=== PATIENT | male | born 1940 | race Caucasian/White ===

== ENCOUNTER 2017-07-14 12:56 | Inpatient (IN) | payer MEDICARE ==
[2017-07-14 13:25] VITALS: RESP 20
--- NOTE | 2017-07-14 13:48 | C.PDOC ---
History Of Present Illness 76 y/o male with Hx of multiple myeloma presents to ED with complaints of generalized weakness, fatigue and inability to eat. As per patient's Oncologist Dr.Amit Montemayor (tel. [phone]) patient was in remission until 2 months ago. Patient failed radiation therapy and started chemotherapy with Kyprolis. The lst treatment was on 07/10/2017. Patient c/o generalized bone and muscle pain, inability to eat, generalized weakness. Patient denies fever, chills, n/v/d or any other complaints at this time. Chief Complaint (Nursing): Hip Pain History Per: Patient, Other (patient's oncologist Dr.Amit Montemayor) History/Exam Limitations: no limitations Onset/Duration Of Symptoms: Days (2-3) Current Symptoms Are (Timing): Still Present Severity: Moderate Pain Scale Rating Of: 6 Past Medical History Reviewed: Historical Data, Nursing Documentation, Vital Signs Vital Signs: Last Vital Signs Temp 98.1 F 07/14/17 13:23 Pulse 72 07/14/17 15:17 Resp 20 07/14/17 15:17 BP 170/81 H 07/14/17 15:17 Pulse Ox 95 07/14/17 15:19 - Medical History PMH: Diabetes, HTN Other PMH: Multiple Myeloma Family History: States: No Known Family Hx - Social History Hx Alcohol Use: No Hx Substance Use: No - Immunization History Hx Tetanus Toxoid Vaccination: No Hx Influenza Vaccination: No Review Of Systems Except As Marked, All Systems Reviewed And Found Negative. Constitutional: Negative for: Fever, Chills Cardiovascular: Negative for: Chest Pain Gastrointestinal: Negative for: Nausea, Vomiting, Diarrhea Skin: Negative for: Rash Neurological: Positive for: Weakness, Altered Mental Status Physical Exam - Physical Exam Appears: Other (Sick, Lethargic but arouseable, answers question after pause, falling asleep during conversation, but wakes up spontaneously and continues conversation.) Skin: Normal Color, Warm, Dry, No Rash Head: Atraumatic, Normacephalic Eye(s): bilateral: Normal Inspection, PERRL, EOMI Nose: Normal Oral Mucosa: Moist Neck: Normal ROM, Supple Lymphatic: No Adenopathy Chest: Symmetrical Cardiovascular: Rhythm Regular Respiratory: Normal Breath Sounds, No Rales, No Rhonchi, No Wheezing Gastrointestinal/Abdominal: Soft, No Tenderness, No Guarding, No Rebound Extremity: Normal ROM, Tenderness (Diffuse tenderness to hips bilateral), Capillary Refill (<2 seconds), No Deformity Neurological/Psych: Oriented x3, No Normal Speech (slow speech, but clear), Normal Motor, Normal Sensation, Other (Patient falls asleep in between sentences , cannot complete full sentences) ED Course And Treatment - Laboratory Results Result Diagrams: 07/14/17 15:03 07/14/17 15:03 O2 Sat by Pulse Oximetry: 95 (RA) Pulse Ox Interpretation: Normal - Other Rad Chest xray X-Ray: Interpreted by Me, Viewed By Me Interpretation: HISTORY: weakness, AMS. COMPARISON: None available. TECHNIQUE: Chest, one view. FINDINGS: LUNGS: Mild left basilar atelectasis/ infiltrate. Please note that chest x-ray has limited sensitivity for the detection of pulmonary masses. PLEURA: Small left pleural effusion. No definite pneumothorax . CARDIOVASCULAR: Heart size appears top normal. OSSEOUS STRUCTURES: Right anterior 5th rib deformity. Osseous demineralization. Degenerative changes of the spine and shoulders. Acromioclavicular arthropathy. VISUALIZED UPPER ABDOMEN: Unremarkable. OTHER FINDINGS: None. IMPRESSION: Mild left basilar atelectasis/infiltrate. Small left pleural effusion. Right anterior 5th rib deformity. - CT Scan/US Head w/o contrast Other Rad Studies (CT/US): Interpreted By Me, Read By Radiologist CT/US Interpretation: PROCEDURE: CT HEAD WITHOUT CONTRAST. HISTORY: AMS, h/o multiple myeloma. COMPARISON: None available. TECHNIQUE: Axial computed tomography images were obtained through the head/brain without intravenous contrast. Radiation dose: Total exam DLP = 890.95 mGy-cm. This CT exam was performed using one or more of the following dose reduction techniques: Automated exposure control, adjustment of the mA and/or kV according to patient size, and/or use of iterative reconstruction technique. FINDINGS: HEMORRHAGE: No intracranial hemorrhage. BRAIN: Diffuse atrophy with prominence of the ventricles and sulci noted. No mass effect or edema. Scattered periventricular and subcortical white matter hypodensities, which are nonspecific, but often seen with chronic microvascular ischemic disease. Please note that MRI with diffusion imaging is more sensitive in the detection of acute ischemic event. VENTRICLES: No hydrocephalus. CALVARIUM: Unremarkable. PARANASAL SINUSES: Unremarkable as visualized. No significant inflammatory changes. MASTOID AIR CELLS: Unremarkable as visualized. No inflammatory changes. OTHER FINDINGS: None. IMPRESSION: Generalized atrophy. Nonspecific white matter changes. Progress Note: Patient was treated with Rocephin IV and Zithromax IV. Results were discussed with pt's Oncologist who requested to admit patient to Hospitalist service. Case was d/w Hospitalist structural ironworker who accepted patient to his service for admission. Medical Decision Making Medical Decision Making: Dr. Montemayor discussed and obtained additional information on patient Dr. Montemayor request patient be admitted under hospitalist services Plan: * Blood work * EKG * CXR * Head CT Disposition - Disposition Disposition: HOSPITALIZED Disposition Time: 17:21 Condition: FAIR Forms: [employer] (Chilean) - Clinical Impression Clinical Impression: Multiple myeloma in relapse, Hyperglycemia, Pneumonia - Scribe Statement The provider has reviewed the documentation as recorded by the Scribe Etta Cisneros All medical record entries made by the Scribe were at my direction and personally dictated by me. I have reviewed the chart and agree that the record accurately reflects my personal performance of the history, physical exam, medical decision making, and the department course for this patient. I have also personally directed, reviewed, and agree with the discharge instructions and disposition. Decision To Admit - Pt Status Changed To: Hospital Disposition Of: Inpatient - Admit Certification Admit to Inpatient:: After my assessment, the patient will require hospitalization for at least two midnights. This is because of the severity of symptoms shown, intensity of services needed, and/or the medical risk in this patient being treated as an outpatient. - InPatient: Physician Admission Certification: I certify that this patient requires 2 or more midnights of care for the following reason:: Patient will need more than 2 days of IV antibiotics. - . Bed Request Type: Regular Admitting Physician: Darryl Wen Patient Diagnosis: Multiple myeloma in relapse, Hyperglycemia, Pneumonia
[2017-07-14] MEDS ORDERED: Sodium Chloride 0.9% 1,000 ML IV STA ×2 (13:54→15:42)
--- NOTE | 2017-07-14 14:30 | RAD ---
HISTORY: weakness, AMS COMPARISON: None available. TECHNIQUE: Chest, one view. FINDINGS: LUNGS: Mild left basilar atelectasis/infiltrate. Please note that chest x-ray has limited sensitivity for the detection of pulmonary masses. PLEURA: Small left pleural effusion. No definite pneumothorax . CARDIOVASCULAR: Heart size appears top normal. OSSEOUS STRUCTURES: Right anterior 5th rib deformity. Osseous demineralization. Degenerative changes of the spine and shoulders. Acromioclavicular arthropathy. VISUALIZED UPPER ABDOMEN: Unremarkable. OTHER FINDINGS: None. IMPRESSION: Mild left basilar atelectasis/infiltrate. Small left pleural effusion. Right anterior 5th rib deformity.
--- NOTE | 2017-07-14 14:45 | CT ---
PROCEDURE: CT HEAD WITHOUT CONTRAST. HISTORY: AMS, h/o multiple myeloma COMPARISON: None available. TECHNIQUE: Axial computed tomography images were obtained through the head/brain without intravenous contrast. Radiation dose: Total exam DLP = 890.95 mGy-cm. This CT exam was performed using one or more of the following dose reduction techniques: Automated exposure control, adjustment of the mA and/or kV according to patient size, and/or use of iterative reconstruction technique. FINDINGS: HEMORRHAGE: No intracranial hemorrhage. BRAIN: Diffuse atrophy with prominence of the ventricles and sulci noted. No mass effect or edema. Scattered periventricular and subcortical white matter hypodensities, which are nonspecific, but often seen with chronic microvascular ischemic disease. Please note that MRI with diffusion imaging is more sensitive in the detection of acute ischemic event. VENTRICLES: No hydrocephalus. CALVARIUM: Unremarkable. PARANASAL SINUSES: Unremarkable as visualized. No significant inflammatory changes. MASTOID AIR CELLS: Unremarkable as visualized. No inflammatory changes. OTHER FINDINGS: None. IMPRESSION: Generalized atrophy. Nonspecific white matter changes.
[2017-07-14 15:09] LABS: BASO # 0.1 K/uL (0.0-0.2); BASO % 0.7 % (0.0-2.0); EOS # 0.1 K/uL (0.0-0.7); EOS % 0.4 % (0.0-4.0); HEMATOCRIT 30.2 % (35.0-51.0); LYMPH # 0.7 K/uL (1.0-4.3); LYMPH % 5.5 % (20.0-40.0); MEAN CELL VOLUME 83.9 fL (80.0-94.0); MEAN CORPUSCULAR HEMOGLOBIN 26.6 pg (27.0-31.0); MEAN CORPUSCULAR HGB CONC 31.7 g/dL (33.0-37.0); MEAN PLATELET VOLUME 11.5 fL (7.2-11.7); MONO # 0.8 K/uL (0.0-0.8); NRBC % 1.4 % (0.0-2.0); PLATELET COUNT 165 K/uL (130-400); RED CELL DISTRIBUTION WIDTH 16.9 % (11.5-14.5); RETIC% 2.8 % (0.5-1.5); WHITE BLOOD COUNT 12.9 K/uL (4.8-10.8)
[2017-07-14] MEDS ORDERED: Sodium Chloride 0.9% 1,000 ML ONE ×2 (15:09→16:09)
[2017-07-14 15:17] LABS: INR 1.4
[2017-07-14 15:19] LABS: CHLORIDE 101 mmol/L (98-107); SODIUM 137 mmol/L (132-148)
[2017-07-14 15:20] LABS: POTASSIUM 4.4 mmol/L (3.6-5.2)
[2017-07-14 15:21] LABS: AMYLASE 38 U/L (30-110); GFR AFRICAN-AMERICAN > 60
[2017-07-14 15:22] LABS: ALB/GLOB RATIO 0.6 (1.0-2.1); ALKALINE PHOSPHATASE 374 U/L (38-126); ALT/SGPT 49 U/L (21-72); AST/SGOT 25 U/L (17-59); BILIRUBIN,TOTAL 0.6 mg/dL (0.2-1.3); BLOOD UREA NITROGEN 19 mg/dL (9-20); CARBON DIOXIDE 27 mmol/L (22-30); TOTAL PROTEIN 6.7 g/dL (6.3-8.3)
[2017-07-14 15:23] LABS: CALCIUM 8.6 mg/dl (8.6-10.4)
[2017-07-14 15:24] LABS: GLUCOSE,RANDOM 427 mg/dL (75-110)
[2017-07-14] MEDS ORDERED: Azithromycin 500 MG in Sodium Chloride 0.9% 250 ML IVPB STA (15:41)
[2017-07-14 15:42] LABS: NEUTROPHIL 89 % (50-75); NUCLEATED RED BLOOD CELL 1 % (0-0); TOTAL CELLS COUNTED 100
[2017-07-14 16:07] LABS: RBC URINE 10 /hpf (0-3); URINE BILIRUBIN NEGATIVE (NEGATIVE); URINE BLOOD 1+ (NEGATIVE); URINE COLOR Yellow (YELLOW); URINE GLUCOSE (UA) 3+ mg/dL (Normal); URINE KETONE TRACE mg/dL (NEGATIVE); URINE LEUKOCYTE ESTERASE NEG Leu/uL (Negative); URINE PROTEIN 3+ mg/dL (NEGATIVE); URINE UROBILINOGEN NORMAL mg/dL (0.2-1.0); WBC URINE 2 /hpf (0-5)
[2017-07-14] MEDS ORDERED: cefTRIAXone IV 1 gm in Dextros 50 ML IVPB ONE (16:09)
[2017-07-14] MEDS ORDERED: (Novolin R) Insulin Human Regular 100 units/ml vial SC ONE (17:08)
[2017-07-14] MEDS ORDERED: (Novolin R) Insulin Human Regular 100 units/ml vial ONE (17:29)
[2017-07-14] MEDS ORDERED: Azithromycin 500mg/250ML NS 500 MG/250 ML BAG IVPB ONE (17:31)
--- NOTE | 2017-07-14 18:04 | CP.PCM.HP ---
<Haja Beltran - Last Filed: 07/14/17 17:51> History of Present Illness - History of Present Illness History of Present Illness: CC: weakness HPI: 76M PMHx MM diagnosed 2 years ago, HTN and DM presented with generalized weakness, pain and decreased oral intake. Pt daughter at bedside. Per ED note, pt was in remission until 2 months ago, and failed radiation therapy. Pt had a fall in May s/p left hip surgery. Since then pt has worsening generalized weakness and decreased PO intake. Pt was sent to [facility] 2 weeks ago for evaluation. The daughter said he received some blood and had colonoscopy/EGD which turned out to be ok. Pt was discharged and was not getting better. Pt also was started on Kyprolis on 07/10. Currently complains of generalized body pain, increased urination. Denied night sweats, fever, chills, n/v, cough, or other symptoms. PMHx: MM, HTN, DM PSHx: left hip surgery in May FMHx: unknown Social: denied ETOH, tobacco. Moved from [facility] [place] 40 years ago. 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 Private oncologist: Dr. Musa Montemayor Present on Admission - Present on Admission Any Indicators Present on Admission: Yes History of Uncontrolled Diabetes: Yes Review of Systems - Constitutional Constitutional: Anorexia, Weakness. absent: Excessive Sweating - Cardiovascular Cardiovascular: absent: Chest Pain, Leg Edema, Pedal Edema - Respiratory Respiratory: absent: Dyspnea on Exertion - Gastrointestinal Gastrointestinal: Abdominal Pain. absent: Constipation, Diarrhea, Nausea, Vomiting - Genitourinary Genitourinary: Urinary Frequency. absent: Dysuria, Pyuria - Musculoskeletal Musculoskeletal: Muscle Weakness - Psychiatric Psychiatric: absent: Anxiety Past Patient History - Past Social History Smoking Status: Never Smoked - CARDIAC Hx Hypertension: Yes - ENDOCRINE/METABOLIC Hx Diabetes Mellitus Type 2: Yes - HEMATOLOGICAL/ONCOLOGICAL Hx Cancer: Yes (multiple myeloma) - PSYCHIATRIC Hx Substance Use: No - ANESTHESIA Hx Anesthesia: No Hx Anesthesia Reactions: No Meds Allergies/Adverse Reactions: Allergies Allergy/AdvReac Type Severity Reaction Status Date / Time No Known Allergies Allergy Verified 07/14/17 13:32 Physical Exam - Constitutional Appears: Non-toxic, No Acute Distress, Chronically Ill - Head Exam Head Exam: ATRAUMATIC - Eye Exam Eye Exam: Normal appearance Pupil Exam: NORMAL ACCOMODATION - Respiratory Exam Respiratory Exam: Clear to Auscultation Bilateral, NORMAL BREATHING PATTERN. absent: Rhonchi, Wheezes - Cardiovascular Exam Cardiovascular Exam: REGULAR RHYTHM, +S1, +S2. absent: Gallop, Rubs - GI/Abdominal Exam GI & Abdominal Exam: Normal Bowel Sounds, Soft. absent: Distended, Tenderness - Extremities Exam Extremities exam: Positive for: tenderness, pedal pulses present. Negative for : pedal edema - Back Exam Additional comments: Unable to move LLE due to pain - Neurological Exam Neurological exam: Alert, Oriented x3 - Psychiatric Exam Psychiatric exam: Normal Affect - Skin Skin Exam: Intact Results - Vital Signs Recent Vital Signs: Last Vital Signs Temp 98.1 F 07/14/17 13:23 Pulse 72 07/14/17 15:17 Resp 20 07/14/17 15:17 BP 170/81 H 07/14/17 15:17 Pulse Ox 95 07/14/17 17:23 - Labs Result Diagrams: 07/14/17 15:03 07/14/17 15:03 Assessment & Plan - Assessment and Plan (Free Text) Assessment: Leukocytosis Likely secondary to MM or infection. CXR showed small left pleural effusion and right 5th rib deformity per report. Heme/onc Dr. Serrano consulted, help appreciated. Continue Zithromax and Rocephin. NS at 100ml/hr. F/U blood culture. Urinary frequency UA showed 1+ blood, 3+ protein and glucose. F/U urine culture. Multiple Myeloma Morphine 2mg q4H PRN. Oxycodone 5mg PO q6 PRN. Heme/onc Dr. Serrano consulted, help appreciated. HTN Continue home med Norvasc 10mg PO daily. DM PAUL Guzman. Home oral meds on hold. Lantus 10U HS. NS @ 100ml/hr. F/U HbA1c. Prophylactic measure SCD, Protonix, Lovenox. <Musa Palomares - Last Filed: 08/18/17 15:40> Results - Vital Signs Recent Vital Signs: Last Vital Signs Temp 98.9 F 07/17/17 15:00 Pulse 95 H 07/17/17 15:00 Resp 20 07/17/17 15:00 BP 165/83 H 07/17/17 15:00 Pulse Ox 96 07/17/17 15:00 - Labs Result Diagrams: 07/17/17 13:58 07/17/17 13:58 Attending/Attestation - Attestation I have personally seen and examined this patient.: Yes I have fully participated in the care of the patient.: Yes I have reviewed all pertinent clinical information: Yes Notes (Text): Leukocytosis possible to MM or infection Urinary frequency Multiple Myeloma HTN
[2017-07-14] MEDS ORDERED: oxyCODONE 5 mg Immediate Release Tab PO PRN (18:46)
[2017-07-14] MEDS ORDERED: (Novolin R) Insulin Human Regular 100 units/ml vial IV ONE (20:08)
[2017-07-14] MEDS: Sodium Chloride 0.9% 1,000 ML IV SCH (20:08)
[2017-07-14] MEDS: (Lantus) Insulin Glargine, Recombinant SC SCH (22:15)
[2017-07-14] MEDS: (Novolin R) Insulin Human Regular 100 units/ml vial SC SCH (22:15)
[2017-07-15] MEDS: Sodium Chloride 0.9% 1,000 ML IV SCH ×2 (07:42→22:38)
[2017-07-15] MEDS: (Novolin R) Insulin Human Regular 100 units/ml vial SC SCH ×4 (08:07→22:37)
[2017-07-15] MEDS: Pantoprazole 40 mg EC Tab PO SCH (09:13)
[2017-07-15] MEDS: Enoxaparin 40 mg Syringe SC SCH (09:13)
[2017-07-15] MEDS: Azithromycin 500 MG in Sodium Chloride 0.9% 250 ML IVPB SCH (09:13)
[2017-07-15 17:20] LABS: BASO % 0.2 % (0.0-2.0); EOS # 0.1 K/uL (0.0-0.7); EOS % 1.1 % (0.0-4.0); HEMATOCRIT 32.1 % (35.0-51.0); LYMPH # 0.9 K/uL (1.0-4.3); LYMPH % 8.2 % (20.0-40.0); MEAN CORPUSCULAR HEMOGLOBIN 26.6 pg (27.0-31.0); MEAN CORPUSCULAR HGB CONC 31.7 g/dL (33.0-37.0); MEAN PLATELET VOLUME 10.9 fL (7.2-11.7); MONO # 0.9 K/uL (0.0-0.8); MONO % 7.5 % (0.0-10.0); NRBC % 0.3 % (0.0-2.0); PLATELET COUNT 166 K/uL (130-400); RED CELL DISTRIBUTION WIDTH 17.2 % (11.5-14.5); WHITE BLOOD COUNT 11.5 K/uL (4.8-10.8)
--- NOTE | 2017-07-15 17:27 | RAD ---
HISTORY: Follow up CXR COMPARISON: Comparison chest dated 07/14/2017 FINDINGS: LUNGS: There is a left lower lobe atelectasis and or infiltrate with questionable small left effusion. Suspect mild biapical pleural thickening. PLEURA: As above. No pneumothorax apparent. CARDIOVASCULAR: Heart appears upper limits of normal/ borderline enlarged. Aorta also appears ectatic and uncoiled. OSSEOUS STRUCTURES: No change deformity right anterior rib; rule sequela of old trauma. Degenerative osteoarthritis both shoulder girdles. Mild degenerative spondylosis thoracic spine VISUALIZED UPPER ABDOMEN: Normal. OTHER FINDINGS: None. IMPRESSION: Left lower lobe atelectasis and or infiltrate with questionable small effusion.
[2017-07-15 17:29] LABS: CHLORIDE 104 mmol/L (98-107); POTASSIUM 3.6 mmol/L (3.6-5.2); SODIUM 135 mmol/L (132-148)
[2017-07-15 17:31] LABS: GFR AFRICAN-AMERICAN > 60
[2017-07-15 17:32] LABS: ALB/GLOB RATIO 0.6 (1.0-2.1); ALKALINE PHOSPHATASE 418 U/L (38-126); ALT/SGPT 45 U/L (21-72); AST/SGOT 24 U/L (17-59); BILIRUBIN,TOTAL 0.6 mg/dL (0.2-1.3); BLOOD UREA NITROGEN 13 mg/dL (9-20); CALCIUM 7.9 mg/dl (8.6-10.4); CARBON DIOXIDE 24 mmol/L (22-30); GLUCOSE,RANDOM 227 mg/dL (75-110); TOTAL PROTEIN 6.5 g/dL (6.3-8.3)
[2017-07-15 19:30] LABS: NEUTROPHIL 86 % (50-75); TOTAL CELLS COUNTED 100
[2017-07-15 19:31] LABS: GIANT PLATELETS PRESENT
--- NOTE | 2017-07-15 20:36 | CP.PCM.PN ---
<Gregory Casillas - Last Filed: 07/15/17 20:33> Subjective - Date & Time of Evaluation Date of Evaluation: 07/15/17 Time of Evaluation: 20:34 - Subjective Subjective: PGY-[address] Palomares HPI: Patient seen and examined at bedside. Confused. Not able to answer questions appropriately. Keeps saying there is pain over his L. hip. Does not have any other complaints at this time. Denies CP, SOB, N/V/D, F/Chills Objective - Vital Signs/Intake and Output Vital Signs (last 24 hours): Temp Pulse Resp BP Pulse Ox 97 F L 77 20 152/86 H 96 07/15/17 15:00 07/15/17 15:00 07/15/17 15:00 07/15/17 15:00 07/15/17 15:00 Intake and Output: 07/15/17 07/16/17 18:59 06:59 Intake Total 920 Output Total 600 Balance 320 - Medications Medications: Current Medications Amlodipine Besylate (Norvasc) 10 mg PO DAILY [facility] Last Admin: 07/15/17 09:13 Dose: 10 mg Aspirin (Aspirin Chewable) 81 mg PO DAILY [facility] Last Admin: 07/15/17 09:13 Dose: 81 mg Enoxaparin Sodium (Lovenox) 40 mg SC DAILY [facility] Last Admin: 07/15/17 09:13 Dose: 40 mg Gabapentin (Neurontin) 300 mg PO BID [facility] Last Admin: 07/15/17 17:26 Dose: 300 mg Sodium Chloride (Sodium Chloride 0.9%) 1,000 mls @ 100 mls/hr IV .Q10H [facility] Last Admin: 07/15/17 07:42 Dose: Not Given Azithromycin 500 mg/ Sodium (Chloride) 250 mls @ 250 mls/hr IVPB DAILY [facility] Last Admin: 07/15/17 09:13 Dose: 250 mls/hr Ceftriaxone Sodium 1 gm/ (Sodium Chloride) 100 mls @ 100 mls/hr IVPB Q12H [facility] Last Admin: 07/15/17 16:12 Dose: 100 mls/hr Insulin Glargine (Lantus) 10 unit SC HS [facility] Last Admin: 07/14/17 22:15 Dose: 10 units Insulin Human Regular (Novolin R) 0 unit SC ACHS [facility] PRN Reason: Protocol Last Admin: 07/15/17 17:27 Dose: 4 unit Morphine Sulfate (Morphine) 2 mg IVP Q4H PRN PRN Reason: severe pain Last Admin: 07/15/17 09:28 Dose: 2 mg Oxycodone HCl (Oxycodone Immediate Release Tab) 5 mg PO Q6 PRN PRN Reason: moderate pain Pantoprazole Sodium (Protonix Ec Tab) 40 mg PO DAILY [facility] Last Admin: 07/15/17 09:13 Dose: 40 mg - Labs Labs: 07/15/17 16:59 07/15/17 16:59 PT 15.8 SECONDS (9.7-12.2) H 07/14/17 15:03 INR 1.4 07/14/17 15:03 APTT 32 SECONDS (21-34) 07/14/17 15:03 - Constitutional Appears: Cachectic - Head Exam Head Exam: ATRAUMATIC, NORMAL INSPECTION, NORMOCEPHALIC - Eye Exam Eye Exam: EOMI - ENT Exam ENT Exam: Mucous Membranes Moist - Neck Exam Neck Exam: Full ROM - Respiratory Exam Respiratory Exam: Clear to Ausculation Bilateral, NORMAL BREATHING PATTERN - Cardiovascular Exam Cardiovascular Exam: REGULAR RHYTHM. absent: RRR - GI/Abdominal Exam GI & Abdominal Exam: Soft, Normal Bowel Sounds. absent: Distended, Tenderness - Extremities Exam Extremities Exam: absent: Joint Swelling, Pedal Edema, Tenderness Additional comments: pain on palpation over L. Hip - Neurological Exam Neurological Exam: Alert, Awake Additional comments: confused - Psychiatric Exam Psychiatric exam: Normal Affect, Normal Mood - Skin Skin Exam: Dry, Intact, Normal Color, Warm Assessment and Plan - Assessment and Plan (Free Text) Assessment: Leukocytosis Likely secondary to MM or infection. CXR showed small left pleural effusion and right 5th rib deformity per report. Heme/onc Dr. Serrano consulted, help appreciated. Continue Zithromax and Rocephin. NS at 100ml/hr. F/U blood culture. Urinary frequency UA showed 1+ blood, 3+ protein and glucose. F/U urine culture. Multiple Myeloma Morphine 2mg q4H PRN. Oxycodone 5mg PO q6 PRN. Heme/onc Dr. Serrano consulted, help appreciated. HTN Continue home med Norvasc 10mg PO daily. DM Accucheck, RISS. Home oral meds on hold. Lantus 10U HS. NS @ 100ml/hr. HbA1c = 9.5 Prophylactic measure SCD, Protonix, Lovenox. 07/15/17: Patient refused blood work for most of day before agreeing in the afternoon. Patient needs outpatient rehab. Will continue abx <Musa Palomares - Last Filed: 08/18/17 15:41> Objective - Vital Signs/Intake and Output Vital Signs (last 24 hours): Temp Pulse Resp BP Pulse Ox 98.9 F 95 H 20 165/83 H 96 07/17/17 15:00 07/17/17 15:00 07/17/17 15:00 07/17/17 15:00 07/17/17 15:00 - Labs Labs: 07/17/17 13:58 07/17/17 13:58 PT 15.8 SECONDS (9.7-12.2) H 07/14/17 15:03 INR 1.4 07/14/17 15:03 APTT 32 SECONDS (21-34) 07/14/17 15:03 Attending/Attestation - Attestation I have personally seen and examined this patient.: Yes I have fully participated in the care of the patient.: Yes I have reviewed all pertinent clinical information, including history, physical exam and plan: Yes Notes (Text): Leukocytosis possible to MM or infection Urinary frequency Multiple Myeloma HTN
[2017-07-15] MEDS: (Lantus) Insulin Glargine, Recombinant SC SCH (22:36)
[2017-07-16] MEDS: Sodium Chloride 0.9% 1,000 ML IV SCH ×4 (00:14→23:45)
[2017-07-16] MEDS: (Novolin R) Insulin Human Regular 100 units/ml vial SC SCH ×4 (08:13→21:37)
[2017-07-16] MEDS: Pantoprazole 40 mg EC Tab PO SCH (10:20)
[2017-07-16] MEDS: Enoxaparin 40 mg Syringe SC SCH (10:20)
[2017-07-16] MEDS: Azithromycin 500 MG in Sodium Chloride 0.9% 250 ML IVPB SCH (10:25)
--- NOTE | 2017-07-16 17:05 | CP.PCM.PN ---
<Gregory Casillas - Last Filed: 07/16/17 16:49> Subjective - Date & Time of Evaluation Date of Evaluation: 07/16/17 Time of Evaluation: 16:49 - Subjective Subjective: PGY1 Note for Dr. Palomares HPI: Patient seen and examined at bedside. Doing well with no complaints at this time. His hip feels much better. He wants to go home. Denies Fever, N/V/D/ CP/SOB. Objective - Vital Signs/Intake and Output Vital Signs (last 24 hours): Temp Pulse Resp BP Pulse Ox 98 F 88 20 169/87 H 96 07/16/17 15:00 07/16/17 15:00 07/16/17 15:00 07/16/17 15:00 07/16/17 15:00 Intake and Output: 07/16/17 07/16/17 06:59 18:59 Intake Total 1950 1090 Output Total 350 400 Balance 1600 690 - Medications Medications: Current Medications Amlodipine Besylate (Norvasc) 10 mg PO DAILY [facility] Last Admin: 07/16/17 10:20 Dose: 10 mg Aspirin (Aspirin Chewable) 81 mg PO DAILY [facility] Last Admin: 07/16/17 10:20 Dose: 81 mg Enoxaparin Sodium (Lovenox) 40 mg SC DAILY [facility] Last Admin: 07/16/17 10:20 Dose: 40 mg Gabapentin (Neurontin) 300 mg PO BID [facility] Last Admin: 07/16/17 10:20 Dose: 300 mg Hydrochlorothiazide (Microzide) 12.5 mg PO DAILY [facility] Last Admin: 07/16/17 10:25 Dose: 12.5 mg Sodium Chloride (Sodium Chloride 0.9%) 1,000 mls @ 100 mls/hr IV .Q10H [facility] Last Admin: 07/16/17 10:23 Dose: 100 mls/hr Azithromycin 500 mg/ Sodium (Chloride) 250 mls @ 250 mls/hr IVPB DAILY [facility] Last Admin: 07/16/17 10:25 Dose: 250 mls/hr Ceftriaxone Sodium 1 gm/ (Sodium Chloride) 100 mls @ 100 mls/hr IVPB Q12H [facility] Last Admin: 07/16/17 16:44 Dose: 100 mls/hr Insulin Glargine (Lantus) 10 unit SC HS [facility] Last Admin: 07/15/17 22:36 Dose: 10 units Insulin Human Regular (Novolin R) 0 unit SC ACHS [facility] PRN Reason: Protocol Last Admin: 07/16/17 12:31 Dose: 4 unit Morphine Sulfate (Morphine) 2 mg IVP Q4H PRN PRN Reason: severe pain Last Admin: 07/16/17 06:37 Dose: 2 mg Oxycodone HCl (Oxycodone Immediate Release Tab) 5 mg PO Q6 PRN PRN Reason: moderate pain Pantoprazole Sodium (Protonix Ec Tab) 40 mg PO DAILY [facility] Last Admin: 07/16/17 10:20 Dose: 40 mg - Labs Labs: 07/15/17 16:59 07/15/17 16:59 PT 15.8 SECONDS (9.7-12.2) H 07/14/17 15:03 INR 1.4 07/14/17 15:03 APTT 32 SECONDS (21-34) 07/14/17 15:03 - Constitutional Appears: Well, Non-toxic, No Acute Distress - Head Exam Head Exam: ATRAUMATIC, NORMAL INSPECTION, NORMOCEPHALIC - Eye Exam Eye Exam: EOMI - ENT Exam ENT Exam: Mucous Membranes Moist - Respiratory Exam Respiratory Exam: Clear to Ausculation Bilateral. absent: Rales, Rhonchi, Wheezes, Stridor - Cardiovascular Exam Cardiovascular Exam: REGULAR RHYTHM, RRR. absent: Tachycardia, Clicks, Gallop, JVD, Rubs, Murmur - GI/Abdominal Exam GI & Abdominal Exam: Soft, Normal Bowel Sounds. absent: Distended, Tenderness - Extremities Exam Extremities Exam: absent: Joint Swelling, Pedal Edema, Tenderness - Psychiatric Exam Psychiatric exam: Normal Affect, Normal Mood - Skin Skin Exam: Dry, Intact, Normal Color, Warm Assessment and Plan - Assessment and Plan (Free Text) Assessment: Leukocytosis Likely secondary to MM or infection. CXR showed small left pleural effusion and right 5th rib deformity per report. Heme/onc consulted * F/U Continue Zithromax and Rocephin. NS at 100ml/hr. F/U blood culture Urinary frequency UA showed 1+ blood, 3+ protein and glucose. urine culture - Contaminated Multiple Myeloma Morphine 2mg q4H PRN. Oxycodone 5mg PO q6 PRN. Heme/onc Dr. Serrano consulted - F/U HTN Continue home med Norvasc 10mg PO daily. DM Accucheck, RISS. Home oral meds on hold. Lantus 10U HS. NS @ 100ml/hr. HbA1c = 9.5 Prophylactic measure SCD, Protonix, Lovenox. 07/15/17: Patient refused blood work for most of day before agreeing in the afternoon. Patient needs outpatient rehab. Will continue abx 07/16/17: Patient Doing well. Will D/c tomorrow to Rehab <Musa Palomares - Last Filed: 08/18/17 15:41> Objective - Vital Signs/Intake and Output Vital Signs (last 24 hours): Temp Pulse Resp BP Pulse Ox 98.9 F 95 H 20 165/83 H 96 07/17/17 15:00 07/17/17 15:00 07/17/17 15:00 07/17/17 15:00 07/17/17 15:00 - Labs Labs: 07/17/17 13:58 07/17/17 13:58 PT 15.8 SECONDS (9.7-12.2) H 07/14/17 15:03 INR 1.4 07/14/17 15:03 APTT 32 SECONDS (21-34) 07/14/17 15:03 Attending/Attestation - Attestation I have personally seen and examined this patient.: Yes I have fully participated in the care of the patient.: Yes I have reviewed all pertinent clinical information, including history, physical exam and plan: Yes Notes (Text): Leukocytosis possible to MM or infection Urinary frequency Multiple Myeloma HTN
[2017-07-16] MEDS ORDERED: Ferric Sodium Gluconat Complex 62.5 mg/5 ml Vial IVPB ONE (18:32)
--- NOTE | 2017-07-16 18:32 | CP.PCM.CON ---
History of Present Illness - History of Present Illness History of Present Illness: Hematology Consult Referred by Dr. Palomares for h/o multiple myeloma HPI- Mr Jarquin is known to my partner, Dr. Montemayor. He is 76 y/o M with h/o HTN, DM who was diagnosed with multiple myeloma early 2015. He has been treated with different lines of therapy, last treatment was with Kyprolis, last dose on . He was admitted now with weakness and decreased oral intake. He had mild leucocytosis on admission and CXR shows mild left lower lobe infiltrate. He was started on antibiotics and feels better now. Denies fever, chills. Denies altered bowel movements. FMHx: unknown Social: denied ETOH, tobacco. Moved from [facility] 40 years ago. 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 Review of Systems - Review of Systems All systems: reviewed and no additional remarkable complaints except Review of Systems: as in HPI Past Patient History - Past Medical History & Family History Past Medical History?: Yes - Past Social History Smoking Status: Never Smoked - CARDIAC Hx Hypertension: Yes - ENDOCRINE/METABOLIC Hx Diabetes Mellitus Type 2: Yes - HEMATOLOGICAL/ONCOLOGICAL Hx Cancer: Yes (multiple myeloma) - MUSCULOSKELETAL/RHEUMATOLOGICAL Hx Falls: No - PSYCHIATRIC Hx Substance Use: No - ANESTHESIA Hx Anesthesia: No Hx Anesthesia Reactions: No Meds Allergies/Adverse Reactions: Allergies Allergy/AdvReac Type Severity Reaction Status Date / Time No Known Allergies Allergy Verified 07/14/17 13:32 - Medications Medications: Current Medications Amlodipine Besylate (Norvasc) 10 mg PO DAILY [facility] Last Admin: 07/16/17 10:20 Dose: 10 mg Aspirin (Aspirin Chewable) 81 mg PO DAILY [facility] Last Admin: 07/16/17 10:20 Dose: 81 mg Enoxaparin Sodium (Lovenox) 40 mg SC DAILY [facility] Last Admin: 07/16/17 10:20 Dose: 40 mg Gabapentin (Neurontin) 300 mg PO BID [facility] Last Admin: 07/16/17 17:35 Dose: 300 mg Hydrochlorothiazide (Microzide) 12.5 mg PO DAILY [facility] Last Admin: 07/16/17 10:25 Dose: 12.5 mg Sodium Chloride (Sodium Chloride 0.9%) 1,000 mls @ 100 mls/hr IV .Q10H [facility] Last Admin: 07/16/17 10:23 Dose: 100 mls/hr Azithromycin 500 mg/ Sodium (Chloride) 250 mls @ 250 mls/hr IVPB DAILY [facility] Last Admin: 07/16/17 10:25 Dose: 250 mls/hr Ceftriaxone Sodium 1 gm/ (Sodium Chloride) 100 mls @ 100 mls/hr IVPB Q12H [facility] Last Admin: 07/16/17 16:44 Dose: 100 mls/hr Insulin Glargine (Lantus) 10 unit SC HS [facility] Last Admin: 07/15/17 22:36 Dose: 10 units Insulin Human Regular (Novolin R) 0 unit SC ACHS [facility] PRN Reason: Protocol Last Admin: 07/16/17 17:35 Dose: 4 unit Morphine Sulfate (Morphine) 2 mg IVP Q4H PRN PRN Reason: severe pain Last Admin: 07/16/17 17:34 Dose: 2 mg Oxycodone HCl (Oxycodone Immediate Release Tab) 5 mg PO Q6 PRN PRN Reason: moderate pain Pantoprazole Sodium (Protonix Ec Tab) 40 mg PO DAILY [facility] Last Admin: 07/16/17 10:20 Dose: 40 mg Physical Exam - Head Exam Head Exam: ATRAUMATIC, NORMAL INSPECTION - Eye Exam Eye Exam: EOMI, PERRL - ENT Exam ENT Exam: Mucous Membranes Moist - Neck Exam Neck exam: Negative for: Lymphadenopathy - Respiratory Exam Respiratory Exam: Clear to Auscultation Bilateral - Cardiovascular Exam Cardiovascular Exam: REGULAR RHYTHM - GI/Abdominal Exam GI & Abdominal Exam: Normal Bowel Sounds, Soft. absent: Organomegaly, Tenderness - Extremities Exam Extremities exam: Negative for: pedal edema - Neurological Exam Neurological exam: Alert, Oriented x3 Results - Vital Signs Recent Vital Signs: Last Vital Signs Temp 98 F 07/16/17 15:00 Pulse 88 07/16/17 15:00 Resp 20 07/16/17 15:00 BP 169/87 H 07/16/17 15:00 Pulse Ox 96 07/16/17 15:00 - Labs Result Diagrams: 07/15/17 16:59 07/15/17 16:59 Labs: Laboratory Results - last 24 hr 07/15/17 07/15/17 07/16/17 16:59 21:44 07:00 Neutrophils % (Manual) 86 H Lymphocytes % (Manual) 8 L Monocytes % (Manual) 6 Platelet Estimate Normal Giant Platelets Present Anisocytosis (manual) Slight POC Glucose (mg/dL) 228 H 234 H 07/16/17 07/16/17 11:04 16:21 Neutrophils % (Manual) Lymphocytes % (Manual) Monocytes % (Manual) Platelet Estimate Giant Platelets Anisocytosis (manual) POC Glucose (mg/dL) 267 H 255 H Assessment & Plan - Assessment and Plan (Free Text) Assessment: Multiple Myeloma He will resume treatment with Kyprolis at discharge. Will give him a dose of IV iron Continue management of pneumonia as per medical team. Physical therapy/ rehab Thank you for the consult Leandro Serrano MD - Date & Time Date: 07/16/17 Time: 18:31
[2017-07-16] MEDS: (Lantus) Insulin Glargine, Recombinant SC SCH (21:36)
[2017-07-17 07:45] VITALS: BP 165/83
[2017-07-17] MEDS: (Novolin R) Insulin Human Regular 100 units/ml vial SC SCH ×4 (08:21→22:08)
[2017-07-17] MEDS: Pantoprazole 40 mg EC Tab PO SCH (10:24)
[2017-07-17] MEDS: Azithromycin 500 MG in Sodium Chloride 0.9% 250 ML IVPB SCH (10:24)
[2017-07-17] MEDS: Enoxaparin 40 mg Syringe SC SCH (10:24)
--- NOTE | 2017-07-17 12:22 | CP.PCM.DIS ---
<Gregory Casillas - Last Filed: 07/17/17 20:23> Provider - Provider Date of Admission: 07/14/17 17:06 Attending physician: Musa Palomares MD Primary care physician: Maggie Consults: Maggie Time Spent in preparation of Discharge (in minutes): 60 Hospital Course - Lab Results Lab Results: Micro Results 07/14/17 Unknown Urine Urine Culture - Final 10-50,000 CFU/ML. MULTIPLE SPECIES. PROBABLE CONTAMINATION. Most Recent Lab Values WBC 11.5 K/uL (4.8-10.8) H 07/15/17 16:59 RBC 3.82 Mil/uL (4.40-5.90) L 07/15/17 16:59 Hgb 10.2 g/dL (12.0-18.0) L 07/15/17 16:59 Hct 32.1 % (35.0-51.0) L 07/15/17 16:59 MCV 84.0 fL (80.0-94.0) 07/15/17 16:59 MCH 26.6 pg (27.0-31.0) L 07/15/17 16:59 MCHC 31.7 g/dL (33.0-37.0) L 07/15/17 16:59 RDW 17.2 % (11.5-14.5) H 07/15/17 16:59 Plt Count 166 K/uL (130-400) 07/15/17 16:59 MPV 10.9 fL (7.2-11.7) 07/15/17 16:59 Neut % (Auto) 83.0 % (50.0-75.0) H 07/15/17 16:59 Lymph % (Auto) 8.2 % (20.0-40.0) L 07/15/17 16:59 Stanley % (Auto) 7.5 % (0.0-10.0) 07/15/17 16:59 Eos % (Auto) 1.1 % (0.0-4.0) 07/15/17 16:59 Baso % (Auto) 0.2 % (0.0-2.0) 07/15/17 16:59 Neut # 9.5 K/uL (1.8-7.0) H 07/15/17 16:59 Lymph # 0.9 K/uL (1.0-4.3) L 07/15/17 16:59 Stanley # 0.9 K/uL (0.0-0.8) H 07/15/17 16:59 Eos # 0.1 K/uL (0.0-0.7) 07/15/17 16:59 Baso # 0.0 K/uL (0.0-0.2) 07/15/17 16:59 Neutrophils % (Manual) 86 % (50-75) H 07/15/17 16:59 Lymphocytes % (Manual) 8 % (20-40) L 07/15/17 16:59 Monocytes % (Manual) 6 % (0-10) 07/15/17 16:59 Nucleated RBC % 1 % (0-0) H 07/14/17 15:03 Platelet Estimate Normal (NORMAL) 07/15/17 16:59 Giant Platelets Present 07/15/17 16:59 Polychromasia Slight 07/14/17 15:03 Hypochromasia (manual) Slight 07/14/17 15:03 Anisocytosis (manual) Slight 07/15/17 16:59 Retic Count 2.8 % (0.5-1.5) H 07/14/17 15:03 PT 15.8 SECONDS (9.7-12.2) H 07/14/17 15:03 INR 1.4 07/14/17 15:03 APTT 32 SECONDS (21-34) 07/14/17 15:03 Sodium 135 mmol/L (132-148) 07/15/17 16:59 Potassium 3.6 mmol/L (3.6-5.2) 07/15/17 16:59 Chloride 104 mmol/L (98-107) 07/15/17 16:59 Carbon Dioxide 24 mmol/L (22-30) 07/15/17 16:59 Anion Gap 10 (10-20) 07/15/17 16:59 BUN 13 mg/dL (9-20) 07/15/17 16:59 Creatinine 0.6 MG/DL (0.8-1.5) L 07/15/17 16:59 Est GFR ( Amer) > 60 07/15/17 16:59 Est GFR (Non-Af Amer) > 60 07/15/17 16:59 POC Glucose (mg/dL) 332 mg/dL (65-110) H 07/17/17 11:11 Random Glucose 227 mg/dL (75-110) H 07/15/17 16:59 Hemoglobin A1c 9.5 % (4.2-6.5) H 07/15/17 16:59 Calcium 7.9 mg/dl (8.6-10.4) L 07/15/17 16:59 Magnesium 2.0 mg/dL (1.6-2.3) 07/14/17 15:03 Total Bilirubin 0.6 mg/dL (0.2-1.3) 07/15/17 16:59 AST 24 U/L (17-59) 07/15/17 16:59 ALT 45 U/L (21-72) 07/15/17 16:59 Alkaline Phosphatase 418 U/L (38-126) H 07/15/17 16:59 Total Creatine Kinase 22 U/L (55-170) L 07/14/17 15:03 CK-MB (Mass) 0.32 ng/mL (0.0-3.38) 07/14/17 15:03 Troponin I 0.0400 ng/mL (0.00-0.120) 07/14/17 15:03 Total Protein 6.5 g/dL (6.3-8.3) 07/15/17 16:59 Albumin 2.4 g/dL (3.5-5.0) L 07/15/17 16:59 Globulin 4.1 gm/dL (2.2-3.9) H 07/15/17 16:59 Albumin/Globulin Ratio 0.6 (1.0-2.1) L 07/15/17 16:59 Amylase 38 U/L (30-110) 07/14/17 15:03 Lipase 23 U/L (23-300) 07/14/17 15:03 Urine Color Yellow (YELLOW) 07/14/17 15:57 Urine Clarity Clear (Clear) 07/14/17 15:57 Urine pH 7.0 (5.0-8.0) 07/14/17 15:57 Ur Specific [place] 1.023 (1.003-1.030) 07/14/17 15:57 Urine Protein 3+ mg/dL (NEGATIVE) H 07/14/17 15:57 Urine Glucose (UA) 3+ mg/dL (Normal) H 07/14/17 15:57 Urine Ketones Trace mg/dL (NEGATIVE) 07/14/17 15:57 Urine Blood 1+ (NEGATIVE) H 07/14/17 15:57 Urine Nitrate Negative (NEGATIVE) 07/14/17 15:57 Urine Bilirubin Negative (NEGATIVE) 07/14/17 15:57 Urine Urobilinogen Normal mg/dL (0.2-1.0) 07/14/17 15:57 Ur Leukocyte Esterase Neg Hillary/uL (Negative) 07/14/17 15:57 Urine WBC (Auto) 2 /hpf (0-5) 07/14/17 15:57 Urine RBC (Auto) 10 /hpf (0-3) H 07/14/17 15:57 Blood Type O POSITIVE 07/15/17 16:59 Antibody Screen Negative 07/15/17 16:59 - Hospital Course Hospital Course: 76M PMHx MM diagnosed 2 years ago, HTN and DM presented with generalized weakness, pain and decreased oral intake. Pt daughter at bedside. Per ED note, pt was in remission until 2 months ago, and failed radiation therapy. Pt had a fall in May s/p left hip surgery. Since then pt has worsening generalized weakness and decreased PO intake. Pt was sent to [facility] 2 weeks ago for evaluation. The daughter said he received some blood and had colonoscopy/EGD which turned out to be ok. Pt was discharged and was not getting better. Pt also was started on Kyprolis on 07/10. Currently complains of generalized body pain, increased urination. Denied night sweats, fever, chills, n/v, cough, or other symptoms.] 76 year old male presented to the ED with generalized weakness, fatigue, and inability to eat on 07/14/17. Chest X ray performed in ED and showed mild left basilar atelectasis/infiltrate and small left pleural effusion. CT scan performed in ED and showed generalized brain atrophy with prominence of the ventricles and sulci. EKG performed and showed sinus rhythm with occasional PVCs and premature atrial complexes, ST and T waves abnormalities, prolonged QT. Patient admitted on 07/14/[address] Wen due to severity of symptoms. Patient seen by Dr. Beltran at bedside on 07/14/17 who determined pt had leukocytosis likely secondary to MM or infection. Repeat CXR done on 07/15/17 and showed lower lobe atelectasis or infiltrate. Patient refused blood work. Patient requires outpatient rehab. - Date & Time of H&P Date of H&P: 07/14/17 Time of H&P: 17:51 Discharge Exam - Head Exam Head Exam: ATRAUMATIC, NORMAL INSPECTION - Eye Exam Eye Exam: EOMI - ENT Exam ENT Exam: Mucous Membranes Moist - Respiratory Exam Respiratory Exam: NORMAL BREATHING PATTERN. absent: Wheezes, Stridor - Cardiovascular Exam Cardiovascular Exam: REGULAR RHYTHM - GI/Abdominal Exam GI & Abdominal Exam: Normal Bowel Sounds, Soft. absent: Distended, Tenderness - Extremities Exam Additional comments: L. Hip tender to palpation but ,much improved - Neurological Exam Neurological exam: Alert - Skin Skin Exam: Dry, Intact, Normal Color, Warm Discharge Plan - Discharge Medications Prescriptions: amLODIPine [Norvasc] 10 mg PO DAILY #30 Azithromycin [Zithromax] 500 mg PO DAILY #3 tablet cefTRIAXone 1 gm [Rocephin 1 gram IVPB] 1 gm IVPB DAILY #3 bag Dapagliflozin/Metformin HCl [Xigduo Xr 5 mg-1,000 mg Tablet] 1 tab PO DAILY #30 Gabapentin 300 mg PO BID #30 Hydrochlorothiazide [Microzide] 25 mg PO DAILY #30 cap Lisinopril [Prinivil] 20 mg PO DAILY #30 tablet - Follow Up Plan Condition: FAIR Disposition: REHAB FACILITY/REHAB UNIT Instructions: Viral Pneumonia (DC), Multiple Myeloma (DC), Heart Healthy Diet ( DC), Weakness (GEN) Additional Instructions: Patient is medically stable for discharge to [facility]. Patient needs to follow up with Dr. Serrano for management of his Multiple Myeloma. He will restart his Kyprosis after he finishes his Antibiotics. He will need to follow up in our clinic for management of his HTN. He will be started on an ACEI and his creatinine levels need to be followed up MICKIE. Patient should return to the ER if symptoms return. Referrals: [facility] [Outside] Maggie DE LA VEGA,MD Leandro [Staff Provider] - <Musa Palomares - Last Filed: 08/18/17 15:42> Provider - Provider Date of Admission: 07/14/17 17:06 Attending physician: Musa Palomares MD Hospital Course - Lab Results Lab Results: Micro Results 07/14/17 Unknown Urine Urine Culture - Final 10-50,000 CFU/ML. MULTIPLE SPECIES. PROBABLE CONTAMINATION. Most Recent Lab Values WBC 7.1 K/uL (4.8-10.8) 07/17/17 13:58 RBC 3.56 Mil/uL (4.40-5.90) L 07/17/17 13:58 Hgb 9.7 g/dL (12.0-18.0) L 07/17/17 13:58 Hct 29.8 % (35.0-51.0) L 07/17/17 13:58 MCV 83.6 fL (80.0-94.0) 07/17/17 13:58 MCH 27.3 pg (27.0-31.0) 07/17/17 13:58 MCHC 32.7 g/dL (33.0-37.0) L 07/17/17 13:58 RDW 17.1 % (11.5-14.5) H 07/17/17 13:58 Plt Count 214 K/uL (130-400) 07/17/17 13:58 MPV 10.6 fL (7.2-11.7) 07/17/17 13:58 Neut % (Auto) 76.9 % (50.0-75.0) H 07/17/17 13:58 Lymph % (Auto) 11.5 % (20.0-40.0) L 07/17/17 13:58 Stanley % (Auto) 9.5 % (0.0-10.0) 07/17/17 13:58 Eos % (Auto) 1.0 % (0.0-4.0) 07/17/17 13:58 Baso % (Auto) 1.1 % (0.0-2.0) 07/17/17 13:58 Neut # 5.5 K/uL (1.8-7.0) 07/17/17 13:58 Lymph # 0.8 K/uL (1.0-4.3) L 07/17/17 13:58 Stanley # 0.7 K/uL (0.0-0.8) 07/17/17 13:58 Eos # 0.1 K/uL (0.0-0.7) 07/17/17 13:58 Baso # 0.1 K/uL (0.0-0.2) 07/17/17 13:58 Neutrophils % (Manual) 86 % (50-75) H 07/15/17 16:59 Lymphocytes % (Manual) 8 % (20-40) L 07/15/17 16:59 Monocytes % (Manual) 6 % (0-10) 07/15/17 16:59 Nucleated RBC % 1 % (0-0) H 07/14/17 15:03 Platelet Estimate Normal (NORMAL) 07/15/17 16:59 Giant Platelets Present 07/15/17 16:59 Polychromasia Slight 07/14/17 15:03 Hypochromasia (manual) Slight 07/14/17 15:03 Anisocytosis (manual) Slight 07/15/17 16:59 Retic Count 2.8 % (0.5-1.5) H 07/14/17 15:03 PT 15.8 SECONDS (9.7-12.2) H 07/14/17 15:03 INR 1.4 07/14/17 15:03 APTT 32 SECONDS (21-34) 07/14/17 15:03 Sodium 136 mmol/L (132-148) 07/17/17 13:58 Potassium 3.5 mmol/L (3.6-5.2) L 07/17/17 13:58 Chloride 100 mmol/L (98-107) 07/17/17 13:58 Carbon Dioxide 26 mmol/L (22-30) 07/17/17 13:58 Anion Gap 13 (10-20) 07/17/17 13:58 BUN 7 mg/dL (9-20) L 07/17/17 13:58 Creatinine 0.5 MG/DL (0.8-1.5) L 07/17/17 13:58 Est GFR ( Amer) > 60 07/17/17 13:58 Est GFR (Non-Af Amer) > 60 07/17/17 13:58 POC Glucose (mg/dL) 318 mg/dL (65-110) H 07/17/17 21:35 Random Glucose 234 mg/dL (75-110) H 07/17/17 13:58 Hemoglobin A1c 9.5 % (4.2-6.5) H 07/15/17 16:59 Calcium 7.8 mg/dl (8.6-10.4) L 07/17/17 13:58 Magnesium 2.0 mg/dL (1.6-2.3) 07/14/17 15:03 Total Bilirubin 0.5 mg/dL (0.2-1.3) 07/17/17 13:58 AST 19 U/L (17-59) 07/17/17 13:58 ALT 28 U/L (21-72) 07/17/17 13:58 Alkaline Phosphatase 301 U/L (38-126) H D 07/17/17 13:58 Total Creatine Kinase 22 U/L (55-170) L 07/14/17 15:03 CK-MB (Mass) 0.32 ng/mL (0.0-3.38) 07/14/17 15:03 Troponin I 0.0400 ng/mL (0.00-0.120) 07/14/17 15:03 Total Protein 6.5 g/dL (6.3-8.3) 07/17/17 13:58 Albumin 2.3 g/dL (3.5-5.0) L 07/17/17 13:58 Globulin 4.1 gm/dL (2.2-3.9) H 07/17/17 13:58 Albumin/Globulin Ratio 0.6 (1.0-2.1) L 07/17/17 13:58 Amylase 38 U/L (30-110) 07/14/17 15:03 Lipase 23 U/L (23-300) 07/14/17 15:03 Urine Color Yellow (YELLOW) 07/14/17 15:57 Urine Clarity Clear (Clear) 07/14/17 15:57 Urine pH 7.0 (5.0-8.0) 07/14/17 15:57 Ur Specific [place] 1.023 (1.003-1.030) 07/14/17 15:57 Urine Protein 3+ mg/dL (NEGATIVE) H 07/14/17 15:57 Urine Glucose (UA) 3+ mg/dL (Normal) H 07/14/17 15:57 Urine Ketones Trace mg/dL (NEGATIVE) 07/14/17 15:57 Urine Blood 1+ (NEGATIVE) H 07/14/17 15:57 Urine Nitrate Negative (NEGATIVE) 07/14/17 15:57 Urine Bilirubin Negative (NEGATIVE) 07/14/17 15:57 Urine Urobilinogen Normal mg/dL (0.2-1.0) 07/14/17 15:57 Ur Leukocyte Esterase Neg Hillary/uL (Negative) 07/14/17 15:57 Urine WBC (Auto) 2 /hpf (0-5) 07/14/17 15:57 Urine RBC (Auto) 10 /hpf (0-3) H 07/14/17 15:57 Blood Type O POSITIVE 07/15/17 16:59 Antibody Screen Negative 07/15/17 16:59 Attending/Attestation - Attestation I have personally seen and examined this patient.: Yes I have fully participated in the care of the patient.: Yes I have reviewed all pertinent clinical information, including history, physical exam and plan: Yes Notes (Text): 76 year old male presented to the ED with generalized weakness, fatigue, and inability to eat on 07/14/17. Chest X ray performed in ED and showed mild left basilar atelectasis/infiltrate and small left pleural effusion. CT scan performed in ED and showed generalized brain atrophy with prominence of the ventricles and sulci. EKG performed and showed sinus rhythm with occasional PVCs and premature atrial complexes, ST and T waves abnormalities, prolonged QT. Patient admitted on 07/14/[address] Wen due to severity of symptoms. Patient seen by Dr. Beltran at bedside on 07/14/17 who determined pt had leukocytosis likely secondary to MM and possible infection will require close follow up. Repeat CXR done on 07/15/17 and showed lower lobe atelectasis or infiltrate. Patient refused blood work. Patient requires outpatient rehab.
[2017-07-17] MEDS: Sodium Chloride 0.9% 1,000 ML IV SCH ×2 (13:37→16:30)
[2017-07-17 14:06] LABS: BASO # 0.1 K/uL (0.0-0.2); BASO % 1.1 % (0.0-2.0); EOS # 0.1 K/uL (0.0-0.7); HEMATOCRIT 29.8 % (35.0-51.0); LYMPH # 0.8 K/uL (1.0-4.3); LYMPH % 11.5 % (20.0-40.0); MEAN CELL VOLUME 83.6 fL (80.0-94.0); MEAN CORPUSCULAR HEMOGLOBIN 27.3 pg (27.0-31.0); MEAN CORPUSCULAR HGB CONC 32.7 g/dL (33.0-37.0); MEAN PLATELET VOLUME 10.6 fL (7.2-11.7); MONO # 0.7 K/uL (0.0-0.8); MONO % 9.5 % (0.0-10.0); RED CELL DISTRIBUTION WIDTH 17.1 % (11.5-14.5); WHITE BLOOD COUNT 7.1 K/uL (4.8-10.8)
[2017-07-17 14:13] LABS: CHLORIDE 100 mmol/L (98-107); SODIUM 136 mmol/L (132-148)
[2017-07-17 14:14] LABS: POTASSIUM 3.5 mmol/L (3.6-5.2)
[2017-07-17 14:16] LABS: ALB/GLOB RATIO 0.6 (1.0-2.1); ALKALINE PHOSPHATASE 301 U/L (38-126); ALT/SGPT 28 U/L (21-72); AST/SGOT 19 U/L (17-59); BILIRUBIN,TOTAL 0.5 mg/dL (0.2-1.3); BLOOD UREA NITROGEN 7 mg/dL (9-20); CARBON DIOXIDE 26 mmol/L (22-30); GFR AFRICAN-AMERICAN > 60; TOTAL PROTEIN 6.5 g/dL (6.3-8.3)
[2017-07-17 14:17] LABS: CALCIUM 7.8 mg/dl (8.6-10.4); GLUCOSE,RANDOM 234 mg/dL (75-110)
[2017-07-17 16:58] VITALS: PULSE 95; TEMP 98.9; O2SAT 96
[2017-07-17] MEDS: (Lantus) Insulin Glargine, Recombinant SC SCH (22:07)
--- NOTE | 2017-07-18 15:58 | CARD ---
APPROVED REPORT EKG Measurement Heart [id number] <Conclusion> Sinus rhythm with occasional premature ventricular complexes and premature atrial complexes ST & Marked T wave abnormality, consider anterior ischemia Prolonged QT Abnormal ECG
== END 2017-07-17 22:48 | DRG 840 ==
LOC: C.ER 12:56 → C.9E 17:06 → C.3T 19:03
PROVIDERS: ADMIT Internal Medicine; ATTEND Internal Medicine
DX: C90.02 Multiple myeloma in relapse (principal); J18.9 Pneumonia, unspecified organism; E11.65 Type 2 diabetes mellitus with hyperglycemia; I10 Essential (primary) hypertension; I49.1 Atrial premature depolarization; I49.3 Ventricular premature depolarization; M95.4 Acquired deformity of chest and rib; Z91.81 History of falling; G31.9 Degenerative disease of nervous system, unspecified; Z79.4 Long term (current) use of insulin

== ENCOUNTER 2017-08-30 13:24 | Inpatient (IN) | payer MEDICARE ==
[2017-08-30 13:32] VITALS: BMI 23.7
[2017-08-30 14:09] LABS: VENOUS BLOOD GAS BASE EXCESS 0.3 mmol/L (0.0-2.0); VENOUS BLOOD GAS PCO2 38 mmHg (40-60); VENOUS BLOOD PH 7.42 (7.32-7.43)
[2017-08-30 14:16] LABS: BASO % 0.1 % (0.0-2.0); EOS % 0.3 % (0.0-4.0); HEMATOCRIT 27.2 % (35.0-51.0); LYMPH # 0.3 K/uL (1.0-4.3); LYMPH % 3.2 % (20.0-40.0); MEAN CELL VOLUME 84.5 fL (80.0-94.0); MEAN CORPUSCULAR HEMOGLOBIN 26.8 pg (27.0-31.0); MEAN CORPUSCULAR HGB CONC 31.7 g/dL (33.0-37.0); MEAN PLATELET VOLUME 10.9 fL (7.2-11.7); MONO # 0.5 K/uL (0.0-0.8); MONO % 5.6 % (0.0-10.0); NRBC % 1.3 % (0.0-2.0); PLATELET COUNT 229 K/uL (130-400); RED CELL DISTRIBUTION WIDTH 17.8 % (11.5-14.5); WHITE BLOOD COUNT 8.9 K/uL (4.8-10.8)
[2017-08-30 14:21] LABS: CHLORIDE 102 mmol/L (98-107); POTASSIUM 4.6 mmol/L (3.6-5.2); SODIUM 138 mmol/L (132-148)
[2017-08-30 14:23] LABS: INR 1.7
[2017-08-30 14:23] LABS: GFR AFRICAN-AMERICAN > 60
[2017-08-30 14:24] LABS: ALB/GLOB RATIO 0.6 (1.0-2.1); ALKALINE PHOSPHATASE 345 U/L (38-126); ALT/SGPT 14 U/L (21-72); AST/SGOT 21 U/L (17-59); BILIRUBIN,TOTAL 0.8 mg/dL (0.2-1.3); BLOOD UREA NITROGEN 27 mg/dL (9-20); CALCIUM 8.3 mg/dl (8.6-10.4); CARBON DIOXIDE 22 mmol/L (22-30); GLUCOSE,RANDOM 114 mg/dL (75-110); TOTAL PROTEIN 7.2 g/dL (6.3-8.3)
--- NOTE | 2017-08-30 14:30 | CT ---
PROCEDURE: CT HEAD WITHOUT CONTRAST. HISTORY: ams COMPARISON: Comparison made with CT scan brain 2016 TECHNIQUE: Axial computed tomography images were obtained through the head/brain without intravenous contrast. Radiation dose: Total exam DLP = 895.06 mGy-cm. This CT exam was performed using one or more of the following dose reduction techniques: Automated exposure control, adjustment of the mA and/or kV according to patient size, and/or use of iterative reconstruction technique. FINDINGS: HEMORRHAGE: No acute parenchymal, subarachnoid or extra-axial hemorrhage. BRAIN: Re- demonstrated are moderate diffuse/confluent chronic white matter ischemic changes seen extending peripherally into the deep and subcortical white matter of both cerebral hemispheres. Moderate generalized volume VENTRICLES: No obstructive hydrocephalus CALVARIUM: Loss there are no acute calvarial fracture seen. PARANASAL SINUSES: Mild mucosal thickening left maxillary antrum which is associated with the sclerosis and thickening posterolateral wall. MASTOID AIR CELLS: Unremarkable as visualized. No inflammatory changes. OTHER FINDINGS: None. IMPRESSION: No acute intracranial hemorrhage. Moderate chronic white matter ischemic changes. Moderate volume loss.
--- NOTE | 2017-08-30 14:40 | RAD ---
PROCEDURE: CHEST RADIOGRAPH, 1 VIEW HISTORY: ams COMPARISON: Comparison chest 07/15/2017 FINDINGS: Right-sided MediPort present. LUNGS: Diffuse bilateral on infiltrates consistent with pulmonary edema/ CHF however superimposed pneumonia not excluded. More confluent opacity seen in the mid to lower lung zones which probably represent alveolar-type infiltrates as well. Suspect bilateral effusions. PLEURA: As above. No apparent pneumothorax. CARDIOVASCULAR: Heart appears enlarged unchanged OSSEOUS STRUCTURES: Re- demonstrated is deformity anterior right rib unchanged. VISUALIZED UPPER ABDOMEN: Normal. OTHER FINDINGS: None. IMPRESSION: Findings most likely represent pulmonary edema/ CHF with bilateral lower lobe alveolar-type infiltrates and bilateral effusions. Superimposed pneumonia not completely excluded. Cardiomegaly.
[2017-08-30 14:43] LABS: NEUTROPHIL 90 % (50-75); TOTAL CELLS COUNTED 100
[2017-08-30 14:44] LABS: LARGE PLATELETS PRESENT
[2017-08-30] MEDS ORDERED: Cefepime 1 GM in Sodium Chloride 0.9% 50 ML IVPB STA (15:10)
[2017-08-30] MEDS ORDERED: Ciprofloxacin 400mg/200ml D5W 400 MG/200 ML BAG IV ONE (15:15)
--- NOTE | 2017-08-30 15:16 | C.PDOC ---
History Of Present Illness Patient sent from [place] for evaluation of AMS and dyspnea since this morning. POx apprarently in 80s prior to being placed on NRB. As per EMS, patient's daughter works at [place] and he did not recognize her this AM. Patient has PMHx of multiple myeloma with mets, DM, HTN, anemia (AOCD?). As per MS, patient's baseline is awake alert and oriented. Time Seen by Provider: 08/30/17 13:25 Chief Complaint (Nursing): Altered Mental Status History Per: EMS History/Exam Limitations: clinical condition Onset/Duration Of Symptoms: Hrs Current Symptoms Are (Timing): Still Present Current Respiratory Medications: See Home Med List Severity: Moderate Past Medical History Reviewed: Historical Data, Nursing Documentation, Vital Signs Vital Signs: Last Vital Signs Temp 97.3 F L 09/02/17 23:35 Pulse 96 H 09/03/17 04:04 Resp 20 09/02/17 23:35 BP 124/79 09/02/17 23:35 Pulse Ox 95 09/02/17 23:35 - Medical History PMH: Anemia, Diabetes, HTN Family History: States: No Known Family Hx - Social History Hx Alcohol Use: No Hx Substance Use: No - Immunization History Hx Tetanus Toxoid Vaccination: No Hx Influenza Vaccination: No Review Of Systems Review Of Systems: ROS cannot be obtained secondary to pt's inabilty to answer questions. Physical Exam - Physical Exam Appears: Non-toxic, In Acute Distress (in mild respiratory distress, awake, alert, confused) Skin: Warm, Dry Eye(s): bilateral: Normal Inspection Oral Mucosa: Moist Cardiovascular: Rhythm Regular (tachycardic, occasionally irregular) Respiratory: Accessory Muscle Use (mild), Rales (B/L bases, R>L), No Rhonchi, No Wheezing Gastrointestinal/Abdominal: Normal Exam, Bowel Sounds, Soft, No Tenderness Extremity: Pedal Edema (+2 pitting edema B/L LEs), No Calf Tenderness Pulses: Left Dorsalis Pedis: Normal, Right Dorsalis Pedis: Normal ED Course And Treatment - Laboratory Results Result Diagrams: 09/03/17 07:01 09/03/17 07:01 ECG: Interpreted By Me, Viewed By Me (sinus rhythm 98 bpm, PVCs, normal axis, T wave inversions aVF, V4, V5, V6, no acute ST changes) ECG Interpretation: Abnormal O2 Sat by Pulse Oximetry: 100 (NRB) Pulse Ox Interpretation: Abnormal (80s on RA) - Other Rad CXR X-Ray: Viewed By Me, Read By Radiologist Interpretation: Accession No. : [id number]. Patient Name / ID : LANIE AMARAL / [id number]. Exam Date : 08/30/2017 14:05:02 ( Approved ). Study Comment : Sex / Age : M / 76Y. Creator : Wisam Neumann MD. Dictator : [employer] : Front Worker : Wisam Neumann MD. Approver2 : Report Date : 08/30/2017 14:38:18. My Comment : . PROCEDURE: CHEST RADIOGRAPH, 1 VIEW. HISTORY: ams. COMPARISON: Comparison chest 07/15/2017. FINDINGS: Right- sided MediPort present. LUNGS: Diffuse bilateral on infiltrates consistent with pulmonary edema/ CHF however superimposed pneumonia not excluded. More confluent opacity seen in the mid to lower lung zones which probably represent alveolar-type infiltrates as well. Suspect bilateral effusions. PLEURA: As above. No apparent pneumothorax. CARDIOVASCULAR: Heart appears enlarged unchanged. OSSEOUS STRUCTURES: Re- demonstrated is deformity anterior right rib unchanged. VISUALIZED UPPER ABDOMEN: Normal. OTHER FINDINGS: None. IMPRESSION: Findings most likely represent pulmonary edema/ CHF with bilateral lower lobe alveolar-type infiltrates and bilateral effusions. Superimposed pneumonia not completely excluded. Cardiomegaly. - CT Scan/US CT HEAD Other Rad Studies (CT/US): Read By Radiologist, Radiology Report Reviewed CT/US Interpretation: Accession No. : [id number]. Patient Name / ID : LANIE AMARAL / [id number]. Exam Date : 08/30/2017 14:18:37 ( Approved ). Study Comment : Sex / Age : M / 76Y. Creator : Wisam Neumann MD. Dictator : [employer] : Front Worker : Wisam Neumann MD. Approver2 : Report Date : 08/30/2017 14:28:27. My Comment : . PROCEDURE: CT HEAD WITHOUT CONTRAST. HISTORY: ams. COMPARISON: Comparison made with CT scan brain 2016. TECHNIQUE: Axial computed tomography images were obtained through the head/brain without intravenous contrast. Radiation dose: Total exam DLP = 895.06 mGy-cm. This CT exam was performed using one or more of the following dose reduction techniques: Automated exposure control, adjustment of the mA and/or kV according to patient size, and/or use of iterative reconstruction technique. FINDINGS: HEMORRHAGE: No acute parenchymal, subarachnoid or extra-axial hemorrhage. BRAIN: Re- demonstrated are moderate diffuse/confluent chronic white matter ischemic changes seen extending peripherally into the deep and subcortical white matter of both cerebral hemispheres. Moderate generalized volume. VENTRICLES: No obstructive hydrocephalus. CALVARIUM: Loss there are no acute calvarial fracture seen. PARANASAL SINUSES: Mild mucosal thickening left maxillary antrum which is associated with the sclerosis and thickening posterolateral wall. MASTOID AIR CELLS: Unremarkable as visualized. No inflammatory changes. OTHER FINDINGS: None. IMPRESSION: No acute intracranial hemorrhage. Moderate chronic white matter ischemic changes. Moderate volume loss. Progress Note: Blood work, CXR, EKG, UA, CT head ordered and reviewed. Lasix 20mg IVP given (BP borderline low). Broad spectrum antibiotics given due to low grade temp, elevated lactate, possible PNA on CXR. 4:15pm- Patient's daughter Shauna called by me, aware patient will be admitted to hospital . - Physician Consult Information Outcome Of Conversation: Discussed patient with PMD, agrees with telemetry admission for CHF exacerbation, AMS, possible pneumonia, dyspnea. Critical Care Time - Critical Care Note Total Time (in mins): 35 Documented critical care: time excludes all time spent performing seperately billable procedures. Disposition - Disposition Disposition: HOSPITALIZED Disposition Time: 16:00 Condition: STABLE - Clinical Impression Clinical Impression: CHF exacerbation, UTI (urinary tract infection), Altered mental status, Pneumonia Decision To Admit - Pt Status Changed To: Hospital Disposition Of: Inpatient - Admit Certification Admit to Inpatient:: After my assessment, the patient will require hospitalization for at least two midnights. This is because of the severity of symptoms shown, intensity of services needed, and/or the medical risk in this patient being treated as an outpatient. - InPatient: Physician Admission Certification: I certify that this patient requires 2 or more midnights of care for the following reason:: see notes - . Bed Request Type: Telemetry Admitting Physician: Kati Shaver Patient Diagnosis: CHF exacerbation, Pneumonia, Altered mental status, UTI (urinary tract infection)
[2017-08-30 15:37] LABS: RBC URINE 7 /hpf (0-3); URINE BACTERIA RARE (<OCC); WBC CLUMPS RARE /hpf; WBC URINE 16 /hpf (0-5)
[2017-08-30 15:38] LABS: URINE COLOR BROWN (YELLOW); URINE GLUCOSE (UA) NEGATIVE (Normal)
[2017-08-30 15:39] LABS: URINE BILIRUBIN NEGATIVE (NEGATIVE); URINE BLOOD NEGATIVE (NEGATIVE); URINE KETONE NEGATIVE (NEGATIVE); URINE PROTEIN 3+ mg/dL (NEGATIVE); URINE UROBILINOGEN 0.2 mg/dL (0.2-1.0)
[2017-08-30 15:40] LABS: URINE LEUKOCYTE ESTERASE SMALL Leu/uL (Negative)
[2017-08-30] MEDS ORDERED: Ciprofloxacin 400mg/200ml D5W 400 MG/200 ML BAG IVPB ONE (15:48)
[2017-08-30] MEDS ORDERED: Vancomycin 1 GM 1 GM/250 ML BAG IVPB ONE ×2 (16:00→17:23)
[2017-08-30] MEDS ORDERED: Dextrose 5%/0.9% NS 1,000 ML IV ONE ×2 (17:35→18:34)
[2017-08-31] MEDS ORDERED: Dextrose 5%/0.45% NS 1,000 ML IV SCH (07:45)
[2017-08-31] MEDS: (Novolog) Insulin Aspart, Recombinant 100 u/ml 10 ml vial SC SCH ×4 (08:18→22:00)
[2017-08-31] MEDS: Cefepime 1 GM in Sodium Chloride 0.9% 100 ML IVPB SCH ×2 (10:56→21:04)
[2017-08-31] MEDS: Dextrose 5%/0.45% NS 1,000 ML IV SCH (12:29)
--- NOTE | 2017-08-31 12:51 | RAD ---
HISTORY: chf Comparison made with prior study 08/30/2017 COMPARISON: FINDINGS: Right IJ MediPort with tip in the SVC unchanged LUNGS: Re- demonstrated are the changes consistent with mild pulmonary edema/ CHF, bilateral lower lobe alveolar-type infiltrates and bilateral effusions. PLEURA: As above. No apparent Pneumothorax apparent. CARDIOVASCULAR: Normal. OSSEOUS STRUCTURES: No significant abnormalities. VISUALIZED UPPER ABDOMEN: Normal. OTHER FINDINGS: None. IMPRESSION: Re- demonstrated are the changes consistent with mild pulmonary edema/ CHF, bilateral lower lobe alveolar-type infiltrates and bilateral effusions.
--- NOTE | 2017-08-31 13:06 | CP.PCM.CON ---
History of Present Illness - History of Present Illness History of Present Illness: I was asked to evaluate patietn by Dr. Shaver.\ Patient is a 76 year old male with PMH HTN, multiple myeloma who presents with dyspnea. The symptoms ae progressive and was noted to be at rest. The patient was found to have a markeldy elevated pro BNP. Consultation was requested. Review of Systems - Constitutional Constitutional: absent: As Per HPI, Anorexia, Chills, Daytime Sleepiness, Excessive Sweating, Fatigue, Fever, Frequent Falls, Headache, Increased Appetite , Lethargy, Malaise, Night Sweats, Snoring, Sleep Apnea, Weight Gain, Weight Loss, Weakness, Other - EENT Eyes: absent: As Per HPI, Blind Spots, Blurred Vision, Change in Vision, Decreased Night Vision, Diplopia, Discharge, Dry Eye, Exophthalmos, Floaters, Irritation, Itchy Eyes, Loss of Peripheral Vision, Pain, Photophobia, Requires Corrective Lenses, Sees Flashes, Spots in Vision, Tunnel Vision, Other Visual Disturbances, Loss of Vision, Other Ears: absent: As Per HPI, Decreased Hearing, Ear Discharge, Ear Pain, Tinnitus, Abnormal Hearing, Disequilibrium, Dizziness, Other Nose/Mouth/Throat: absent: As Per HPI, Epistaxis, Nasal Congestion, Nasal Discharge, Nasal Obstruction, Nasal Trauma, Nose Pain, Post Nasal Drip, Sinus Pain, Sinus Pressure, Bleeding Gums, Change in Voice, Dental Pain, Dry Mouth, Dysphagia, Halitosis, Hoarsness, Lip Swelling, Mouth Lesions, Mouth Pain, Odynophagia, Sore Throat, Throat Swelling, Tongue Swelling, Facial Pain, Neck Pain, Neck Mass, Other - Cardiovascular Cardiovascular: Dyspnea - Respiratory Respiratory: Dyspnea - Gastrointestinal Gastrointestinal: absent: As Per HPI, Abdominal Pain, Belching, Bloating, Change in Bowel Habits, Change in Stool Character, Coffee Ground Emesis, Constipation, Cramping, Diarrhea, Dyspepsia, Dysphagia, Early Satiety, Excessive Flatus, Fecal Incontinence, Heartburn, Hematemesis, Hematochezia, Loose Stools, Melena, Nausea, Odynophagia, Temesmus, Vomiting, Other - Genitourinary Genitourinary: absent: As Per HPI, Change in Urinary Stream, Difficulty Urinating, Dysuria, Flank Pain, Hematuria, Pyuria, Nocturia, Urinary Incontinence, Urinary Frequency, Urinary Hesitance, Urinary Urgency, Voiding Freq/Small Amts, Freq UTI, Hx Renal/Bladder Calculi, Hx /Renal Surgery, Bladder Distension, Other - Musculoskeletal Musculoskeletal: absent: As Per HPI, Abnormal Gait, Arthralgias, Atrophy, Back Pain, Deformity, Joint Swelling, Limited Range of Motion, Loss of Height, Muscle Cramps, Muscle Weakness, Myalgias, Neck Pain, Numbness, Radiating Pain into Limb, Stiffness, Tingling, Other - Integumentary Integumentary: absent: As Per HPI, Acne, Alopecia, Bleeding Lesions, Change in Hair, Change in Nails, Change in Pigmentation, Changing Lesions, Dry Skin, Erythema, Furuncle, Hirsutism, Lesions, New Lesions, Non-Healing Lesions, Photosensitivity, Pruritus, Rash, Skin Pain, Skin Ulcer, Sores, Striae, Swelling , Unusual Bruising, Wounds, Jaundice, Other - Neurological Neurological: absent: As Per HPI, Abnormal Gait, Abnormal Hearing, Abnormal Movements, Abnormal Speech, Behavioral Changes, Burning Sensations, Confusion, Convulsions, Disequilibrium, Dizziness, Numbness, Focal Weakness, Frequent Falls , Headaches, Lack of Coordination, Loss of Vision, Memory Loss, Paresthesias, Radicular Pain, Restless Legs, Sensory Deficit, Syncope, Tingling, Tremor, Vertigo, Weakness, Other Visual Disturbances, Other - Psychiatric Psychiatric: absent: As Per HPI, Abnormal Sleep Pattern, Anhedonia, Anxiety, Auditory Hallucinations, Behavioral Changes, Change in Appetite, Change in Libido, Confusion, Depression, Difficulty Concentrating, Hallucinations, Homicidal Ideation, Hopelessness, Irritability, Memory Loss, Mood Swings, Panic Attacks, Paranoia, Suicidal Ideation, Visual Hallucinations, Tactile Hallucinations, Other - Endocrine Endocrine: absent: As Per HPI, Change in Body Appearance, Change in Libido, Cold Intolorance, Deepening of Voice, Excessive Sweating, Fatigue, Flushing, Heat Intolorance, Increase in Ring/Shoe/Hat Size, Palpitations, Polydipsia, Polyphagia, Polyuria, Other - Hematologic/Lymphatic Hematologic: absent: As Per HPI, Easy Bleeding, Easy Bruising, Lymphadenopathy, Other Past Patient History - Past Medical History & Family History Past Medical History?: Yes - Past Social History Smoking Status: Never Smoked - CARDIAC Hx Hypertension: Yes - ENDOCRINE/METABOLIC Hx Endocrine Disorders: Yes Hx Diabetes Mellitus Type 2: Yes - HEMATOLOGICAL/ONCOLOGICAL Hx Anemia: Yes Hx Cancer: Yes Hx Chemotherapy: Yes (Pt currently on chemo) - MUSCULOSKELETAL/RHEUMATOLOGICAL Hx Falls: Yes - PSYCHIATRIC Hx Substance Use: No - SURGICAL HISTORY Hx Surgeries: Yes Hx Vascular Surgery: Yes Hx Vascular Access Device: Yes (Rt subc port-a-cath) Other/Comment: Left femur fracture MAY 2017. Rt subc port-a[place] [facility] [place] ANESTHESIA Hx Anesthesia: Yes Hx Anesthesia Reactions: No Has any member of the family had a problem w/ anesthesia?: No Meds Allergies/Adverse Reactions: Allergies Allergy/AdvReac Type Severity Reaction Status Date / Time No Known Allergies Allergy Verified 08/30/17 13:30 - Medications Medications: Current Medications Cefepime HCl 1 gm/ Sodium (Chloride) 100 mls @ 200 mls/hr IVPB Q12H [facility] Last Admin: 08/31/17 10:56 Dose: 200 mls/hr Dextrose/Sodium Chloride (Dextrose 5%/0.45% Ns 1000 Ml) 1,000 mls @ 50 mls/hr IV .Q20H [facility] Last Admin: 08/31/17 12:29 Dose: 50 mls/hr Insulin Aspart (Novolog) 0 unit SC ACHS [facility] PRN Reason: Protocol Last Admin: 08/31/17 12:07 Dose: 3 unit Physical Exam - Constitutional Appears: Chronically Ill - Head Exam Head Exam: NORMAL INSPECTION - Eye Exam Eye Exam: Normal appearance - ENT Exam ENT Exam: Mucous Membranes Moist - Neck Exam Neck exam: Positive for: Full Rom - Respiratory Exam Respiratory Exam: Decreased Breath Sounds - Cardiovascular Exam Cardiovascular Exam: REGULAR RHYTHM - GI/Abdominal Exam GI & Abdominal Exam: Normal Bowel Sounds - Rectal Exam Rectal Exam: Deferred - Extremities Exam Extremities exam: Negative for: pedal edema - Back Exam Back exam: NORMAL INSPECTION - Neurological Exam Neurological exam: Alert, Oriented x3 - Psychiatric Exam Psychiatric exam: Normal Affect - Skin Skin Exam: Normal Color Results - Vital Signs Recent Vital Signs: Last Vital Signs Temp 98 F 08/31/17 08:00 Pulse 90 08/31/17 12:59 Resp 20 08/31/17 08:00 BP 122/80 08/31/17 08:00 Pulse Ox 99 08/31/17 08:00 - Labs Result Diagrams: 08/30/17 14:09 08/30/17 14:09 Labs: Laboratory Results - last 24 hr 08/30/17 08/30/17 08/30/17 13:43 14:06 14:09 WBC 8.9 RBC 3.21 L Hgb 8.6 L Hct 27.2 L MCV 84.5 MCH 26.8 L MCHC 31.7 L RDW 17.8 H Plt Count 229 MPV 10.9 Neut % (Auto) 90.8 H Lymph % (Auto) 3.2 L Cory[place] % (Auto) 5.6 Eos % (Auto) 0.3 Baso % (Auto) 0.1 Neut # 8.0 H Lymph # 0.3 L [place] # 0.5 Eos # 0.0 Baso # 0.0 Neutrophils % (Manual) 90 H Band Neutrophils % 1 Lymphocytes % (Manual) 3 L Monocytes % (Manual) 6 Platelet Estimate Normal Large Platelets Present Polychromasia Slight Hypochromasia (manual) Slight Anisocytosis (manual) Slight Microcytosis (manual) Slight Macrocytosis (manual) Slight Ovalocytes Slight PT INR APTT pO2 50 VBG pH 7.42 VBG pCO2 38 L VBG HCO3 24.8 VBG Total CO2 25.8 VBG O2 Sat (Calc) 88.9 H VBG Base Excess 0.3 VBG Potassium 4.4 Sodium 136.0 Chloride 107.0 Glucose 121 H Lactate 2.2 H Potassium Carbon Dioxide Anion Gap BUN Creatinine Est GFR ( Amer) Est GFR (Non-Af Amer) POC Glucose (mg/dL) 131 H Random Glucose Calcium Total Bilirubin AST ALT Alkaline Phosphatase Total Creatine Kinase CK-MB (Mass) Troponin I NT-Pro-B Natriuret Pep Total Protein Albumin Globulin Albumin/Globulin Ratio Venous Blood Potassium 4.4 Urine Color Urine Clarity Urine pH Ur Specific Grant Urine Protein Urine Glucose (UA) Urine Ketones Urine Blood Urine Nitrate Urine Bilirubin Urine Urobilinogen Ur Leukocyte Esterase Urine WBC (Auto) Urine RBC (Auto) Urine WBC Clumps (Auto) Ur Squamous Epith Cells Urine Bacteria Hyaline Casts Granular Casts (Auto) 08/30/17 08/30/17 08/30/17 14:09 14:10 14:58 WBC RBC Hgb Hct MCV MCH MCHC RDW Plt Count MPV Neut % (Auto) Lymph % (Auto) Coryell % (Auto) Eos % (Auto) Baso % (Auto) Neut # Lymph # Coryell # Eos # Baso # Neutrophils % (Manual) Band Neutrophils % Lymphocytes % (Manual) Monocytes % (Manual) Platelet Estimate Large Platelets Polychromasia Hypochromasia (manual) Anisocytosis (manual) Microcytosis (manual) Macrocytosis (manual) Ovalocytes PT 19.0 H INR 1.7 APTT 35 H pO2 VBG pH VBG pCO2 VBG HCO3 VBG Total CO2 VBG O2 Sat (Calc) VBG Base Excess VBG Potassium Sodium 138 Chloride 102 Glucose Lactate Potassium 4.6 Carbon Dioxide 22 Anion Gap 19 BUN 27 H Creatinine 0.9 Est GFR ( Amer) > 60 Est GFR (Non-Af Amer) > 60 POC Glucose (mg/dL) Random Glucose 114 H Calcium 8.3 L Total Bilirubin 0.8 AST 21 ALT 14 L D Alkaline Phosphatase 345 H Total Creatine Kinase 23 L CK-MB (Mass) 0.43 Troponin I 0.0330 NT-Pro-B Natriuret Pep 06499 H Total Protein 7.2 Albumin 2.6 L Globulin 4.6 H Albumin/Globulin Ratio 0.6 L Venous Blood Potassium Urine Color Brown Urine Clarity Hazy Urine pH 6.0 Ur Specific Grant 1.030 Urine Protein 3+ H Urine Glucose (UA) Negative Urine Ketones Negative Urine Blood Negative Urine Nitrate Negative Urine Bilirubin Negative Urine Urobilinogen 0.2 Ur Leukocyte Esterase Small Urine WBC (Auto) 16 H Urine RBC (Auto) 7 H Urine WBC Clumps (Auto) Rare H Ur Squamous Epith Cells 3 Urine Bacteria Rare Hyaline Casts 11-20 H Granular Casts (Auto) 3-5 08/31/17 08/31/17 06:20 11:23 WBC RBC Hgb Hct MCV MCH MCHC RDW Plt Count MPV Neut % (Auto) Lymph % (Auto) Coryell % (Auto) Eos % (Auto) Baso % (Auto) Neut # Lymph # Coryell # Eos # Baso # Neutrophils % (Manual) Band Neutrophils % Lymphocytes % (Manual) Monocytes % (Manual) Platelet Estimate Large Platelets Polychromasia Hypochromasia (manual) Anisocytosis (manual) Microcytosis (manual) Macrocytosis (manual) Ovalocytes PT INR APTT pO2 VBG pH VBG pCO2 VBG HCO3 VBG Total CO2 VBG O2 Sat (Calc) VBG Base Excess VBG Potassium Sodium Chloride Glucose Lactate Potassium Carbon Dioxide Anion Gap BUN Creatinine Est GFR ( Amer) Est GFR (Non-Af Amer) POC Glucose (mg/dL) 245 H 226 H Random Glucose Calcium Total Bilirubin AST ALT Alkaline Phosphatase Total Creatine Kinase CK-MB (Mass) Troponin I NT-Pro-B Natriuret Pep Total Protein Albumin Globulin Albumin/Globulin Ratio Venous Blood Potassium Urine Color Urine Clarity Urine pH Ur Specific Grant Urine Protein Urine Glucose (UA) Urine Ketones Urine Blood Urine Nitrate Urine Bilirubin Urine Urobilinogen Ur Leukocyte Esterase Urine WBC (Auto) Urine RBC (Auto) Urine WBC Clumps (Auto) Ur Squamous Epith Cells Urine Bacteria Hyaline Casts Granular Casts (Auto) - EKG Data EKG Interpreted by: Myself Assessment & Plan (1) CHF (congestive heart failure), NYHA class III Assessment and Plan: unclear etiology. will need echo to evaluate LV function. recommend decrease rate of IVF. furhter management will be based on echocardiogram. Status: Acute
[2017-08-31 14:09] LABS: MEAN CELL VOLUME 84.4 fL (80.0-94.0); MEAN CORPUSCULAR HEMOGLOBIN 26.8 pg (27.0-31.0); MEAN CORPUSCULAR HGB CONC 31.7 g/dL (33.0-37.0); MEAN PLATELET VOLUME 10.4 fL (7.2-11.7); RED CELL DISTRIBUTION WIDTH 17.7 % (11.5-14.5); WHITE BLOOD COUNT 7.2 K/uL (4.8-10.8)
[2017-08-31 14:17] LABS: CHLORIDE 104 mmol/L (98-107)
[2017-08-31 14:18] LABS: POTASSIUM 3.9 mmol/L (3.6-5.2); SODIUM 140 mmol/L (132-148)
[2017-08-31 14:20] LABS: ALB/GLOB RATIO 0.5 (1.0-2.1); ALKALINE PHOSPHATASE 290 U/L (38-126); AST/SGOT 14 U/L (17-59); BILIRUBIN,TOTAL 0.5 mg/dL (0.2-1.3); BLOOD UREA NITROGEN 19 mg/dL (9-20); CARBON DIOXIDE 23 mmol/L (22-30); GFR AFRICAN-AMERICAN > 60; GLUCOSE,RANDOM 141 mg/dL (75-110); TOTAL PROTEIN 6.8 g/dL (6.3-8.3)
[2017-08-31 14:21] LABS: ALT/SGPT 12 U/L (21-72); CALCIUM 7.9 mg/dl (8.6-10.4)
[2017-08-31] MEDS: Enoxaparin 40 mg Syringe SC SCH (18:37)
[2017-09-01] MEDS: Dextrose 5%/0.45% NS 1,000 ML IV SCH (06:08)
[2017-09-01] MEDS: (Novolog) Insulin Aspart, Recombinant 100 u/ml 10 ml vial SC SCH ×3 (07:45→17:30)
--- NOTE | 2017-09-01 07:50 | HP ---
HISTORY OF PRESENT ILLNESS: This 76-year-old male came to hospital with shortness of breath, weakness, fatigue, and tiredness. The patient came to the hospital, advised admission. The patient currently is awake, alert, short of breath, placed on BiPAP therapy. PHYSICAL EXAMINATION: VITAL SIGNS: Temperature 98, pulse of 90. HEENT: Within normal limits. LUNGS: Breath sounds are symmetrical. HEART: Regular. ABDOMEN: Soft. EXTREMITIES: No edema. IMPRESSION: The patient suffers from pneumonia, rule out congestive heart failure. The patient needs supportive care, echocardiogram, and antibiotic. Kati Shaver MD
--- NOTE | 2017-09-01 08:18 | CP.PCM.PN ---
Subjective - Date & Time of Evaluation Date of Evaluation: 09/01/17 Time of Evaluation: 07:45 - Subjective Subjective: patient has less dyspnea today. Objective - Vital Signs/Intake and Output Vital Signs (last 24 hours): Temp Pulse Resp BP Pulse Ox 97.8 F 88 18 132/85 100 09/01/17 07:05 09/01/17 07:31 09/01/17 07:05 09/01/17 07:05 09/01/17 07:05 Intake and Output: 09/01/17 09/01/17 06:59 18:59 Intake Total 1250 Output Total 350 400 Balance 900 -400 - Medications Medications: Current Medications Enoxaparin Sodium (Lovenox) 40 mg SC DAILY [facility] Last Admin: 08/31/17 18:37 Dose: 40 mg Cefepime HCl 1 gm/ Sodium (Chloride) 100 mls @ 200 mls/hr IVPB Q12H [facility] Last Admin: 08/31/17 21:04 Dose: 200 mls/hr Dextrose/Sodium Chloride (Dextrose 5%/0.45% Ns 1000 Ml) 1,000 mls @ 50 mls/hr IV .Q20H [facility] Last Admin: 09/01/17 06:08 Dose: 50 mls/hr Insulin Aspart (Novolog) 0 unit SC ACHS [facility] PRN Reason: Protocol Last Admin: 09/01/17 07:45 Dose: Not Given - Labs Labs: 08/31/17 14:06 08/31/17 14:06 PT 19.0 SECONDS (9.7-12.2) H 08/30/17 14:10 INR 1.7 08/30/17 14:10 APTT 35 SECONDS (21-34) H 08/30/17 14:10 - Constitutional Appears: Non-toxic - Head Exam Head Exam: NORMAL INSPECTION - Eye Exam Eye Exam: Normal appearance - ENT Exam ENT Exam: Mucous Membranes Moist - Neck Exam Neck Exam: Full ROM - Respiratory Exam Respiratory Exam: NORMAL BREATHING PATTERN - Cardiovascular Exam Cardiovascular Exam: REGULAR RHYTHM - GI/Abdominal Exam GI & Abdominal Exam: Normal Bowel Sounds - Rectal Exam Rectal Exam: Deferred - Extremities Exam Extremities Exam: Full ROM - Neurological Exam Neurological Exam: Alert, Oriented x3 - Psychiatric Exam Psychiatric exam: Normal Mood Assessment and Plan (1) CHF (congestive heart failure), NYHA class III Assessment & Plan: improving. recommend echocardiogram Status: Acute
--- NOTE | 2017-09-01 09:06 | CP.PCM.PN ---
Subjective - Date & Time of Evaluation Date of Evaluation: 09/01/17 Time of Evaluation: 09:03 - Subjective Subjective: PGY-[address] Shaver's Service: Pt seen and examined at bedside. Nursing reports no acute events overnight. Pt awake, alert, and oriented to person, place. Found relaxing in bed. Pt c/o weakness, fatigue, and continued shortness of breath. He denies chest pain, palpitations, abd pain, N/V. HPI: 76M PMHx MM diagnosed 2 years ago, HTN and DM presented with generalized weakness, pain, and shortness of breath. Per ED note, AMS, dyspnea at halfway on 08/30. Pt had a fall in May s/p left hip surgery. Currently complains of generalized body pain, SOB at time of admission. Denied night sweats, fever, chills, n/v, cough, or other symptoms. PMHx: MM, HTN, DM PSHx: left hip surgery in May FMHx: unknown Social: denied ETOH, tobacco. Moved from [facility] 40 years ago. 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 Private oncologist: Dr. Musa Montemayor Objective - Vital Signs/Intake and Output Vital Signs (last 24 hours): Temp Pulse Resp BP Pulse Ox 97.8 F 88 18 132/85 100 09/01/17 07:05 09/01/17 07:31 09/01/17 07:05 09/01/17 07:05 09/01/17 07:05 Intake and Output: 09/01/17 09/01/17 06:59 18:59 Intake Total 1250 Output Total 350 400 Balance 900 -400 - Medications Medications: Current Medications Enoxaparin Sodium (Lovenox) 40 mg SC DAILY [facility] Last Admin: 08/31/17 18:37 Dose: 40 mg Cefepime HCl 1 gm/ Sodium (Chloride) 100 mls @ 200 mls/hr IVPB Q12H [facility] Last Admin: 08/31/17 21:04 Dose: 200 mls/hr Dextrose/Sodium Chloride (Dextrose 5%/0.45% Ns 1000 Ml) 1,000 mls @ 50 mls/hr IV .Q20H [facility] Last Admin: 09/01/17 06:08 Dose: 50 mls/hr Insulin Aspart (Novolog) 0 unit SC ACHS [facility] PRN Reason: Protocol Last Admin: 09/01/17 07:45 Dose: Not Given - Labs Labs: 08/31/17 14:06 08/31/17 14:06 PT 19.0 SECONDS (9.7-12.2) H 08/30/17 14:10 INR 1.7 08/30/17 14:10 APTT 35 SECONDS (21-34) H 08/30/17 14:10 - Constitutional Appears: Non-toxic, No Acute Distress - Head Exam Head Exam: ATRAUMATIC, NORMOCEPHALIC - ENT Exam ENT Exam: Mucous Membranes Moist - Neck Exam Additional comments: no jvd - Respiratory Exam Respiratory Exam: Clear to Ausculation Bilateral, NORMAL BREATHING PATTERN. absent: Accessory Muscle Use, Rales, Rhonchi, Wheezes, Respiratory Distress - Cardiovascular Exam Cardiovascular Exam: REGULAR RHYTHM, +S1, +S2 - GI/Abdominal Exam GI & Abdominal Exam: Soft, Normal Bowel Sounds - Extremities Exam Extremities Exam: Normal Inspection, Pedal Edema (1+) - Neurological Exam Neurological Exam: Alert, Awake. absent: Oriented x3 - Psychiatric Exam Psychiatric exam: Normal Affect - Skin Skin Exam: Dry, Normal Color, Warm Assessment and Plan - Assessment and Plan (Free Text) Plan: Pulmonary Embolism Persistent SOB, hx of multiple myeloma CT Angio (09/01/17): filling defects in right lower lobe. Moderate to large bilateral pleural effusions. Bebm-em-uprxagkd pul vascular congestion. Mild to moderated soft tissue edema. Bony lesions c/w hx of multiple myeloma (see full report) Lovenox 65mg SC Q12H Pneumonia Lives in halfway, probable Hospital acquired Febrile on admission CXR (08/30/17): Pulm edema/CHF findings with bilateral lower lobe alveolar type infiltrates and bilateral effusions. Superimposed PNA not compleely excluded ( see full report) Cefepime 1gm Q24H Tylenol 650mg PO Q6H for fever CHF, systolic dysfunction CXR (08/30/17): Pulm edema/CHF findings with bilateral lower lobe alveolar type infiltrates and bilateral effusions. Superimposed PNA not completely excluded ( see full report) f/u ECHO Pro-BNP: 33491 D5/1/2 NS @ 50cc/hr T2DM Accuchecks RISS f/u A1c, lipid panel HTN Well controlled home med: Norvasc 10mg PO daily AMS Pt oriented x 2. Not to time/context. CT Head (08/30/17): No acute intracranial hemorrhage. Moderate white matter ischemic changes. Moderate volume loss. (see full report) Hx Multiple myeloma Dr. Musa Montemayor/Maggie, private hem/onc - will consult in AM Care goals Palliative care consult, mark Chowdary appreciated -f/u reccs Prophylaxis Lovenox 65mg SC daily Protonix 20mg PO Daily Omari Stringer PGY-2 All medical management per Dr. Shaver
[2017-09-01] MEDS: Enoxaparin 40 mg Syringe SC SCH (10:20)
[2017-09-01] MEDS: Cefepime 1 GM in Sodium Chloride 0.9% 100 ML IVPB SCH ×2 (10:25→21:10)
[2017-09-01] MEDS ORDERED: Iodixanol 320 MG/ML 100 ML BOTTLE IV ONE (16:10)
--- NOTE | 2017-09-01 18:06 | CT ---
PROCEDURE: CT Chest with contrast (Pulmonary Angiogram) HISTORY: r/o pe; hx mult myeloma; dyspnea, tachy COMPARISON: None available. TECHNIQUE: Axial computed tomography images were obtained of the chest in the pulmonary arterial phase of enhancement. Coronal and sagittal reformatted images were created and reviewed. Intravenous contrast dose: 100 mL of Visipaque 320 Radiation dose: Total exam DLP = 562.74 mGy-cm. This CT exam was performed using one or more of the following dose reduction techniques: Automated exposure control, adjustment of the mA and/or kV according to patient size, and/or use of iterative reconstruction technique. FINDINGS: PULMONARY ARTERIES: There is filling defect at the right lower lobe pulmonary arteries best seen on image 167 series 2 suggestive of pulmonary emboli. The main pulmonary artery is normal in size. AORTA: No acute findings. No thoracic aortic aneurysm. LUNGS: There is partial atelectasis/ consolidation of the lower lobes. Mild to moderate congestion in the upper lobes seen. PLEURAL SPACES: Moderate to large bilateral pleural effusions HEART: The heart is moderately enlarged. The right heart is enlarged and associated with reflux of the contrast to the IVC and hepatic veins suggestive of right heart failure. LYMPH NODES: No lymphadenopathy. BONES, CHEST WALL: There are multiple lytic bony lesions consistent with the patient's history of multiple myeloma. No fracture . Diffuse soft tissue edema is seen. OTHER FINDINGS: Unremarkable. IMPRESSION: Filling defects at the right lower lobe pulmonary arteries suggestive of pulmonary emboli. Cardiomegaly and moderate to large bilateral pleural effusions. Cqqx-ro-xmnitoyb pulmonary vascular congestion. Hiwl-va-hphfwvgj diffuse soft tissue edema. Multiple lytic bony lesion consistent with the patient's history of multiple myeloma. The above findings were reported to and discussed with the referring resident Dr. Stringer at 6 p.m. on 09/01/2017
[2017-09-01] MEDS: Enoxaparin 80 mg Syringe SC SCH (18:47)
[2017-09-01] MEDS: Oxycodone/Acetaminophen 5/325 mg Tab PO PRN (21:07)
[2017-09-02] MEDS: Enoxaparin 80 mg Syringe SC SCH ×2 (06:48→17:53)
[2017-09-02] MEDS: Dextrose 5%/0.45% NS 1,000 ML IV SCH (06:49)
[2017-09-02 08:07] LABS: BASO % 0.6 % (0.0-2.0); EOS % 0.2 % (0.0-4.0); HEMATOCRIT 26.5 % (35.0-51.0); LYMPH # 0.5 K/uL (1.0-4.3); LYMPH % 6.3 % (20.0-40.0); MEAN CELL VOLUME 84.1 fL (80.0-94.0); MEAN CORPUSCULAR HEMOGLOBIN 27.3 pg (27.0-31.0); MEAN CORPUSCULAR HGB CONC 32.4 g/dL (33.0-37.0); MEAN PLATELET VOLUME 10.2 fL (7.2-11.7); MONO # 0.4 K/uL (0.0-0.8); MONO % 5.3 % (0.0-10.0); NRBC % 0.1 % (0.0-2.0); PLATELET COUNT 250 K/uL (130-400); RED CELL DISTRIBUTION WIDTH 18.1 % (11.5-14.5); WHITE BLOOD COUNT 7.9 K/uL (4.8-10.8)
[2017-09-02 08:37] LABS: CHLORIDE 105 mmol/L (98-107)
[2017-09-02 08:38] LABS: POTASSIUM 3.3 mmol/L (3.6-5.2); SODIUM 140 mmol/L (132-148)
[2017-09-02] MEDS: (Novolog) Insulin Aspart, Recombinant 100 u/ml 10 ml vial SC SCH ×5 (08:39→22:35)
[2017-09-02 08:40] LABS: BILIRUBIN,TOTAL 0.7 mg/dL (0.2-1.3); CARBON DIOXIDE 22 mmol/L (22-30); CHOLESTEROL 110 mg/dL (0-199); GFR AFRICAN-AMERICAN > 60; TOTAL PROTEIN 6.6 g/dL (6.3-8.3)
[2017-09-02 08:41] LABS: ALKALINE PHOSPHATASE 290 U/L (38-126); ALT/SGPT 11 U/L (21-72); AST/SGOT 12 U/L (17-59); BLOOD UREA NITROGEN 10 mg/dL (9-20); CALCIUM 7.6 mg/dl (8.6-10.4); GLUCOSE,RANDOM 176 mg/dL (75-110); MAGNESIUM 1.3 mg/dL (1.6-2.3); PHOSPHOROUS 3.2 mg/dL (2.5-4.5)
[2017-09-02 08:43] LABS: ALB/GLOB RATIO 0.5 (1.0-2.1)
[2017-09-02] MEDS: Pantoprazole 20 mg EC Tab PO SCH (09:29)
[2017-09-02] MEDS: Cefepime 1 GM in Sodium Chloride 0.9% 100 ML IVPB SCH ×2 (09:29→22:36)
[2017-09-02 09:34] LABS: NEUTROPHIL 92 % (50-75); TOTAL CELLS COUNTED 100
--- NOTE | 2017-09-02 13:43 | CP.PCM.CON ---
History of Present Illness - History of Present Illness History of Present Illness: Palliative consult Requested by Siomara OCASIO Reason: goals of care Patient is a 76 yo male admitted [place] with AMS and SOB since the morning. O2Sat was at 80%. Patient was not able to recognize his daughter. Usually patient is alert and oriented at base line. The CT chest upon admission was significant for Right lung PE , and multiple bone lesions, secondary to myeloma. Lovenox [address] head negative acute findings. WBC 7.9, Hb 8.6. PMH: multiple myeloma with mets, DM, HTN, Soc. Hx: , has two children, [place] resident Fam hx: unknown Review of Systems - Review of Systems All systems: reviewed and no additional remarkable complaints except Review of Systems: ROS obtained from nursing. Patient confused. No acute events over night. Past Patient History - Past Medical History & Family History Past Medical History?: Yes - Past Social History Smoking Status: Never Smoked - CARDIAC Hx Hypertension: Yes - ENDOCRINE/METABOLIC Hx Diabetes Mellitus Type 2: Yes - HEMATOLOGICAL/ONCOLOGICAL Hx Anemia: Yes Hx Cancer: Yes Hx Chemotherapy: Yes (Pt currently on chemo) - MUSCULOSKELETAL/RHEUMATOLOGICAL Hx Falls: Yes - PSYCHIATRIC Hx Substance Use: No - SURGICAL HISTORY Hx Surgeries: Yes Hx Vascular Surgery: Yes Hx Vascular Access Device: Yes (Rt subc port-a-cath) Other/Comment: Left femur fracture MAY 2017. [place]t [place] [facility] [place] Hx Anesthesia: Yes Hx Anesthesia Reactions: No Has any member of the family had a problem w/ anesthesia?: No Meds Allergies/Adverse Reactions: Allergies Allergy/AdvReac Type Severity Reaction Status Date / Time No Known Allergies Allergy Verified 08/30/17 13:30 - Medications Medications: Current Medications Acetaminophen (Tylenol 325mg Tab) 650 mg PO Q6 PRN PRN Reason: Fever >100.4 F Amlodipine Besylate (Norvasc) 10 mg PO DAILY [facility] Last Admin: 09/02/17 09:29 Dose: 10 mg Enoxaparin Sodium (Lovenox) 65 mg SC Q12H [facility] Last Admin: 09/02/17 06:48 Dose: 65 mg Cefepime HCl 1 gm/ Sodium (Chloride) 100 mls @ 200 mls/hr IVPB Q12H [facility] Last Admin: 09/02/17 09:29 Dose: 200 mls/hr Dextrose/Sodium Chloride (Dextrose 5%/0.45% Ns 1000 Ml) 1,000 mls @ 50 mls/hr IV .Q20H [facility] Last Admin: 09/02/17 06:49 Dose: 50 mls/hr Insulin Aspart (Novolog) 0 unit SC ACHS [facility] PRN Reason: Protocol Last Admin: 09/02/17 08:39 Dose: 3 unit Oxycodone/Acetaminophen (Percocet 5/325 Mg Tab) 1 tab PO Q4H PRN PRN Reason: pain 4-9 Stop: 09/04/17 20:42 Last Admin: 09/01/17 21:07 Dose: 1 tab Pantoprazole Sodium (Protonix Ec Tab) 20 mg PO DAILY [facility] Last Admin: 09/02/17 09:29 Dose: 20 mg Physical Exam - Constitutional Appears: Confused - Head Exam Head Exam: ATRAUMATIC, NORMAL INSPECTION, NORMOCEPHALIC - Eye Exam Eye Exam: EOMI, Normal appearance, PERRL Pupil Exam: NORMAL ACCOMODATION - ENT Exam ENT Exam: Mucous Membranes Moist, Normal Exam - Neck Exam Neck exam: Positive for: Normal Inspection - Respiratory Exam Respiratory Exam: Decreased Breath Sounds, NORMAL BREATHING PATTERN - Cardiovascular Exam Cardiovascular Exam: Tachycardia, REGULAR RHYTHM - GI/Abdominal Exam GI & Abdominal Exam: Normal Bowel Sounds, Soft - Rectal Exam Rectal Exam: Deferred - Extremities Exam Extremities exam: Positive for: normal inspection - Back Exam Back exam: NORMAL INSPECTION - Neurological Exam Neurological exam: Alert, Altered - Psychiatric Exam Psychiatric exam: Anxious - Skin Skin Exam: Dry, Intact, Warm Results - Vital Signs Recent Vital Signs: Last Vital Signs Temp 97.7 F 09/02/17 08:59 Pulse 76 09/02/17 08:59 Resp 20 09/02/17 08:59 BP 134/76 09/02/17 08:59 Pulse Ox 96 09/02/17 08:59 - Labs Result Diagrams: 09/02/17 08:01 09/02/17 08:01 Labs: Laboratory Results - last 24 hr 09/01/17 09/02/17 09/02/17 18:33 07:04 08:01 WBC 7.9 RBC 3.15 L Hgb 8.6 L Hct 26.5 L MCV 84.1 MCH 27.3 MCHC 32.4 L RDW 18.1 H Plt Count 250 MPV 10.2 Neut % (Auto) 87.6 H Lymph % (Auto) 6.3 L Conway % (Auto) 5.3 Eos % (Auto) 0.2 Baso % (Auto) 0.6 Neut # 6.9 Lymph # 0.5 L Conway # 0.4 Eos # 0.0 Baso # 0.0 Neutrophils % (Manual) 92 H Lymphocytes % (Manual) 6 L Monocytes % (Manual) 2 Platelet Estimate Normal Polychromasia Slight Hypochromasia (manual) Slight Anisocytosis (manual) Slight Sodium Potassium Chloride Carbon Dioxide Anion Gap BUN Creatinine Est GFR ( Amer) Est GFR (Non-Af Amer) POC Glucose (mg/dL) 198 H 222 H Random Glucose Hemoglobin A1c Calcium Phosphorus Magnesium Total Bilirubin AST ALT Alkaline Phosphatase Total Protein Albumin Globulin Albumin/Globulin Ratio Triglycerides Cholesterol LDL Cholesterol Direct HDL Cholesterol 09/02/17 09/02/17 09/02/17 08:01 08:01 12:20 WBC RBC Hgb Hct MCV MCH MCHC RDW Plt Count MPV Neut % (Auto) Lymph % (Auto) Conway % (Auto) Eos % (Auto) Baso % (Auto) Neut # Lymph # Conway # Eos # Baso # Neutrophils % (Manual) Lymphocytes % (Manual) Monocytes % (Manual) Platelet Estimate Polychromasia Hypochromasia (manual) Anisocytosis (manual) Sodium 140 Potassium 3.3 L Chloride 105 Carbon Dioxide 22 Anion Gap 16 BUN 10 Creatinine 0.6 L Est GFR ( Amer) > 60 Est GFR (Non-Af Amer) > 60 POC Glucose (mg/dL) 155 H Random Glucose 176 H Hemoglobin A1c 7.9 H Calcium 7.6 L Phosphorus 3.2 Magnesium 1.3 L Total Bilirubin 0.7 AST 12 L ALT 11 L Alkaline Phosphatase 290 H Total Protein 6.6 Albumin 2.3 L Globulin 4.2 H Albumin/Globulin Ratio 0.5 L Triglycerides 65 Cholesterol 110 LDL Cholesterol Direct 57 HDL Cholesterol 36 Assessment & Plan - Assessment and Plan (Free Text) Assessment: Palliative consult Code status, Full Code, no Advance Directive / Living Will on chart I reviewed medical records, all diagnostic studies, examined patient in the bed and spoke to his daughter over the phone. Patient is alert but confused. Patient knew his name and his daughter name but was not able to fully participate in the interview. Patient kept repearing " no good, no good". When asked to elaborate what was not good, patient was not able to. Patient does not appear to be in any acute distress. O2Sat 98 % RA, afebrile. Breath sounds are regular and RR non labored. There is no JVD. HR 76 regular, no murmur. Abdomen flat and soft. Good ROM to upper and lower extremities. Skin intact. WBC 7.9, Hb 8.6, K 3.3, Alb 2.3 Impression * Chronically ill man with acute AMS * Anemia * Modest electrolyte imbalance * Patient is unable to advocate for himself due to AMS Suggestion * Promote safety * Reorient patient X 3 upon each encounter * Assist with feedings * Reassure patient of his safety I spoke over the phone with patient's daughter Jose Manuel. We agreed to meet today at 3 pm for family meeting. I will update you on goals of care after the meeting. Thank you for consulting Palliative Care
--- NOTE | 2017-09-02 13:53 | CARD ---
APPROVED REPORT EXAM: Two-dimensional and M-mode echocardiogram with Doppler and color Doppler. Other Information Quality : GoodRhythm : NSR INDICATION Congestive Heart Failure RISK FACTORS Diabetes 2D DIMENSIONS IVSd1.1 (0.7-1.1cm)LVDd5.6 (3.9-5.9cm) PWd0.8 (0.7-1.1cm)LVDs5.1 (2.5-4.0cm) FS (%) 8.9 %LVEF (%)19.4 (>50%) M-Mode DIMENSIONS RVDd3.24 (2.1-3.2cm)Left Atrium (MM)3.89 (2.5-4.0cm) IVSd0.55 (0.7-1.1cm)Aortic Root2.63 (2.2-3.7cm) LVDd5.86 (4.0-5.6cm)Aortic Cusp Exc.2.04 (1.5-2.0cm) PWd0.76 (0.7-1.1cm)FS (%) 9 % LVDs5.34 (2.0-3.8cm)LVEF (%)19 (>50%) Aortic Valve AI P 1/2 [id number] Mitral Valve MV E Znldmpdv18.7cm/sMV A Oblyafye37.7cm/sE/A ratio1.7 TDI E/Lateral E'0.0E/Medial E'0.0 Tricuspid Valve TR Peak [id number]/sTR Peak Gr.[id number] LEFT VENTRICLE The Left Ventricle is borderline dilated. There is normal left ventricular wall thickness. The systolic function is moderately to severely impaired. There is global hypokinesis of the left ventricle. Tissue Doppler imaging reveals mild left ventricular diastolic dysfunction. No left ventricle thrombus noted on this study. There is no ventricular septal defect visualized. There is no left ventricular aneurysm. There is no mass noted in the left ventricle. RIGHT VENTRICLE The right ventricle is borderline dilated. There is normal right ventricular wall thickness. The right ventricular systolic function is normal. ATRIA The left atrium size is normal. The right atrium size is normal. The interatrial septum is intact with no evidence for an atrial septal defect. AORTIC VALVE The aortic valve is thickened but opens well. There is mild to moderate aortic regurgitation. There is no aortic valvular stenosis. There is no aortic valvular vegetation. MITRAL VALVE The mitral valve is normal in structure. There is no evidence of mitral valve prolapse. There is no mitral valve stenosis. Mitral regurgitation is mild. TRICUSPID VALVE The tricuspid valve is normal in structure. There is trace to mild tricuspid regurgitation. PULMONIC VALVE The pulmonary valve is normal in structure. There is mild pulmonic valvular regurgitation. GREAT VESSELS The aortic root is normal in size. The ascending aorta is normal in size. The pulmonary artery is normal. The IVC is normal in size and collapses >50% with inspiration. PERICARDIAL EFFUSION There is no pericardial effusion. <Conclusion> The systolic function is moderately to severely impaired. There is global hypokinesis of the left ventricle. Tissue Doppler imaging reveals mild left ventricular diastolic dysfunction. There is mild to moderate aortic regurgitation. There is mild pulmonic valvular regurgitation. LVEF IS 20%. CONGESTIVE CARDIOMYOPATHY.
--- NOTE | 2017-09-02 14:02 | CARD ---
APPROVED REPORT EKG Measurement Heart [id number] PA [id number] <Conclusion> Sinus rhythm with premature supraventricular complexes Nonspecific T wave abnormality Abnormal ECG
--- NOTE | 2017-09-02 14:26 | CP.PCM.PN ---
Subjective - Date & Time of Evaluation Date of Evaluation: 09/02/17 Time of Evaluation: 10:15 - Subjective Subjective: Dr. Shaver note: Patient is a 76 year old male with a history of Multiple Mylomea, HTN, and DM is here because of shortness of breath. He is being treated for a PE as well as pneumonia. He is one therputic Lovenox and Cefepime. He is verbal but does not answer any questions. No events overnight per nursing staff. Objective - Vital Signs/Intake and Output Vital Signs (last 24 hours): Temp Pulse Resp BP Pulse Ox 97.7 F 76 20 134/76 96 09/02/17 08:59 09/02/17 08:59 09/02/17 08:59 09/02/17 08:59 09/02/17 08:59 Intake and Output: 09/02/17 09/02/17 06:59 18:59 Intake Total 800 Output Total 400 Balance 400 - Medications Medications: Current Medications Acetaminophen (Tylenol 325mg Tab) 650 mg PO Q6 PRN PRN Reason: Fever >100.4 F Amlodipine Besylate (Norvasc) 10 mg PO DAILY [facility] Last Admin: 09/02/17 09:29 Dose: 10 mg Enoxaparin Sodium (Lovenox) 65 mg SC Q12H [facility] Last Admin: 09/02/17 06:48 Dose: 65 mg Cefepime HCl 1 gm/ Sodium (Chloride) 100 mls @ 200 mls/hr IVPB Q12H [facility] Last Admin: 09/02/17 09:29 Dose: 200 mls/hr Dextrose/Sodium Chloride (Dextrose 5%/0.45% Ns 1000 Ml) 1,000 mls @ 50 mls/hr IV .Q20H [facility] Last Admin: 09/02/17 06:49 Dose: 50 mls/hr Insulin Aspart (Novolog) 0 unit SC ACHS [facility] PRN Reason: Protocol Last Admin: 09/02/17 12:30 Dose: Not Given Oxycodone/Acetaminophen (Percocet 5/325 Mg Tab) 1 tab PO Q4H PRN PRN Reason: pain 4-9 Stop: 09/04/17 20:42 Last Admin: 09/01/17 21:07 Dose: 1 tab Pantoprazole Sodium (Protonix Ec Tab) 20 mg PO DAILY [facility] Last Admin: 09/02/17 09:29 Dose: 20 mg - Labs Labs: 09/02/17 08:01 09/02/17 08:01 PT 19.0 SECONDS (9.7-12.2) H 08/30/17 14:10 INR 1.7 08/30/17 14:10 APTT 35 SECONDS (21-34) H 08/30/17 14:10 - Constitutional Appears: Unkempt - Eye Exam Eye Exam: Normal appearance - ENT Exam ENT Exam: Normal Exam - Respiratory Exam Respiratory Exam: Decreased Breath Sounds, Rales, Rhonchi, Wheezes. absent: Clear to Ausculation Bilateral - Cardiovascular Exam Cardiovascular Exam: REGULAR RHYTHM, RRR, +S1, +S2. absent: Gallop, Rubs - GI/Abdominal Exam GI & Abdominal Exam: Soft, Normal Bowel Sounds. absent: Tenderness - Extremities Exam Extremities Exam: Normal Inspection. absent: Pedal Edema - Back Exam Back Exam: NORMAL INSPECTION - Neurological Exam Neurological Exam: Awake - Skin Skin Exam: Warm Assessment and Plan - Assessment and Plan (Free Text) Assessment: Pulmonary Embolism 09/02: Most likely secondary to Multiple Myeloma, on theraputic Lovenox for now. Persistent SOB, hx of multiple myeloma CT Angio (09/01/17): filling defects in right lower lobe. Moderate to large bilateral pleural effusions. Jaty-lu-sgyxjouj pul vascular congestion. Mild to moderated soft tissue edema. Bony lesions c/w hx of multiple myeloma (see full report) Lovenox 65mg SC Q12H Pneumonia 09/02: Day 4 of IV Cefepime 1 gram Q12H Lives in custodial, probable Hospital acquired Febrile on admission CXR (08/30/17): Pulm edema/CHF findings with bilateral lower lobe alveolar type infiltrates and bilateral effusions. Superimposed PNA not compleely excluded ( see full report) Cefepime 1gm Q24H Tylenol 650mg PO Q6H for fever CHF, systolic dysfunction 09/02: Congestive cardiomypathy with an EF of 20% see emr for full report, Dr. Roach consulted. CXR (08/30/17): Pulm edema/CHF findings with bilateral lower lobe alveolar type infiltrates and bilateral effusions. Superimposed PNA not completely excluded ( see full report) f/u ECHO Pro-BNP: 14754 D5/1/2 NS @ 50cc/hr T2DM 09/02: Still poorly controlled here, a1c is 7.9, lipid panel unremarkable. Accuchecks RISS f/u A1c, lipid panel HTN 09/02: controlled, continue Norvasc Well controlled home med: Norvasc 10mg PO daily AMS 09/02: Patient does not answer questions, continue to monitor. Pt oriented x 2. Not to time/context. CT Head (08/30/17): No acute intracranial hemorrhage. Moderate white matter ischemic changes. Moderate volume loss. (see full report) Hx Multiple myeloma 09/02: consult is still pending. Dr. Musa Montemayor/Maggie, private hem/onc - will consult in AM Care goals 09/02: Pallative care consult pending Palliative care consult, mark Chowdary appreciated -f/u reccs Prophylaxis 09/02: continue with current treatment Lovenox 65mg SC daily Protonix 20mg PO Daily
--- NOTE | 2017-09-02 15:25 | CP.PCM.PN ---
Subjective - Date & Time of Evaluation Date of Evaluation: 09/02/17 Time of Evaluation: 14:45 - Subjective Subjective: Patient has no current chest pain or dyspnea. daughter is at the bedside Objective - Vital Signs/Intake and Output Vital Signs (last 24 hours): Temp Pulse Resp BP Pulse Ox 97.7 F 76 20 134/76 96 09/02/17 08:59 09/02/17 08:59 09/02/17 08:59 09/02/17 08:59 09/02/17 08:59 Intake and Output: 09/02/17 09/02/17 06:59 18:59 Intake Total 800 Output Total 400 Balance 400 - Medications Medications: Current Medications Acetaminophen (Tylenol 325mg Tab) 650 mg PO Q6 PRN PRN Reason: Fever >100.4 F Amlodipine Besylate (Norvasc) 10 mg PO DAILY [facility] Last Admin: 09/02/17 09:29 Dose: 10 mg Enoxaparin Sodium (Lovenox) 65 mg SC Q12H [facility] Last Admin: 09/02/17 06:48 Dose: 65 mg Cefepime HCl 1 gm/ Sodium (Chloride) 100 mls @ 200 mls/hr IVPB Q12H [facility] Last Admin: 09/02/17 09:29 Dose: 200 mls/hr Dextrose/Sodium Chloride (Dextrose 5%/0.45% Ns 1000 Ml) 1,000 mls @ 50 mls/hr IV .Q20H [facility] Last Admin: 09/02/17 06:49 Dose: 50 mls/hr Insulin Aspart (Novolog) 0 unit SC ACHS [facility] PRN Reason: Protocol Last Admin: 09/02/17 12:30 Dose: Not Given Oxycodone/Acetaminophen (Percocet 5/325 Mg Tab) 1 tab PO Q4H PRN PRN Reason: pain 4-9 Stop: 09/04/17 20:42 Last Admin: 09/01/17 21:07 Dose: 1 tab Pantoprazole Sodium (Protonix Ec Tab) 20 mg PO DAILY [facility] Last Admin: 09/02/17 09:29 Dose: 20 mg - Labs Labs: 09/02/17 08:01 09/02/17 08:01 PT 19.0 SECONDS (9.7-12.2) H 08/30/17 14:10 INR 1.7 08/30/17 14:10 APTT 35 SECONDS (21-34) H 08/30/17 14:10 - Constitutional Appears: Chronically Ill - Head Exam Head Exam: NORMAL INSPECTION - Eye Exam Eye Exam: Normal appearance - ENT Exam ENT Exam: Mucous Membranes Moist - Neck Exam Neck Exam: Full ROM - Respiratory Exam Respiratory Exam: Decreased Breath Sounds - Cardiovascular Exam Cardiovascular Exam: REGULAR RHYTHM - GI/Abdominal Exam GI & Abdominal Exam: Normal Bowel Sounds - Rectal Exam Rectal Exam: Deferred - Extremities Exam Extremities Exam: Full ROM - Neurological Exam Neurological Exam: Alert, Oriented x3 - Psychiatric Exam Psychiatric exam: Normal Mood Assessment and Plan (1) CHF (congestive heart failure), NYHA class III Assessment & Plan: I reviewed the echocardiogram. The patient has severe dilated cardiomyopathy. THe patient will need appropriate control of volume status. Add Coreg. diuresis as necessary. Not ideal candidate for invasive procedure. Status: Acute
[2017-09-02] MEDS: Oxycodone/Acetaminophen 5/325 mg Tab PO PRN (19:03)
[2017-09-03] MEDS: Enoxaparin 80 mg Syringe SC SCH ×2 (05:53→17:57)
[2017-09-03] MEDS: Dextrose 5%/0.45% NS 1,000 ML IV SCH (06:26)
[2017-09-03 07:09] LABS: BASO # 0.1 K/uL (0.0-0.2); BASO % 1.7 % (0.0-2.0); EOS % 0.2 % (0.0-4.0); HEMATOCRIT 26.9 % (35.0-51.0); LYMPH # 0.5 K/uL (1.0-4.3); LYMPH % 5.6 % (20.0-40.0); MEAN CELL VOLUME 84.3 fL (80.0-94.0); MEAN CORPUSCULAR HEMOGLOBIN 26.4 pg (27.0-31.0); MEAN CORPUSCULAR HGB CONC 31.3 g/dL (33.0-37.0); MEAN PLATELET VOLUME 10.6 fL (7.2-11.7); MONO # 0.4 K/uL (0.0-0.8); MONO % 5.2 % (0.0-10.0); NRBC % 0.1 % (0.0-2.0); PLATELET COUNT 253 K/uL (130-400); RED CELL DISTRIBUTION WIDTH 18.5 % (11.5-14.5); WHITE BLOOD COUNT 8.5 K/uL (4.8-10.8)
[2017-09-03 07:19] LABS: CHLORIDE 105 mmol/L (98-107)
[2017-09-03 07:20] LABS: POTASSIUM 3.1 mmol/L (3.6-5.2); SODIUM 136 mmol/L (132-148)
[2017-09-03 07:22] LABS: ALB/GLOB RATIO 0.5 (1.0-2.1); ALKALINE PHOSPHATASE 264 U/L (38-126); ALT/SGPT 16 U/L (21-72); AST/SGOT 16 U/L (17-59); BILIRUBIN,TOTAL 0.7 mg/dL (0.2-1.3); BLOOD UREA NITROGEN 9 mg/dL (9-20); CARBON DIOXIDE 22 mmol/L (22-30); GFR AFRICAN-AMERICAN > 60; GLUCOSE,RANDOM 128 mg/dL (75-110); TOTAL PROTEIN 7.1 g/dL (6.3-8.3)
[2017-09-03 07:23] LABS: CALCIUM 7.7 mg/dl (8.6-10.4); MAGNESIUM 1.3 mg/dL (1.6-2.3)
[2017-09-03] MEDS: (Novolog) Insulin Aspart, Recombinant 100 u/ml 10 ml vial SC SCH ×4 (08:07→22:04)
[2017-09-03 08:56] LABS: EOSINOPHIL 1 % (0-4); NEUTROPHIL 89 % (50-75); TOTAL CELLS COUNTED 100
[2017-09-03 08:57] LABS: LARGE PLATELETS PRESENT
[2017-09-03] MEDS: Cefepime 1 GM in Sodium Chloride 0.9% 100 ML IVPB SCH ×2 (09:41→22:00)
[2017-09-03] MEDS: Potassium Chloride 40 MEQ in Dextrose 5%/0.45% NS 1,000 ML IV SCH (09:43)
[2017-09-03] MEDS: Potassium Chloride 20 mEq/15 ml LIQ UD PO SCH ×2 (09:44→13:10)
[2017-09-03] MEDS: Pantoprazole 20 mg EC Tab PO SCH (09:45)
--- NOTE | 2017-09-03 15:33 | CP.PCM.PN ---
Subjective - Date & Time of Evaluation Date of Evaluation: 09/03/17 Time of Evaluation: 09:30 - Subjective Subjective: Dr. Shaver note: Patient seen and examined in room. I am unable to obtain history from patient but he is comfortable and in bed. Per nursing staff he has been disoriented since admission. He is only oriented to person but not place or time. Objective - Vital Signs/Intake and Output Vital Signs (last 24 hours): Temp Pulse Resp BP Pulse Ox 97.3 F L 96 H 20 124/79 100 09/02/17 23:35 09/03/17 04:04 09/02/17 23:35 09/02/17 23:35 09/03/17 10:51 Intake and Output: 09/03/17 09/03/17 06:59 18:59 Intake Total 900 Output Total 300 Balance 600 - Medications Medications: Current Medications Acetaminophen (Tylenol 325mg Tab) 650 mg PO Q6 PRN PRN Reason: Fever >100.4 F Amlodipine Besylate (Norvasc) 10 mg PO DAILY [facility] Last Admin: 09/03/17 09:39 Dose: 10 mg Enoxaparin Sodium (Lovenox) 65 mg SC Q12H [facility] Last Admin: 09/03/17 05:53 Dose: 65 mg Cefepime HCl 1 gm/ Sodium (Chloride) 100 mls @ 200 mls/hr IVPB Q12H [facility] Last Admin: 09/03/17 09:41 Dose: 200 mls/hr Potassium Chloride 40 meq/ (Dextrose/Sodium Chloride) 1,020 mls @ 50 mls/hr IV .[id number] [facility] Last Admin: 09/03/17 09:43 Dose: 50 mls/hr Insulin Aspart (Novolog) 0 unit SC ACHS [facility] PRN Reason: Protocol Last Admin: 09/03/17 11:35 Dose: 2 unit Oxycodone/Acetaminophen (Percocet 5/325 Mg Tab) 1 tab PO Q4H PRN PRN Reason: pain 4-9 Stop: 09/04/17 20:42 Last Admin: 09/02/17 19:03 Dose: 1 tab Pantoprazole Sodium (Protonix Ec Tab) 20 mg PO DAILY [facility] Last Admin: 09/03/17 09:45 Dose: 20 mg - Labs Labs: 09/03/17 07:01 09/03/17 07:01 PT 19.0 SECONDS (9.7-12.2) H 08/30/17 14:10 INR 1.7 08/30/17 14:10 APTT 35 SECONDS (21-34) H 08/30/17 14:10 - Constitutional Appears: Non-toxic, No Acute Distress, Confused - Head Exam Head Exam: NORMAL INSPECTION - Eye Exam Eye Exam: Normal appearance - ENT Exam ENT Exam: Normal Exam - Respiratory Exam Respiratory Exam: Decreased Breath Sounds, Rales. absent: Clear to Ausculation Bilateral, Rhonchi, Wheezes - Cardiovascular Exam Cardiovascular Exam: REGULAR RHYTHM, RRR, +S1, +S2. absent: Gallop, Rubs - GI/Abdominal Exam GI & Abdominal Exam: Soft, Normal Bowel Sounds. absent: Tenderness - Extremities Exam Extremities Exam: Normal Inspection. absent: Pedal Edema - Back Exam Back Exam: NORMAL INSPECTION - Neurological Exam Neurological Exam: Awake. absent: Oriented x3 - Skin Skin Exam: Pallor Assessment and Plan - Assessment and Plan (Free Text) Assessment: Pulmonary Embolism 09/03: Will most likely switch to PO anticoagulation tomorrow. 09/02: Most likely secondary to Multiple Myeloma, on theraputic Lovenox for now. Persistent SOB, hx of multiple myeloma CT Angio (09/01/17): filling defects in right lower lobe. Moderate to large bilateral pleural effusions. [id number] pul vascular congestion. Mild to moderated soft tissue edema. Bony lesions c/w hx of multiple myeloma (see full report) Lovenox 65mg SC Q12H Pneumonia 09/03: PT eval, day 5 Cefepime 1 gram Q12H, most likely will 09/02: Day 4 of IV Cefepime 1 gram Q12H Lives in [facility], probable Hospital acquired Febrile on admission CXR (08/30/17): Pulm edema/CHF findings with bilateral lower lobe alveolar type infiltrates and bilateral effusions. Superimposed PNA not compleely excluded ( see full report) Cefepime 1gm Q24H Tylenol 650mg PO Q6H for fever CHF, systolic dysfunction 09/03: Continue with lasix, need monitor volume statis 09/02: Congestive cardiomypathy with an EF of 20% see emr for full report, Dr. Roach consulted. CXR (08/30/17): Pulm edema/CHF findings with bilateral lower lobe alveolar type infiltrates and bilateral effusions. Superimposed PNA not completely excluded ( see full report) f/u ECHO Pro-BNP: 56878 D5/1/2 NS @ 50cc/hr T2DM 09/03: Continue with current management. 09/02: Still poorly controlled here, a1c is 7.9, lipid panel unremarkable. Accuchecks RISS f/u A1c, lipid panel HTN 09/02: controlled, continue Norvasc Well controlled home med: Norvasc 10mg PO daily AMS 09/03: Swallow study, changed diet to modified dysphagia diet. 09/02: Patient does not answer questions, continue to monitor. Pt oriented x 2. Not to time/context. CT Head (08/30/17): No acute intracranial hemorrhage. Moderate white matter ischemic changes. Moderate volume loss. (see full report) Hx Multiple myeloma 09/03: Patient will most likely need to follow up with his heme/onc as an outpatient. 09/02: consult is still pending. Dr. Musa Montemayor/Maggie, private hem/onc - will consult in AM Care goals 09/03: help with feedings, redirect patient as needed. 09/02: Pallative care consult pending Palliative care consult, Ricarda, mark appreciated -f/u reccs Prophylaxis 09/02: continue with current treatment Lovenox 65mg SC daily Protonix 20mg PO Daily
[2017-09-04] MEDS: Enoxaparin 80 mg Syringe SC SCH (06:17)
[2017-09-04 06:23] LABS: BASO % 0.4 % (0.0-2.0); EOS % 0.2 % (0.0-4.0); LYMPH # 0.8 K/uL (1.0-4.3); LYMPH % 8.7 % (20.0-40.0); MEAN CELL VOLUME 84.2 fL (80.0-94.0); MEAN CORPUSCULAR HEMOGLOBIN 26.4 pg (27.0-31.0); MEAN CORPUSCULAR HGB CONC 31.4 g/dL (33.0-37.0); MEAN PLATELET VOLUME 10.4 fL (7.2-11.7); MONO # 0.5 K/uL (0.0-0.8); MONO % 5.1 % (0.0-10.0); NRBC % 0.1 % (0.0-2.0); PLATELET COUNT 266 K/uL (130-400); RED CELL DISTRIBUTION WIDTH 18.3 % (11.5-14.5); WHITE BLOOD COUNT 9.1 K/uL (4.8-10.8)
[2017-09-04 07:45] LABS: CHLORIDE 105 mmol/L (98-107); POTASSIUM 3.8 mmol/L (3.6-5.2); SODIUM 137 mmol/L (132-148)
[2017-09-04 07:48] LABS: ALB/GLOB RATIO 0.5 (1.0-2.1); ALKALINE PHOSPHATASE 354 U/L (38-126); ALT/SGPT 17 U/L (21-72); AST/SGOT 40 U/L (17-59); BILIRUBIN,TOTAL 0.8 mg/dL (0.2-1.3); BLOOD UREA NITROGEN 9 mg/dL (9-20); CALCIUM 7.8 mg/dl (8.6-10.4); CARBON DIOXIDE 22 mmol/L (22-30); GFR AFRICAN-AMERICAN > 60; GLUCOSE,RANDOM 174 mg/dL (75-110); PHOSPHOROUS 2.9 mg/dL (2.5-4.5); TOTAL PROTEIN 7.3 g/dL (6.3-8.3)
[2017-09-04 07:49] LABS: MAGNESIUM 1.3 mg/dL (1.6-2.3)
[2017-09-04] MEDS: (Novolog) Insulin Aspart, Recombinant 100 u/ml 10 ml vial SC SCH ×2 (08:16→11:50)
[2017-09-04 08:26] LABS: NEUTROPHIL 89 % (50-75); TOTAL CELLS COUNTED 100
[2017-09-04 08:30] LABS: LARGE PLATELETS PRESENT
--- NOTE | 2017-09-04 09:06 | CP.PCM.PN ---
Subjective - Date & Time of Evaluation Date of Evaluation: 09/04/17 Time of Evaluation: 09:45 - Subjective Subjective: Dr. Shaver note: Patient seen and examined in room. He is much more responsive and is breathing easier without any oxygen via nasal canula and has not needed BIPAP for support either. He denies any difficulty breathing. He is actually more oriented today than yesterday. Objective - Vital Signs/Intake and Output Vital Signs (last 24 hours): Temp Pulse Resp BP Pulse Ox 97.4 F L 100 H 18 133/82 97 09/04/17 07:20 09/04/17 07:20 09/04/17 07:20 09/04/17 07:20 09/04/17 07:20 Intake and Output: 09/04/17 09/04/17 06:59 18:59 Intake Total 600 Balance 600 - Medications Medications: Current Medications Acetaminophen (Tylenol 325mg Tab) 650 mg PO Q6 PRN PRN Reason: Fever >100.4 F Amlodipine Besylate (Norvasc) 10 mg PO DAILY [facility] Last Admin: 09/03/17 09:39 Dose: 10 mg Enoxaparin Sodium (Lovenox) 65 mg SC Q12H [facility] Last Admin: 09/04/17 06:17 Dose: 65 mg Cefepime HCl 1 gm/ Sodium (Chloride) 100 mls @ 200 mls/hr IVPB Q12H [facility] Last Admin: 09/03/17 22:00 Dose: 200 mls/hr Potassium Chloride 40 meq/ (Dextrose/Sodium Chloride) 1,020 mls @ 50 mls/hr IV .[id number] [facility] Last Admin: 09/03/17 09:43 Dose: 50 mls/hr Insulin Aspart (Novolog) 0 unit SC ACHS [facility] PRN Reason: Protocol Last Admin: 09/04/17 08:16 Dose: 3 unit Oxycodone/Acetaminophen (Percocet 5/325 Mg Tab) 1 tab PO Q4H PRN PRN Reason: pain 4-9 Stop: 09/04/17 20:42 Last Admin: 09/02/17 19:03 Dose: 1 tab Pantoprazole Sodium (Protonix Ec Tab) 20 mg PO DAILY [facility] Last Admin: 09/03/17 09:45 Dose: 20 mg - Labs Labs: 09/04/17 06:14 09/04/17 06:14 PT 19.0 SECONDS (9.7-12.2) H 08/30/17 14:10 INR 1.7 08/30/17 14:10 APTT 35 SECONDS (21-34) H 08/30/17 14:10 - Constitutional Appears: Non-toxic, No Acute Distress - Eye Exam Eye Exam: Normal appearance Pupil Exam: NORMAL ACCOMODATION - Respiratory Exam Respiratory Exam: Clear to Ausculation Bilateral. absent: Rales, Rhonchi, Wheezes - Cardiovascular Exam Cardiovascular Exam: REGULAR RHYTHM, RRR, +S1, +S2. absent: Gallop, Rubs - GI/Abdominal Exam GI & Abdominal Exam: Soft, Normal Bowel Sounds. absent: Tenderness - Extremities Exam Extremities Exam: Normal Inspection. absent: Pedal Edema - Back Exam Back Exam: NORMAL INSPECTION - Psychiatric Exam Psychiatric exam: Normal Affect, Normal Mood Assessment and Plan - Assessment and Plan (Free Text) Assessment: Pulmonary Embolism 09/04: patient discharged to [facility], dc Lovenox and started Eliquis 5mg bid. 09/03: Will most likely switch to PO anticoagulation tomorrow. 09/02: Most likely secondary to Multiple Myeloma, on theraputic Lovenox for now. Persistent SOB, hx of multiple myeloma CT Angio (09/01/17): filling defects in right lower lobe. Moderate to large bilateral pleural effusions. Mcet-[id number] pul vascular congestion. Mild to moderated soft tissue edema. Bony lesions c/w hx of multiple myeloma (see full report) Lovenox 65mg SC Q12H Pneumonia 09/04: dc to [facility] will get 5 more days of Cefepime 09/03: PT eval, day 5 Cefepime 1 gram Q12H, most likely will 09/02: Day 4 of IV Cefepime 1 gram Q12H Lives in shelter, probable Hospital acquired Febrile on admission CXR (08/30/17): Pulm edema/CHF findings with bilateral lower lobe alveolar type infiltrates and bilateral effusions. Superimposed PNA not compleely excluded ( see full report) Cefepime 1gm Q24H Tylenol 650mg PO Q6H for fever CHF, systolic dysfunction 09/04: Added Coreg per reccs by Cardiology 09/03: Continue with lasix, need monitor volume statis 09/02: Congestive cardiomypathy with an EF of 20% see emr for full report, Dr. Roach consulted. CXR (08/30/17): Pulm edema/CHF findings with bilateral lower lobe alveolar type infiltrates and bilateral effusions. Superimposed PNA not completely excluded ( see full report) f/u ECHO Pro-BNP: 15203 D5/1/2 NS @ 50cc/hr T2DM 09/03: Continue with current management. 09/02: Still poorly controlled here, a1c is 7.9, lipid panel unremarkable. Accuchecks RISS f/u A1c, lipid panel HTN 09/04: Coreg added per reccs by cardiology 09/02: controlled, continue Norvasc Well controlled home med: Norvasc 10mg PO daily AMS 09/03: Swallow study, changed diet to modified dysphagia diet. 09/02: Patient does not answer questions, continue to monitor. Pt oriented x 2. Not to time/context. CT Head (08/30/17): No acute intracranial hemorrhage. Moderate white matter ischemic changes. Moderate volume loss. (see full report) Hx Multiple myeloma 09/03: Patient will most likely need to follow up with his heme/onc as an outpatient. 09/02: consult is still pending. Dr. Musa Montemayor/Maggie, private hem/onc - will consult in AM Care goals 09/03: help with feedings, redirect patient as needed. 09/02: Pallative care consult pending Palliative care consult, mark Chowdary appreciated -f/u reccs Prophylaxis 09/04: dc Lovenox and started Eliquis 09/02: continue with current treatment Lovenox 65mg SC daily Protonix 20mg PO Daily
[2017-09-04] MEDS: Cefepime 1 GM in Sodium Chloride 0.9% 100 ML IVPB SCH (09:09)
[2017-09-04] MEDS: Potassium Chloride 40 MEQ in Dextrose 5%/0.45% NS 1,000 ML IV SCH (09:11)
[2017-09-04] MEDS: Pantoprazole 20 mg EC Tab PO SCH (09:34)
[2017-09-04] MEDS: Magnesium Sulfate 1 gm in D5W 1 GM/100 ML BAG IVPB SCH ×2 (11:28→12:36)
--- NOTE | 2017-09-04 11:53 | CP.PCM.PN ---
Subjective - Date & Time of Evaluation Date of Evaluation: 09/04/17 Time of Evaluation: 10:30 - Subjective Subjective: Patient has no current chest pain. Lying in bed comfortably. Objective - Vital Signs/Intake and Output Vital Signs (last 24 hours): Temp Pulse Resp BP Pulse Ox 97.4 F L 100 H 18 133/82 97 09/04/17 07:20 09/04/17 07:20 09/04/17 07:20 09/04/17 07:20 09/04/17 07:20 Intake and Output: 09/04/17 09/04/17 06:59 18:59 Intake Total 600 Balance 600 - Medications Medications: Current Medications Acetaminophen (Tylenol 325mg Tab) 650 mg PO Q6 PRN PRN Reason: Fever >100.4 F Amlodipine Besylate (Norvasc) 10 mg PO DAILY [facility] Last Admin: 09/04/17 09:34 Dose: 10 mg Enoxaparin Sodium (Lovenox) 65 mg SC Q12H [facility] Last Admin: 09/04/17 06:17 Dose: 65 mg Cefepime HCl 1 gm/ Sodium (Chloride) 100 mls @ 200 mls/hr IVPB Q12H [facility] Last Admin: 09/04/17 09:09 Dose: 200 mls/hr Potassium Chloride 40 meq/ (Dextrose/Sodium Chloride) 1,020 mls @ 50 mls/hr IV .[id number] [facility] Last Admin: 09/04/17 09:11 Dose: 50 mls/hr Magnesium Sulfate/Dextrose (Magnesium Sulfate 1 Gm/100 Ml D5w) 1 gm in 100 mls @ 300 mls/hr IVPB Q30M [facility] Stop: 09/04/17 12:04 Last Admin: 09/04/17 11:28 Dose: 300 mls/hr Insulin Aspart (Novolog) 0 unit SC ACHS [facility] PRN Reason: Protocol Last Admin: 09/04/17 08:16 Dose: 3 unit Oxycodone/Acetaminophen (Percocet 5/325 Mg Tab) 1 tab PO Q4H PRN PRN Reason: pain 4-9 Stop: 09/04/17 20:42 Last Admin: 09/02/17 19:03 Dose: 1 tab Pantoprazole Sodium (Protonix Ec Tab) 20 mg PO DAILY [facility] Last Admin: 09/04/17 09:34 Dose: 20 mg - Labs Labs: 09/04/17 06:14 09/04/17 06:14 PT 19.0 SECONDS (9.7-12.2) H 08/30/17 14:10 INR 1.7 08/30/17 14:10 APTT 35 SECONDS (21-34) H 08/30/17 14:10 - Constitutional Appears: Non-toxic - Head Exam Head Exam: NORMAL INSPECTION - Eye Exam Eye Exam: Normal appearance - ENT Exam ENT Exam: Mucous Membranes Moist - Neck Exam Neck Exam: Full ROM - Respiratory Exam Respiratory Exam: NORMAL BREATHING PATTERN - Cardiovascular Exam Cardiovascular Exam: REGULAR RHYTHM - GI/Abdominal Exam GI & Abdominal Exam: Normal Bowel Sounds - Rectal Exam Rectal Exam: Deferred - Extremities Exam Extremities Exam: Full ROM - Back Exam Back Exam: NORMAL INSPECTION - Neurological Exam Neurological Exam: Alert, Oriented x3 - Psychiatric Exam Psychiatric exam: Normal Affect - Skin Skin Exam: Normal Color Assessment and Plan (1) CHF (congestive heart failure), NYHA class III Assessment & Plan: improving. recommend the addition of Coreg. oncologic work up in [place]. Status: Acute (2) HTN (hypertension) Assessment & Plan: medical therapy Status: Acute
[2017-09-04 16:48] VITALS: BP 117/83; PULSE 104; RESP 20; TEMP 97.3; O2SAT 98
--- NOTE | 2017-09-04 17:29 | PCM.HF ---
Heart Failure Core Measure - Heart Failure Ejection Fraction: Less Than 40 % (ef 20%) TEODORO Inhibitor Prescribed: No Contraindication/Reason for not providing: RENAL DYSFUNCTION Beta-Zhane Prescribed: Carvedilol Angiotensin II Receptor Zhane Prescribed: No Contraindication/Reason for not providing: RENAL DYSFUNCTION AnticoagulationTherapy for Atrial Fibrillation/Atrialflutter: Yes Aldosterone Antagonist Prescribed: No Contraindication/Reason for not providing: RENAL DYSFUNCTION Hydralazine Nitrate Prescribed: No Contraindication/Reason for not providing: NOT RX BY MD, POOR PROGNOSIS Implantable Cardioverter Defibrillator Therapy: No Contraindication/Reason for not providing: POOR PROGNOSIS Contraindication/Reason for not providing: POOR PROGNOSIS - Follow up [facility] be [facility] Follow Up Date (must be within 7 days from discharge): 09/08/17 Follow Up Time: 09:00
--- NOTE | 2017-09-09 10:04 | DS ---
SUMMARY: Mr. Jarquin was admitted to hospital and came in with a chief complaint of shortness of breath. The patient came to the ER, advised admission, the patient with possible pneumonia. The patient had CT angiogram which showed pulmonary embolism. The patient was started on Eliquis, supportive care, diuresis, antibiotics. The patient is discharged to be followed up as an outpatient for diagnoses of multiple myeloma, pulmonary embolism, CHF, as well as pneumonia. Kati Shaver MD
== END 2017-09-04 17:45 | DRG 175 ==
LOC: C.ER 13:24 → C.9E 16:00 → C.6T 22:47
PROVIDERS: ADMIT Internal Medicine Pulmonary Disease; ATTEND Internal Medicine Pulmonary Disease
DX: I26.99 Other pulmonary embolism without acute cor pulmonale (principal); J18.9 Pneumonia, unspecified organism; I50.23 Acute on chronic systolic (congestive) heart failure; C90.00 Multiple myeloma not having achieved remission; E11.9 Type 2 diabetes mellitus without complications; N39.0 Urinary tract infection, site not specified; I11.0 Hypertensive heart disease with heart failure; D63.0 Anemia in neoplastic disease; Z91.81 History of falling; Z51.5 Encounter for palliative care

== ENCOUNTER 2017-09-11 00:05 | Inpatient (IN) | payer MEDICARE ==
[2017-09-11 00:06] VITALS: BMI 23.7
[2017-09-11] MEDS ORDERED: Sodium Chloride 0.9% 1,000 ML IV ONE (00:28)
[2017-09-11] MEDS ORDERED: Sodium Chloride 0.9% 1,000 ML ONE (00:32)
[2017-09-11] MEDS ORDERED: Lidocaine 2% Jelly (Uro-Jet) ONE (00:50)
--- NOTE | 2017-09-11 01:09 | C.PDOC ---
History Of Present Illness Patient is a 77 y/o male who [facility] with a complaint of penile swelling and inability to urinate since 3:00pm today. Patient denies fever or chills. No other physical complaints at this time. Chief Complaint (Nursing): Male Genitourinary History Per: Patient History/Exam Limitations: no limitations Onset/Duration Of Symptoms: Hrs (symptoms began at 3:00pm today) Current Symptoms Are (Timing): Still Present Associated Symptoms: Urinary Symptoms (inability to urinate, penile edema). denies: Fever, Chills Recent travel outside of the [place]: No Additional History Per: Patient Past Medical History Reviewed: Historical Data, Nursing Documentation, Vital Signs Vital Signs: Last Vital Signs Temp 96.9 F L 09/11/17 00:19 Pulse 95 H 09/11/17 02:21 Resp 13 09/11/17 02:21 BP 99/64 L 09/11/17 02:21 Pulse Ox 98 09/11/17 02:33 - Medical History PMH: Anemia, Diabetes, HTN Surgical History: No Surg Hx Family History: States: Unknown Family Hx - Social History Hx Alcohol Use: No Hx Substance Use: No - Immunization History Hx Tetanus Toxoid Vaccination: No Hx Influenza Vaccination: No Review Of Systems Constitutional: Negative for: Fever, Chills Cardiovascular: Negative for: Chest Pain Respiratory: Negative for: Shortness of Breath Gastrointestinal: Negative for: Nausea, Vomiting Genitourinary: Positive for: Other (inability to urinate and penile edema) Physical Exam - Physical Exam Appears: Well, Non-toxic, No Acute Distress Skin: Normal Color, Warm, Dry Head: Atraumatic, Normacephalic Oral Mucosa: Moist Chest: Symmetrical Cardiovascular: Rhythm Regular, No Murmur Respiratory: Normal Breath Sounds, No Rales, No Rhonchi, No Wheezing Gastrointestinal/Abdominal: Soft, No Tenderness Male Genital: Normal Inspection Neurological/Psych: Oriented x3, Normal Speech, Normal Cognition ED Course And Treatment - Laboratory Results Result Diagrams: 09/11/17 01:10 09/11/17 01:10 ECG: Interpreted By Me, Viewed By Me ECG Rhythm: Sinus Rhythm, PVC, ST/T Changes ECG Interpretation: No Acute Changes Interpretation Of ECG: abnormal trcings, Sinus rhythm with PVC and APC., non- spc St-T changes Rate From EC O2 Sat by Pulse Oximetry: 98 (room air) Pulse Ox Interpretation: Normal - Radiology CXR: Interpreted by Me, Viewed By Me CXR Interpretation: Yes: Cardiomegaly, Other (bilateral pleural effusion, CHF) Medical Decision Making Medical Decision Making: Plan: EKG, CXR, Urine Culture, UA, and blood work ordered; IV fluids administered. Progress: Patient to be transferred. Disposition Discussed With .: Kati Shaver Doctor Will See Patient In The: Hospital Counseled Patient/Family Regarding: Diagnosis - Disposition Disposition: HOSPITALIZED Disposition Time: 02:29 Condition: STABLE - POA Present On Arrival: None - Clinical Impression Clinical Impression: CHF (congestive heart failure), Edema, Urinary retention - Scribe Statement The provider has reviewed the documentation as recorded by the Scribe Jodi Espinoza All medical record entries made by the Scribe were at my direction and personally dictated by me. I have reviewed the chart and agree that the record accurately reflects my personal performance of the history, physical exam, medical decision making, and the department course for this patient. I have also personally directed, reviewed, and agree with the discharge instructions and disposition.
[2017-09-11 01:22] LABS: BASO % 0.5 % (0.0-2.0); EOS % 0.2 % (0.0-4.0); HEMATOCRIT 28.1 % (35.0-51.0); LYMPH # 0.9 K/uL (1.0-4.3); MEAN CELL VOLUME 85.7 fL (80.0-94.0); MEAN CORPUSCULAR HEMOGLOBIN 26.1 pg (27.0-31.0); MEAN CORPUSCULAR HGB CONC 30.4 g/dL (33.0-37.0); MEAN PLATELET VOLUME 10.7 fL (7.2-11.7); MONO # 0.9 K/uL (0.0-0.8); MONO % 10.5 % (0.0-10.0); NRBC % 0.4 % (0.0-2.0); RED CELL DISTRIBUTION WIDTH 19.9 % (11.5-14.5); WHITE BLOOD COUNT 8.4 K/uL (4.8-10.8)
[2017-09-11 01:24] LABS: RBC URINE 10 /hpf (0-3); URINE BACTERIA RARE (<OCC); URINE BILIRUBIN NEGATIVE (NEGATIVE); URINE BLOOD 2+ (NEGATIVE); URINE COLOR Amber (YELLOW); URINE GLUCOSE (UA) 1+ mg/dL (Normal); URINE KETONE TRACE mg/dL (NEGATIVE); URINE LEUKOCYTE ESTERASE NEG Leu/uL (Negative); URINE PROTEIN 3+ mg/dL (NEGATIVE); WBC URINE 18 /hpf (0-5)
[2017-09-11 01:26] LABS: CHLORIDE 107 mmol/L (98-107)
[2017-09-11 01:27] LABS: POTASSIUM 3.8 mmol/L (3.6-5.2); SODIUM 140 mmol/L (132-148)
[2017-09-11 01:29] LABS: ALKALINE PHOSPHATASE 290 U/L (38-126); AST/SGOT 19 U/L (17-59); BILIRUBIN,TOTAL 0.6 mg/dL (0.2-1.3); CARBON DIOXIDE 21 mmol/L (22-30); GFR AFRICAN-AMERICAN > 60; TOTAL PROTEIN 7.4 g/dL (6.3-8.3)
[2017-09-11 01:30] LABS: ALT/SGPT 22 U/L (21-72); BLOOD UREA NITROGEN 21 mg/dL (9-20); CALCIUM 8.2 mg/dl (8.6-10.4); GLUCOSE,RANDOM 110 mg/dL (75-110)
[2017-09-11 02:01] LABS: ALB/GLOB RATIO 0.5 (1.0-2.1)
[2017-09-11] MEDS ORDERED: Oxycodone/Acetaminophen 5/325 mg Tab PO PRN (02:49)
[2017-09-11] MEDS ORDERED: SIMETHICONE 125 MG PO SCH (03:00)
[2017-09-11] MEDS: guaiFENesin DM 100 mg-10 mg/5 ml UD PO SCH ×4 (04:35→21:26)
[2017-09-11] MEDS: (Novolog) Insulin Aspart, Recombinant 100 u/ml 10 ml vial SC SCH ×4 (07:30→21:27)
--- NOTE | 2017-09-11 08:23 | RAD ---
Chest x-ray single frontal view History: Shortness of breath. Comparison: 07/14/2017 Findings: Right central venous catheter tip extending to the cavoatrial junction. Moderate to severe venous congestion with prominent bibasilar airspace opacities. Small to moderate bilateral pleural effusions. Cardiomegaly. Biapical pleural thickening with upper lobe granulomatous changes. Degenerative changes in the spine and shoulders. Small nodular density in the right suprahilar region. Impression: Right central venous catheter tip extending to the cavoatrial junction. Moderate to severe venous congestion with prominent bibasilar airspace opacities. Small to moderate bilateral pleural effusions. Cardiomegaly. Biapical pleural thickening with upper lobe granulomatous changes. Degenerative changes in the spine and shoulders. Small nodular density in the right suprahilar region.
[2017-09-11] MEDS: Megestrol Acetate 40 mg/ml Cup PO SCH (10:02)
[2017-09-11] MEDS: Lidocaine 5% Patch TD SCH (10:04)
[2017-09-11] MEDS: Multivitamin With Minerals Tab PO SCH (10:04)
[2017-09-11] MEDS: Pantoprazole 40 mg EC Tab PO SCH (10:04)
[2017-09-11] MEDS: ACARBOSE 25 MG PO SCH ×2 (10:26→13:40)
[2017-09-11] MEDS: Simethicone 80 mg Chewtab PO SCH ×2 (13:41→21:26)
[2017-09-11] MEDS ORDERED: ACARBOSE 25 MG PO SCH (18:00)
[2017-09-12] MEDS: (Novolog) Insulin Aspart, Recombinant 100 u/ml 10 ml vial SC SCH ×4 (07:30→21:48)
--- NOTE | 2017-09-12 08:18 | HP ---
HISTORY OF PRESENT ILLNESS: Mr. Jarquin is a 77-year-old man admitted to the hospital with shortness of breath, weakness, fatigue and leg swelling, difficulty on urination . The patient came to the ER for admission. The patient has been advised admission. PAST MEDICAL HISTORY: The patient has multiple myeloma or pulmonary edema. PAST SURGICAL HISTORY: . PHYSICAL EXAMINATION GENERAL: The patient . The patient is awake, alert, in no acute distress. VITAL SIGNS: Temperature 98, pulse 90. HEENT: Within normal limits.. NECK: Supple. CHEST: Symmetrical. HEART: Regular. ABDOMEN: Soft.. EXTREMITIES: A 1+ edema. IMPRESSION: The patient with leg swelling present, has hyperkalemia, urinary retention. PLAN: The patient is to get bed rest. Urology consult for the past sensation of urine . Kati Shaver MD
[2017-09-12] MEDS: Lidocaine 5% Patch TD SCH (11:00)
[2017-09-12] MEDS: guaiFENesin DM 100 mg-10 mg/5 ml UD PO SCH ×3 (11:06→21:53)
--- NOTE | 2017-09-12 11:06 | CP.PCM.PN ---
Subjective - Date & Time of Evaluation Date of Evaluation: 09/12/17 Time of Evaluation: 11:13 - Subjective Subjective: Patient seen and examined at bedside this AM; patient is pleasantly demented but does not know where he is or why he is here; states he feels fine and that he is in no pain. Offers no complaints. Objective - Vital Signs/Intake and Output Vital Signs (last 24 hours): Temp Pulse Resp BP Pulse Ox 97 F L 98 H 22 103/69 97 09/12/17 07:10 09/12/17 07:14 09/12/17 07:10 09/12/17 07:10 09/12/17 07:10 Intake and Output: 09/12/17 09/12/17 06:59 18:59 Intake Total 150 Output Total 230 Balance -80 - Medications Medications: Current Medications Acetaminophen (Tylenol 325mg Tab) 325 mg PO Q6 PRN PRN Reason: Fever >100.4 F Apixaban (Eliquis) 5 mg PO BID [facility] Last Admin: 09/11/17 18:30 Dose: 5 mg Carvedilol (Coreg) 6.25 mg PO BID [facility] Furosemide (Lasix) 40 mg IVP DAILY [facility] Last Admin: 09/11/17 10:05 Dose: 40 mg Gabapentin (Neurontin) 300 mg PO BID [facility] Last Admin: 09/11/17 17:42 Dose: 300 mg Guaifenesin/Dextromethorphan (Robitussin Dm) 5 ml PO Q6H [facility] Last Admin: 09/11/17 21:26 Dose: 5 ml Home Med (Acarbose [Acarbose]) 25 mg PO TID [facility] Insulin Aspart (Novolog) 0 unit SC ACHS [facility] PRN Reason: Protocol Lactulose (Enulose) 20 gm PO DAILY [facility] Last Admin: 09/11/17 10:02 Dose: 20 gm Lidocaine (Lidoderm) 1 ea TD DAILY [facility] Last Admin: 09/11/17 10:04 Dose: 1 ea Megestrol Acetate (Megace) 200 mg PO DAILY [facility] Last Admin: 09/11/17 10:02 Dose: 200 mg Multivitamins/Minerals (Therapeutic-M Tab) 1 tab PO DAILY [facility] Last Admin: 09/11/17 10:04 Dose: 1 tab Ondansetron HCl (Zofran Tab) 4 mg PO Q8H PRN PRN Reason: Nausea/Vomiting Oxycodone/Acetaminophen (Percocet 5/325 Mg Tab) 1 tab PO Q4H PRN PRN Reason: Pain, moderate (4-7) Stop: 09/14/17 02:50 Pantoprazole Sodium (Protonix Ec Tab) 40 mg PO DAILY [facility] Last Admin: 09/11/17 10:04 Dose: 40 mg Sacubitril/Valsartan (Entresto 24 Mg-26 Mg) 1 tab PO BID [facility] Sennosides (Senokot Tab) 8.6 mg PO BID [facility] Last Admin: 09/11/17 17:42 Dose: 8.6 mg Simethicone (Mylicon Chew Tab) 80 mg PO Q8H [facility] Last Admin: 09/11/17 21:26 Dose: 80 mg Tamsulosin HCl (Flomax) 0.8 mg PO DAILY [facility] - Labs Labs: 09/11/17 01:10 09/11/17 01:10 - Constitutional Appears: Non-toxic - Head Exam Head Exam: ATRAUMATIC - Eye Exam Eye Exam: EOMI Pupil Exam: PERRL - ENT Exam ENT Exam: Mucous Membranes Moist - Neck Exam Neck Exam: Full ROM - Respiratory Exam Respiratory Exam: Rales. absent: Clear to Ausculation Bilateral, NORMAL BREATHING PATTERN - Cardiovascular Exam Cardiovascular Exam: Tachycardia - GI/Abdominal Exam GI & Abdominal Exam: Soft - Extremities Exam Extremities Exam: Joint Swelling, Pedal Edema. absent: Calf Tenderness, Full ROM, Normal Capillary Refill, Tenderness - Back Exam Back Exam: absent: CVA tenderness (L), CVA tenderness (R) - Neurological Exam Neurological Exam: Awake. absent: Oriented x3 - Psychiatric Exam Psychiatric exam: Normal Affect - Skin Skin Exam: Warm Assessment and Plan - Assessment and Plan (Free Text) Assessment: Patient admitted for urinary retention and acute on chronic CHF exacerbation Urinary Retention -Zamora in place -most likely 2/2 to low albumin swelling into third spacing from CHF -patient is being diueresed; area looks far less swollen -will need to trial to void Acute on Chronic CHF exacerbation -echo from 2 weeks ago shows 20% EF with systolic and diastolic dysfunction -started Carvedilol 6.25mg BID -started Entresto BID -d/c amlodipine as it has no role in heart failure for control of HTN A.Fibb chronic c/w Eliquis no aspirin 2/2 to bleeding risk DM c/w acarbose Goals of Care/Failure to Thrive -patient is having meeting with Palliative care for goals of care discussion -patient is demented; from [facility] -patient on megace, added marinol Proph -Eliquis -Pepcid BID -Heart Healthy Diet mechanically pureed
[2017-09-12] MEDS: Multivitamin With Minerals Tab PO SCH (11:07)
[2017-09-12] MEDS: Pantoprazole 40 mg EC Tab PO SCH (11:07)
[2017-09-12] MEDS: Megestrol Acetate 40 mg/ml Cup PO SCH (11:07)
[2017-09-12] MEDS: Sacubitril/Valsartan 24-26mg Tab PO SCH ×2 (11:37→18:44)
[2017-09-12] MEDS: Simethicone 80 mg Chewtab PO SCH ×2 (13:11→21:53)
[2017-09-12] MEDS: (Lantus) Insulin Glargine, Recombinant SC SCH (21:52)
[2017-09-13] MEDS: guaiFENesin DM 100 mg-10 mg/5 ml UD PO SCH ×4 (03:40→20:27)
[2017-09-13] MEDS: Simethicone 80 mg Chewtab PO SCH ×3 (05:33→22:17)
[2017-09-13] MEDS: (Novolog) Insulin Aspart, Recombinant 100 u/ml 10 ml vial SC SCH ×4 (08:30→17:11)
[2017-09-13] MEDS: Sacubitril/Valsartan 24-26mg Tab PO SCH ×2 (10:59→17:12)
[2017-09-13] MEDS: Megestrol Acetate 40 mg/ml Cup PO SCH (11:02)
[2017-09-13] MEDS: Multivitamin With Minerals Tab PO SCH (11:39)
[2017-09-13] MEDS: Pantoprazole 40 mg EC Tab PO SCH (11:40)
[2017-09-13] MEDS: Lidocaine 5% Patch TD SCH (11:42)
[2017-09-13] MEDS ORDERED: Glucagon Recombinant 1 mg Inj IV STA (16:30)
[2017-09-13] MEDS ORDERED: Dextrose 50% SYRINGE Inj (50 ml) ONE (17:09)
[2017-09-13] MEDS ORDERED: Sodium Chloride 0.9% 250 ML IV ONE ×2 (17:16→19:00)
[2017-09-13] MEDS ORDERED: DOPamine 400mg/250ml D5W 400 MG/250 ML BAG IV PRN ×2 (17:28→17:32)
--- NOTE | 2017-09-13 17:46 | PCM.RRT ---
<Gordon Lloyd - Last Filed: 09/13/17 17:43> LITHOGRAPHIC PRESS OPERATOR APPRENTICE Nurses Assessment - Situation Date: 09/13/17 Time LITHOGRAPHIC PRESS OPERATOR APPRENTICE was called: 17:15 LITHOGRAPHIC PRESS OPERATOR APPRENTICE Responder Arrival Time:: 17:15 LITHOGRAPHIC PRESS OPERATOR APPRENTICE Location:: Med/Surg Room Number: 668A LITHOGRAPHIC PRESS OPERATOR APPRENTICE Reason for Call: Hypotension LITHOGRAPHIC PRESS OPERATOR APPRENTICE Called By: RN - IV IV Inserted during LITHOGRAPHIC PRESS OPERATOR APPRENTICE?: No IV Fluids Initiated During LITHOGRAPHIC PRESS OPERATOR APPRENTICE?: NS 250 cc bolus - Respiratory LITHOGRAPHIC PRESS OPERATOR APPRENTICE Delivery Method: Nasal Cannula @L/min, Intubated Received Nebulizer Treatments: No Was the Patient Ventilated with Bag/Mask 100% O2?: Yes Secretions Suctioned?: No Was the Patient Intubated?: Yes Was the Patient Placed on a Ventilator?: No - Medication Medications Administered During LITHOGRAPHIC PRESS OPERATOR APPRENTICE: Etomidate for sedation for intubation - Stat Labs Ordered LITHOGRAPHIC PRESS OPERATOR APPRENTICE Stat Labs Ordered: LACTIC ACID, ABG CPR started during LITHOGRAPHIC PRESS OPERATOR APPRENTICE?: No - Vital Signs Vital Signs: Starting BP 53/35 [place] to 74/50 after intervention - [place] Coma Scale Coma Scale Eye Opening: To pain Coma Scale Verbal: Incomprehensible speech - Sepsis Screen Part 1 Sepsis Screen Part 1: Hypotensive - Time LITHOGRAPHIC PRESS OPERATOR APPRENTICE Ended Time LITHOGRAPHIC PRESS OPERATOR APPRENTICE Ended: 17:32 - Vital Signs at end of LITHOGRAPHIC PRESS OPERATOR APPRENTICE Vital Signs at end of LITHOGRAPHIC PRESS OPERATOR APPRENTICE: BP 74/50 - Recommendations 5) LITHOGRAPHIC PRESS OPERATOR APPRENTICE Level of Care Recommendations: Transfer to ICU Notifications: Attending Physician (calls sent. awaiting callback), Family or Designated Caregiver I.Reason for LITHOGRAPHIC PRESS OPERATOR APPRENTICE - A) Acute Change in Patient: (Select all that apply): Acute change in SBP below - Neurological Status (Select all that apply): Confused, Lethargic - Respiratory Oxygen Delivery Method: Intubated - Constitutional Appears: Cachectic, Chronically Ill. absent: Well - Head Head Exam: ATRAUMATIC, NORMOCEPHALIC - Eyes Eye Exam: Normal appearance - Respiratory Exam Respiratory Exam: Rales (diffuse bilateral). absent: NORMAL BREATHING PATTERN ( agonal) - Cardiovascular Exam Cardiovascular Exam: +S1, +S2 - GI/Abdominal Exam GI & Abdominal Exam: Soft, Normal Bowel Sounds. absent: Tenderness - Neurological Exam Neurological Exam: Altered. absent: Alert, Awake - Extremities Exam Extremities Exam: Pedal Edema (bilateral) Plan - Assessment of Findings&Treatment Plan LITHOGRAPHIC PRESS OPERATOR APPRENTICE called at 17:15 for hypotension 53/35. Patient had previously been given Glucagon 1 mg IV stat to reverse beta blockade. 250cc NS bolus ordered. ABG with shock ordered. Etomidate used to sedate patient for intubation. Patient intubated by auto body worker Dr. Perry. Insulation Manager accepted patient for transfer to ICU. Dopamine drip ordered at 10 mcg/kg. LITHOGRAPHIC PRESS OPERATOR APPRENTICE ended with blood pressure 74/50 at 17:32. Patient transferred to ICU where Stat EKG, CXR, CBC, CMP, Mag, Phos, Coags, UA, urine cultures, blood cultures ordered. Family notified during LITHOGRAPHIC PRESS OPERATOR APPRENTICE and state patient is full code at this time. Primary Dr. Shaver called to be notified. Awaiting response. <Karen Elizondo V - Last Filed: 09/13/17 21:08> LITHOGRAPHIC PRESS OPERATOR APPRENTICE Nurses Assessment - Vital Signs Vital Signs: Rapid Response Vital Sign Blood Pressure 55/33 Pulse Rate 70 Respiratory Rate 16 Temperature 99 F Oxygen Saturation 96 - Vital Signs at end of LITHOGRAPHIC PRESS OPERATOR APPRENTICE Vital Signs at end of LITHOGRAPHIC PRESS OPERATOR APPRENTICE: Rapid Response End Vital Sign Blood Pressure 55/33 Pulse Rate 70 Temperature 99 F Attending/Attestation - Attestation I have personally seen and examined this patient.: Yes I have fully participated in the care of the patient.: Yes I have reviewed all pertinent clinical information, including history, physical exam and plan: Yes Notes (Text): Brief Hospitalist Note: * Per review of record, 77 M with history of multiple myeloma, heart failure EF: 20%, prior pneumonia, hypertension came to [facility], per nursing staff was more alert this morning compared to at the time of the LITHOGRAPHIC PRESS OPERATOR APPRENTICE. * LITHOGRAPHIC PRESS OPERATOR APPRENTICE called at 17:15 for hypotension 53/35. Patient placed in [place]. * Patient had previously been given Glucagon 1 mg IV stat to reverse beta blockade from Coreg, did not improved * 250cc NS bolus ordered; patient has history of heart failure, EF: 20% * ABG with shock ordered. * Patient with agonal breathing, unable to protect airway, palpable carotid pulse, sinus on telemetry. Patient need intubation emergently. * Record reviewed. Patient is full code. Resident Siomara spoke with family to confirm code status. * Patient sedated and intubated by ICU. * Patient started on dopamine drip to preserve blood pressure. LITHOGRAPHIC PRESS OPERATOR APPRENTICE ended with blood pressure 74/50 at 17:32. * Patient transferred to ICU where Stat EKG, CXR, CBC, CMP, Mag, Phos, Coags, UA , urine cultures, blood cultures ordered. * Primary Dr. Shaver was reached and notifed by Resident Siomara, PGY-2.
--- NOTE | 2017-09-13 18:01 | PCM.PROC ---
Procedures Attestation:: I certify that I have explained the specified Operation(s) or Procedure(s), risks, benefits and reasonable alternatives to the Patient and/or other person responsible. The opportunity was given to ask questions and all questions answered - Intubation Time Out Performed: Yes Sedative: Etomidate Patient Tolerated Procedure: Well Procedure Immediate Complications: Other (needed etomidate)
--- NOTE | 2017-09-13 18:08 | CP.PCM.CON ---
History of Present Illness - History of Present Illness History of Present Illness: Reason for consultation: Hypotension/respiratory arrest 77-year-old male with hypertension, diabetes, multiple myeloma was admitted with penile swelling 2 days ago. Patient recently had an echocardiogram done with ejection fraction of 20%. Patient was hypotensive and was given glucagon to reverse beta mirna and 250 mL fluid bolus. Patient became more hypotensive / LAND ACQUISITION MANAGER was called, patient was intubated for respiratory distress and transferred to intensive care unit. Review of Systems - Review of Systems Systems not reviewed;Unavailable: Intubated Past Patient History - Past Medical History & Family History Past Medical History?: Yes - Past Social History Smoking Status: Never Smoked - CARDIAC Hx Hypertension: Yes - ENDOCRINE/METABOLIC Hx Diabetes Mellitus Type 2: Yes - HEMATOLOGICAL/ONCOLOGICAL Hx Anemia: Yes - MUSCULOSKELETAL/RHEUMATOLOGICAL Hx Falls: Yes - PSYCHIATRIC Hx Substance Use: No - SURGICAL HISTORY Hx Surgeries: Yes Hx Vascular Surgery: Yes Hx Vascular Access Device: Yes (Rt subc port-a-cath) Other/Comment: Left femur fracture MAY 2017. Rt subc port-a-cath [place] on [place] [facility] [place]ESTHES[place] Hx Anesthesia: Yes Hx Anesthesia Reactions: No Meds Allergies/Adverse Reactions: Allergies Allergy/AdvReac Type Severity Reaction Status Date / Time No Known Allergies Allergy Verified 08/30/17 13:30 - Medications Medications: Current Medications Acetaminophen (Tylenol 325mg Tab) 325 mg PO Q6 PRN PRN Reason: Fever >100.4 F Apixaban (Eliquis) 5 mg PO BID [facility] Last Admin: 09/13/17 11:01 Dose: 5 mg Carvedilol (Coreg) 6.25 mg PO BID [facility] Last Admin: 09/13/17 17:12 Dose: Not Given Dronabinol (Marinol) 2.5 mg PO BID [facility] Last Admin: 09/13/17 17:53 Dose: Not Given Famotidine (Pepcid) 20 mg PO DAILY [facility] Last Admin: 09/13/17 11:00 Dose: 20 mg Furosemide (Lasix) 40 mg IVP DAILY [facility] Last Admin: 09/13/17 11:42 Dose: 40 mg Gabapentin (Neurontin) 300 mg PO BID [facility] Last Admin: 09/13/17 11:01 Dose: 300 mg Guaifenesin/Dextromethorphan (Robitussin Dm) 5 ml PO Q6H [facility] Last Admin: 09/13/17 15:14 Dose: Not Given Home Med (Acarbose [Acarbose]) 25 mg PO TID [facility] Dopamine HCl/Dextrose (Dopamine 400mg/250ml D5w) 400 mg in 250 mls @ 27.216 mls /hr IV .Q9H12M PRN; Protocol; 10 MCG/KG/MIN PRN Reason: TITRATE PER MD ORDER Insulin Aspart (Novolog) 0 unit SC ACHS [facility] PRN Reason: Protocol Last Admin: 09/13/17 17:11 Dose: Not Given Insulin Glargine (Lantus) 10 unit SC HS [facility] Last Admin: 09/12/17 21:52 Dose: 10 unit Lactulose (Enulose) 20 gm PO DAILY [facility] Last Admin: 09/13/17 11:00 Dose: 20 gm Lidocaine (Lidoderm) 1 ea TD DAILY [facility] Last Admin: 09/13/17 11:42 Dose: 1 ea Megestrol Acetate (Megace) 200 mg PO DAILY [facility] Last Admin: 09/13/17 11:02 Dose: 200 mg Multivitamins/Minerals (Therapeutic-M Tab) 1 tab PO DAILY [facility] Last Admin: 09/13/17 11:39 Dose: 1 tab Ondansetron HCl (Zofran Tab) 4 mg PO Q8H PRN PRN Reason: Nausea/Vomiting Oxycodone/Acetaminophen (Percocet 5/325 Mg Tab) 1 tab PO Q4H PRN PRN Reason: Pain, moderate (4-7) Stop: 09/14/17 02:50 Pantoprazole Sodium (Protonix Ec Tab) 40 mg PO DAILY [facility] Last Admin: 09/13/17 11:40 Dose: 40 mg Sacubitril/Valsartan (Entresto 24 Mg-26 Mg) 1 tab PO BID [facility] Last Admin: 09/13/17 17:12 Dose: Not Given Sennosides (Senokot Tab) 8.6 mg PO BID [facility] Last Admin: 09/13/17 17:52 Dose: Not Given Simethicone (Mylicon Chew Tab) 80 mg PO Q8H [facility] Last Admin: 09/13/17 15:00 Dose: Not Given Tamsulosin HCl (Flomax) 0.8 mg PO DAILY [facility] Last Admin: 09/13/17 11:40 Dose: 0.8 mg Physical Exam - Head Exam Head Exam: ATRAUMATIC, NORMOCEPHALIC - ENT Exam ENT Exam: Mucous Membranes Dry - Neck Exam Neck exam: Positive for: Normal Inspection - Respiratory Exam Respiratory Exam: Decreased Breath Sounds - Cardiovascular Exam Cardiovascular Exam: REGULAR RHYTHM - GI/Abdominal Exam GI & Abdominal Exam: Normal Bowel Sounds - Extremities Exam Extremities exam: Positive for: pedal edema Results - Vital Signs Recent Vital Signs: Last Vital Signs Temp 97.6 F 09/13/17 15:29 Pulse 71 09/13/17 15:29 Resp 18 09/13/17 15:29 BP 86/59 L 09/13/17 15:29 Pulse Ox 99 09/13/17 15:29 - Labs Result Diagrams: 09/11/17 01:10 09/11/17 01:10 Labs: Laboratory Results - last 24 hr 09/12/17 09/13/17 09/13/17 21:06 12:14 17:19 POC Glucose (mg/dL) 203 H 112 H 253 H Assessment & Plan (1) Acute respiratory failure Status: Acute Comment: Patient intubated and transferred to ICU. Continue ventilatory support. Follow up ABG and chest x-ray. Empiric antibiotic coverage. culture and sensitivity. Patient started on dopamine (2) Hypotension (arterial) Status: Acute (3) CHF (congestive heart failure) Status: Acute
[2017-09-13] MEDS ORDERED: Vancomycin 1 gm/NS 200 ml 1 GM/200 ML BAG IVPB STA (18:16)
[2017-09-13 18:26] LABS: ABG MECHANICAL RATE 14; ARTERIAL BLOOD GAS MODE PRVC; ATERIAL BLOOD GAS PEEP 5; DRAW SITE RRA
[2017-09-13 18:46] LABS: BASO # 0.1 K/uL (0.0-0.2); BASO % 0.6 % (0.0-2.0); EOS % 0.3 % (0.0-4.0); HEMATOCRIT 26.1 % (35.0-51.0); LYMPH # 0.7 K/uL (1.0-4.3); LYMPH % 7.8 % (20.0-40.0); MEAN CELL VOLUME 85.3 fL (80.0-94.0); MEAN CORPUSCULAR HEMOGLOBIN 25.8 pg (27.0-31.0); MEAN CORPUSCULAR HGB CONC 30.3 g/dL (33.0-37.0); MEAN PLATELET VOLUME 10.9 fL (7.2-11.7); MONO # 0.5 K/uL (0.0-0.8); NRBC % 0.2 % (0.0-2.0); PLATELET COUNT 241 K/uL (130-400); RED CELL DISTRIBUTION WIDTH 19.8 % (11.5-14.5); WHITE BLOOD COUNT 9.1 K/uL (4.8-10.8)
[2017-09-13 18:53] LABS: CHLORIDE 106 mmol/L (98-107); POTASSIUM 3.6 mmol/L (3.6-5.2); SODIUM 134 mmol/L (132-148)
[2017-09-13 18:55] LABS: GFR AFRICAN-AMERICAN > 60
[2017-09-13 18:56] LABS: ALB/GLOB RATIO 0.4 (1.0-2.1); ALKALINE PHOSPHATASE 222 U/L (38-126); ALT/SGPT 25 U/L (21-72); AST/SGOT 14 U/L (17-59); BILIRUBIN,TOTAL 0.7 mg/dL (0.2-1.3); BLOOD UREA NITROGEN 31 mg/dL (9-20); CALCIUM 7.8 mg/dl (8.6-10.4); CARBON DIOXIDE 21 mmol/L (22-30); GLUCOSE,RANDOM 133 mg/dL (75-110); PHOSPHOROUS 4.1 mg/dL (2.5-4.5)
[2017-09-13 18:57] LABS: MAGNESIUM 1.7 mg/dL (1.6-2.3)
[2017-09-13 19:09] LABS: URINE COLOR YELLOW (YELLOW)
[2017-09-13 19:10] LABS: RBC URINE 8 /hpf (0-3); URINE BILIRUBIN MODERATE (NEGATIVE); URINE BLOOD MODERATE (NEGATIVE); URINE GLUCOSE (UA) NEGATIVE (Normal); URINE KETONE TRACE mg/dL (NEGATIVE); URINE LEUKOCYTE ESTERASE NEGATIVE Leu/uL (Negative); URINE PROTEIN 100 mg/dL (NEGATIVE); URINE UROBILINOGEN 0.2 mg/dL (0.2-1.0)
[2017-09-13 19:11] LABS: URINE BACTERIA MOD (<OCC); URINE HYALINE CAST 10 /lpf (0-2); WBC URINE 1 /hpf (0-5)
[2017-09-13 19:29] LABS: NEUTROPHIL 90 % (50-75); TOTAL CELLS COUNTED 100
[2017-09-13 19:30] LABS: LARGE PLATELETS PRESENT
[2017-09-13] MEDS ORDERED: Albumin Human 25% (12.5 gm/50 ml) IV ONE (19:39)
[2017-09-13] MEDS: DOBUTamine 500mg/250ml D5W 500 MG/250 ML BAG IV SCH (21:14)
[2017-09-13] MEDS: Norepinephrine 8 MG in Sodium Chloride 0.9% 242 ML IV PRN (21:14)
[2017-09-13] MEDS: Cefepime 1 GM in Sodium Chloride 0.9% 100 ML IVPB SCH (21:15)
[2017-09-13] MEDS: (Lantus) Insulin Glargine, Recombinant SC SCH (22:18)
[2017-09-14] MEDS: (Novolog) Insulin Aspart, Recombinant 100 u/ml 10 ml vial SC SCH ×4 (00:10→17:43)
[2017-09-14] MEDS: guaiFENesin DM 100 mg-10 mg/5 ml UD PO SCH ×2 (02:13→08:07)
[2017-09-14 06:05] LABS: ABG ALLEN TEST POS; ABG MECHANICAL RATE 14; ARTERIAL BLOOD GAS MODE PRVC; ARTERIAL BLOOD HGB O2 SAT 96.3 % (95.0-98.0); ATERIAL BLOOD GAS PEEP 5; CARBOXYHEMOGLOBIN 1.8 % (0.5-1.5); DRAW SITE L RAD; HHB 0.7 % (0.0-5.0); METHEMOGLOBIN 1.2 % (0.0-3.0)
[2017-09-14] MEDS: Simethicone 80 mg Chewtab PO SCH (06:28)
[2017-09-14] MEDS: Cefepime 1 GM in Sodium Chloride 0.9% 100 ML IVPB SCH ×2 (06:33→18:02)
[2017-09-14 07:31] LABS: BASO % 0.3 % (0.0-2.0); EOS % 0.3 % (0.0-4.0); LYMPH # 0.5 K/uL (1.0-4.3); LYMPH % 7.2 % (20.0-40.0); MEAN CELL VOLUME 85.4 fL (80.0-94.0); MEAN CORPUSCULAR HEMOGLOBIN 27.2 pg (27.0-31.0); MEAN CORPUSCULAR HGB CONC 31.9 g/dL (33.0-37.0); MONO # 0.4 K/uL (0.0-0.8); MONO % 5.2 % (0.0-10.0); NRBC % 0.1 % (0.0-2.0); PLATELET COUNT 201 K/uL (130-400); RED CELL DISTRIBUTION WIDTH 17.6 % (11.5-14.5); WHITE BLOOD COUNT 7.2 K/uL (4.8-10.8)
[2017-09-14 07:35] LABS: CHLORIDE 108 mmol/L (98-107); SODIUM 135 mmol/L (132-148)
[2017-09-14 07:36] LABS: POTASSIUM 3.8 mmol/L (3.6-5.2)
[2017-09-14 07:38] LABS: ALB/GLOB RATIO 0.5 (1.0-2.1); ALKALINE PHOSPHATASE 185 U/L (38-126); AST/SGOT 20 U/L (17-59); BLOOD UREA NITROGEN 32 mg/dL (9-20); CARBON DIOXIDE 17 mmol/L (22-30); GFR AFRICAN-AMERICAN > 60; GLUCOSE,RANDOM 116 mg/dL (75-110); TOTAL PROTEIN 6.5 g/dL (6.3-8.3)
[2017-09-14 07:39] LABS: ALT/SGPT 17 U/L (21-72); CALCIUM 7.8 mg/dl (8.6-10.4); PHOSPHOROUS 4.7 mg/dL (2.5-4.5)
[2017-09-14] MEDS: DOBUTamine 500mg/250ml D5W 500 MG/250 ML BAG IV SCH (09:07)
[2017-09-14] MEDS: Megestrol Acetate 40 mg/ml Cup PO SCH (09:08)
[2017-09-14] MEDS: Multivitamin With Minerals Tab PO SCH (09:09)
[2017-09-14] MEDS: Lidocaine 5% Patch TD SCH (09:10)
[2017-09-14] MEDS: Pantoprazole 40 mg EC Tab PO SCH (09:10)
[2017-09-14 09:17] LABS: EOSINOPHIL 1 % (0-4); NEUTROPHIL 89 % (50-75); TOTAL CELLS COUNTED 100
[2017-09-14 09:19] LABS: LARGE PLATELETS PRESENT
--- NOTE | 2017-09-14 09:51 | RAD ---
HISTORY: intubated COMPARISON: Comparison is made to 09/11/2017 FINDINGS: LUNGS: Status post intubation. The ET tube is seen at appropriate position. Interval worsening of diffuse hazy opacities in the lungs since the previous exam. The right lung is small in size likely due to right lower lobe atelectasis secondary to pleural effusion. PLEURA: Suspicious for moderate to large right pleural effusion. CARDIOVASCULAR: The cardiac silhouette is enlarged Normal. OSSEOUS STRUCTURES: No significant abnormalities. VISUALIZED UPPER ABDOMEN: NG tube seen extending to the abdomen. OTHER FINDINGS: Right-sided Infusaport is again seen in place. IMPRESSION: Status post intubation. Worsening diffuse hazy opacities in the lungs may represent pulmonary congestion. Re- demonstration of moderate to large right pleural effusion. Appropriate position of the support devices.
[2017-09-14] MEDS ORDERED: DOBUTamine 500mg/250ml D5W 500 MG/250 ML BAG IV SCH (11:00)
--- NOTE | 2017-09-14 13:11 | CP.CCUPN ---
CCU Subjective - Physician Review Events Since Last Encounter (Free Text): 09/14/17 13:08 Patient seen and examined in the intensive care unit. Intubated on ventilatory support FiO2 50% On Levophed and Dobutrex drip Afebrile Sedated on propofol drip Started on NGT feeding CCU Objective - Vital Signs / Intake & Output Vital Signs (Last 4 hours): Vital Signs Temp Pulse Resp BP Pulse Ox 09/14/17 11:55 83 16 103/57 L 100 09/14/17 11:51 98 F 100 09/14/17 11:50 86 15 100 09/14/17 11:40 83 16 100 09/14/17 11:30 72 16 100 09/14/17 11:20 73 19 100 09/14/17 11:10 73 14 100 09/14/17 11:00 71 17 100 09/14/17 10:55 74 14 101/55 L 100 09/14/17 10:50 74 15 100 09/14/17 10:40 84 16 100 09/14/17 10:30 78 14 96/49 L 100 09/14/17 10:20 80 17 100 09/14/17 10:10 73 15 100 09/14/17 10:00 75 16 100 09/14/17 09:55 74 14 96/49 L 100 09/14/17 09:50 77 15 100 09/14/17 09:40 73 13 100 09/14/17 09:30 73 13 100 09/14/17 09:20 74 15 100 09/14/17 09:10 75 14 100 Intake and Output (Last 8hrs): Intake & Output 09/13/17 09/14/17 09/14/17 22:59 06:59 14:59 Intake Total 640.8 895.8 586.8 Output Total 215 125 130 Balance 425.8 770.8 456.8 Weight 163 lb 2.273 oz Intake: IV 19 35 250 Intake, IV Amount 621.8 258.8 176.8 Right Port-A-Cath 206.8 174.4 109.0 Riight Port-A Cath Yport 300 Rt PAC 115.0 84.4 67.8 Tube Feeding 160 Blood Product 0 602 Apheresis Rbc Cp2d As3 Lr 0 277 1st Unit [id number] Red Blood Cells Cpd As1 325 Lr Unit [id number] Output: Urine 215 125 130 Urethral ([place]) 215 125 130 Other: # Bowel Movements 0 0 - Physical Exam Head: Positive for: Atraumatic, Normocephalic Mouth: Positive for: Moist Mucous Membranes Neck: Positive for: Trachea Midline Respiratory/Chest: Positive for: Clear to Auscultation Cardiovascular: Positive for: Regular Rate and Rhythm Abdomen: Positive for: Normal Bowel Sounds Upper Extremity: Positive for: Normal Inspection Lower Extremity: Positive for: Normal Inspection Skin: Positive for: Warm Psychiatric: Positive for: Other (Sedated on propofol) - Medications Active Medications: Active Medications Generic Name Dose Route Start Last Admin Trade Name Freq PRN Reason Stop Dose Admin Acetaminophen 325 mg 09/11/17 02:50 Tylenol 325mg Tab PO Q6 PRN Fever >100.4 F Gabapentin 300 mg 09/11/17 10:00 09/14/17 09:09 Neurontin PO 300 mg BID VELVET Administration Cefepime HCl 1 gm/ Sodium 100 mls @ 100 mls/hr 09/13/17 19:00 09/14/17 06:33 Chloride IVPB 100 mls/hr Q12H VELVET Administration Norepinephrine Bitartrate 8 mg 250 mls @ 7.5 mls/hr 09/13/17 20:50 09/14/17 02:12 / Sodium Chloride IV 6 mcg/min .Q24H PRN 11.25 mls/hr TITRATE PER MD ORDER Titration Protocol 4 MCG/MIN Dobutamine HCl/Dextrose 500 mg in 250 mls @ 10.886 mls/hr 09/14/17 11:00 10:30 Dobutamine/Dextrose 5% 500mg/250ml IV 10.886 mls/hr .[id number] VELVET Administration 5 MCG/KG/MIN Insulin Aspart 0 unit 09/14/17 00:00 09/14/17 11:50 Novolog SC 2 unit Q6H VELVET Administration Protocol Insulin Glargine 10 unit 09/12/17 22:00 09/13/17 22:18 Lantus SC Not Given HS VELVET Lactulose 20 gm 09/11/17 10:00 09/14/17 09:09 Enulose PO 20 gm DAILY VELVET Administration Lidocaine 1 ea 09/11/17 10:00 09/14/17 09:10 Lidoderm TD 1 ea DAILY VELVET Administration Midazolam HCl 1 mg 09/13/17 20:28 Versed Inj IVP Q1H PRN Sedation Multivitamins/Minerals 1 tab 09/11/17 10:00 09/14/17 09:09 Therapeutic-M Tab PO 1 tab DAILY VELVET Administration Ondansetron HCl 4 mg 09/11/17 02:50 Zofran Tab PO Q8H PRN Nausea/Vomiting Pantoprazole Sodium 40 mg 09/11/17 10:00 09/14/17 09:10 Protonix Ec Tab PO 40 mg DAILY VELVET Administration Sennosides 8.6 mg 09/11/17 10:00 09/14/17 09:09 Senokot Tab PO 8.6 mg BID VELVET Administration Tamsulosin HCl 0.8 mg 09/12/17 10:00 09/14/17 09:09 Flomax PO 0.8 mg DAILY VELVET Administration - Patient Studies Lab Studies: Microbiology Studies 09/11/17 14:40 Urine Culture - Final Urine,[place] No Growth (<1,000 CFU/ML) Lab Studies 09/14/17 09/14/17 09/14/17 Range/Units 11:38 07:19 07:19 WBC 7.2 (4.8-10.8) K/uL RBC 3.51 L (4.40-5.90) Mil/uL Hgb 9.6 L (12.0-18.0) g/dL Hct 30.0 L (35.0-51.0) % MCV 85.4 (80.0-94.0) fL MCH 27.2 (27.0-31.0) pg MCHC 31.9 L (33.0-37.0) g/dL RDW 17.6 H (11.5-14.5) % Plt Count 201 (130-400) K/uL MPV 11.0 (7.2-11.7) fL Neut % (Auto) 87.0 H (50.0-75.0) % Lymph % (Auto) 7.2 L (20.0-40.0) % [place] % (Auto) 5.2 (0.0-10.0) % Eos % (Auto) 0.3 (0.0-4.0) % Baso % (Auto) 0.3 (0.0-2.0) % Neut # 6.2 (1.8-7.0) K/uL Lymph # 0.5 L (1.0-4.3) K/uL [place] # 0.4 (0.0-0.8) K/uL Eos # 0.0 (0.0-0.7) K/uL Baso # 0.0 (0.0-0.2) K/uL Neutrophils % (Manual) 89 H (50-75) % Lymphocytes % (Manual) 7 L (20-40) % Monocytes % (Manual) 3 Eosinophils % (Manual) 1 (0-4) % Platelet Estimate Normal (NORMAL) Large Platelets Present Polychromasia Slight Hypochromasia (manual) Slight Poikilocytosis (manual Slight Anisocytosis (manual) Slight Microcytosis (manual) Slight Macrocytosis (manual) Slight Tear Drop Cells Slight Ovalocytes Slight [place] Cells Slight PT (9.7-12.2) SECONDS INR APTT (21-34) SECONDS Puncture Site pCO2 (35-45) mm/Hg pO2 (80-100) mm/Hg HCO3 (21-28) mmol/L ABG pH (7.35-7.45) ABG Total CO2 (22-28) mmol/L ABG O2 Saturation (95-98) % ABG Base Excess (-2.0-3.0) mmol/L ABG Hemoglobin (11.7-17.4) g/dL ABG Carboxyhemoglobin (0.5-1.5) % POC ABG HHb (Measured) (0.0-5.0) % ABG Methemoglobin (0.0-3.0) % Elio Test ABG Potassium (3.6-5.2) mmol/L A-a O2 Difference mm/Hg Respiratory Index Hgb O2 Saturation (95.0-98.0) % Sodium 135 (132-148) mmol/l Chloride 108 H (98-107) mmol/L Glucose (75-110) mg/dl Lactate (0.7-2.1) mmol/L Vent Mode Mechanical Rate FiO2 % Tidal Volume PEEP Potassium 3.8 (3.6-5.2) mmol/L Carbon Dioxide 17 L (22-30) mmol/L Anion Gap 14 (10-20) BUN 32 H (9-20) mg/dL Creatinine 1.0 (0.8-1.5) mg/dL Est GFR ( Amer) > 60 Est GFR (Non-Af Amer) > 60 POC Glucose (mg/dL) 157 H (65-110) mg/dL Random Glucose 116 H (75-110) mg/dL Calcium 7.8 L (8.6-10.4) mg/dl Phosphorus 4.7 H (2.5-4.5) mg/dL Magnesium (1.6-2.3) mg/dL Total Bilirubin 1.0 (0.2-1.3) mg/dL AST 20 (17-59) U/L ALT 17 L D (21-72) U/L Alkaline Phosphatase 185 H (38-126) U/L Total Creatine Kinase (55-170) U/L CK-MB (Mass) (0.0-3.38) ng/mL Troponin I, Quant (0.00-0.120) ng/mL Total Protein 6.5 (6.3-8.3) g/dL Albumin 2.1 L (3.5-5.0) g/dL Globulin 4.4 H (2.2-3.9) gm/dL Albumin/Globulin Ratio 0.5 L (1.0-2.1) Arterial Blood Potassium (3.6-5.2) mmol/L Urine Color (YELLOW) Urine Clarity (Clear) Urine pH (5.0-8.0) Ur Specific [place] (1.003-1.030) Urine Protein (NEGATIVE) mg/dL Urine Glucose (UA) (Normal) mg/dL Urine Ketones (NEGATIVE) mg/dL Urine Blood (NEGATIVE) Urine Nitrate (NEGATIVE) Urine Bilirubin (NEGATIVE) Urine Urobilinogen (0.2-1.0) mg/dL Ur Leukocyte Esterase (Negative) Hillary/uL Urine WBC (Auto) (0-5) /hpf Urine RBC (Auto) (0-3) /hpf Ur Squamous Epith Cells (0-5) /hpf Amorphous Sediment (<OCC) /ul Urine Bacteria (<OCC) Hyaline Casts (0-2) /lpf Blood Type Antibody Screen 09/14/17 09/14/17 09/14/17 Range/Units 07:19 06:31 05:31 WBC (4.8-10.8) K/uL RBC (4.40-5.90) Mil/uL Hgb (12.0-18.0) g/dL Hct (35.0-51.0) % MCV (80.0-94.0) fL MCH (27.0-31.0) pg MCHC (33.0-37.0) g/dL RDW (11.5-14.5) % Plt Count (130-400) K/uL MPV (7.2-11.7) fL Neut % (Auto) (50.0-75.0) % Lymph % (Auto) (20.0-40.0) % [place] % (Auto) (0.0-10.0) % Eos % (Auto) (0.0-4.0) % Baso % (Auto) (0.0-2.0) % Neut # (1.8-7.0) K/uL Lymph # (1.0-4.3) K/uL [place] # (0.0-0.8) K/uL Eos # (0.0-0.7) K/uL Baso # (0.0-0.2) K/uL Neutrophils % (Manual) (50-75) % Lymphocytes % (Manual) (20-40) % Monocytes % (Manual) Eosinophils % (Manual) (0-4) % Platelet Estimate (NORMAL) Large Platelets Polychromasia Hypochromasia (manual) Poikilocytosis (manual Anisocytosis (manual) Microcytosis (manual) Macrocytosis (manual) Tear Drop Cells Ovalocytes [place] Cells PT (9.7-12.2) SECONDS INR APTT (21-34) SECONDS Puncture Site L rad pCO2 27 L (35-45) mm/Hg pO2 173 H (80-100) mm/Hg HCO3 20.3 L (21-28) mmol/L ABG pH 7.42 (7.35-7.45) ABG Total CO2 18.3 L (22-28) mmol/L ABG O2 Saturation 99.3 H (95-98) % ABG Base Excess -5.9 L (-2.0-3.0) mmol/L ABG Hemoglobin 10.3 L (11.7-17.4) g/dL ABG Carboxyhemoglobin 1.8 H (0.5-1.5) % POC ABG HHb (Measured) 0.7 (0.0-5.0) % ABG Methemoglobin 1.2 (0.0-3.0) % Elio Test Pos ABG Potassium (3.6-5.2) mmol/L A-a O2 Difference 221.0 mm/Hg Respiratory Index 1.3 Hgb O2 Saturation 96.3 (95.0-98.0) % Sodium (132-148) mmol/l Chloride (98-107) mmol/L Glucose (75-110) mg/dl Lactate (0.7-2.1) mmol/L Vent Mode Prvc Mechanical Rate 14 FiO2 60.0 % Tidal Volume 500 PEEP 5 Potassium (3.6-5.2) mmol/L Carbon Dioxide (22-30) mmol/L Anion Gap (10-20) BUN (9-20) mg/dL Creatinine (0.8-1.5) mg/dL Est GFR ( Amer) Est GFR (Non-Af Amer) POC Glucose (mg/dL) 136 H (65-110) mg/dL Random Glucose (75-110) mg/dL Calcium (8.6-10.4) mg/dl Phosphorus (2.5-4.5) mg/dL Magnesium 1.7 (1.6-2.3) mg/dL Total Bilirubin (0.2-1.3) mg/dL AST (17-59) U/L ALT (21-72) U/L Alkaline Phosphatase (38-126) U/L Total Creatine Kinase (55-170) U/L CK-MB (Mass) (0.0-3.38) ng/mL Troponin I, Quant (0.00-0.120) ng/mL Total Protein (6.3-8.3) g/dL Albumin (3.5-5.0) g/dL Globulin (2.2-3.9) gm/dL Albumin/Globulin Ratio (1.0-2.1) Arterial Blood Potassium (3.6-5.2) mmol/L Urine Color (YELLOW) Urine Clarity (Clear) Urine pH (5.0-8.0) Ur Specific [place] (1.003-1.030) Urine Protein (NEGATIVE) mg/dL Urine Glucose (UA) (Normal) mg/dL Urine Ketones (NEGATIVE) mg/dL Urine Blood (NEGATIVE) Urine Nitrate (NEGATIVE) Urine Bilirubin (NEGATIVE) Urine Urobilinogen (0.2-1.0) mg/dL Ur Leukocyte Esterase (Negative) Hillary/uL Urine WBC (Auto) (0-5) /hpf Urine RBC (Auto) (0-3) /hpf Ur Squamous Epith Cells (0-5) /hpf Amorphous Sediment (<OCC) /ul Urine Bacteria (<OCC) Hyaline Casts (0-2) /lpf Blood Type Antibody Screen 09/13/17 09/13/17 09/13/17 Range/Units 23:26 19:18 18:39 WBC (4.8-10.8) K/uL RBC (4.40-5.90) Mil/uL Hgb (12.0-18.0) g/dL Hct (35.0-51.0) % MCV (80.0-94.0) fL MCH (27.0-31.0) pg MCHC (33.0-37.0) g/dL RDW (11.5-14.5) % Plt Count (130-400) K/uL MPV (7.2-11.7) fL Neut % (Auto) (50.0-75.0) % Lymph % (Auto) (20.0-40.0) % [place] % (Auto) (0.0-10.0) % Eos % (Auto) (0.0-4.0) % Baso % (Auto) (0.0-2.0) % Neut # (1.8-7.0) K/uL Lymph # (1.0-4.3) K/uL [place] # (0.0-0.8) K/uL Eos # (0.0-0.7) K/uL Baso # (0.0-0.2) K/uL Neutrophils % (Manual) (50-75) % Lymphocytes % (Manual) (20-40) % Monocytes % (Manual) Eosinophils % (Manual) (0-4) % Platelet Estimate (NORMAL) Large Platelets Polychromasia Hypochromasia (manual) Poikilocytosis (manual Anisocytosis (manual) Microcytosis (manual) Macrocytosis (manual) Tear Drop Cells Ovalocytes Ag Cells PT (9.7-12.2) SECONDS INR APTT (21-34) SECONDS Puncture Site pCO2 (35-45) mm/Hg pO2 (80-100) mm/Hg HCO3 (21-28) mmol/L ABG pH (7.35-7.45) ABG Total CO2 (22-28) mmol/L ABG O2 Saturation (95-98) % ABG Base Excess (-2.0-3.0) mmol/L ABG Hemoglobin (11.7-17.4) g/dL ABG Carboxyhemoglobin (0.5-1.5) % POC ABG HHb (Measured) (0.0-5.0) % ABG Methemoglobin (0.0-3.0) % Elio Test ABG Potassium (3.6-5.2) mmol/L A-a O2 Difference mm/Hg Respiratory Index Hgb O2 Saturation (95.0-98.0) % Sodium (132-148) mmol/l Chloride (98-107) mmol/L Glucose (75-110) mg/dl Lactate (0.7-2.1) mmol/L Vent Mode Mechanical Rate FiO2 % Tidal Volume PEEP Potassium (3.6-5.2) mmol/L Carbon Dioxide (22-30) mmol/L Anion Gap (10-20) BUN (9-20) mg/dL Creatinine (0.8-1.5) mg/dL Est GFR ( Amer) Est GFR (Non-Af Amer) POC Glucose (mg/dL) 142 H (65-110) mg/dL Random Glucose (75-110) mg/dL Calcium (8.6-10.4) mg/dl Phosphorus (2.5-4.5) mg/dL Magnesium (1.6-2.3) mg/dL Total Bilirubin (0.2-1.3) mg/dL AST (17-59) U/L ALT (21-72) U/L Alkaline Phosphatase (38-126) U/L Total Creatine Kinase (55-170) U/L CK-MB (Mass) (0.0-3.38) ng/mL Troponin I, Quant (0.00-0.120) ng/mL Total Protein (6.3-8.3) g/dL Albumin (3.5-5.0) g/dL Globulin (2.2-3.9) gm/dL Albumin/Globulin Ratio (1.0-2.1) Arterial Blood Potassium (3.6-5.2) mmol/L Urine Color Yellow (YELLOW) Urine Clarity Sl hazy (Clear) Urine pH 5.0 (5.0-8.0) Ur Specific [place] 1.030 (1.003-1.030) Urine Protein 100 (NEGATIVE) mg/dL Urine Glucose (UA) Negative (Normal) mg/dL Urine Ketones Trace (NEGATIVE) mg/dL Urine Blood Moderate (NEGATIVE) Urine Nitrate Positive H (NEGATIVE) Urine Bilirubin Moderate (NEGATIVE) Urine Urobilinogen 0.2 (0.2-1.0) mg/dL Ur Leukocyte Esterase Negative (Negative) Hillary/uL Urine WBC (Auto) 1 (0-5) /hpf Urine RBC (Auto) 8 H (0-3) /hpf Ur Squamous Epith Cells 4 (0-5) /hpf Amorphous Sediment Rare H (<OCC) /ul Urine Bacteria Mod H (<OCC) Hyaline Casts 10 (0-2) /lpf Blood Type O POSITIVE Antibody Screen Negative 09/13/17 09/13/17 09/13/17 Range/Units 18:39 18:39 18:39 WBC 9.1 (4.8-10.8) K/uL RBC 3.07 L (4.40-5.90) Mil/uL Hgb 7.9 L (12.0-18.0) g/dL Hct 26.1 L (35.0-51.0) % MCV 85.3 (80.0-94.0) fL MCH 25.8 L (27.0-31.0) pg MCHC 30.3 L (33.0-37.0) g/dL RDW 19.8 H (11.5-14.5) % Plt Count 241 (130-400) K/uL MPV 10.9 (7.2-11.7) fL Neut % (Auto) 86.3 H (50.0-75.0) % Lymph % (Auto) 7.8 L (20.0-40.0) % [place] % (Auto) 5.0 (0.0-10.0) % Eos % (Auto) 0.3 (0.0-4.0) % Baso % (Auto) 0.6 (0.0-2.0) % Neut # 7.9 H (1.8-7.0) K/uL Lymph # 0.7 L (1.0-4.3) K/uL [place] # 0.5 (0.0-0.8) K/uL Eos # 0.0 (0.0-0.7) K/uL Baso # 0.1 (0.0-0.2) K/uL Neutrophils % (Manual) 90 H (50-75) % Lymphocytes % (Manual) 10 L (20-40) % Monocytes % (Manual) TEST NOT PERFORMED Eosinophils % (Manual) (0-4) % Platelet Estimate Normal (NORMAL) Large Platelets Present Polychromasia Slight Hypochromasia (manual) Slight Poikilocytosis (manual Slight Anisocytosis (manual) Slight Microcytosis (manual) Slight Macrocytosis (manual) Slight Tear Drop Cells Ovalocytes Slight Ag Cells PT 36.3 H* (9.7-12.2) SECONDS INR 3.0 APTT 37 H (21-34) SECONDS Puncture Site pCO2 (35-45) mm/Hg pO2 (80-100) mm/Hg HCO3 (21-28) mmol/L ABG pH (7.35-7.45) ABG Total CO2 (22-28) mmol/L ABG O2 Saturation (95-98) % ABG Base Excess (-2.0-3.0) mmol/L ABG Hemoglobin (11.7-17.4) g/dL ABG Carboxyhemoglobin (0.5-1.5) % POC ABG HHb (Measured) (0.0-5.0) % ABG Methemoglobin (0.0-3.0) % Elio Test ABG Potassium (3.6-5.2) mmol/L A-a O2 Difference mm/Hg Respiratory Index Hgb O2 Saturation (95.0-98.0) % Sodium 134 (132-148) mmol/l Chloride 106 (98-107) mmol/L Glucose (75-110) mg/dl Lactate (0.7-2.1) mmol/L Vent Mode Mechanical Rate FiO2 % Tidal Volume PEEP Potassium 3.6 (3.6-5.2) mmol/L Carbon Dioxide 21 L (22-30) mmol/L Anion Gap 11 (10-20) BUN 31 H (9-20) mg/dL Creatinine 1.2 (0.8-1.5) mg/dL Est GFR ( Amer) > 60 Est GFR (Non-Af Amer) 59 POC Glucose (mg/dL) (65-110) mg/dL Random Glucose 133 H (75-110) mg/dL Calcium 7.8 L (8.6-10.4) mg/dl Phosphorus 4.1 (2.5-4.5) mg/dL Magnesium 1.7 (1.6-2.3) mg/dL Total Bilirubin 0.7 (0.2-1.3) mg/dL AST 14 L D (17-59) U/L ALT 25 (21-72) U/L Alkaline Phosphatase 222 H D (38-126) U/L Total Creatine Kinase < 20 L (55-170) U/L CK-MB (Mass) < 0.22 (0.0-3.38) ng/mL Troponin I, Quant < 0.0120 (0.00-0.120) ng/mL Total Protein 7.0 (6.3-8.3) g/dL Albumin 2.0 L (3.5-5.0) g/dL Globulin 5.0 H (2.2-3.9) gm/dL Albumin/Globulin Ratio 0.4 L (1.0-2.1) Arterial Blood Potassium (3.6-5.2) mmol/L Urine Color (YELLOW) Urine Clarity (Clear) Urine pH (5.0-8.0) Ur Specific [place] (1.003-1.030) Urine Protein (NEGATIVE) mg/dL Urine Glucose (UA) (Normal) mg/dL Urine Ketones (NEGATIVE) mg/dL Urine Blood (NEGATIVE) Urine Nitrate (NEGATIVE) Urine Bilirubin (NEGATIVE) Urine Urobilinogen (0.2-1.0) mg/dL Ur Leukocyte Esterase (Negative) Hillary/uL Urine WBC (Auto) (0-5) /hpf Urine RBC (Auto) (0-3) /hpf Ur Squamous Epith Cells (0-5) /hpf Amorphous Sediment (<OCC) /ul Urine Bacteria (<OCC) Hyaline Casts (0-2) /lpf Blood Type Antibody Screen 09/13/17 09/13/17 Range/Units 18:17 17:19 WBC (4.8-10.8) K/uL RBC (4.40-5.90) Mil/uL Hgb (12.0-18.0) g/dL Hct (35.0-51.0) % MCV (80.0-94.0) fL MCH (27.0-31.0) pg MCHC (33.0-37.0) g/dL RDW (11.5-14.5) % Plt Count (130-400) K/uL MPV (7.2-11.7) fL Neut % (Auto) (50.0-75.0) % Lymph % (Auto) (20.0-40.0) % [place] % (Auto) (0.0-10.0) % Eos % (Auto) (0.0-4.0) % Baso % (Auto) (0.0-2.0) % Neut # (1.8-7.0) K/uL Lymph # (1.0-4.3) K/uL [place] # (0.0-0.8) K/uL Eos # (0.0-0.7) K/uL Baso # (0.0-0.2) K/uL Neutrophils % (Manual) (50-75) % Lymphocytes % (Manual) (20-40) % Monocytes % (Manual) Eosinophils % (Manual) (0-4) % Platelet Estimate (NORMAL) Large Platelets Polychromasia Hypochromasia (manual) Poikilocytosis (manual Anisocytosis (manual) Microcytosis (manual) Macrocytosis (manual) Tear Drop Cells Ovalocytes [place] Cells PT (9.7-12.2) SECONDS INR APTT (21-34) SECONDS Puncture Site Rra pCO2 31 L (35-45) mm/Hg pO2 265 H (80-100) mm/Hg HCO3 23.7 (21-28) mmol/L ABG pH 7.45 (7.35-7.45) ABG Total CO2 22.5 (22-28) mmol/L ABG O2 Saturation 100.0 H (95-98) % ABG Base Excess -1.6 (-2.0-3.0) mmol/L ABG Hemoglobin (11.7-17.4) g/dL ABG Carboxyhemoglobin (0.5-1.5) % POC ABG HHb (Measured) (0.0-5.0) % ABG Methemoglobin (0.0-3.0) % Elio Test Na ABG Potassium 3.7 (3.6-5.2) mmol/L A-a O2 Difference 409.0 mm/Hg Respiratory Index 1.5 Hgb O2 Saturation (95.0-98.0) % Sodium 137.0 (132-148) mmol/l Chloride 114.0 H (98-107) mmol/L Glucose 141 H (75-110) mg/dl Lactate 0.8 (0.7-2.1) mmol/L Vent Mode Prvc Mechanical Rate 14 FiO2 100.0 % Tidal Volume 500 PEEP 5 Potassium (3.6-5.2) mmol/L Carbon Dioxide (22-30) mmol/L Anion Gap (10-20) BUN (9-20) mg/dL Creatinine (0.8-1.5) mg/dL Est GFR ( Amer) Est GFR (Non-Af Amer) POC Glucose (mg/dL) 253 H (65-110) mg/dL Random Glucose (75-110) mg/dL Calcium (8.6-10.4) mg/dl Phosphorus (2.5-4.5) mg/dL Magnesium (1.6-2.3) mg/dL Total Bilirubin (0.2-1.3) mg/dL AST (17-59) U/L ALT (21-72) U/L Alkaline Phosphatase (38-126) U/L Total Creatine Kinase (55-170) U/L CK-MB (Mass) (0.0-3.38) ng/mL Troponin I, Quant (0.00-0.120) ng/mL Total Protein (6.3-8.3) g/dL Albumin (3.5-5.0) g/dL Globulin (2.2-3.9) gm/dL Albumin/Globulin Ratio (1.0-2.1) Arterial Blood Potassium 3.7 (3.6-5.2) mmol/L Urine Color (YELLOW) Urine Clarity (Clear) Urine pH (5.0-8.0) Ur Specific [place] (1.003-1.030) Urine Protein (NEGATIVE) mg/dL Urine Glucose (UA) (Normal) mg/dL Urine Ketones (NEGATIVE) mg/dL Urine Blood (NEGATIVE) Urine Nitrate (NEGATIVE) Urine Bilirubin (NEGATIVE) Urine Urobilinogen (0.2-1.0) mg/dL Ur Leukocyte Esterase (Negative) Hillary/uL Urine WBC (Auto) (0-5) /hpf Urine RBC (Auto) (0-3) /hpf Ur Squamous Epith Cells (0-5) /hpf Amorphous Sediment (<OCC) /ul Urine Bacteria (<OCC) Hyaline Casts (0-2) /lpf Blood Type Antibody Screen Laboratory Results - last 24 hr 09/13/17 09/13/17 09/13/17 17:19 18:17 18:39 WBC 9.1 RBC 3.07 L Hgb 7.9 L Hct 26.1 L MCV 85.3 MCH 25.8 L MCHC 30.3 L RDW 19.8 H Plt Count 241 MPV 10.9 Neut % (Auto) 86.3 H Lymph % (Auto) 7.8 L [place] % (Auto) 5.0 Eos % (Auto) 0.3 Baso % (Auto) 0.6 Neut # 7.9 H Lymph # 0.7 L [place] # 0.5 Eos # 0.0 Baso # 0.1 Neutrophils % (Manual) 90 H Lymphocytes % (Manual) 10 L Monocytes % (Manual) TEST NOT PERFORMED Eosinophils % (Manual) Platelet Estimate Normal Large Platelets Present Polychromasia Slight Hypochromasia (manual) Slight Poikilocytosis (manual Slight Anisocytosis (manual) Slight Microcytosis (manual) Slight Macrocytosis (manual) Slight Tear Drop Cells Ovalocytes Slight Ag Cells PT INR APTT Puncture Site Rra pCO2 31 L pO2 265 H HCO3 23.7 ABG pH 7.45 ABG Total CO2 22.5 ABG O2 Saturation 100.0 H ABG Base Excess -1.6 ABG Hemoglobin ABG Carboxyhemoglobin POC ABG HHb (Measured) ABG Methemoglobin Elio Test Na ABG Potassium 3.7 A-a O2 Difference 409.0 Respiratory Index 1.5 Hgb O2 Saturation Sodium 137.0 Chloride 114.0 H Glucose 141 H Lactate 0.8 Vent Mode Prvc Mechanical Rate 14 FiO2 100.0 Tidal Volume 500 PEEP 5 Potassium Carbon Dioxide Anion Gap BUN Creatinine Est GFR ( Amer) Est GFR (Non-Af Amer) POC Glucose (mg/dL) 253 H Random Glucose Calcium Phosphorus Magnesium Total Bilirubin AST ALT Alkaline Phosphatase Total Creatine Kinase CK-MB (Mass) Troponin I, Quant Total Protein Albumin Globulin Albumin/Globulin Ratio Arterial Blood Potassium 3.7 Urine Color Urine Clarity Urine pH Ur Specific [place] Urine Protein Urine Glucose (UA) Urine Ketones Urine Blood Urine Nitrate Urine Bilirubin Urine Urobilinogen Ur Leukocyte Esterase Urine WBC (Auto) Urine RBC (Auto) Ur Squamous Epith Cells Amorphous Sediment Urine Bacteria Hyaline Casts Blood Type Antibody Screen 09/13/17 09/13/17 09/13/17 18:39 18:39 18:39 WBC RBC Hgb Hct MCV MCH MCHC RDW Plt Count MPV Neut % (Auto) Lymph % (Auto) [place] % (Auto) Eos % (Auto) Baso % (Auto) Neut # Lymph # [place] # Eos # Baso # Neutrophils % (Manual) Lymphocytes % (Manual) Monocytes % (Manual) Eosinophils % (Manual) Platelet Estimate Large Platelets Polychromasia Hypochromasia (manual) Poikilocytosis (manual Anisocytosis (manual) Microcytosis (manual) Macrocytosis (manual) Tear Drop Cells Ovalocytes Ag Cells PT 36.3 H* INR 3.0 APTT 37 H Puncture Site pCO2 pO2 HCO3 ABG pH ABG Total CO2 ABG O2 Saturation ABG Base Excess ABG Hemoglobin ABG Carboxyhemoglobin POC ABG HHb (Measured) ABG Methemoglobin Elio Test ABG Potassium A-a O2 Difference Respiratory Index Hgb O2 Saturation Sodium 134 Chloride 106 Glucose Lactate Vent Mode Mechanical Rate FiO2 Tidal Volume PEEP Potassium 3.6 Carbon Dioxide 21 L Anion Gap 11 BUN 31 H Creatinine 1.2 Est GFR ( Amer) > 60 Est GFR (Non-Af Amer) 59 POC Glucose (mg/dL) Random Glucose 133 H Calcium 7.8 L Phosphorus 4.1 Magnesium 1.7 Total Bilirubin 0.7 AST 14 L D ALT 25 Alkaline Phosphatase 222 H D Total Creatine Kinase < 20 L CK-MB (Mass) < 0.22 Troponin I, Quant < 0.0120 Total Protein 7.0 Albumin 2.0 L Globulin 5.0 H Albumin/Globulin Ratio 0.4 L Arterial Blood Potassium Urine Color Yellow Urine Clarity Sl hazy Urine pH 5.0 Ur Specific [place] 1.030 Urine Protein 100 Urine Glucose (UA) Negative Urine Ketones Trace Urine Blood Moderate Urine Nitrate Positive H Urine Bilirubin Moderate Urine Urobilinogen 0.2 Ur Leukocyte Esterase Negative Urine WBC (Auto) 1 Urine RBC (Auto) 8 H Ur Squamous Epith Cells 4 Amorphous Sediment Rare H Urine Bacteria Mod H Hyaline Casts 10 Blood Type Antibody Screen 09/13/17 09/13/17 09/14/17 19:18 23:26 05:31 WBC RBC Hgb Hct MCV MCH MCHC RDW Plt Count MPV Neut % (Auto) Lymph % (Auto) [place] % (Auto) Eos % (Auto) Baso % (Auto) Neut # Lymph # [place] # Eos # Baso # Neutrophils % (Manual) Lymphocytes % (Manual) Monocytes % (Manual) Eosinophils % (Manual) Platelet Estimate Large Platelets Polychromasia Hypochromasia (manual) Poikilocytosis (manual Anisocytosis (manual) Microcytosis (manual) Macrocytosis (manual) Tear Drop Cells Ovalocytes [place] Cells PT INR APTT Puncture Site L rad pCO2 27 L pO2 173 H HCO3 20.3 L ABG pH 7.42 ABG Total CO2 18.3 L ABG O2 Saturation 99.3 H ABG Base Excess -5.9 L ABG Hemoglobin 10.3 L ABG Carboxyhemoglobin 1.8 H POC ABG HHb (Measured) 0.7 ABG Methemoglobin 1.2 Elio Test Pos ABG Potassium A-a O2 Difference 221.0 Respiratory Index 1.3 Hgb O2 Saturation 96.3 Sodium Chloride Glucose Lactate Vent Mode Prvc Mechanical Rate 14 FiO2 60.0 Tidal Volume 500 PEEP 5 Potassium Carbon Dioxide Anion Gap BUN Creatinine Est GFR ( Amer) Est GFR (Non-Af Amer) POC Glucose (mg/dL) 142 H Random Glucose Calcium Phosphorus Magnesium Total Bilirubin AST ALT Alkaline Phosphatase Total Creatine Kinase CK-MB (Mass) Troponin I, Quant Total Protein Albumin Globulin Albumin/Globulin Ratio Arterial Blood Potassium Urine Color Urine Clarity Urine pH Ur Specific [place] Urine Protein Urine Glucose (UA) Urine Ketones Urine Blood Urine Nitrate Urine Bilirubin Urine Urobilinogen Ur Leukocyte Esterase Urine WBC (Auto) Urine RBC (Auto) Ur Squamous Epith Cells Amorphous Sediment Urine Bacteria Hyaline Casts Blood Type O POSITIVE Antibody Screen Negative 09/14/17 09/14/17 09/14/17 06:31 07:19 07:19 WBC 7.2 RBC 3.51 L Hgb 9.6 L Hct 30.0 L MCV 85.4 MCH 27.2 MCHC 31.9 L RDW 17.6 H Plt Count 201 MPV 11.0 Neut % (Auto) 87.0 H Lymph % (Auto) 7.2 L [place] % (Auto) 5.2 Eos % (Auto) 0.3 Baso % (Auto) 0.3 Neut # 6.2 Lymph # 0.5 L [place] # 0.4 Eos # 0.0 Baso # 0.0 Neutrophils % (Manual) 89 H Lymphocytes % (Manual) 7 L Monocytes % (Manual) 3 Eosinophils % (Manual) 1 Platelet Estimate Normal Large Platelets Present Polychromasia Slight Hypochromasia (manual) Slight Poikilocytosis (manual Slight Anisocytosis (manual) Slight Microcytosis (manual) Slight Macrocytosis (manual) Slight Tear Drop Cells Slight Ovalocytes Slight [place] Cells Slight PT INR APTT Puncture Site pCO2 pO2 HCO3 ABG pH ABG Total CO2 ABG O2 Saturation ABG Base Excess ABG Hemoglobin ABG Carboxyhemoglobin POC ABG HHb (Measured) ABG Methemoglobin Elio Test ABG Potassium A-a O2 Difference Respiratory Index Hgb O2 Saturation Sodium Chloride Glucose Lactate Vent Mode Mechanical Rate FiO2 Tidal Volume PEEP Potassium Carbon Dioxide Anion Gap BUN Creatinine Est GFR ( Amer) Est GFR (Non-Af Amer) POC Glucose (mg/dL) 136 H Random Glucose Calcium Phosphorus Magnesium 1.7 Total Bilirubin AST ALT Alkaline Phosphatase Total Creatine Kinase CK-MB (Mass) Troponin I, Quant Total Protein Albumin Globulin Albumin/Globulin Ratio Arterial Blood Potassium Urine Color Urine Clarity Urine pH Ur Specific [place] Urine Protein Urine Glucose (UA) Urine Ketones Urine Blood Urine Nitrate Urine Bilirubin Urine Urobilinogen Ur Leukocyte Esterase Urine WBC (Auto) Urine RBC (Auto) Ur Squamous Epith Cells Amorphous Sediment Urine Bacteria Hyaline Casts Blood Type Antibody Screen 09/14/17 09/14/17 07:19 11:38 WBC RBC Hgb Hct MCV MCH MCHC RDW Plt Count MPV Neut % (Auto) Lymph % (Auto) [place] % (Auto) Eos % (Auto) Baso % (Auto) Neut # Lymph # [place] # Eos # Baso # Neutrophils % (Manual) Lymphocytes % (Manual) Monocytes % (Manual) Eosinophils % (Manual) Platelet Estimate Large Platelets Polychromasia Hypochromasia (manual) Poikilocytosis (manual Anisocytosis (manual) Microcytosis (manual) Macrocytosis (manual) Tear Drop Cells Ovalocytes [place] Cells PT INR APTT Puncture Site pCO2 pO2 HCO3 ABG pH ABG Total CO2 ABG O2 Saturation ABG Base Excess ABG Hemoglobin ABG Carboxyhemoglobin POC ABG HHb (Measured) ABG Methemoglobin Elio Test ABG Potassium A-a O2 Difference Respiratory Index Hgb O2 Saturation Sodium 135 Chloride 108 H Glucose Lactate Vent Mode Mechanical Rate FiO2 Tidal Volume PEEP Potassium 3.8 Carbon Dioxide 17 L Anion Gap 14 BUN 32 H Creatinine 1.0 Est GFR ( Amer) > 60 Est GFR (Non-Af Amer) > 60 POC Glucose (mg/dL) 157 H Random Glucose 116 H Calcium 7.8 L Phosphorus 4.7 H Magnesium Total Bilirubin 1.0 AST 20 ALT 17 L D Alkaline Phosphatase 185 H Total Creatine Kinase CK-MB (Mass) Troponin I, Quant Total Protein 6.5 Albumin 2.1 L Globulin 4.4 H Albumin/Globulin Ratio 0.5 L Arterial Blood Potassium Urine Color Urine Clarity Urine pH Ur Specific [place] Urine Protein Urine Glucose (UA) Urine Ketones Urine Blood Urine Nitrate Urine Bilirubin Urine Urobilinogen Ur Leukocyte Esterase Urine WBC (Auto) Urine RBC (Auto) Ur Squamous Epith Cells Amorphous Sediment Urine Bacteria Hyaline Casts Blood Type Antibody Screen EKG/Cardiology Studies: Cardiology / EKG Studies 09/13/17 17:53 ELECTROCARDIOGRAM Stat Comment: Mode Of Transportation: Reason For Exam: systolic chf exacerbation. hypotensive 09/13/17 19:43 EKG [ELECTROCARDIOGRAM] Stat Comment: Mode Of Transportation: Reason For Exam: hypotension Fingerstick Blood Sugar Results: 157 Review of Systems - Review of Systems Systems not reviewed;Unavailable: Intubated Critical Care Progress Note - Ventilator Checklist Head of Bed 30 Degrees: Yes Daily Sedation Vacation: No Daily Spontaneous Breathing Trial: No PUD Prophalyxis: Yes DVT Prophylaxis: Yes Oral Care with Chlorhexidine Gluconate {CHG}: Yes - Vent Settings MODE:: PRVC Assessment/Plan (1) Acute respiratory failure Assessment and plan: Continue ventilatory support Continue Levophed and Dobutrex Reduce FiO2 as tolerated On antibiotics Follow-up culture and sensitivity Sedation vacation DVT and stress ulcer prophylaxis Current Visit: Yes Status: Acute (2) Hypotension (arterial) Current Visit: Yes Status: Acute (3) CHF (congestive heart failure) Current Visit: Yes Status: Acute
--- NOTE | 2017-09-14 14:41 | RAD ---
HISTORY: pt intubated COMPARISON: Comparison is made to 09/13/2027 FINDINGS: LUNGS: Interval improvement in the upper portion of the lungs since the previous exam. Persistent hazy opacities in the mid and lower portion of the lungs. The ET tube is seen at appropriate position with the tip is approximately 4.5 centimeter above the stella. PLEURA: Bilateral pleural effusions larger on the right are again seen. CARDIOVASCULAR: Normal. OSSEOUS STRUCTURES: No significant abnormalities. VISUALIZED UPPER ABDOMEN: The NG tube seen extending to the up OTHER FINDINGS: Right-sided Infusaport is seen in place. IMPRESSION: Interval improvement in the upper portion of the lungs since the previous exam . Otherwise no significant interval change.
[2017-09-14] MEDS: Norepinephrine 8 MG in Sodium Chloride 0.9% 242 ML IV PRN (17:45)
--- NOTE | 2017-09-14 18:44 | CARD ---
APPROVED REPORT EKG Measurement Heart [id number] MD [id number] <Conclusion> Sinus rhythm with occasional premature ventricular complexes and premature atrial complexes Possible Left atrial enlargement Nonspecific T wave abnormality Abnormal ECG
[2017-09-14] MEDS: (Lantus) Insulin Glargine, Recombinant SC SCH (21:17)
[2017-09-15] MEDS: DOBUTamine 500mg/250ml D5W 500 MG/250 ML BAG IV SCH ×5 (00:02→23:30)
[2017-09-15] MEDS: (Novolog) Insulin Aspart, Recombinant 100 u/ml 10 ml vial SC SCH ×4 (00:19→18:04)
[2017-09-15 05:54] LABS: ABG ALLEN TEST POS; ABG MECHANICAL RATE 14; ARTERIAL BLOOD GAS MODE PRVC; ARTERIAL BLOOD HGB O2 SAT 96.8 % (95.0-98.0); ATERIAL BLOOD GAS PEEP 5; HHB 0.3 % (0.0-5.0); METHEMOGLOBIN 0.9 % (0.0-3.0)
[2017-09-15 06:05] LABS: DRAW SITE L RAD
[2017-09-15] MEDS: Cefepime 1 GM in Sodium Chloride 0.9% 100 ML IVPB SCH ×2 (06:09→18:05)
[2017-09-15 06:46] LABS: BASO % 0.3 % (0.0-2.0); EOS % 0.3 % (0.0-4.0); HEMATOCRIT 29.3 % (35.0-51.0); LYMPH # 0.5 K/uL (1.0-4.3); LYMPH % 6.2 % (20.0-40.0); MEAN CELL VOLUME 84.9 fL (80.0-94.0); MEAN CORPUSCULAR HEMOGLOBIN 27.1 pg (27.0-31.0); MEAN PLATELET VOLUME 11.7 fL (7.2-11.7); MONO # 0.5 K/uL (0.0-0.8); MONO % 6.1 % (0.0-10.0); NRBC % 0.1 % (0.0-2.0); PLATELET COUNT 250 K/uL (130-400); RED CELL DISTRIBUTION WIDTH 17.9 % (11.5-14.5); WHITE BLOOD COUNT 7.4 K/uL (4.8-10.8)
[2017-09-15 06:53] LABS: CHLORIDE 107 mmol/L (98-107); SODIUM 136 mmol/L (132-148)
[2017-09-15 06:54] LABS: POTASSIUM 3.5 mmol/L (3.6-5.2)
[2017-09-15 06:56] LABS: ALB/GLOB RATIO 0.4 (1.0-2.1); ALKALINE PHOSPHATASE 192 U/L (38-126); AST/SGOT 14 U/L (17-59); BILIRUBIN,TOTAL 0.8 mg/dL (0.2-1.3); BLOOD UREA NITROGEN 30 mg/dL (9-20); CARBON DIOXIDE 21 mmol/L (22-30); GFR AFRICAN-AMERICAN > 60; GLUCOSE,RANDOM 172 mg/dL (75-110); PHOSPHOROUS 3.5 mg/dL (2.5-4.5); TOTAL PROTEIN 6.5 g/dL (6.3-8.3)
[2017-09-15 06:57] LABS: ALT/SGPT 22 U/L (21-72); CALCIUM 7.6 mg/dl (8.6-10.4); MAGNESIUM 1.6 mg/dL (1.6-2.3)
[2017-09-15 08:18] LABS: NEUTROPHIL 85 % (50-75); REACTIVE LYMPHOCYTES 1 % (0-0); TOTAL CELLS COUNTED 100
[2017-09-15 08:19] LABS: GIANT PLATELETS PRESENT; LARGE PLATELETS PRESENT
[2017-09-15] MEDS: Magnesium Sulfate 1 gm in D5W 1 GM/100 ML BAG IVPB SCH ×2 (08:46→09:09)
--- NOTE | 2017-09-15 08:51 | RAD ---
Chest x-ray single frontal view History: Pleural effusion. Comparison: 09/14/2017 Findings: Lines and tubes in stable position. Moderate venous congestion with confluent bibasilar airspace opacities. Moderate bilateral pleural effusions. Right-sided rib deformities. Cardiomegaly. Degenerative changes in the spine and shoulders. Impression: Lines and tubes in stable position. Moderate venous congestion with confluent bibasilar airspace opacities. Moderate bilateral pleural effusions. Right-sided rib deformities. Cardiomegaly.
[2017-09-15] MEDS: Pantoprazole 40 mg EC Tab PO SCH (09:23)
[2017-09-15] MEDS: Lidocaine 5% Patch TD SCH (09:23)
[2017-09-15] MEDS: Multivitamin With Minerals Tab PO SCH (09:23)
[2017-09-15] MEDS ORDERED: Furosemide 100 MG in Sodium Chloride 0.9% 90 ML IVP SCH (10:00)
--- NOTE | 2017-09-15 11:09 | CP.CCUPN ---
CCU Subjective - Physician Review Subjective (Free Text): Patient was seen and examined at bedside. Patient is currently intubated but alert and easily arousable. Patient nodded "no" to pain. Unable evaluate to adequate ROS due to patient's clinical status. Critical Care Time Spent (in minutes): 35 CCU Objective - Vital Signs / Intake & Output Vital Signs (Last 4 hours): Vital Signs Temp Pulse Resp BP Pulse Ox 09/15/17 10:19 92 H 16 98/55 L 100 09/15/17 09:49 100 H 18 104/56 L 100 09/15/17 09:19 94 H 18 94/52 L 100 09/15/17 08:49 97 H 17 88/53 L 100 09/15/17 08:13 94 H 17 92/52 L 100 09/15/17 08:06 92 H 17 105/61 100 09/15/17 08:00 98.2 F 09/15/17 07:58 94 H 15 94/52 L 100 09/15/17 07:43 99 H 23 105/61 100 09/15/17 07:28 95 H 18 98/62 L 100 09/15/17 07:13 96 H 19 104/58 L 100 09/15/17 07:10 99 H 19 100 Intake and Output (Last 8hrs): Intake & Output 09/14/17 09/15/17 09/15/17 22:59 06:59 14:59 Intake Total 723.6 878.6 447.2 Output Total 140 540 100 Balance 583.6 338.6 347.2 Weight 164 lb 3.91 oz Intake: IV 196 85 Intake, IV Amount 277.6 383.6 147.2 Right Port-A-Cath 87.2 163.5 87.2 Riight Port-A Cath [place] 100 100 Rt PAC 90.4 120.1 60 Tube Feeding 250 350 200 Other 60 100 Output: Urine 140 540 100 Urethral ([place]) 140 540 100 Other: # Bowel Movements 0 0 - Physical Exam Head: Positive for: Atraumatic, Normocephalic Extroacular Muscles: Positive for: EOMI Neck: Positive for: Trachea Midline Respiratory/Chest: Positive for: Clear to Auscultation Cardiovascular: Positive for: Regular Rate and Rhythm, Normal S1, S2 Abdomen: Positive for: Normal Bowel Sounds. Negative for: Tenderness, Distention, Peritoneal Signs Upper Extremity: Positive for: Normal Inspection Lower Extremity: Positive for: Edema Neurological: Negative for: Speech Normal Skin: Positive for: Normal Color Psychiatric: Positive for: Alert, Other (Easily arousable ) - Medications Active Medications: Active Medications Generic Name Dose Route Start Last Admin Trade Name Freq PRN Reason Stop Dose Admin Acetaminophen 325 mg 09/11/17 02:50 Tylenol 325mg Tab PO Q6 PRN Fever >100.4 F Cefepime HCl 1 gm/ Sodium 100 mls @ 100 mls/hr 09/13/17 19:00 09/15/17 06:09 Chloride IVPB 100 mls/hr Q12H VELVET Administration Norepinephrine Bitartrate 8 mg 250 mls @ 7.5 mls/hr 09/13/17 20:50 09/15/17 00:53 / Sodium Chloride IV 8 mcg/min .Q24H PRN 15 mls/hr TITRATE PER MD ORDER Titration Protocol 4 MCG/MIN Dobutamine HCl/Dextrose 500 mg in 250 mls @ 21.773 mls/hr 09/14/17 23:57 08:06 Dobutamine/Dextrose 5% 500mg/250ml IV 21.773 mls/hr .[id number] VELVET Administration 10 MCG/KG/MIN Furosemide 100 mg/ Sodium 100 mls @ 5 mls/hr 09/15/17 10:00 Chloride IVP 09/15/17 18:01 .Q20H VELVET 5 MG/HR Insulin Aspart 0 unit 09/14/17 00:00 09/15/17 06:09 Novolog SC 2 unit Q6H VELVET Administration Protocol Insulin Glargine 10 unit 09/12/17 22:00 09/14/17 21:17 Lantus SC 10 unit HS VELVET Administration Lidocaine 1 ea 09/11/17 10:00 09/15/17 09:23 Lidoderm TD 1 ea DAILY VELVET Administration Midazolam HCl 1 mg 09/13/17 20:28 Versed Inj IVP Q1H PRN Sedation Multivitamins/Minerals 1 tab 09/11/17 10:00 09/15/17 09:23 Therapeutic-M Tab PO 1 tab DAILY VELVET Administration Ondansetron HCl 4 mg 09/11/17 02:50 Zofran Tab PO Q8H PRN Nausea/Vomiting Pantoprazole Sodium 40 mg 09/11/17 10:00 09/15/17 09:23 Protonix Ec Tab PO 40 mg DAILY VELVET Administration Sennosides 8.6 mg 09/11/17 10:00 09/15/17 09:54 Senokot Tab PO 8.6 mg BID VELVET Administration Tamsulosin HCl 0.8 mg 09/12/17 10:00 09/15/17 09:23 Flomax PO 0.8 mg DAILY VELVET Administration - Patient Studies Lab Studies: Microbiology Studies 09/13/17 17:51 MRSA Culture (Admit) - Final Nose MRSA NOT DETECTED 09/13/17 18:15 Blood Culture - Preliminary Blood NO GROWTH AFTER 24 HOURS 09/13/17 17:45 Blood Culture - Preliminary Blood NO GROWTH AFTER 24 HOURS Lab Studies 09/15/17 09/15/17 09/15/17 Range/Units 06:28 06:28 05:30 WBC 7.4 (4.8-10.8) K/uL RBC 3.46 L (4.40-5.90) Mil/uL Hgb 9.4 L (12.0-18.0) g/dL Hct 29.3 L (35.0-51.0) % MCV 84.9 (80.0-94.0) fL MCH 27.1 (27.0-31.0) pg MCHC 32.0 L (33.0-37.0) g/dL RDW 17.9 H (11.5-14.5) % Plt Count 250 (130-400) K/uL MPV 11.7 (7.2-11.7) fL Neut % (Auto) 87.1 H (50.0-75.0) % Lymph % (Auto) 6.2 L (20.0-40.0) % [place] % (Auto) 6.1 (0.0-10.0) % Eos % (Auto) 0.3 (0.0-4.0) % Baso % (Auto) 0.3 (0.0-2.0) % Neut # 6.5 (1.8-7.0) K/uL Lymph # 0.5 L (1.0-4.3) K/uL [place] # 0.5 (0.0-0.8) K/uL Eos # 0.0 (0.0-0.7) K/uL Baso # 0.0 (0.0-0.2) K/uL Neutrophils % (Manual) 85 H (50-75) % Band Neutrophils % 6 H (0-2) % Lymphocytes % (Manual) 6 L (20-40) % Reactive Lymphs % 1 H (0-0) % Monocytes % (Manual) 2 (0-10) % Platelet Estimate Normal (NORMAL) Large Platelets Present Giant Platelets Present Poikilocytosis (manual Slight Anisocytosis (manual) Slight Puncture Site L rad pCO2 28 L (35-45) mm/Hg pO2 125 H (80-100) mm/Hg HCO3 22.6 (21-28) mmol/L ABG pH 7.46 H (7.35-7.45) ABG Total CO2 20.8 L (22-28) mmol/L ABG O2 Saturation 99.7 H (95-98) % ABG Base Excess -3.0 L (-2.0-3.0) mmol/L ABG Hemoglobin 10.3 L (11.7-17.4) g/dL ABG Carboxyhemoglobin 2.0 H (0.5-1.5) % POC ABG HHb (Measured) 0.3 (0.0-5.0) % ABG Methemoglobin 0.9 (0.0-3.0) % Elio Test Pos A-a O2 Difference 197.0 mm/Hg Respiratory Index 1.6 Hgb O2 Saturation 96.8 (95.0-98.0) % Vent Mode Prvc Mechanical Rate 14 FiO2 50.0 % Tidal Volume 500 PEEP 5 Sodium 136 (132-148) mmol/L Potassium 3.5 L (3.6-5.2) mmol/L Chloride 107 (98-107) mmol/L Carbon Dioxide 21 L (22-30) mmol/L Anion Gap 12 (10-20) BUN 30 H (9-20) mg/dL Creatinine 1.0 (0.8-1.5) mg/dL Est GFR ( Amer) > 60 Est GFR (Non-Af Amer) > 60 POC Glucose (mg/dL) (65-110) mg/dL Random Glucose 172 H (75-110) mg/dL Calcium 7.6 L (8.6-10.4) mg/dl Phosphorus 3.5 (2.5-4.5) mg/dL Magnesium 1.6 (1.6-2.3) mg/dL Total Bilirubin 0.8 (0.2-1.3) mg/dL AST 14 L D (17-59) U/L ALT 22 (21-72) U/L Alkaline Phosphatase 192 H (38-126) U/L Total Protein 6.5 (6.3-8.3) g/dL Albumin 2.0 L (3.5-5.0) g/dL Globulin 4.5 H (2.2-3.9) gm/dL Albumin/Globulin Ratio 0.4 L (1.0-2.1) 09/15/17 09/15/17 09/14/17 Range/Units 05:14 00:07 17:40 WBC (4.8-10.8) K/uL RBC (4.40-5.90) Mil/uL Hgb (12.0-18.0) g/dL Hct (35.0-51.0) % MCV (80.0-94.0) fL MCH (27.0-31.0) pg MCHC (33.0-37.0) g/dL RDW (11.5-14.5) % Plt Count (130-400) K/uL MPV (7.2-11.7) fL Neut % (Auto) (50.0-75.0) % Lymph % (Auto) (20.0-40.0) % [place] % (Auto) (0.0-10.0) % Eos % (Auto) (0.0-4.0) % Baso % (Auto) (0.0-2.0) % Neut # (1.8-7.0) K/uL Lymph # (1.0-4.3) K/uL [place] # (0.0-0.8) K/uL Eos # (0.0-0.7) K/uL Baso # (0.0-0.2) K/uL Neutrophils % (Manual) (50-75) % Band Neutrophils % (0-2) % Lymphocytes % (Manual) (20-40) % Reactive Lymphs % (0-0) % Monocytes % (Manual) (0-10) % Platelet Estimate (NORMAL) Large Platelets Giant Platelets Poikilocytosis (manual Anisocytosis (manual) Puncture Site pCO2 (35-45) mm/Hg pO2 (80-100) mm/Hg HCO3 (21-28) mmol/L ABG pH (7.35-7.45) ABG Total CO2 (22-28) mmol/L ABG O2 Saturation (95-98) % ABG Base Excess (-2.0-3.0) mmol/L ABG Hemoglobin (11.7-17.4) g/dL ABG Carboxyhemoglobin (0.5-1.5) % POC ABG HHb (Measured) (0.0-5.0) % ABG Methemoglobin (0.0-3.0) % Elio Test A-a O2 Difference mm/Hg Respiratory Index Hgb O2 Saturation (95.0-98.0) % Vent Mode Mechanical Rate FiO2 % Tidal Volume PEEP Sodium (132-148) mmol/L Potassium (3.6-5.2) mmol/L Chloride (98-107) mmol/L Carbon Dioxide (22-30) mmol/L Anion Gap (10-20) BUN (9-20) mg/dL Creatinine (0.8-1.5) mg/dL Est GFR ( Amer) Est GFR (Non-Af Amer) POC Glucose (mg/dL) 194 H 169 H 131 H (65-110) mg/dL Random Glucose (75-110) mg/dL Calcium (8.6-10.4) mg/dl Phosphorus (2.5-4.5) mg/dL Magnesium (1.6-2.3) mg/dL Total Bilirubin (0.2-1.3) mg/dL AST (17-59) U/L ALT (21-72) U/L Alkaline Phosphatase (38-126) U/L Total Protein (6.3-8.3) g/dL Albumin (3.5-5.0) g/dL Globulin (2.2-3.9) gm/dL Albumin/Globulin Ratio (1.0-2.1) 09/14/17 Range/Units 11:38 WBC (4.8-10.8) K/uL RBC (4.40-5.90) Mil/uL Hgb (12.0-18.0) g/dL Hct (35.0-51.0) % MCV (80.0-94.0) fL MCH (27.0-31.0) pg MCHC (33.0-37.0) g/dL RDW (11.5-14.5) % Plt Count (130-400) K/uL MPV (7.2-11.7) fL Neut % (Auto) (50.0-75.0) % Lymph % (Auto) (20.0-40.0) % [place] % (Auto) (0.0-10.0) % Eos % (Auto) (0.0-4.0) % Baso % (Auto) (0.0-2.0) % Neut # (1.8-7.0) K/uL Lymph # (1.0-4.3) K/uL [place] # (0.0-0.8) K/uL Eos # (0.0-0.7) K/uL Baso # (0.0-0.2) K/uL Neutrophils % (Manual) (50-75) % Band Neutrophils % (0-2) % Lymphocytes % (Manual) (20-40) % Reactive Lymphs % (0-0) % Monocytes % (Manual) (0-10) % Platelet Estimate (NORMAL) Large Platelets Giant Platelets Poikilocytosis (manual Anisocytosis (manual) Puncture Site pCO2 (35-45) mm/Hg pO2 (80-100) mm/Hg HCO3 (21-28) mmol/L ABG pH (7.35-7.45) ABG Total CO2 (22-28) mmol/L ABG O2 Saturation (95-98) % ABG Base Excess (-2.0-3.0) mmol/L ABG Hemoglobin (11.7-17.4) g/dL ABG Carboxyhemoglobin (0.5-1.5) % POC ABG HHb (Measured) (0.0-5.0) % ABG Methemoglobin (0.0-3.0) % Elio Test A-a O2 Difference mm/Hg Respiratory Index Hgb O2 Saturation (95.0-98.0) % Vent Mode Mechanical Rate FiO2 % Tidal Volume PEEP Sodium (132-148) mmol/L Potassium (3.6-5.2) mmol/L Chloride (98-107) mmol/L Carbon Dioxide (22-30) mmol/L Anion Gap (10-20) BUN (9-20) mg/dL Creatinine (0.8-1.5) mg/dL Est GFR ( Amer) Est GFR (Non-Af Amer) POC Glucose (mg/dL) 157 H (65-110) mg/dL Random Glucose (75-110) mg/dL Calcium (8.6-10.4) mg/dl Phosphorus (2.5-4.5) mg/dL Magnesium (1.6-2.3) mg/dL Total Bilirubin (0.2-1.3) mg/dL AST (17-59) U/L ALT (21-72) U/L Alkaline Phosphatase (38-126) U/L Total Protein (6.3-8.3) g/dL Albumin (3.5-5.0) g/dL Globulin (2.2-3.9) gm/dL Albumin/Globulin Ratio (1.0-2.1) Laboratory Results - last 24 hr 09/14/17 09/14/17 09/15/17 11:38 17:40 00:07 WBC RBC Hgb Hct MCV MCH MCHC RDW Plt Count MPV Neut % (Auto) Lymph % (Auto) [place] % (Auto) Eos % (Auto) Baso % (Auto) Neut # Lymph # [place] # Eos # Baso # Neutrophils % (Manual) Band Neutrophils % Lymphocytes % (Manual) Reactive Lymphs % Monocytes % (Manual) Platelet Estimate Large Platelets Giant Platelets Poikilocytosis (manual Anisocytosis (manual) Puncture Site pCO2 pO2 HCO3 ABG pH ABG Total CO2 ABG O2 Saturation ABG Base Excess ABG Hemoglobin ABG Carboxyhemoglobin POC ABG HHb (Measured) ABG Methemoglobin Elio Test A-a O2 Difference Respiratory Index Hgb O2 Saturation Vent Mode Mechanical Rate FiO2 Tidal Volume PEEP Sodium Potassium Chloride Carbon Dioxide Anion Gap BUN Creatinine Est GFR ( Amer) Est GFR (Non-Af Amer) POC Glucose (mg/dL) 157 H 131 H 169 H Random Glucose Calcium Phosphorus Magnesium Total Bilirubin AST ALT Alkaline Phosphatase Total Protein Albumin Globulin Albumin/Globulin Ratio 09/15/17 09/15/17 09/15/17 05:14 05:30 06:28 WBC 7.4 RBC 3.46 L Hgb 9.4 L Hct 29.3 L MCV 84.9 MCH 27.1 MCHC 32.0 L RDW 17.9 H Plt Count 250 MPV 11.7 Neut % (Auto) 87.1 H Lymph % (Auto) 6.2 L [place] % (Auto) 6.1 Eos % (Auto) 0.3 Baso % (Auto) 0.3 Neut # 6.5 Lymph # 0.5 L [place] # 0.5 Eos # 0.0 Baso # 0.0 Neutrophils % (Manual) 85 H Band Neutrophils % 6 H Lymphocytes % (Manual) 6 L Reactive Lymphs % 1 H Monocytes % (Manual) 2 Platelet Estimate Normal Large Platelets Present Giant Platelets Present Poikilocytosis (manual Slight Anisocytosis (manual) Slight Puncture Site L rad pCO2 28 L pO2 125 H HCO3 22.6 ABG pH 7.46 H ABG Total CO2 20.8 L ABG O2 Saturation 99.7 H ABG Base Excess -3.0 L ABG Hemoglobin 10.3 L ABG Carboxyhemoglobin 2.0 H POC ABG HHb (Measured) 0.3 ABG Methemoglobin 0.9 Elio Test Pos A-a O2 Difference 197.0 Respiratory Index 1.6 Hgb O2 Saturation 96.8 Vent Mode Prvc Mechanical Rate 14 FiO2 50.0 Tidal Volume 500 PEEP 5 Sodium Potassium Chloride Carbon Dioxide Anion Gap BUN Creatinine Est GFR ( Amer) Est GFR (Non-Af Amer) POC Glucose (mg/dL) 194 H Random Glucose Calcium Phosphorus Magnesium Total Bilirubin AST ALT Alkaline Phosphatase Total Protein Albumin Globulin Albumin/Globulin Ratio 09/15/17 06:28 WBC RBC Hgb Hct MCV MCH MCHC RDW Plt Count MPV Neut % (Auto) Lymph % (Auto) [place] % (Auto) Eos % (Auto) Baso % (Auto) Neut # Lymph # [place] # Eos # Baso # Neutrophils % (Manual) Band Neutrophils % Lymphocytes % (Manual) Reactive Lymphs % Monocytes % (Manual) Platelet Estimate Large Platelets Giant Platelets Poikilocytosis (manual Anisocytosis (manual) Puncture Site pCO2 pO2 HCO3 ABG pH ABG Total CO2 ABG O2 Saturation ABG Base Excess ABG Hemoglobin ABG Carboxyhemoglobin POC ABG HHb (Measured) ABG Methemoglobin Elio Test A-a O2 Difference Respiratory Index Hgb O2 Saturation Vent Mode Mechanical Rate FiO2 Tidal Volume PEEP Sodium 136 Potassium 3.5 L Chloride 107 Carbon Dioxide 21 L Anion Gap 12 BUN 30 H Creatinine 1.0 Est GFR ( Amer) > 60 Est GFR (Non-Af Amer) > 60 POC Glucose (mg/dL) Random Glucose 172 H Calcium 7.6 L Phosphorus 3.5 Magnesium 1.6 Total Bilirubin 0.8 AST 14 L D ALT 22 Alkaline Phosphatase 192 H Total Protein 6.5 Albumin 2.0 L Globulin 4.5 H Albumin/Globulin Ratio 0.4 L Fingerstick Blood Sugar Results: 194 Review of Systems - Review of Systems Review of Systems: Unable to evaluate adequate ROS due to patient's current clinical condition Critical Care Progress Note - Ventilator Checklist Daily Sedation Vacation: No Daily Assessment of Readiness to Wean: Yes Daily Spontaneous Breathing Trial: Yes PUD Prophalyxis: Yes Assessment/Plan - Assessment and Plan (Free Text) Assessment: Patient is a 77 year old male with past medical history of hypertension, diabetes, multiple myeloma who was admitted to the ICU after a [employer] for hypotension and respiratory distress on (09/13/17). Today: Plan: Pressure support trial in attempt to wean off PRVC Plan: Neuro: Intubated, easily arousable Cardio: Hypotension, Hxof HTN and congestive cardiomyopathy Echo ( 09/09/2017): LVRF (20%), mild to modeate AR, mild pulmonic valvular regurgitation, global hypokinesis of the LV, and systolic function is moderately to severely impaired Medication/Management: * Dobutamine 500mg IV 10mcg/kg/min * Levophed 8mg IV 4mcg/min ( Titratable) Pulm: Respiratory distress Chest X-ray (09/15/17): Moderate b/l pleural effusion and moderate venous congestion with confluent bibasilar airspace opacities Medication/Management: * Intubated; pressure support trial in attemptto wean off PRVC * Lasix drip 100mg IV, 5mg/hr GI: Hx of constipation Medication/Management: * Sennosides A and B ( Senokot Tab) 8.6 mg PO BID Endo: Hx of DM * Accuchecks Q6H * ISS (Medium dose protocol) * Lantus 10units HS : Urinary retention Medication/Management: * Tamulosin 0.8 PO daily ID: Acute respiratory failure Chest X-ray (09/15/17): Moderate b/l pleural effusion and moderate venous congestion with confluent bibasilar airspace opacities Medication/Management: * Empirically antibiotics: Cefepime 1gm IVPB Q12H Prophylaxis: DVT: SCDs GI: Protonix 40mg PO daily, Zofran 4mg PO Q8H prn Tube feeding
[2017-09-15] MEDS: Norepinephrine 8 MG in Sodium Chloride 0.9% 242 ML IV PRN (11:51)
--- NOTE | 2017-09-15 12:44 | CARD ---
APPROVED REPORT EKG Measurement Heart [id number] [place] 134P33 [id number] <Conclusion> Normal sinus rhythm Normal ECG
--- NOTE | 2017-09-15 12:44 | CARD ---
APPROVED REPORT EKG Measurement Heart [id number] [place] 130P32 [id number] <Conclusion> Sinus rhythm with premature supraventricular complexes and with occasional premature ventricular complexes Nonspecific T wave abnormality Abnormal ECG
[2017-09-15] MEDS: Furosemide 100 MG in Sodium Chloride 0.9% 90 ML IV SCH (13:32)
[2017-09-15] MEDS: Midazolam 2 MG/2 ML VIAL IVP PRN (21:36)
[2017-09-15] MEDS: (Lantus) Insulin Glargine, Recombinant SC SCH (21:36)
[2017-09-16] MEDS: (Novolog) Insulin Aspart, Recombinant 100 u/ml 10 ml vial SC SCH ×4 (00:35→17:49)
[2017-09-16] MEDS: Midazolam 2 MG/2 ML VIAL IVP PRN ×3 (01:09→23:15)
[2017-09-16] MEDS: Norepinephrine 8 MG in Sodium Chloride 0.9% 242 ML IV PRN (02:52)
[2017-09-16] MEDS: DOBUTamine 500mg/250ml D5W 500 MG/250 ML BAG IV SCH ×2 (04:01→16:00)
[2017-09-16 06:01] LABS: ABG MECHANICAL RATE 14; ARTERIAL BLOOD GAS MODE PRVC; ARTERIAL BLOOD HGB O2 SAT 88.9 % (95.0-98.0); ATERIAL BLOOD GAS PEEP 5; CARBOXYHEMOGLOBIN 2.4 % (0.5-1.5); DRAW SITE RB; HHB 7.7 % (0.0-5.0)
[2017-09-16] MEDS: Cefepime 1 GM in Sodium Chloride 0.9% 100 ML IVPB SCH ×2 (06:05→18:51)
[2017-09-16 06:36] LABS: CHLORIDE 106 mmol/L (98-107); INR 1.8; POTASSIUM 3.4 mmol/L (3.6-5.2); SODIUM 137 mmol/L (132-148)
[2017-09-16 06:37] LABS: BASO % 0.1 % (0.0-2.0); EOS % 0.3 % (0.0-4.0); HEMATOCRIT 29.2 % (35.0-51.0); LYMPH # 0.5 K/uL (1.0-4.3); LYMPH % 5.6 % (20.0-40.0); MEAN CELL VOLUME 84.8 fL (80.0-94.0); MEAN CORPUSCULAR HEMOGLOBIN 27.2 pg (27.0-31.0); MEAN PLATELET VOLUME 10.8 fL (7.2-11.7); MONO # 0.5 K/uL (0.0-0.8); MONO % 6.2 % (0.0-10.0); PLATELET COUNT 243 K/uL (130-400); RED CELL DISTRIBUTION WIDTH 17.8 % (11.5-14.5); WHITE BLOOD COUNT 8.8 K/uL (4.8-10.8)
[2017-09-16 06:38] LABS: ALB/GLOB RATIO 0.4 (1.0-2.1); ALKALINE PHOSPHATASE 200 U/L (38-126); AST/SGOT 14 U/L (17-59); BILIRUBIN,TOTAL 0.5 mg/dL (0.2-1.3); BLOOD UREA NITROGEN 30 mg/dL (9-20); CARBON DIOXIDE 22 mmol/L (22-30); GFR AFRICAN-AMERICAN > 60; TOTAL PROTEIN 6.8 g/dL (6.3-8.3)
[2017-09-16 06:39] LABS: ALT/SGPT 20 U/L (21-72); CALCIUM 7.7 mg/dl (8.6-10.4); GLUCOSE,RANDOM 93 mg/dL (75-110); MAGNESIUM 1.9 mg/dL (1.6-2.3); PHOSPHOROUS 2.5 mg/dL (2.5-4.5)
[2017-09-16 08:09] LABS: NEUTROPHIL 90 % (50-75); TOTAL CELLS COUNTED 100
[2017-09-16] MEDS: Furosemide 100 MG in Sodium Chloride 0.9% 90 ML IV SCH (08:27)
--- NOTE | 2017-09-16 08:55 | RAD ---
Chest x-ray single frontal view History: Pleural effusion. Comparison: 09/15/2017 Findings: Lines and tubes in stable position. Biapical pleural thickening with upper lobe granulomatous changes. Moderate bilateral pleural effusions. Moderate to severe venous congestion with prominent bibasilar airspace opacities. Multiple right sided rib deformities with productive change at several right lateral ribs. Impression: No significant interval change.
--- NOTE | 2017-09-16 09:31 | CP.PCM.CON ---
History of Present Illness - History of Present Illness History of Present Illness: Wrong entry Past Patient History - Past Medical History & Family History Past Medical History?: Yes - Past Social History Smoking Status: Never Smoked - CARDIAC Hx Hypertension: Yes - ENDOCRINE/METABOLIC Hx Diabetes Mellitus Type 2: Yes - HEMATOLOGICAL/ONCOLOGICAL Hx Anemia: Yes - MUSCULOSKELETAL/RHEUMATOLOGICAL Hx Falls: Yes - PSYCHIATRIC Hx Substance Use: No - SURGICAL HISTORY Hx Surgeries: Yes Hx Vascular Surgery: Yes Hx Vascular Access Device: Yes (Rt subc port-a-cath) Other/Comment: Left femur fracture MAY 2017. Rt [place]c [place] [facility] [place]x Anesthesia: Yes Hx Anesthesia Reactions: No Meds Allergies/Adverse Reactions: Allergies Allergy/AdvReac Type Severity Reaction Status Date / Time No Known Allergies Allergy Verified 08/30/17 13:30 - Medications Medications: Current Medications Acetaminophen (Tylenol 325mg Tab) 325 mg PO Q6 PRN PRN Reason: Fever >100.4 F Cefepime HCl 1 gm/ Sodium (Chloride) 100 mls @ 100 mls/hr IVPB Q12H [facility] Last Admin: 09/16/17 06:05 Dose: 100 mls/hr Norepinephrine Bitartrate 8 mg (/ Sodium Chloride) 250 mls @ 7.5 mls/hr IV .Q24H PRN; Protocol; 4 MCG/MIN PRN Reason: TITRATE PER MD ORDER Last Titration: 09/16/17 08:28 Dose: 7 mcg/min, 13.12 mls/hr Dobutamine HCl/Dextrose (Dobutamine/Dextrose 5% 500mg/250ml) 500 mg in 250 mls @ 21.773 mls/hr IV .[id number] [facility] PRN Reason: 10 MCG/KG/MIN Last Admin: 09/16/17 04:01 Dose: 21.773 mls/hr Furosemide 100 mg/ Sodium (Chloride) 100 mls @ 5 mls/hr IV .Q20H [facility] PRN Reason: 5 MG/HR Last Admin: 09/16/17 08:27 Dose: 5 mls/hr Insulin Aspart (Novolog) 0 unit SC Q6H [facility] PRN Reason: Protocol Last Admin: 09/16/17 06:06 Dose: Not Given Insulin Glargine (Lantus) 10 unit SC HS [facility] Last Admin: 09/15/17 21:36 Dose: 10 unit Lidocaine (Lidoderm) 1 ea TD DAILY [facility] Last Admin: 09/15/17 09:23 Dose: 1 ea Midazolam HCl (Versed Inj) 1 mg IVP Q1H PRN PRN Reason: Sedation Last Admin: 09/16/17 05:01 Dose: 1 mg Multivitamins/Minerals (Therapeutic-M Tab) 1 tab PO DAILY [facility] Last Admin: 09/15/17 09:23 Dose: 1 tab Ondansetron HCl (Zofran Tab) 4 mg PO Q8H PRN PRN Reason: Nausea/Vomiting Pantoprazole Sodium (Protonix Ec Tab) 40 mg PO DAILY [facility] Last Admin: 09/15/17 09:23 Dose: 40 mg Sennosides (Senokot Tab) 8.6 mg PO BID [facility] Last Admin: 09/15/17 18:04 Dose: 8.6 mg Tamsulosin HCl (Flomax) 0.8 mg PO DAILY [facility] Last Admin: 09/15/17 09:23 Dose: 0.8 mg Results - Vital Signs Recent Vital Signs: Last Vital Signs Temp 97.4 F L 09/16/17 08:00 Pulse 93 H 09/16/17 09:00 Resp 14 09/16/17 09:00 BP 110/58 L 09/16/17 09:00 Pulse Ox 100 09/16/17 09:00 - Labs Result Diagrams: 09/16/17 06:20 09/16/17 06:20 Labs: Laboratory Results - last 24 hr 09/15/17 09/15/17 09/16/17 11:24 17:48 00:24 WBC RBC Hgb Hct MCV MCH MCHC RDW Plt Count MPV Neut % (Auto) Lymph % (Auto) [place] % (Auto) Eos % (Auto) Baso % (Auto) Neut # Lymph # [place] # Eos # Baso # Neutrophils % (Manual) Band Neutrophils % Lymphocytes % (Manual) Monocytes % (Manual) Platelet Estimate Polychromasia Hypochromasia (manual) Anisocytosis (manual) PT INR APTT Puncture Site pCO2 pO2 HCO3 ABG pH ABG Total CO2 ABG O2 Saturation ABG Base Excess ABG Hemoglobin ABG Carboxyhemoglobin POC ABG HHb (Measured) ABG Methemoglobin Elio Test A-a O2 Difference Respiratory Index Hgb O2 Saturation Vent Mode Mechanical Rate FiO2 Tidal Volume PEEP Sodium Potassium Chloride Carbon Dioxide Anion Gap BUN Creatinine Est GFR ( Amer) Est GFR (Non-Af Amer) POC Glucose (mg/dL) 172 H 235 H 167 H Random Glucose Calcium Phosphorus Magnesium Total Bilirubin AST ALT Alkaline Phosphatase Total Protein Albumin Globulin Albumin/Globulin Ratio 09/16/17 09/16/17 09/16/17 05:29 06:04 06:20 WBC 8.8 RBC 3.44 L Hgb 9.4 L Hct 29.2 L MCV 84.8 MCH 27.2 MCHC 32.0 L RDW 17.8 H Plt Count 243 MPV 10.8 Neut % (Auto) 87.8 H Lymph % (Auto) 5.6 L [place] % (Auto) 6.2 Eos % (Auto) 0.3 Baso % (Auto) 0.1 Neut # 7.7 H Lymph # 0.5 L [place] # 0.5 Eos # 0.0 Baso # 0.0 Neutrophils % (Manual) 90 H Band Neutrophils % 2 Lymphocytes % (Manual) 5 L Monocytes % (Manual) 3 Platelet Estimate Normal Polychromasia Slight Hypochromasia (manual) Slight Anisocytosis (manual) Slight PT INR APTT Puncture Site Rb pCO2 22 L pO2 50 L HCO3 21.9 ABG pH 7.52 H ABG Total CO2 18.7 L ABG O2 Saturation 92.0 L ABG Base Excess -3.7 L ABG Hemoglobin 9.3 L ABG Carboxyhemoglobin 2.4 H POC ABG HHb (Measured) 7.7 H ABG Methemoglobin 1.0 Elio Test Na A-a O2 Difference 279.0 Respiratory Index 5.6 Hgb O2 Saturation 88.9 L Vent Mode Prvc Mechanical Rate 14 FiO2 50.0 Tidal Volume 500 PEEP 5 Sodium Potassium Chloride Carbon Dioxide Anion Gap BUN Creatinine Est GFR ( Amer) Est GFR (Non-Af Amer) POC Glucose (mg/dL) 114 H Random Glucose Calcium Phosphorus Magnesium Total Bilirubin AST ALT Alkaline Phosphatase Total Protein Albumin Globulin Albumin/Globulin Ratio 09/16/17 09/16/17 06:20 06:20 WBC RBC Hgb Hct MCV MCH MCHC RDW Plt Count MPV Neut % (Auto) Lymph % (Auto) [place] % (Auto) Eos % (Auto) Baso % (Auto) Neut # Lymph # [place] # Eos # Baso # Neutrophils % (Manual) Band Neutrophils % Lymphocytes % (Manual) Monocytes % (Manual) Platelet Estimate Polychromasia Hypochromasia (manual) Anisocytosis (manual) PT 21.1 H D INR 1.8 D APTT 33 Puncture Site pCO2 pO2 HCO3 ABG pH ABG Total CO2 ABG O2 Saturation ABG Base Excess ABG Hemoglobin ABG Carboxyhemoglobin POC ABG HHb (Measured) ABG Methemoglobin Elio Test A-a O2 Difference Respiratory Index Hgb O2 Saturation Vent Mode Mechanical Rate FiO2 Tidal Volume PEEP Sodium 137 Potassium 3.4 L Chloride 106 Carbon Dioxide 22 Anion Gap 12 BUN 30 H Creatinine 0.8 Est GFR ( Amer) > 60 Est GFR (Non-Af Amer) > 60 POC Glucose (mg/dL) Random Glucose 93 Calcium 7.7 L Phosphorus 2.5 Magnesium 1.9 Total Bilirubin 0.5 AST 14 L ALT 20 L Alkaline Phosphatase 200 H Total Protein 6.8 Albumin 2.1 L Globulin 4.7 H Albumin/Globulin Ratio 0.4 L
--- NOTE | 2017-09-16 09:38 | CP.PCM.PN ---
Subjective - Date & Time of Evaluation Date of Evaluation: 09/15/17 Time of Evaluation: 12:00 - Subjective Subjective: Wrong entry Objective - Vital Signs/Intake and Output Vital Signs (last 24 hours): Temp Pulse Resp BP Pulse Ox 97.4 F L 93 H 14 110/58 L 100 09/16/17 08:00 09/16/17 09:00 09/16/17 09:00 09/16/17 09:00 09/16/17 09:00 Intake and Output: 09/16/17 09/16/17 06:59 18:59 Intake Total 1532.3 254.4 Output Total 800 40 Balance 732.3 214.4 - Medications Medications: Current Medications Acetaminophen (Tylenol 325mg Tab) 325 mg PO Q6 PRN PRN Reason: Fever >100.4 F Cefepime HCl 1 gm/ Sodium (Chloride) 100 mls @ 100 mls/hr IVPB Q12H [facility] Last Admin: 09/16/17 06:05 Dose: 100 mls/hr Norepinephrine Bitartrate 8 mg (/ Sodium Chloride) 250 mls @ 7.5 mls/hr IV .Q24H PRN; Protocol; 4 MCG/MIN PRN Reason: TITRATE PER MD ORDER Last Titration: 09/16/17 08:28 Dose: 7 mcg/min, 13.12 mls/hr Dobutamine HCl/Dextrose (Dobutamine/Dextrose 5% 500mg/250ml) 500 mg in 250 mls @ 21.773 mls/hr IV .[id number] [facility] PRN Reason: 10 MCG/KG/MIN Last Admin: 09/16/17 04:01 Dose: 21.773 mls/hr Furosemide 100 mg/ Sodium (Chloride) 100 mls @ 5 mls/hr IV .Q20H [facility] PRN Reason: 5 MG/HR Last Admin: 09/16/17 08:27 Dose: 5 mls/hr Insulin Aspart (Novolog) 0 unit SC Q6H [facility] PRN Reason: Protocol Last Admin: 09/16/17 06:06 Dose: Not Given Insulin Glargine (Lantus) 10 unit SC HS [facility] Last Admin: 09/15/17 21:36 Dose: 10 unit Lidocaine (Lidoderm) 1 ea TD DAILY [facility] Last Admin: 09/15/17 09:23 Dose: 1 ea Midazolam HCl (Versed Inj) 1 mg IVP Q1H PRN PRN Reason: Sedation Last Admin: 09/16/17 05:01 Dose: 1 mg Multivitamins/Minerals (Therapeutic-M Tab) 1 tab PO DAILY [facility] Last Admin: 09/15/17 09:23 Dose: 1 tab Ondansetron HCl (Zofran Tab) 4 mg PO Q8H PRN PRN Reason: Nausea/Vomiting Pantoprazole Sodium (Protonix Ec Tab) 40 mg PO DAILY [facility] Last Admin: 09/15/17 09:23 Dose: 40 mg Sennosides (Senokot Tab) 8.6 mg PO BID [facility] Last Admin: 09/15/17 18:04 Dose: 8.6 mg Tamsulosin HCl (Flomax) 0.8 mg PO DAILY [facility] Last Admin: 09/15/17 09:23 Dose: 0.8 mg - Labs Labs: 09/16/17 06:20 09/16/17 06:20 PT 21.1 SECONDS (9.7-12.2) H D 09/16/17 06:20 INR 1.8 D 09/16/17 06:20 APTT 33 SECONDS (21-34) 09/16/17 06:20 - Constitutional Appears: No Acute Distress, Chronically Ill - Head Exam Head Exam: ATRAUMATIC, NORMAL INSPECTION, NORMOCEPHALIC - Eye Exam Eye Exam: EOMI, Normal appearance, PERRL Pupil Exam: NORMAL ACCOMODATION, PERRL - ENT Exam ENT Exam: Mucous Membranes Moist, Normal Exam Additional comments: EET and feeding tube in situ - Neck Exam Neck Exam: Full ROM - Respiratory Exam Respiratory Exam: NORMAL BREATHING PATTERN Additional comments: On MV - GI/Abdominal Exam GI & Abdominal Exam: Normal Bowel Sounds - Rectal Exam Rectal Exam: Deferred - Exam Additional comments: Zamora cath - Extremities Exam Extremities Exam: Normal Inspection - Back Exam Back Exam: NORMAL INSPECTION - Neurological Exam Neurological Exam: Alert, Altered Neuro motor strength exam: Left Upper Extremity: 2/1, Right Upper Extremity: 2/1 , Left Lower Extremity: 2/1, Right Lower Extremity: 2/1 - Psychiatric Exam Psychiatric exam: Normal Affect, Normal Mood - Skin Skin Exam: Intact, Normal Color, Warm Assessment and Plan - Assessment and Plan (Free Text) Assessment: Palliative progress note Patient's condition has declineg during this hospital stay despite all reasonable measures implemented. While on the floor , patient become hypotensive with SBP 80 and CLINICAL TRANSFORMATION SPECIALIST was called on 09/13/17. Patient was intubated for respiratory support and transferred to the ICU, on Levophed for BP support. Patient is alert, unable to talk due to ETT and EGT. Patient looks lethagic and tired. patient attempts to fallow simple commends. Family talks to him in his [place] language and is under impression that he knew where he was. The family also claims, that patient signals them that he would want the ETT out.
--- NOTE | 2017-09-16 09:46 | CP.PCM.CON ---
History of Present Illness - History of Present Illness History of Present Illness: Palliative consult Requested by Allan DE LA VEGA Reason: Goals of care discussion Patient is a 77 yo male admitted from [place] with difficulties urinating and penile swelling. Upon admission Zamora cath was inserted and patient admitted to the floor for further observation. While on the floor , patient become hypotensive with SBP 80 and AERIAL PHOTOGRAPHER was called on 09/13/17. Patient was intubated for respiratory support and transferred to the ICU, on Levophed for BP support. Unril now patient has no tolerated weaning of trials. PMH: multiple myeloma, bone cancer, anemia, Soc. Hx: , [place] resident, 12 children, Shelia is the POA [phone] Fam Hx: denied Review of Systems - Review of Systems All systems: reviewed and no additional remarkable complaints except Review of Systems: ROS obtained from nursing, patient did not tolearate CPAP trial this am Past Patient History - Past Medical History & Family History Past Medical History?: Yes - Past Social History Smoking Status: Never Smoked - CARDIAC Hx Hypertension: Yes - ENDOCRINE/METABOLIC Hx Diabetes Mellitus Type 2: Yes - HEMATOLOGICAL/ONCOLOGICAL Hx Anemia: Yes - MUSCULOSKELETAL/RHEUMATOLOGICAL Hx Falls: Yes - PSYCHIATRIC Hx Substance Use: No - SURGICAL HISTORY Hx Surgeries: Yes Hx Vascular Surgery: Yes Hx Vascular Access Device: Yes (Rt subc port-a-cath) Other/Comment: Left femur fracture MAY 2017. Rt subc port-a-cath inserted on @ [facility] – [place] - [place] Hx Anesthesia: Yes Hx Anesthesia Reactions: No Meds Allergies/Adverse Reactions: Allergies Allergy/AdvReac Type Severity Reaction Status Date / Time No Known Allergies Allergy Verified 08/30/17 13:30 - Medications Medications: Current Medications Acetaminophen (Tylenol 325mg Tab) 325 mg PO Q6 PRN PRN Reason: Fever >100.4 F Cefepime HCl 1 gm/ Sodium (Chloride) 100 mls @ 100 mls/hr IVPB Q12H [facility] Last Admin: 09/16/17 06:05 Dose: 100 mls/hr Norepinephrine Bitartrate 8 mg (/ Sodium Chloride) 250 mls @ 7.5 mls/hr IV .Q24H PRN; Protocol; 4 MCG/MIN PRN Reason: TITRATE PER MD ORDER Last Titration: 09/16/17 08:28 Dose: 7 mcg/min, 13.12 mls/hr Dobutamine HCl/Dextrose (Dobutamine/Dextrose 5% 500mg/250ml) 500 mg in 250 mls @ 21.773 mls/hr IV .[id number] [facility] PRN Reason: 10 MCG/KG/MIN Last Admin: 09/16/17 04:01 Dose: 21.773 mls/hr Furosemide 100 mg/ Sodium (Chloride) 100 mls @ 5 mls/hr IV .Q20H [facility] PRN Reason: 5 MG/HR Last Admin: 09/16/17 08:27 Dose: 5 mls/hr Insulin Aspart (Novolog) 0 unit SC Q6H [facility] PRN Reason: Protocol Last Admin: 09/16/17 06:06 Dose: Not Given Insulin Glargine (Lantus) 10 unit SC HS [facility] Last Admin: 09/15/17 21:36 Dose: 10 unit Lidocaine (Lidoderm) 1 ea TD DAILY [facility] Last Admin: 09/15/17 09:23 Dose: 1 ea Midazolam HCl (Versed Inj) 1 mg IVP Q1H PRN PRN Reason: Sedation Last Admin: 09/16/17 05:01 Dose: 1 mg Multivitamins/Minerals (Therapeutic-M Tab) 1 tab PO DAILY [facility] Last Admin: 09/15/17 09:23 Dose: 1 tab Ondansetron HCl (Zofran Tab) 4 mg PO Q8H PRN PRN Reason: Nausea/Vomiting Pantoprazole Sodium (Protonix Ec Tab) 40 mg PO DAILY [facility] Last Admin: 09/15/17 09:23 Dose: 40 mg Sennosides (Senokot Tab) 8.6 mg PO BID [facility] Last Admin: 09/15/17 18:04 Dose: 8.6 mg Tamsulosin HCl (Flomax) 0.8 mg PO DAILY [facility] Last Admin: 09/15/17 09:23 Dose: 0.8 mg Physical Exam - Constitutional Appears: Chronically Ill - Head Exam Head Exam: ATRAUMATIC, NORMAL INSPECTION, NORMOCEPHALIC - Eye Exam Eye Exam: EOMI, Normal appearance, PERRL Pupil Exam: NORMAL ACCOMODATION, PERRL - ENT Exam ENT Exam: Mucous Membranes Moist, Normal Exam Additional comments: ETT and EFT in situ - Neck Exam Neck exam: Positive for: Normal Inspection - Respiratory Exam Additional comments: On MV - Cardiovascular Exam Cardiovascular Exam: Tachycardia, REGULAR RHYTHM - GI/Abdominal Exam GI & Abdominal Exam: Normal Bowel Sounds, Soft - Rectal Exam Rectal Exam: Deferred - Exam Exam: Scrotal Swelling - Extremities Exam Extremities exam: Positive for: pedal edema - Back Exam Back exam: NORMAL INSPECTION - Neurological Exam Neurological exam: Alert, Altered - Psychiatric Exam Psychiatric exam: Flat Affect - Skin Skin Exam: Dry, Intact, Pallor, Warm Results - Vital Signs Recent Vital Signs: Last Vital Signs Temp 97.4 F L 09/16/17 08:00 Pulse 93 H 09/16/17 09:00 Resp 14 09/16/17 09:00 BP 110/58 L 09/16/17 09:00 Pulse Ox 100 09/16/17 09:00 - Labs Result Diagrams: 09/16/17 06:20 09/16/17 06:20 Labs: Laboratory Results - last 24 hr 09/15/17 09/15/17 09/16/17 11:24 17:48 00:24 WBC RBC Hgb Hct MCV MCH MCHC RDW Plt Count MPV Neut % (Auto) Lymph % (Auto) [place] % (Auto) Eos % (Auto) Baso % (Auto) Neut # Lymph # [place] # Eos # Baso # Neutrophils % (Manual) Band Neutrophils % Lymphocytes % (Manual) Monocytes % (Manual) Platelet Estimate Polychromasia Hypochromasia (manual) Anisocytosis (manual) PT INR APTT Puncture Site pCO2 pO2 HCO3 ABG pH ABG Total CO2 ABG O2 Saturation ABG Base Excess ABG Hemoglobin ABG Carboxyhemoglobin POC ABG HHb (Measured) ABG Methemoglobin Elio Test A-a O2 Difference Respiratory Index Hgb O2 Saturation Vent Mode Mechanical Rate FiO2 Tidal Volume PEEP Sodium Potassium Chloride Carbon Dioxide Anion Gap BUN Creatinine Est GFR ( Amer) Est GFR (Non-Af Amer) POC Glucose (mg/dL) 172 H 235 H 167 H Random Glucose Calcium Phosphorus Magnesium Total Bilirubin AST ALT Alkaline Phosphatase Total Protein Albumin Globulin Albumin/Globulin Ratio 09/16/17 09/16/17 09/16/17 05:29 06:04 06:20 WBC 8.8 RBC 3.44 L Hgb 9.4 L Hct 29.2 L MCV 84.8 MCH 27.2 MCHC 32.0 L RDW 17.8 H Plt Count 243 MPV 10.8 Neut % (Auto) 87.8 H Lymph % (Auto) 5.6 L [place] % (Auto) 6.2 Eos % (Auto) 0.3 Baso % (Auto) 0.1 Neut # 7.7 H Lymph # 0.5 L [place] # 0.5 Eos # 0.0 Baso # 0.0 Neutrophils % (Manual) 90 H Band Neutrophils % 2 Lymphocytes % (Manual) 5 L Monocytes % (Manual) 3 Platelet Estimate Normal Polychromasia Slight Hypochromasia (manual) Slight Anisocytosis (manual) Slight PT INR APTT Puncture Site Rb pCO2 22 L pO2 50 L HCO3 21.9 ABG pH 7.52 H ABG Total CO2 18.7 L ABG O2 Saturation 92.0 L ABG Base Excess -3.7 L ABG Hemoglobin 9.3 L ABG Carboxyhemoglobin 2.4 H POC ABG HHb (Measured) 7.7 H ABG Methemoglobin 1.0 Elio Test Na A-a O2 Difference 279.0 Respiratory Index 5.6 Hgb O2 Saturation 88.9 L Vent Mode Prvc Mechanical Rate 14 FiO2 50.0 Tidal Volume 500 PEEP 5 Sodium Potassium Chloride Carbon Dioxide Anion Gap BUN Creatinine Est GFR ( Amer) Est GFR (Non-Af Amer) POC Glucose (mg/dL) 114 H Random Glucose Calcium Phosphorus Magnesium Total Bilirubin AST ALT Alkaline Phosphatase Total Protein Albumin Globulin Albumin/Globulin Ratio 09/16/17 09/16/17 06:20 06:20 WBC RBC Hgb Hct MCV MCH MCHC RDW Plt Count MPV Neut % (Auto) Lymph % (Auto) [place] % (Auto) Eos % (Auto) Baso % (Auto) Neut # Lymph # [place] # Eos # Baso # Neutrophils % (Manual) Band Neutrophils % Lymphocytes % (Manual) Monocytes % (Manual) Platelet Estimate Polychromasia Hypochromasia (manual) Anisocytosis (manual) PT 21.1 H D INR 1.8 D APTT 33 Puncture Site pCO2 pO2 HCO3 ABG pH ABG Total CO2 ABG O2 Saturation ABG Base Excess ABG Hemoglobin ABG Carboxyhemoglobin POC ABG HHb (Measured) ABG Methemoglobin Elio Test A-a O2 Difference Respiratory Index Hgb O2 Saturation Vent Mode Mechanical Rate FiO2 Tidal Volume PEEP Sodium 137 Potassium 3.4 L Chloride 106 Carbon Dioxide 22 Anion Gap 12 BUN 30 H Creatinine 0.8 Est GFR ( Amer) > 60 Est GFR (Non-Af Amer) > 60 POC Glucose (mg/dL) Random Glucose 93 Calcium 7.7 L Phosphorus 2.5 Magnesium 1.9 Total Bilirubin 0.5 AST 14 L ALT 20 L Alkaline Phosphatase 200 H Total Protein 6.8 Albumin 2.1 L Globulin 4.7 H Albumin/Globulin Ratio 0.4 L Assessment & Plan - Assessment and Plan (Free Text) Assessment: Palliative consult No Advance Directive/ Living Will on chart, PPS 10% I reviewed medical records, all diagnostic studies, examined patient in the bed and had family meeting for goals of care discussion. Patient is alert, able to fallow simple commends. Family speaks to patient in his [place] language and is under the impression that patient knows where he was . However, patient looks very tired and with short attention span. Keeps eyes closed. Respirations supported by MV. On Levophed IV for BP support. Current BP 110/58, HR93, afebrile. Hb 9.4, WBC 8.8, Aklb 2.1, K 3.4.Skin is intact. Scrotal edema persists. lasix drip started yesterday. Abdomen soft and flat. All extremities mobile. There is a pedal edema present. Patient did not tolerate the CPAP trial yesterday morning. I met with patient's three daughters for gols of care discussion. As per them, 9 more children are on their way from different states to visit the patient. I reviewed patient's clinical presentation, all recent diagnostic studies and elicited family's values and expectations of care. Family had many detailed questions about the chronic diseases process, process of withdrawal from mechanical ventilation and expected survival time after it. I answered all questions to their satisfaction. After long and detailed discussion, family concluded that their concern was patient's comfort and quality of life. Family is still to discuss with the rest of siblings the possibility of removal from life support. Impression * Patient is chronically ill patient on full life support * patient is unable to fully participate in decision making process * Family fully involved in care * Family is considering the removal from life support Suggestion * Continue supportive care * I will meet with family again on Friday and revisit goals of care discussion Thank ypu for consulting Palliative care
[2017-09-16] MEDS ORDERED: Potassium Chloride 20 mEq ER Tab PO ONE (10:00)
[2017-09-16] MEDS: Multivitamin With Minerals Tab PO SCH (10:16)
[2017-09-16] MEDS: Lidocaine 5% Patch TD SCH (10:19)
[2017-09-16] MEDS: Pantoprazole 40 mg EC Tab PO SCH (10:19)
[2017-09-16] MEDS ORDERED: DOBUTamine 500mg/250ml D5W 500 MG/250 ML BAG IV SCH (15:21)
--- NOTE | 2017-09-16 15:26 | CP.CCUPN ---
<Mai Melgar E - Last Filed: 09/16/17 17:28> CCU Subjective - Physician Review Subjective (Free Text): Patient was seen and examined at bedside. Patient is currently intubated. As per nursing, there were no acute issues overnight. Patient opens his eyes to name calling and can follow simple commands. Patient nodded "NO" to any discomfort. CCU Objective - Vital Signs / Intake & Output Vital Signs (Last 4 hours): Vital Signs Temp Pulse Resp BP Pulse Ox 09/16/17 15:00 97 H 15 106/57 L 100 09/16/17 14:00 99 H 16 108/59 L 100 09/16/17 13:00 95 H 14 105/55 L 100 09/16/17 12:00 98.1 F 88 13 106/57 L 100 Intake and Output (Last 8hrs): Intake & Output 09/16/17 09/16/17 09/16/17 06:59 14:59 22:59 Intake Total 1149.9 548.0 73.4 Output Total 620 40 Balance 529.9 508.0 73.4 Weight 170 lb 3.15 oz Intake: IV 265 0 Intake, IV Amount 424.9 198.0 23.4 Left Hand 100 Right Port-A-Cath 174.4 108.7 10.9 Riight Port-A Cath Yport 40 35 5 Rt PAC 110.5 54.3 7.5 Tube Feeding 400 350 50 Other 60 Output: Urine 620 40 Urethral (Zamora) 620 40 Other: # Bowel Movements 1 - Physical Exam Head: Positive for: Atraumatic Mouth: Positive for: Moist Mucous Membranes Neck: Positive for: Trachea Midline Respiratory/Chest: Positive for: Clear to Auscultation Cardiovascular: Positive for: Regular Rate and Rhythm, Normal S1, S2, Tachycardic Abdomen: Positive for: Normal Bowel Sounds. Negative for: Tenderness, Distention, Peritoneal Signs Upper Extremity: Positive for: Normal Inspection Lower Extremity: Positive for: Edema Neurological: Negative for: Speech Normal Skin: Positive for: Normal Color Psychiatric: Positive for: Other (Easily arousable ) - Medications Active Medications: Active Medications Generic Name Dose Route Start Last Admin Trade Name Freq PRN Reason Stop Dose Admin Acetaminophen 325 mg 09/11/17 02:50 Tylenol 325mg Tab PO Q6 PRN Fever >100.4 F Cefepime HCl 1 gm/ Sodium 100 mls @ 100 mls/hr 09/13/17 19:00 09/16/17 06:05 Chloride IVPB 100 mls/hr Q12H VELVET Administration Norepinephrine Bitartrate 8 mg 250 mls @ 7.5 mls/hr 09/13/17 20:50 09/16/17 08:28 / Sodium Chloride IV 7 mcg/min .Q24H PRN 13.12 mls/hr TITRATE PER MD ORDER Titration Protocol 4 MCG/MIN Furosemide 100 mg/ Sodium 100 mls @ 5 mls/hr 09/15/17 11:15 09/16/17 08:27 Chloride IV 5 mls/hr .Q20H VELVET Administration 5 MG/HR Dobutamine HCl/Dextrose 500 mg in 250 mls @ 10.886 mls/hr 09/16/17 15:21 Dobutamine/Dextrose 5% 500mg/250ml IV .[id number] VELVET 5 MCG/KG/MIN Insulin Aspart 0 unit 09/14/17 00:00 09/16/17 12:00 Novolog SC Not Given Q6H VELVET Protocol Insulin Glargine 10 unit 09/12/17 22:00 09/15/17 21:36 Lantus SC 10 unit HS VELVET Administration Lidocaine 1 ea 09/11/17 10:00 09/16/17 10:19 Lidoderm TD 1 ea DAILY VELVET Administration Midazolam HCl 1 mg 09/13/17 20:28 09/16/17 05:01 Versed Inj IVP 1 mg Q1H PRN Administration Sedation Multivitamins/Minerals 1 tab 09/11/17 10:00 09/16/17 10:16 Therapeutic-M Tab PO 1 tab DAILY VELVET Administration Ondansetron HCl 4 mg 09/11/17 02:50 Zofran Tab PO Q8H PRN Nausea/Vomiting Pantoprazole Sodium 40 mg 09/11/17 10:00 09/16/17 10:19 Protonix Ec Tab PO 40 mg DAILY VELVET Administration Sennosides 8.6 mg 09/11/17 10:00 09/16/17 10:19 Senokot Tab PO 8.6 mg BID VELVET Administration Tamsulosin HCl 0.8 mg 09/12/17 10:00 09/16/17 10:19 Flomax PO 0.8 mg DAILY VELVET Administration - Patient Studies Lab Studies: Microbiology Studies 09/13/17 18:15 Blood Culture - Preliminary Blood NO GROWTH AFTER 48 HOURS 09/13/17 17:45 Blood Culture - Preliminary Blood NO GROWTH AFTER 48 HOURS 09/13/17 17:52 Urine Culture - Final Urine No Growth (<1,000 CFU/ML) Lab Studies 09/16/17 09/16/17 09/16/17 Range/Units 11:32 06:20 06:20 WBC (4.8-10.8) K/uL RBC (4.40-5.90) Mil/uL Hgb (12.0-18.0) g/dL Hct (35.0-51.0) % MCV (80.0-94.0) fL MCH (27.0-31.0) pg MCHC (33.0-37.0) g/dL RDW (11.5-14.5) % Plt Count (130-400) K/uL MPV (7.2-11.7) fL Neut % (Auto) (50.0-75.0) % Lymph % (Auto) (20.0-40.0) % Kidder % (Auto) (0.0-10.0) % Eos % (Auto) (0.0-4.0) % Baso % (Auto) (0.0-2.0) % Neut # (1.8-7.0) K/uL Lymph # (1.0-4.3) K/uL Kidder # (0.0-0.8) K/uL Eos # (0.0-0.7) K/uL Baso # (0.0-0.2) K/uL Neutrophils % (Manual) (50-75) % Band Neutrophils % (0-2) % Lymphocytes % (Manual) (20-40) % Monocytes % (Manual) (0-10) % Platelet Estimate (NORMAL) Polychromasia Hypochromasia (manual) Anisocytosis (manual) PT 21.1 H D (9.7-12.2) SECONDS INR 1.8 D APTT 33 (21-34) SECONDS Puncture Site pCO2 (35-45) mm/Hg pO2 (80-100) mm/Hg HCO3 (21-28) mmol/L ABG pH (7.35-7.45) ABG Total CO2 (22-28) mmol/L ABG O2 Saturation (95-98) % ABG Base Excess (-2.0-3.0) mmol/L ABG Hemoglobin (11.7-17.4) g/dL ABG Carboxyhemoglobin (0.5-1.5) % POC ABG HHb (Measured) (0.0-5.0) % ABG Methemoglobin (0.0-3.0) % Elio Test A-a O2 Difference mm/Hg Respiratory Index Hgb O2 Saturation (95.0-98.0) % Vent Mode Mechanical Rate FiO2 % Tidal Volume PEEP Sodium 137 (132-148) mmol/L Potassium 3.4 L (3.6-5.2) mmol/L Chloride 106 (98-107) mmol/L Carbon Dioxide 22 (22-30) mmol/L Anion Gap 12 (10-20) BUN 30 H (9-20) mg/dL Creatinine 0.8 (0.8-1.5) mg/dL Est GFR ( Amer) > 60 Est GFR (Non-Af Amer) > 60 POC Glucose (mg/dL) 83 (65-110) mg/dL Random Glucose 93 (75-110) mg/dL Calcium 7.7 L (8.6-10.4) mg/dl Phosphorus 2.5 (2.5-4.5) mg/dL Magnesium 1.9 (1.6-2.3) mg/dL Total Bilirubin 0.5 (0.2-1.3) mg/dL AST 14 L (17-59) U/L ALT 20 L (21-72) U/L Alkaline Phosphatase 200 H (38-126) U/L Total Protein 6.8 (6.3-8.3) g/dL Albumin 2.1 L (3.5-5.0) g/dL Globulin 4.7 H (2.2-3.9) gm/dL Albumin/Globulin Ratio 0.4 L (1.0-2.1) 09/16/17 09/16/17 09/16/17 Range/Units 06:20 06:04 05:29 WBC 8.8 (4.8-10.8) K/uL RBC 3.44 L (4.40-5.90) Mil/uL Hgb 9.4 L (12.0-18.0) g/dL Hct 29.2 L (35.0-51.0) % MCV 84.8 (80.0-94.0) fL MCH 27.2 (27.0-31.0) pg MCHC 32.0 L (33.0-37.0) g/dL RDW 17.8 H (11.5-14.5) % Plt Count 243 (130-400) K/uL MPV 10.8 (7.2-11.7) fL Neut % (Auto) 87.8 H (50.0-75.0) % Lymph % (Auto) 5.6 L (20.0-40.0) % Kidder % (Auto) 6.2 (0.0-10.0) % Eos % (Auto) 0.3 (0.0-4.0) % Baso % (Auto) 0.1 (0.0-2.0) % Neut # 7.7 H (1.8-7.0) K/uL Lymph # 0.5 L (1.0-4.3) K/uL Kidder # 0.5 (0.0-0.8) K/uL Eos # 0.0 (0.0-0.7) K/uL Baso # 0.0 (0.0-0.2) K/uL Neutrophils % (Manual) 90 H (50-75) % Band Neutrophils % 2 (0-2) % Lymphocytes % (Manual) 5 L (20-40) % Monocytes % (Manual) 3 (0-10) % Platelet Estimate Normal (NORMAL) Polychromasia Slight Hypochromasia (manual) Slight Anisocytosis (manual) Slight PT (9.7-12.2) SECONDS INR APTT (21-34) SECONDS Puncture Site Rb pCO2 22 L (35-45) mm/Hg pO2 50 L (80-100) mm/Hg HCO3 21.9 (21-28) mmol/L ABG pH 7.52 H (7.35-7.45) ABG Total CO2 18.7 L (22-28) mmol/L ABG O2 Saturation 92.0 L (95-98) % ABG Base Excess -3.7 L (-2.0-3.0) mmol/L ABG Hemoglobin 9.3 L (11.7-17.4) g/dL ABG Carboxyhemoglobin 2.4 H (0.5-1.5) % POC ABG HHb (Measured) 7.7 H (0.0-5.0) % ABG Methemoglobin 1.0 (0.0-3.0) % Elio Test Na A-a O2 Difference 279.0 mm/Hg Respiratory Index 5.6 Hgb O2 Saturation 88.9 L (95.0-98.0) % Vent Mode Prvc Mechanical Rate 14 FiO2 50.0 % Tidal Volume 500 PEEP 5 Sodium (132-148) mmol/L Potassium (3.6-5.2) mmol/L Chloride (98-107) mmol/L Carbon Dioxide (22-30) mmol/L Anion Gap (10-20) BUN (9-20) mg/dL Creatinine (0.8-1.5) mg/dL Est GFR ( Amer) Est GFR (Non-Af Amer) POC Glucose (mg/dL) 114 H (65-110) mg/dL Random Glucose (75-110) mg/dL Calcium (8.6-10.4) mg/dl Phosphorus (2.5-4.5) mg/dL Magnesium (1.6-2.3) mg/dL Total Bilirubin (0.2-1.3) mg/dL AST (17-59) U/L ALT (21-72) U/L Alkaline Phosphatase (38-126) U/L Total Protein (6.3-8.3) g/dL Albumin (3.5-5.0) g/dL Globulin (2.2-3.9) gm/dL Albumin/Globulin Ratio (1.0-2.1) 09/16/17 09/15/17 Range/Units 00:24 17:48 WBC (4.8-10.8) K/uL RBC (4.40-5.90) Mil/uL Hgb (12.0-18.0) g/dL Hct (35.0-51.0) % MCV (80.0-94.0) fL MCH (27.0-31.0) pg MCHC (33.0-37.0) g/dL RDW (11.5-14.5) % Plt Count (130-400) K/uL MPV (7.2-11.7) fL Neut % (Auto) (50.0-75.0) % Lymph % (Auto) (20.0-40.0) % Kidder % (Auto) (0.0-10.0) % Eos % (Auto) (0.0-4.0) % Baso % (Auto) (0.0-2.0) % Neut # (1.8-7.0) K/uL Lymph # (1.0-4.3) K/uL Kidder # (0.0-0.8) K/uL Eos # (0.0-0.7) K/uL Baso # (0.0-0.2) K/uL Neutrophils % (Manual) (50-75) % Band Neutrophils % (0-2) % Lymphocytes % (Manual) (20-40) % Monocytes % (Manual) (0-10) % Platelet Estimate (NORMAL) Polychromasia Hypochromasia (manual) Anisocytosis (manual) PT (9.7-12.2) SECONDS INR APTT (21-34) SECONDS Puncture Site pCO2 (35-45) mm/Hg pO2 (80-100) mm/Hg HCO3 (21-28) mmol/L ABG pH (7.35-7.45) ABG Total CO2 (22-28) mmol/L ABG O2 Saturation (95-98) % ABG Base Excess (-2.0-3.0) mmol/L ABG Hemoglobin (11.7-17.4) g/dL ABG Carboxyhemoglobin (0.5-1.5) % POC ABG HHb (Measured) (0.0-5.0) % ABG Methemoglobin (0.0-3.0) % Elio Test A-a O2 Difference mm/Hg Respiratory Index Hgb O2 Saturation (95.0-98.0) % Vent Mode Mechanical Rate FiO2 % Tidal Volume PEEP Sodium (132-148) mmol/L Potassium (3.6-5.2) mmol/L Chloride (98-107) mmol/L Carbon Dioxide (22-30) mmol/L Anion Gap (10-20) BUN (9-20) mg/dL Creatinine (0.8-1.5) mg/dL Est GFR ( Amer) Est GFR (Non-Af Amer) POC Glucose (mg/dL) 167 H 235 H (65-110) mg/dL Random Glucose (75-110) mg/dL Calcium (8.6-10.4) mg/dl Phosphorus (2.5-4.5) mg/dL Magnesium (1.6-2.3) mg/dL Total Bilirubin (0.2-1.3) mg/dL AST (17-59) U/L ALT (21-72) U/L Alkaline Phosphatase (38-126) U/L Total Protein (6.3-8.3) g/dL Albumin (3.5-5.0) g/dL Globulin (2.2-3.9) gm/dL Albumin/Globulin Ratio (1.0-2.1) Laboratory Results - last 24 hr 09/15/17 09/16/17 09/16/17 17:48 00:24 05:29 WBC RBC Hgb Hct MCV MCH MCHC RDW Plt Count MPV Neut % (Auto) Lymph % (Auto) Kidder % (Auto) Eos % (Auto) Baso % (Auto) Neut # Lymph # Kidder # Eos # Baso # Neutrophils % (Manual) Band Neutrophils % Lymphocytes % (Manual) Monocytes % (Manual) Platelet Estimate Polychromasia Hypochromasia (manual) Anisocytosis (manual) PT INR APTT Puncture Site Rb pCO2 22 L pO2 50 L HCO3 21.9 ABG pH 7.52 H ABG Total CO2 18.7 L ABG O2 Saturation 92.0 L ABG Base Excess -3.7 L ABG Hemoglobin 9.3 L ABG Carboxyhemoglobin 2.4 H POC ABG HHb (Measured) 7.7 H ABG Methemoglobin 1.0 Elio Test Na A-a O2 Difference 279.0 Respiratory Index 5.6 Hgb O2 Saturation 88.9 L Vent Mode Prvc Mechanical Rate 14 FiO2 50.0 Tidal Volume 500 PEEP 5 Sodium Potassium Chloride Carbon Dioxide Anion Gap BUN Creatinine Est GFR ( Amer) Est GFR (Non-Af Amer) POC Glucose (mg/dL) 235 H 167 H Random Glucose Calcium Phosphorus Magnesium Total Bilirubin AST ALT Alkaline Phosphatase Total Protein Albumin Globulin Albumin/Globulin Ratio 09/16/17 09/16/17 09/16/17 06:04 06:20 06:20 WBC 8.8 RBC 3.44 L Hgb 9.4 L Hct 29.2 L MCV 84.8 MCH 27.2 MCHC 32.0 L RDW 17.8 H Plt Count 243 MPV 10.8 Neut % (Auto) 87.8 H Lymph % (Auto) 5.6 L Kidder % (Auto) 6.2 Eos % (Auto) 0.3 Baso % (Auto) 0.1 Neut # 7.7 H Lymph # 0.5 L Kidder # 0.5 Eos # 0.0 Baso # 0.0 Neutrophils % (Manual) 90 H Band Neutrophils % 2 Lymphocytes % (Manual) 5 L Monocytes % (Manual) 3 Platelet Estimate Normal Polychromasia Slight Hypochromasia (manual) Slight Anisocytosis (manual) Slight PT INR APTT Puncture Site pCO2 pO2 HCO3 ABG pH ABG Total CO2 ABG O2 Saturation ABG Base Excess ABG Hemoglobin ABG Carboxyhemoglobin POC ABG HHb (Measured) ABG Methemoglobin Elio Test A-a O2 Difference Respiratory Index Hgb O2 Saturation Vent Mode Mechanical Rate FiO2 Tidal Volume PEEP Sodium 137 Potassium 3.4 L Chloride 106 Carbon Dioxide 22 Anion Gap 12 BUN 30 H Creatinine 0.8 Est GFR ( Amer) > 60 Est GFR (Non-Af Amer) > 60 POC Glucose (mg/dL) 114 H Random Glucose 93 Calcium 7.7 L Phosphorus 2.5 Magnesium 1.9 Total Bilirubin 0.5 AST 14 L ALT 20 L Alkaline Phosphatase 200 H Total Protein 6.8 Albumin 2.1 L Globulin 4.7 H Albumin/Globulin Ratio 0.4 L 09/16/17 09/16/17 06:20 11:32 WBC RBC Hgb Hct MCV MCH MCHC RDW Plt Count MPV Neut % (Auto) Lymph % (Auto) Kidder % (Auto) Eos % (Auto) Baso % (Auto) Neut # Lymph # Kidder # Eos # Baso # Neutrophils % (Manual) Band Neutrophils % Lymphocytes % (Manual) Monocytes % (Manual) Platelet Estimate Polychromasia Hypochromasia (manual) Anisocytosis (manual) PT 21.1 H D INR 1.8 D APTT 33 Puncture Site pCO2 pO2 HCO3 ABG pH ABG Total CO2 ABG O2 Saturation ABG Base Excess ABG Hemoglobin ABG Carboxyhemoglobin POC ABG HHb (Measured) ABG Methemoglobin Elio Test A-a O2 Difference Respiratory Index Hgb O2 Saturation Vent Mode Mechanical Rate FiO2 Tidal Volume PEEP Sodium Potassium Chloride Carbon Dioxide Anion Gap BUN Creatinine Est GFR ( Amer) Est GFR (Non-Af Amer) POC Glucose (mg/dL) 83 Random Glucose Calcium Phosphorus Magnesium Total Bilirubin AST ALT Alkaline Phosphatase Total Protein Albumin Globulin Albumin/Globulin Ratio Fingerstick Blood Sugar Results: 83 Review of Systems - Review of Systems Review of Systems: Unable to evaluate adequate ROS due to patient's clinical status. Patient nodded "no" to any discomfort Critical Care Progress Note - Ventilator Checklist Daily Sedation Vacation: No Daily Assessment of Readiness to Wean: Yes Daily Spontaneous Breathing Trial: Yes PUD Prophalyxis: Yes DVT Prophylaxis: Yes (Eliquis 2.5mg PO BID ) Assessment/Plan - Assessment and Plan (Free Text) Assessment: Patient is a 77 year old male with past medical history of hypertension, diabetes, multiple myeloma who was admitted to the ICU after a [employer] for hypotension and respiratory distress on (09/13/17). Today: Continue current management and pressure support trial Plan: Neuro: Intubated, easily arousable * Versed 1MG IVP Q1H PRN Cardio: Hypotension, Hxof HTN and congestive cardiomyopathy Echo ( 09/09/2017): LVRF (20%), mild to modeate AR, mild pulmonic valvular regurgitation, global hypokinesis of the LV, and systolic function is moderately to severely impaired Medication/Management: * Dobutamine 500mg IV 10mcg/kg/min * Levophed 8mg IV 4mcg/min ( Titratable) Pulm: Respiratory distress Chest X-ray (09/15/17): Moderate b/l pleural effusion and moderate venous congestion with confluent bibasilar airspace opacities Medication/Management: * Intubated; pressure support trial in attemptto wean off PRVC * Lasix drip 100mg IV, 5mg/hr * F/u b/l pleural effusion ultrasound GI: Hx of constipation Medication/Management: * Sennosides A and B ( Senokot Tab) 8.6 mg PO BID Endo: Hx of DM * Accuchecks Q6H * ISS (Medium dose protocol) * Lantus 10units HS : Urinary retention Medication/Management: * Tamulosin 0.8 PO daily Renal: Electrolyte Imbalance: * Repleted appropriately ID: Acute respiratory failure Chest X-ray (09/15/17): Moderate b/l pleural effusion and moderate venous congestion with confluent bibasilar airspace opacities Medication/Management: * Empirically antibiotics: Cefepime 1gm IVPB Q12H Prophylaxis: DVT: SCDs contraindicated due to B/L LE pitting edema. Eliquis 5mg PO BID GI: Protonix 40mg PO daily, Zofran 4mg PO Q8H prn Tube feeding <Nicki Perryudhry S - Last Filed: 09/16/17 18:27> CCU Objective - Vital Signs / Intake & Output Vital Signs (Last 4 hours): Vital Signs Temp Pulse Resp BP Pulse Ox 09/16/17 17:00 88 17 106/60 100 09/16/17 16:00 98 F 89 20 111/67 100 09/16/17 15:00 97 H 15 106/57 L 100 Intake and Output (Last 8hrs): Intake & Output 09/16/17 09/16/17 09/16/17 06:59 14:59 22:59 Intake Total 1149.9 548.0 166.4 Output Total 620 40 Balance 529.9 508.0 166.4 Weight 170 lb 3.15 oz Intake: IV 265 0 Intake, IV Amount 424.9 198.0 66.4 Left Hand 100 Right Port-A-Cath 174.4 108.7 32.7 Riight Port-A Cath Yport 40 35 15 Rt PAC 110.5 54.3 18.7 Tube Feeding 400 350 100 Other 60 Output: Urine 620 40 Urethral (Zamora) 620 40 Other: # Bowel Movements 1 - Medications Active Medications: Active Medications Generic Name Dose Route Start Last Admin Trade Name Freq PRN Reason Stop Dose Admin Acetaminophen 325 mg 09/11/17 02:50 Tylenol 325mg Tab PO Q6 PRN Fever >100.4 F Apixaban 5 mg 09/16/17 18:00 09/16/17 17:48 Eliquis PO 5 mg BID VELVET Administration Cefepime HCl 1 gm/ Sodium 100 mls @ 100 mls/hr 09/13/17 19:00 09/16/17 06:05 Chloride IVPB 100 mls/hr Q12H VELVET Administration Norepinephrine Bitartrate 8 mg 250 mls @ 7.5 mls/hr 09/13/17 20:50 09/16/17 08:28 / Sodium Chloride IV 7 mcg/min .Q24H PRN 13.12 mls/hr TITRATE PER MD ORDER Titration Protocol 4 MCG/MIN Furosemide 100 mg/ Sodium 100 mls @ 5 mls/hr 09/15/17 11:15 09/16/17 08:27 Chloride IV 5 mls/hr .Q20H VELVET Administration 5 MG/HR Dobutamine HCl/Dextrose 500 mg in 250 mls @ 11.58 mls/hr 09/16/17 16:00 09/16 16:00 Dobutamine/Dextrose 5% 500mg/250ml IV 5 mcg/kg/min .[id number] VELVET 11.58 mls/hr Protocol Administration 5 MCG/KG/MIN Insulin Aspart 0 unit 09/14/17 00:00 09/16/17 17:49 Novolog SC Not Given Q6H VELVET Protocol Insulin Glargine 10 unit 09/12/17 22:00 09/15/17 21:36 Lantus SC 10 unit HS VELVET Administration Lidocaine 1 ea 09/11/17 10:00 09/16/17 10:19 Lidoderm TD 1 ea DAILY VELVET Administration Midazolam HCl 1 mg 09/13/17 20:28 09/16/17 05:01 Versed Inj IVP 1 mg Q1H PRN Administration Sedation Multivitamins/Minerals 1 tab 09/11/17 10:00 09/16/17 10:16 Therapeutic-M Tab PO 1 tab DAILY VELVET Administration Ondansetron HCl 4 mg 09/11/17 02:50 Zofran Tab PO Q8H PRN Nausea/Vomiting Pantoprazole Sodium 40 mg 09/11/17 10:00 09/16/17 10:19 Protonix Ec Tab PO 40 mg DAILY VELVET Administration Sennosides 8.6 mg 09/11/17 10:00 09/16/17 10:19 Senokot Tab PO 8.6 mg BID VELVET Administration Tamsulosin HCl 0.8 mg 09/12/17 10:00 09/16/17 10:19 Flomax PO 0.8 mg DAILY VELVET Administration - Patient Studies Lab Studies: Microbiology Studies 09/13/17 18:15 Blood Culture - Preliminary Blood NO GROWTH AFTER 48 HOURS 09/13/17 17:45 Blood Culture - Preliminary Blood NO GROWTH AFTER 48 HOURS Lab Studies 09/16/17 09/16/17 09/16/17 Range/Units 11:32 06:20 06:20 WBC (4.8-10.8) K/uL RBC (4.40-5.90) Mil/uL Hgb (12.0-18.0) g/dL Hct (35.0-51.0) % MCV (80.0-94.0) fL MCH (27.0-31.0) pg MCHC (33.0-37.0) g/dL RDW (11.5-14.5) % Plt Count (130-400) K/uL MPV (7.2-11.7) fL Neut % (Auto) (50.0-75.0) % Lymph % (Auto) (20.0-40.0) % Kidder % (Auto) (0.0-10.0) % Eos % (Auto) (0.0-4.0) % Baso % (Auto) (0.0-2.0) % Neut # (1.8-7.0) K/uL Lymph # (1.0-4.3) K/uL Kidder # (0.0-0.8) K/uL Eos # (0.0-0.7) K/uL Baso # (0.0-0.2) K/uL Neutrophils % (Manual) (50-75) % Band Neutrophils % (0-2) % Lymphocytes % (Manual) (20-40) % Monocytes % (Manual) (0-10) % Platelet Estimate (NORMAL) Polychromasia Hypochromasia (manual) Anisocytosis (manual) PT 21.1 H D (9.7-12.2) SECONDS INR 1.8 D APTT 33 (21-34) SECONDS Puncture Site pCO2 (35-45) mm/Hg pO2 (80-100) mm/Hg HCO3 (21-28) mmol/L ABG pH (7.35-7.45) ABG Total CO2 (22-28) mmol/L ABG O2 Saturation (95-98) % ABG Base Excess (-2.0-3.0) mmol/L ABG Hemoglobin (11.7-17.4) g/dL ABG Carboxyhemoglobin (0.5-1.5) % POC ABG HHb (Measured) (0.0-5.0) % ABG Methemoglobin (0.0-3.0) % Elio Test A-a O2 Difference mm/Hg Respiratory Index Hgb O2 Saturation (95.0-98.0) % Vent Mode Mechanical Rate FiO2 % Tidal Volume PEEP Sodium 137 (132-148) mmol/L Potassium 3.4 L (3.6-5.2) mmol/L Chloride 106 (98-107) mmol/L Carbon Dioxide 22 (22-30) mmol/L Anion Gap 12 (10-20) BUN 30 H (9-20) mg/dL Creatinine 0.8 (0.8-1.5) mg/dL Est GFR ( Amer) > 60 Est GFR (Non-Af Amer) > 60 POC Glucose (mg/dL) 83 (65-110) mg/dL Random Glucose 93 (75-110) mg/dL Calcium 7.7 L (8.6-10.4) mg/dl Phosphorus 2.5 (2.5-4.5) mg/dL Magnesium 1.9 (1.6-2.3) mg/dL Total Bilirubin 0.5 (0.2-1.3) mg/dL AST 14 L (17-59) U/L ALT 20 L (21-72) U/L Alkaline Phosphatase 200 H (38-126) U/L Total Protein 6.8 (6.3-8.3) g/dL Albumin 2.1 L (3.5-5.0) g/dL Globulin 4.7 H (2.2-3.9) gm/dL Albumin/Globulin Ratio 0.4 L (1.0-2.1) 09/16/17 09/16/17 09/16/17 Range/Units 06:20 06:04 05:29 WBC 8.8 (4.8-10.8) K/uL RBC 3.44 L (4.40-5.90) Mil/uL Hgb 9.4 L (12.0-18.0) g/dL Hct 29.2 L (35.0-51.0) % MCV 84.8 (80.0-94.0) fL MCH 27.2 (27.0-31.0) pg MCHC 32.0 L (33.0-37.0) g/dL RDW 17.8 H (11.5-14.5) % Plt Count 243 (130-400) K/uL MPV 10.8 (7.2-11.7) fL Neut % (Auto) 87.8 H (50.0-75.0) % Lymph % (Auto) 5.6 L (20.0-40.0) % Kidder % (Auto) 6.2 (0.0-10.0) % Eos % (Auto) 0.3 (0.0-4.0) % Baso % (Auto) 0.1 (0.0-2.0) % Neut # 7.7 H (1.8-7.0) K/uL Lymph # 0.5 L (1.0-4.3) K/uL Kidder # 0.5 (0.0-0.8) K/uL Eos # 0.0 (0.0-0.7) K/uL Baso # 0.0 (0.0-0.2) K/uL Neutrophils % (Manual) 90 H (50-75) % Band Neutrophils % 2 (0-2) % Lymphocytes % (Manual) 5 L (20-40) % Monocytes % (Manual) 3 (0-10) % Platelet Estimate Normal (NORMAL) Polychromasia Slight Hypochromasia (manual) Slight Anisocytosis (manual) Slight PT (9.7-12.2) SECONDS INR APTT (21-34) SECONDS Puncture Site Rb pCO2 22 L (35-45) mm/Hg pO2 50 L (80-100) mm/Hg HCO3 21.9 (21-28) mmol/L ABG pH 7.52 H (7.35-7.45) ABG Total CO2 18.7 L (22-28) mmol/L ABG O2 Saturation 92.0 L (95-98) % ABG Base Excess -3.7 L (-2.0-3.0) mmol/L ABG Hemoglobin 9.3 L (11.7-17.4) g/dL ABG Carboxyhemoglobin 2.4 H (0.5-1.5) % POC ABG HHb (Measured) 7.7 H (0.0-5.0) % ABG Methemoglobin 1.0 (0.0-3.0) % Elio Test Na A-a O2 Difference 279.0 mm/Hg Respiratory Index 5.6 Hgb O2 Saturation 88.9 L (95.0-98.0) % Vent Mode Prvc Mechanical Rate 14 FiO2 50.0 % Tidal Volume 500 PEEP 5 Sodium (132-148) mmol/L Potassium (3.6-5.2) mmol/L Chloride (98-107) mmol/L Carbon Dioxide (22-30) mmol/L Anion Gap (10-20) BUN (9-20) mg/dL Creatinine (0.8-1.5) mg/dL Est GFR ( Amer) Est GFR (Non-Af Amer) POC Glucose (mg/dL) 114 H (65-110) mg/dL Random Glucose (75-110) mg/dL Calcium (8.6-10.4) mg/dl Phosphorus (2.5-4.5) mg/dL Magnesium (1.6-2.3) mg/dL Total Bilirubin (0.2-1.3) mg/dL AST (17-59) U/L ALT (21-72) U/L Alkaline Phosphatase (38-126) U/L Total Protein (6.3-8.3) g/dL Albumin (3.5-5.0) g/dL Globulin (2.2-3.9) gm/dL Albumin/Globulin Ratio (1.0-2.1) 09/16/17 Range/Units 00:24 WBC (4.8-10.8) K/uL RBC (4.40-5.90) Mil/uL Hgb (12.0-18.0) g/dL Hct (35.0-51.0) % MCV (80.0-94.0) fL MCH (27.0-31.0) pg MCHC (33.0-37.0) g/dL RDW (11.5-14.5) % Plt Count (130-400) K/uL MPV (7.2-11.7) fL Neut % (Auto) (50.0-75.0) % Lymph % (Auto) (20.0-40.0) % Kidder % (Auto) (0.0-10.0) % Eos % (Auto) (0.0-4.0) % Baso % (Auto) (0.0-2.0) % Neut # (1.8-7.0) K/uL Lymph # (1.0-4.3) K/uL Kidder # (0.0-0.8) K/uL Eos # (0.0-0.7) K/uL Baso # (0.0-0.2) K/uL Neutrophils % (Manual) (50-75) % Band Neutrophils % (0-2) % Lymphocytes % (Manual) (20-40) % Monocytes % (Manual) (0-10) % Platelet Estimate (NORMAL) Polychromasia Hypochromasia (manual) Anisocytosis (manual) PT (9.7-12.2) SECONDS INR APTT (21-34) SECONDS Puncture Site pCO2 (35-45) mm/Hg pO2 (80-100) mm/Hg HCO3 (21-28) mmol/L ABG pH (7.35-7.45) ABG Total CO2 (22-28) mmol/L ABG O2 Saturation (95-98) % ABG Base Excess (-2.0-3.0) mmol/L ABG Hemoglobin (11.7-17.4) g/dL ABG Carboxyhemoglobin (0.5-1.5) % POC ABG HHb (Measured) (0.0-5.0) % ABG Methemoglobin (0.0-3.0) % Elio Test A-a O2 Difference mm/Hg Respiratory Index Hgb O2 Saturation (95.0-98.0) % Vent Mode Mechanical Rate FiO2 % Tidal Volume PEEP Sodium (132-148) mmol/L Potassium (3.6-5.2) mmol/L Chloride (98-107) mmol/L Carbon Dioxide (22-30) mmol/L Anion Gap (10-20) BUN (9-20) mg/dL Creatinine (0.8-1.5) mg/dL Est GFR ( Amer) Est GFR (Non-Af Amer) POC Glucose (mg/dL) 167 H (65-110) mg/dL Random Glucose (75-110) mg/dL Calcium (8.6-10.4) mg/dl Phosphorus (2.5-4.5) mg/dL Magnesium (1.6-2.3) mg/dL Total Bilirubin (0.2-1.3) mg/dL AST (17-59) U/L ALT (21-72) U/L Alkaline Phosphatase (38-126) U/L Total Protein (6.3-8.3) g/dL Albumin (3.5-5.0) g/dL Globulin (2.2-3.9) gm/dL Albumin/Globulin Ratio (1.0-2.1) Laboratory Results - last 24 hr 09/16/17 09/16/17 09/16/17 00:24 05:29 06:04 WBC RBC Hgb Hct MCV MCH MCHC RDW Plt Count MPV Neut % (Auto) Lymph % (Auto) Kidder % (Auto) Eos % (Auto) Baso % (Auto) Neut # Lymph # Kidder # Eos # Baso # Neutrophils % (Manual) Band Neutrophils % Lymphocytes % (Manual) Monocytes % (Manual) Platelet Estimate Polychromasia Hypochromasia (manual) Anisocytosis (manual) PT INR APTT Puncture Site Rb pCO2 22 L pO2 50 L HCO3 21.9 ABG pH 7.52 H ABG Total CO2 18.7 L ABG O2 Saturation 92.0 L ABG Base Excess -3.7 L ABG Hemoglobin 9.3 L ABG Carboxyhemoglobin 2.4 H POC ABG HHb (Measured) 7.7 H ABG Methemoglobin 1.0 Elio Test Na A-a O2 Difference 279.0 Respiratory Index 5.6 Hgb O2 Saturation 88.9 L Vent Mode Prvc Mechanical Rate 14 FiO2 50.0 Tidal Volume 500 PEEP 5 Sodium Potassium Chloride Carbon Dioxide Anion Gap BUN Creatinine Est GFR ( Amer) Est GFR (Non-Af Amer) POC Glucose (mg/dL) 167 H 114 H Random Glucose Calcium Phosphorus Magnesium Total Bilirubin AST ALT Alkaline Phosphatase Total Protein Albumin Globulin Albumin/Globulin Ratio 09/16/17 09/16/17 09/16/17 06:20 06:20 06:20 WBC 8.8 RBC 3.44 L Hgb 9.4 L Hct 29.2 L MCV 84.8 MCH 27.2 MCHC 32.0 L RDW 17.8 H Plt Count 243 MPV 10.8 Neut % (Auto) 87.8 H Lymph % (Auto) 5.6 L Kidder % (Auto) 6.2 Eos % (Auto) 0.3 Baso % (Auto) 0.1 Neut # 7.7 H Lymph # 0.5 L Kidder # 0.5 Eos # 0.0 Baso # 0.0 Neutrophils % (Manual) 90 H Band Neutrophils % 2 Lymphocytes % (Manual) 5 L Monocytes % (Manual) 3 Platelet Estimate Normal Polychromasia Slight Hypochromasia (manual) Slight Anisocytosis (manual) Slight PT 21.1 H D INR 1.8 D APTT 33 Puncture Site pCO2 pO2 HCO3 ABG pH ABG Total CO2 ABG O2 Saturation ABG Base Excess ABG Hemoglobin ABG Carboxyhemoglobin POC ABG HHb (Measured) ABG Methemoglobin Eloi Test A-a O2 Difference Respiratory Index Hgb O2 Saturation Vent Mode Mechanical Rate FiO2 Tidal Volume PEEP Sodium 137 Potassium 3.4 L Chloride 106 Carbon Dioxide 22 Anion Gap 12 BUN 30 H Creatinine 0.8 Est GFR ( Amer) > 60 Est GFR (Non-Af Amer) > 60 POC Glucose (mg/dL) Random Glucose 93 Calcium 7.7 L Phosphorus 2.5 Magnesium 1.9 Total Bilirubin 0.5 AST 14 L ALT 20 L Alkaline Phosphatase 200 H Total Protein 6.8 Albumin 2.1 L Globulin 4.7 H Albumin/Globulin Ratio 0.4 L 09/16/17 11:32 WBC RBC Hgb Hct MCV MCH MCHC RDW Plt Count MPV Neut % (Auto) Lymph % (Auto) Kidder % (Auto) Eos % (Auto) Baso % (Auto) Neut # Lymph # Kidder # Eos # Baso # Neutrophils % (Manual) Band Neutrophils % Lymphocytes % (Manual) Monocytes % (Manual) Platelet Estimate Polychromasia Hypochromasia (manual) Anisocytosis (manual) PT INR APTT Puncture Site pCO2 pO2 HCO3 ABG pH ABG Total CO2 ABG O2 Saturation ABG Base Excess ABG Hemoglobin ABG Carboxyhemoglobin POC ABG HHb (Measured) ABG Methemoglobin Elio Test A-a O2 Difference Respiratory Index Hgb O2 Saturation Vent Mode Mechanical Rate FiO2 Tidal Volume PEEP Sodium Potassium Chloride Carbon Dioxide Anion Gap BUN Creatinine Est GFR ( Amer) Est GFR (Non-Af Amer) POC Glucose (mg/dL) 83 Random Glucose Calcium Phosphorus Magnesium Total Bilirubin AST ALT Alkaline Phosphatase Total Protein Albumin Globulin Albumin/Globulin Ratio Assessment/Plan (1) Acute respiratory failure Current Visit: Yes Status: Acute (2) Hypotension (arterial) Current Visit: Yes Status: Acute (3) CHF (congestive heart failure) Current Visit: Yes Status: Acute Attending/Attestation - Attestation I have personally seen and examined this patient.: Yes I have fully participated in the care of the patient.: Yes I have reviewed all pertinent clinical information: Yes Notes (Text): 09/16/17 18:26 Patient seen and examined in the intensive care unit. Case discussed with STAFF in the morning. Tolerating CPAP and More awake and responsive ultrasound showed small pleural effusion on the right side Continue antibiotics Possible extubation in the morning Taper off pressorsas tolerated
--- NOTE | 2017-09-16 19:28 | US ---
EXAM: US Chest EXAM DATE/TIME: 09/16/2017 4:50 PM CLINICAL HISTORY: 77 years old, male; Signs and symptoms; Other: Evaluate rt sided pleural effusion; Additional info: Evaluation right sided pleural effusion TECHNIQUE: Real-time portable ultrasound of the chest with image documentation. Study performed in the intensive care unit, patient scanned supine COMPARISON: CT - ANGIO CHEST PE PROTOCOL 2017-09-01 17:12 FINDINGS: Pleural space: There is an effusion in the right lower hemithorax.. There is atelectatic lung in the fluid. Visualized dome of the liver is unremarkable. No significant fluid is seen in the left pleural space. IMPRESSION: Small right pleural effusion
[2017-09-16] MEDS: (Lantus) Insulin Glargine, Recombinant SC SCH (22:00)
[2017-09-17] MEDS: Furosemide 100 MG in Sodium Chloride 0.9% 90 ML IV SCH ×2 (03:15→06:17)
[2017-09-17 04:19] LABS: ABG MECHANICAL RATE 14; ARTERIAL BLOOD GAS MODE PRVC; ARTERIAL BLOOD HGB O2 SAT 97.1 % (95.0-98.0); ATERIAL BLOOD GAS PEEP 5; CARBOXYHEMOGLOBIN 2.2 % (0.5-1.5); DRAW SITE RRA; METHEMOGLOBIN 0.7 % (0.0-3.0)
[2017-09-17] MEDS ORDERED: Dextrose 50% SYRINGE Inj (50 ml) ONE (05:54)
[2017-09-17] MEDS: (Novolog) Insulin Aspart, Recombinant 100 u/ml 10 ml vial SC SCH ×4 (06:00→17:49)
[2017-09-17 06:22] LABS: BASO % 0.2 % (0.0-2.0); EOS % 0.2 % (0.0-4.0); HEMATOCRIT 30.4 % (35.0-51.0); LYMPH # 0.5 K/uL (1.0-4.3); MEAN CELL VOLUME 85.8 fL (80.0-94.0); MEAN CORPUSCULAR HEMOGLOBIN 26.9 pg (27.0-31.0); MEAN CORPUSCULAR HGB CONC 31.4 g/dL (33.0-37.0); MEAN PLATELET VOLUME 10.8 fL (7.2-11.7); MONO # 0.6 K/uL (0.0-0.8); NRBC % 0.1 % (0.0-2.0); PLATELET COUNT 233 K/uL (130-400); RED CELL DISTRIBUTION WIDTH 18.4 % (11.5-14.5); WHITE BLOOD COUNT 9.6 K/uL (4.8-10.8)
[2017-09-17 06:45] LABS: CHLORIDE 108 mmol/L (98-107); POTASSIUM 3.5 mmol/L (3.6-5.2); SODIUM 138 mmol/L (132-148)
[2017-09-17 06:47] LABS: AST/SGOT 19 U/L (17-59); BILIRUBIN,TOTAL 0.7 mg/dL (0.2-1.3); CARBON DIOXIDE 21 mmol/L (22-30); GFR AFRICAN-AMERICAN > 60
[2017-09-17 06:48] LABS: ALB/GLOB RATIO 0.4 (1.0-2.1); ALKALINE PHOSPHATASE 184 U/L (38-126); ALT/SGPT 21 U/L (21-72); BLOOD UREA NITROGEN 28 mg/dL (9-20); CALCIUM 7.8 mg/dl (8.6-10.4); GLUCOSE,RANDOM 42 mg/dL (75-110); PHOSPHOROUS 2.5 mg/dL (2.5-4.5); TOTAL PROTEIN 6.9 g/dL (6.3-8.3)
[2017-09-17 06:49] LABS: MAGNESIUM 1.7 mg/dL (1.6-2.3)
[2017-09-17] MEDS: Cefepime 1 GM in Sodium Chloride 0.9% 100 ML IVPB SCH ×2 (07:00→18:44)
--- NOTE | 2017-09-17 07:50 | CP.CCUPN ---
<Mai Melgar E - Last Filed: 09/17/17 13:19> CCU Subjective - Physician Review Subjective (Free Text): Patient was seen and examined at bedside. Patient is currently intubated but very alert and responsive. As per nursing, there were no acute issues overnight. Patient continues to open his eyes to name calling and can follow simple commands. Patient nodded " yes'' to slight discomfort in right upper leg and nodded "yes" to being quite comfortable. CCU Objective - Vital Signs / Intake & Output Vital Signs (Last 4 hours): Vital Signs Temp Pulse Resp BP Pulse Ox 09/17/17 07:00 98 H 100 09/17/17 06:23 91 H 110/58 L 100 09/17/17 06:17 115/66 09/17/17 06:00 93 H 19 110/58 L 100 09/17/17 05:23 98 H 115/66 100 09/17/17 05:00 87 18 111/65 100 09/17/17 04:42 96 H 100 09/17/17 04:00 98.1 F 100 H 23 111/65 100 Intake and Output (Last 8hrs): Intake & Output 09/16/17 09/17/17 09/17/17 22:59 06:59 14:59 Intake Total 775.4 572.0 Output Total 1355 695 Balance -579.6 -123.0 Weight 166 lb 10.711 oz Intake: Intake, IV Amount 195.4 172.0 Right Port-A-Cath 98.1 87.2 Riight Port-A Cath Yport 45 40 Rt PAC 52.3 44.8 Tube Feeding 450 400 Other 130 Output: Urine 1355 695 Urethral ([place]) 1355 695 Other: # Bowel Movements 1 - Physical Exam Head: Positive for: Atraumatic Extroacular Muscles: Positive for: EOMI Mouth: Positive for: Moist Mucous Membranes Neck: Positive for: Trachea Midline Respiratory/Chest: Positive for: Clear to Auscultation, Other (Patient is currently on pressure support in attempt to wean off PRVC ) Cardiovascular: Positive for: Regular Rate and Rhythm, Normal S1, S2 Abdomen: Positive for: Normal Bowel Sounds. Negative for: Tenderness, Distention, Peritoneal Signs Upper Extremity: Positive for: Normal Inspection. Negative for: Edema Lower Extremity: Positive for: Edema, Other (SCDs contraindicated ) Neurological: Positive for: GCS=15 Skin: Positive for: Normal Color Psychiatric: Positive for: Alert, Oriented x 3, Other (Easily arousable ) - Medications Active Medications: Active Medications Generic Name Dose Route Start Last Admin Trade Name Freq PRN Reason Stop Dose Admin Acetaminophen 325 mg 09/11/17 02:50 Tylenol 325mg Tab PO Q6 PRN Fever >100.4 F Apixaban 5 mg 09/16/17 18:00 09/16/17 17:48 Eliquis PO 5 mg BID VELVET Administration Cefepime HCl 1 gm/ Sodium 100 mls @ 100 mls/hr 09/13/17 19:00 09/17/17 07:00 Chloride IVPB 100 mls/hr Q12H VELVET Administration Norepinephrine Bitartrate 8 mg 250 mls @ 7.5 mls/hr 09/13/17 20:50 09/16/17 08:28 / Sodium Chloride IV 7 mcg/min .Q24H PRN 13.12 mls/hr TITRATE PER MD ORDER Titration Protocol 4 MCG/MIN Furosemide 100 mg/ Sodium 100 mls @ 5 mls/hr 09/15/17 11:15 09/17/17 06:17 Chloride IV 5 mls/hr .Q20H VELVET Administration 5 MG/HR Dobutamine HCl/Dextrose 500 mg in 250 mls @ 11.58 mls/hr 09/16/17 16:00 09/16 16:00 Dobutamine/Dextrose 5% 500mg/250ml IV 5 mcg/kg/min .[id number] VELVET 11.58 mls/hr Protocol Administration 5 MCG/KG/MIN Magnesium Sulfate/Dextrose 1 gm in 100 mls @ 200 mls/hr 09/17/17 07:47 Magnesium Sulfate 1 Gm/100 Ml D5w IVPB 09/17/17 08:16 ONCE ONE Insulin Aspart 0 unit 09/14/17 00:00 09/17/17 06:00 Novolog SC Not Given Q6H VELVET Protocol Insulin Glargine 10 unit 09/12/17 22:00 09/16/17 22:00 Lantus SC 10 unit HS VELVET Administration Lidocaine 1 ea 09/11/17 10:00 09/16/17 10:19 Lidoderm TD 1 ea DAILY VELVET Administration Midazolam HCl 1 mg 09/13/17 20:28 09/16/17 23:15 Versed Inj IVP 1 mg Q1H PRN Administration Sedation Multivitamins/Minerals 1 tab 09/11/17 10:00 09/16/17 10:16 Therapeutic-M Tab PO 1 tab DAILY VELVET Administration Ondansetron HCl 4 mg 09/11/17 02:50 Zofran Tab PO Q8H PRN Nausea/Vomiting Pantoprazole Sodium 40 mg 09/11/17 10:00 09/16/17 10:19 Protonix Ec Tab PO 40 mg DAILY VELVET Administration Potassium Chloride 40 meq 09/17/17 07:48 Potassium Chloride Oral Soln PO 09/17/17 07:49 ONCE ONE Sennosides 8.6 mg 09/11/17 10:00 09/16/17 18:54 Senokot Tab PO Not Given BID VELVET Tamsulosin HCl 0.8 mg 09/12/17 10:00 09/16/17 10:19 Flomax PO 0.8 mg DAILY VELVET Administration - Patient Studies Lab Studies: Microbiology Studies 09/13/17 18:15 Blood Culture - Preliminary Blood NO GROWTH AFTER 3 DAYS 09/13/17 17:45 Blood Culture - Preliminary Blood NO GROWTH AFTER 3 DAYS Lab Studies 09/17/17 09/17/17 09/17/17 Range/Units 06:27 06:14 06:14 WBC 9.6 (4.8-10.8) K/uL RBC 3.54 L (4.40-5.90) Mil/uL Hgb 9.5 L (12.0-18.0) g/dL Hct 30.4 L (35.0-51.0) % MCV 85.8 (80.0-94.0) fL MCH 26.9 L (27.0-31.0) pg MCHC 31.4 L (33.0-37.0) g/dL RDW 18.4 H (11.5-14.5) % Plt Count 233 (130-400) K/uL MPV 10.8 (7.2-11.7) fL Neut % (Auto) 88.6 H (50.0-75.0) % Lymph % (Auto) 5.0 L (20.0-40.0) % [place] % (Auto) 6.0 (0.0-10.0) % Eos % (Auto) 0.2 (0.0-4.0) % Baso % (Auto) 0.2 (0.0-2.0) % Neut # 8.5 H (1.8-7.0) K/uL Lymph # 0.5 L (1.0-4.3) K/uL [place] # 0.6 (0.0-0.8) K/uL Eos # 0.0 (0.0-0.7) K/uL Baso # 0.0 (0.0-0.2) K/uL Neutrophils % (Manual) (50-75) % Band Neutrophils % (0-2) % Lymphocytes % (Manual) (20-40) % Monocytes % (Manual) (0-10) % Platelet Estimate (NORMAL) Polychromasia Hypochromasia (manual) Anisocytosis (manual) Puncture Site pCO2 (35-45) mm/Hg pO2 (80-100) mm/Hg HCO3 (21-28) mmol/L ABG pH (7.35-7.45) ABG Total CO2 (22-28) mmol/L ABG O2 Saturation (95-98) % ABG Base Excess (-2.0-3.0) mmol/L ABG Hemoglobin (11.7-17.4) g/dL ABG Carboxyhemoglobin (0.5-1.5) % POC ABG HHb (Measured) (0.0-5.0) % ABG Methemoglobin (0.0-3.0) % Elio Test A-a O2 Difference mm/Hg Respiratory Index Hgb O2 Saturation (95.0-98.0) % Vent Mode Mechanical Rate FiO2 % Tidal Volume PEEP Sodium 138 (132-148) mmol/L Potassium 3.5 L (3.6-5.2) mmol/L Chloride 108 H (98-107) mmol/L Carbon Dioxide 21 L (22-30) mmol/L Anion Gap 13 (10-20) BUN 28 H (9-20) mg/dL Creatinine 0.7 L (0.8-1.5) mg/dL Est GFR ( Amer) > 60 Est GFR (Non-Af Amer) > 60 POC Glucose (mg/dL) 153 H (65-110) mg/dL Random Glucose 42 L (75-110) mg/dL Calcium 7.8 L (8.6-10.4) mg/dl Phosphorus 2.5 (2.5-4.5) mg/dL Magnesium 1.7 (1.6-2.3) mg/dL Total Bilirubin 0.7 (0.2-1.3) mg/dL AST 19 (17-59) U/L ALT 21 (21-72) U/L Alkaline Phosphatase 184 H (38-126) U/L Total Protein 6.9 (6.3-8.3) g/dL Albumin 2.1 L (3.5-5.0) g/dL Globulin 4.7 H (2.2-3.9) gm/dL Albumin/Globulin Ratio 0.4 L (1.0-2.1) 09/17/17 09/17/17 09/17/17 Range/Units 05:44 04:15 00:00 WBC (4.8-10.8) K/uL RBC (4.40-5.90) Mil/uL Hgb (12.0-18.0) g/dL Hct (35.0-51.0) % MCV (80.0-94.0) fL MCH (27.0-31.0) pg MCHC (33.0-37.0) g/dL RDW (11.5-14.5) % Plt Count (130-400) K/uL MPV (7.2-11.7) fL Neut % (Auto) (50.0-75.0) % Lymph % (Auto) (20.0-40.0) % [place] % (Auto) (0.0-10.0) % Eos % (Auto) (0.0-4.0) % Baso % (Auto) (0.0-2.0) % Neut # (1.8-7.0) K/uL Lymph # (1.0-4.3) K/uL [place] # (0.0-0.8) K/uL Eos # (0.0-0.7) K/uL Baso # (0.0-0.2) K/uL Neutrophils % (Manual) (50-75) % Band Neutrophils % (0-2) % Lymphocytes % (Manual) (20-40) % Monocytes % (Manual) (0-10) % Platelet Estimate (NORMAL) Polychromasia Hypochromasia (manual) Anisocytosis (manual) Puncture Site Rra pCO2 31 L (35-45) mm/Hg pO2 178 H (80-100) mm/Hg HCO3 25.0 (21-28) mmol/L ABG pH 7.48 H (7.35-7.45) ABG Total CO2 24.1 (22-28) mmol/L ABG O2 Saturation 100.0 H (95-98) % ABG Base Excess 0.1 (-2.0-3.0) mmol/L ABG Hemoglobin 10.8 L (11.7-17.4) g/dL ABG Carboxyhemoglobin 2.2 H (0.5-1.5) % POC ABG HHb (Measured) 0.0 (0.0-5.0) % ABG Methemoglobin 0.7 (0.0-3.0) % Elio Test Na A-a O2 Difference 140.0 mm/Hg Respiratory Index 0.8 Hgb O2 Saturation 97.1 (95.0-98.0) % Vent Mode Prvc Mechanical Rate 14 FiO2 50.0 % Tidal Volume 500 PEEP 5 Sodium (132-148) mmol/L Potassium (3.6-5.2) mmol/L Chloride (98-107) mmol/L Carbon Dioxide (22-30) mmol/L Anion Gap (10-20) BUN (9-20) mg/dL Creatinine (0.8-1.5) mg/dL Est GFR ( Amer) Est GFR (Non-Af Amer) POC Glucose (mg/dL) < 20 L* 80 (65-110) mg/dL Random Glucose (75-110) mg/dL Calcium (8.6-10.4) mg/dl Phosphorus (2.5-4.5) mg/dL Magnesium (1.6-2.3) mg/dL Total Bilirubin (0.2-1.3) mg/dL AST (17-59) U/L ALT (21-72) U/L Alkaline Phosphatase (38-126) U/L Total Protein (6.3-8.3) g/dL Albumin (3.5-5.0) g/dL Globulin (2.2-3.9) gm/dL Albumin/Globulin Ratio (1.0-2.1) 09/16/17 09/16/17 Range/Units 11:32 06:20 WBC (4.8-10.8) K/uL RBC (4.40-5.90) Mil/uL Hgb (12.0-18.0) g/dL Hct (35.0-51.0) % MCV (80.0-94.0) fL MCH (27.0-31.0) pg MCHC (33.0-37.0) g/dL RDW (11.5-14.5) % Plt Count (130-400) K/uL MPV (7.2-11.7) fL Neut % (Auto) (50.0-75.0) % Lymph % (Auto) (20.0-40.0) % [place] % (Auto) (0.0-10.0) % Eos % (Auto) (0.0-4.0) % Baso % (Auto) (0.0-2.0) % Neut # (1.8-7.0) K/uL Lymph # (1.0-4.3) K/uL [place] # (0.0-0.8) K/uL Eos # (0.0-0.7) K/uL Baso # (0.0-0.2) K/uL Neutrophils % (Manual) 90 H (50-75) % Band Neutrophils % 2 (0-2) % Lymphocytes % (Manual) 5 L (20-40) % Monocytes % (Manual) 3 (0-10) % Platelet Estimate Normal (NORMAL) Polychromasia Slight Hypochromasia (manual) Slight Anisocytosis (manual) Slight Puncture Site pCO2 (35-45) mm/Hg pO2 (80-100) mm/Hg HCO3 (21-28) mmol/L ABG pH (7.35-7.45) ABG Total CO2 (22-28) mmol/L ABG O2 Saturation (95-98) % ABG Base Excess (-2.0-3.0) mmol/L ABG Hemoglobin (11.7-17.4) g/dL ABG Carboxyhemoglobin (0.5-1.5) % POC ABG HHb (Measured) (0.0-5.0) % ABG Methemoglobin (0.0-3.0) % Elio Test A-a O2 Difference mm/Hg Respiratory Index Hgb O2 Saturation (95.0-98.0) % Vent Mode Mechanical Rate FiO2 % Tidal Volume PEEP Sodium (132-148) mmol/L Potassium (3.6-5.2) mmol/L Chloride (98-107) mmol/L Carbon Dioxide (22-30) mmol/L Anion Gap (10-20) BUN (9-20) mg/dL Creatinine (0.8-1.5) mg/dL Est GFR ( Amer) Est GFR (Non-Af Amer) POC Glucose (mg/dL) 83 (65-110) mg/dL Random Glucose (75-110) mg/dL Calcium (8.6-10.4) mg/dl Phosphorus (2.5-4.5) mg/dL Magnesium (1.6-2.3) mg/dL Total Bilirubin (0.2-1.3) mg/dL AST (17-59) U/L ALT (21-72) U/L Alkaline Phosphatase (38-126) U/L Total Protein (6.3-8.3) g/dL Albumin (3.5-5.0) g/dL Globulin (2.2-3.9) gm/dL Albumin/Globulin Ratio (1.0-2.1) Laboratory Results - last 24 hr 09/16/17 09/16/17 09/17/17 06:20 11:32 00:00 WBC RBC Hgb Hct MCV MCH MCHC RDW Plt Count MPV Neut % (Auto) Lymph % (Auto) [place] % (Auto) Eos % (Auto) Baso % (Auto) Neut # Lymph # [place] # Eos # Baso # Neutrophils % (Manual) 90 H Band Neutrophils % 2 Lymphocytes % (Manual) 5 L Monocytes % (Manual) 3 Platelet Estimate Normal Polychromasia Slight Hypochromasia (manual) Slight Anisocytosis (manual) Slight Puncture Site pCO2 pO2 HCO3 ABG pH ABG Total CO2 ABG O2 Saturation ABG Base Excess ABG Hemoglobin ABG Carboxyhemoglobin POC ABG HHb (Measured) ABG Methemoglobin Elio Test A-a O2 Difference Respiratory Index Hgb O2 Saturation Vent Mode Mechanical Rate FiO2 Tidal Volume PEEP Sodium Potassium Chloride Carbon Dioxide Anion Gap BUN Creatinine Est GFR ( Amer) Est GFR (Non-Af Amer) POC Glucose (mg/dL) 83 80 Random Glucose Calcium Phosphorus Magnesium Total Bilirubin AST ALT Alkaline Phosphatase Total Protein Albumin Globulin Albumin/Globulin Ratio 09/17/17 09/17/17 09/17/17 04:15 05:44 06:14 WBC 9.6 RBC 3.54 L Hgb 9.5 L Hct 30.4 L MCV 85.8 MCH 26.9 L MCHC 31.4 L RDW 18.4 H Plt Count 233 MPV 10.8 Neut % (Auto) 88.6 H Lymph % (Auto) 5.0 L [place] % (Auto) 6.0 Eos % (Auto) 0.2 Baso % (Auto) 0.2 Neut # 8.5 H Lymph # 0.5 L [place] # 0.6 Eos # 0.0 Baso # 0.0 Neutrophils % (Manual) Band Neutrophils % Lymphocytes % (Manual) Monocytes % (Manual) Platelet Estimate Polychromasia Hypochromasia (manual) Anisocytosis (manual) Puncture Site Rra pCO2 31 L pO2 178 H HCO3 25.0 ABG pH 7.48 H ABG Total CO2 24.1 ABG O2 Saturation 100.0 H ABG Base Excess 0.1 ABG Hemoglobin 10.8 L ABG Carboxyhemoglobin 2.2 H POC ABG HHb (Measured) 0.0 ABG Methemoglobin 0.7 Elio Test Na A-a O2 Difference 140.0 Respiratory Index 0.8 Hgb O2 Saturation 97.1 Vent Mode Prvc Mechanical Rate 14 FiO2 50.0 Tidal Volume 500 PEEP 5 Sodium Potassium Chloride Carbon Dioxide Anion Gap BUN Creatinine Est GFR ( Amer) Est GFR (Non-Af Amer) POC Glucose (mg/dL) < 20 L* Random Glucose Calcium Phosphorus Magnesium Total Bilirubin AST ALT Alkaline Phosphatase Total Protein Albumin Globulin Albumin/Globulin Ratio 09/17/17 09/17/17 06:14 06:27 WBC RBC Hgb Hct MCV MCH MCHC RDW Plt Count MPV Neut % (Auto) Lymph % (Auto) [place] % (Auto) Eos % (Auto) Baso % (Auto) Neut # Lymph # [place] # Eos # Baso # Neutrophils % (Manual) Band Neutrophils % Lymphocytes % (Manual) Monocytes % (Manual) Platelet Estimate Polychromasia Hypochromasia (manual) Anisocytosis (manual) Puncture Site pCO2 pO2 HCO3 ABG pH ABG Total CO2 ABG O2 Saturation ABG Base Excess ABG Hemoglobin ABG Carboxyhemoglobin POC ABG HHb (Measured) ABG Methemoglobin Elio Test A-a O2 Difference Respiratory Index Hgb O2 Saturation Vent Mode Mechanical Rate FiO2 Tidal Volume PEEP Sodium 138 Potassium 3.5 L Chloride 108 H Carbon Dioxide 21 L Anion Gap 13 BUN 28 H Creatinine 0.7 L Est GFR ( Amer) > 60 Est GFR (Non-Af Amer) > 60 POC Glucose (mg/dL) 153 H Random Glucose 42 L Calcium 7.8 L Phosphorus 2.5 Magnesium 1.7 Total Bilirubin 0.7 AST 19 ALT 21 Alkaline Phosphatase 184 H Total Protein 6.9 Albumin 2.1 L Globulin 4.7 H Albumin/Globulin Ratio 0.4 L Fingerstick Blood Sugar Results: 153 Review of Systems - Constitutional Constitutional: absent: Fever, Chills, Sweats - EENT Eyes: absent: Blurred Vision, Change in Vision Ears: absent: Dizziness - Cardiovascular Cardiovascular: absent: Chest Pain, Dyspnea, Lightheadedness, Palpitations - Respiratory Respiratory: absent: Dyspnea - Gastrointestinal Gastrointestinal: absent: Abdominal Pain, Nausea, Vomiting - Neurological Neurological: absent: Dizziness, Numbness, Headaches, Paresthesias, Syncope, Tingling, Weakness - Endocrine Endocrine: absent: Fatigue, Palpitations Critical Care Progress Note - Ventilator Checklist Daily Sedation Vacation: No Daily Assessment of Readiness to Wean: Yes Daily Spontaneous Breathing Trial: Yes PUD Prophalyxis: Yes DVT Prophylaxis: Yes Assessment/Plan - Assessment and Plan (Free Text) Assessment: Patient is a 77 year old male with past medical history of hypertension, diabetes, multiple myeloma who was admitted to the ICU after a [employer] for hypotension and respiratory distress on (09/13/17). Today: Continue current management. Continue to with pressure support and plans to extubate * Tapering off pressors Plan: Neuro: Intubated, easily arousable, alert and awake * Plans for extubation Cardio: Hypotension, Hx of HTN, congestive cardiomyopathy and Hx of A.fibrillation Echo ( 09/09/2017): LVRF (20%), mild to modeate AR, mild pulmonic valvular regurgitation, global hypokinesis of the LV, and systolic function is moderately to severely impaired Medication/Management: * Dobutamine 500mg IV 10mcg/kg/min (Titratable) * Levophed 8mg IV 4mcg/min ( Titratable) * Eliquis 5mg PO BID Pulm: Respiratory distress Chest X-ray (09/15/17): Moderate b/l pleural effusion and moderate venous congestion with confluent bibasilar airspace opacities Medication/Management: * Intubated; pressure support trial in attempt to wean off PRVC * Lasix drip 100mg IV, 5mg/hr ( Discontinued 09/17/17 due hypotensive state) GI: Hx of constipation Medication/Management: * Sennosides A and B ( Senokot Tab) 8.6 mg PO BID Endo: Hx of DM * Accuchecks Q6H * ISS (Medium dose protocol) * Lantus 10units HS : Urinary retention Medication/Management: * Tamulosin 0.8 PO daily Renal: Electrolyte Imbalance: * Repleted appropriately ID: Acute respiratory failure Chest X-ray (09/15/17): Moderate b/l pleural effusion and moderate venous congestion with confluent bibasilar airspace opacities Medication/Management: * Empirical antibiotics: Cefepime 1gm IVPB Q12H Prophylaxis: DVT: SCDs contraindicated due to B/L LE pitting edema. Eliquis 5mg PO BID GI: Protonix 40mg PO daily, Zofran 4mg PO Q8H prn Tube feeding Extubation today <Polo Perry - Last Filed: 09/17/17 16:19> CCU Objective - Vital Signs / Intake & Output Vital Signs (Last 4 hours): Vital Signs Pulse Resp BP Pulse Ox 09/17/17 16:11 96/54 L 09/17/17 16:10 96 H 18 100 09/17/17 15:11 101 H 20 96/57 L 100 09/17/17 14:11 102 H 105/59 L 100 09/17/17 13:42 109 H 93/63 L 100 09/17/17 13:11 99 H 98/60 L 100 09/17/17 13:10 98 H 100 Intake and Output (Last 8hrs): Intake & Output 09/17/17 09/17/17 09/17/17 06:59 14:59 22:59 Intake Total 572.0 732.6 Output Total 695 850 Balance -123.0 -117.4 Weight 166 lb 10.711 oz Intake: IV 281.4 Intake, IV Amount 172.0 151.2 Left Hand 100 Right Port-A-Cath 87.2 26.2 Riight Port-A Cath Yport 40 10 Rt PAC 44.8 15.0 Tube Feeding 400 300 Output: Urine 695 850 Urethral ([place]) 695 850 Other: # Bowel Movements 1 - Medications Active Medications: Active Medications Generic Name Dose Route Start Last Admin Trade Name Freq PRN Reason Stop Dose Admin Acetaminophen 325 mg 09/11/17 02:50 Tylenol 325mg Tab PO Q6 PRN Fever >100.4 F Apixaban 5 mg 09/16/17 18:00 09/17/17 09:37 Eliquis PO 5 mg BID VELVET Administration Emollient Ointment 5 gm 09/17/17 15:52 Vaseline Oint TOP Q8H PRN Dry skin Cefepime HCl 1 gm/ Sodium 100 mls @ 100 mls/hr 09/13/17 19:00 09/17/17 07:00 Chloride IVPB 100 mls/hr Q12H VELVET Administration Insulin Aspart 0 unit 09/14/17 00:00 09/17/17 11:59 Novolog SC Not Given Q6H [facility] Protocol Insulin Glargine 10 unit 09/12/17 22:00 09/16/17 22:00 Lantus SC 10 unit HS VELVET Administration Lidocaine 1 ea 09/11/17 10:00 09/17/17 09:37 Lidoderm TD 1 ea DAILY VELVET Administration Midazolam HCl 1 mg 09/13/17 20:28 09/16/17 23:15 Versed Inj IVP 1 mg Q1H PRN Administration Sedation Multivitamins/Minerals 1 tab 09/11/17 10:00 09/17/17 09:37 Therapeutic-M Tab PO 1 tab DAILY VELVET Administration Nystatin 1 applic 09/17/17 12:00 09/17/17 12:01 Nystop Topical Powder TOP 1 applic BID VELVET Administration Ondansetron HCl 4 mg 09/11/17 02:50 Zofran Tab PO Q8H PRN Nausea/Vomiting Pantoprazole Sodium 40 mg 09/17/17 10:00 09/17/17 09:50 Protonix Inj IVP 40 mg DAILY VELVET Administration Sennosides 8.6 mg 09/11/17 10:00 09/17/17 09:37 Senokot Tab PO 8.6 mg BID VELVET Administration Tamsulosin HCl 0.8 mg 09/12/17 10:00 09/17/17 09:37 Flomax PO 0.8 mg DAILY VELVET Administration - Patient Studies Lab Studies: Microbiology Studies 09/13/17 18:15 Blood Culture - Preliminary Blood NO GROWTH AFTER 3 DAYS 09/13/17 17:45 Blood Culture - Preliminary Blood NO GROWTH AFTER 3 DAYS Lab Studies 09/17/17 09/17/17 09/17/17 Range/Units 11:34 10:50 06:27 WBC (4.8-10.8) K/uL RBC (4.40-5.90) Mil/uL Hgb (12.0-18.0) g/dL Hct (35.0-51.0) % MCV (80.0-94.0) fL MCH (27.0-31.0) pg MCHC (33.0-37.0) g/dL RDW (11.5-14.5) % Plt Count (130-400) K/uL MPV (7.2-11.7) fL Neut % (Auto) (50.0-75.0) % Lymph % (Auto) (20.0-40.0) % [place] % (Auto) (0.0-10.0) % Eos % (Auto) (0.0-4.0) % Baso % (Auto) (0.0-2.0) % Neut # (1.8-7.0) K/uL Lymph # (1.0-4.3) K/uL [place] # (0.0-0.8) K/uL Eos # (0.0-0.7) K/uL Baso # (0.0-0.2) K/uL Neutrophils % (Manual) (50-75) % Band Neutrophils % (0-2) % Lymphocytes % (Manual) (20-40) % Monocytes % (Manual) (0-10) % Toxic Granulation Platelet Estimate (NORMAL) Large Platelets Hypochromasia (manual) Anisocytosis (manual) Puncture Site pCO2 (35-45) mm/Hg pO2 (80-100) mm/Hg HCO3 (21-28) mmol/L ABG pH (7.35-7.45) ABG Total CO2 (22-28) mmol/L ABG O2 Saturation (95-98) % ABG Base Excess (-2.0-3.0) mmol/L ABG Hemoglobin (11.7-17.4) g/dL ABG Carboxyhemoglobin (0.5-1.5) % POC ABG HHb (Measured) (0.0-5.0) % ABG Methemoglobin (0.0-3.0) % Elio Test A-a O2 Difference mm/Hg Respiratory Index Hgb O2 Saturation (95.0-98.0) % Vent Mode Mechanical Rate FiO2 % Tidal Volume PEEP Sodium (132-148) mmol/L Potassium (3.6-5.2) mmol/L Chloride (98-107) mmol/L Carbon Dioxide (22-30) mmol/L Anion Gap (10-20) BUN (9-20) mg/dL Creatinine (0.8-1.5) mg/dL Est GFR ( Amer) Est GFR (Non-Af Amer) POC Glucose (mg/dL) 125 H 153 H (65-110) mg/dL Random Glucose (75-110) mg/dL Calcium (8.6-10.4) mg/dl Phosphorus (2.5-4.5) mg/dL Magnesium (1.6-2.3) mg/dL Total Bilirubin (0.2-1.3) mg/dL AST (17-59) U/L ALT (21-72) U/L Alkaline Phosphatase (38-126) U/L Total Protein (6.3-8.3) g/dL Albumin (3.5-5.0) g/dL Globulin (2.2-3.9) gm/dL Albumin/Globulin Ratio (1.0-2.1) Procalcitonin 2.58 H (0.19-0.49) NG/ML 09/17/17 09/17/17 09/17/17 Range/Units 06:14 06:14 05:44 WBC 9.6 (4.8-10.8) K/uL RBC 3.54 L (4.40-5.90) Mil/uL Hgb 9.5 L (12.0-18.0) g/dL Hct 30.4 L (35.0-51.0) % MCV 85.8 (80.0-94.0) fL MCH 26.9 L (27.0-31.0) pg MCHC 31.4 L (33.0-37.0) g/dL RDW 18.4 H (11.5-14.5) % Plt Count 233 (130-400) K/uL MPV 10.8 (7.2-11.7) fL Neut % (Auto) 88.6 H (50.0-75.0) % Lymph % (Auto) 5.0 L (20.0-40.0) % Duc[place]ne % (Auto) 6.0 (0.0-10.0) % Eos % (Auto) 0.2 (0.0-4.0) % Baso % (Auto) 0.2 (0.0-2.0) % Neut # 8.5 H (1.8-7.0) K/uL Lymph # 0.5 L (1.0-4.3) K/uL Duc[place]ne # 0.6 (0.0-0.8) K/uL Eos # 0.0 (0.0-0.7) K/uL Baso # 0.0 (0.0-0.2) K/uL Neutrophils % (Manual) 81 H (50-75) % Band Neutrophils % 11 H* (0-2) % Lymphocytes % (Manual) 2 L (20-40) % Monocytes % (Manual) 6 (0-10) % Toxic Granulation Present Platelet Estimate Normal (NORMAL) Large Platelets Present Hypochromasia (manual) Slight Anisocytosis (manual) Slight Puncture Site pCO2 (35-45) mm/Hg pO2 (80-100) mm/Hg HCO3 (21-28) mmol/L ABG pH (7.35-7.45) ABG Total CO2 (22-28) mmol/L ABG O2 Saturation (95-98) % ABG Base Excess (-2.0-3.0) mmol/L ABG Hemoglobin (11.7-17.4) g/dL ABG Carboxyhemoglobin (0.5-1.5) % POC ABG HHb (Measured) (0.0-5.0) % ABG Methemoglobin (0.0-3.0) % Elio Test A-a O2 Difference mm/Hg Respiratory Index Hgb O2 Saturation (95.0-98.0) % Vent Mode Mechanical Rate FiO2 % Tidal Volume PEEP Sodium 138 (132-148) mmol/L Potassium 3.5 L (3.6-5.2) mmol/L Chloride 108 H (98-107) mmol/L Carbon Dioxide 21 L (22-30) mmol/L Anion Gap 13 (10-20) BUN 28 H (9-20) mg/dL Creatinine 0.7 L (0.8-1.5) mg/dL Est GFR ( Amer) > 60 Est GFR (Non-Af Amer) > 60 POC Glucose (mg/dL) < 20 L* (65-110) mg/dL Random Glucose 42 L (75-110) mg/dL Calcium 7.8 L (8.6-10.4) mg/dl Phosphorus 2.5 (2.5-4.5) mg/dL Magnesium 1.7 (1.6-2.3) mg/dL Total Bilirubin 0.7 (0.2-1.3) mg/dL AST 19 (17-59) U/L ALT 21 (21-72) U/L Alkaline Phosphatase 184 H (38-126) U/L Total Protein 6.9 (6.3-8.3) g/dL Albumin 2.1 L (3.5-5.0) g/dL Globulin 4.7 H (2.2-3.9) gm/dL Albumin/Globulin Ratio 0.4 L (1.0-2.1) Procalcitonin (0.19-0.49) NG/ML 09/17/17 09/17/17 Range/Units 04:15 00:00 WBC (4.8-10.8) K/uL RBC (4.40-5.90) Mil/uL Hgb (12.0-18.0) g/dL Hct (35.0-51.0) % MCV (80.0-94.0) fL MCH (27.0-31.0) pg MCHC (33.0-37.0) g/dL RDW (11.5-14.5) % Plt Count (130-400) K/uL MPV (7.2-11.7) fL Neut % (Auto) (50.0-75.0) % Lymph % (Auto) (20.0-40.0) % [place]ne % (Auto) (0.0-10.0) % Eos % (Auto) (0.0-4.0) % Baso % (Auto) (0.0-2.0) % Neut # (1.8-7.0) K/uL Lymph # (1.0-4.3) K/uL Duc[place]ne # (0.0-0.8) K/uL Eos # (0.0-0.7) K/uL Baso # (0.0-0.2) K/uL Neutrophils % (Manual) (50-75) % Band Neutrophils % (0-2) % Lymphocytes % (Manual) (20-40) % Monocytes % (Manual) (0-10) % Toxic Granulation Platelet Estimate (NORMAL) Large Platelets Hypochromasia (manual) Anisocytosis (manual) Puncture Site Rra pCO2 31 L (35-45) mm/Hg pO2 178 H (80-100) mm/Hg HCO3 25.0 (21-28) mmol/L ABG pH 7.48 H (7.35-7.45) ABG Total CO2 24.1 (22-28) mmol/L ABG O2 Saturation 100.0 H (95-98) % ABG Base Excess 0.1 (-2.0-3.0) mmol/L ABG Hemoglobin 10.8 L (11.7-17.4) g/dL ABG Carboxyhemoglobin 2.2 H (0.5-1.5) % POC ABG HHb (Measured) 0.0 (0.0-5.0) % ABG Methemoglobin 0.7 (0.0-3.0) % Elio Test Na A-a O2 Difference 140.0 mm/Hg Respiratory Index 0.8 Hgb O2 Saturation 97.1 (95.0-98.0) % Vent Mode Prvc Mechanical Rate 14 FiO2 50.0 % Tidal Volume 500 PEEP 5 Sodium (132-148) mmol/L Potassium (3.6-5.2) mmol/L Chloride (98-107) mmol/L Carbon Dioxide (22-30) mmol/L Anion Gap (10-20) BUN (9-20) mg/dL Creatinine (0.8-1.5) mg/dL Est GFR ( Amer) Est GFR (Non-Af Amer) POC Glucose (mg/dL) 80 (65-110) mg/dL Random Glucose (75-110) mg/dL Calcium (8.6-10.4) mg/dl Phosphorus (2.5-4.5) mg/dL Magnesium (1.6-2.3) mg/dL Total Bilirubin (0.2-1.3) mg/dL AST (17-59) U/L ALT (21-72) U/L Alkaline Phosphatase (38-126) U/L Total Protein (6.3-8.3) g/dL Albumin (3.5-5.0) g/dL Globulin (2.2-3.9) gm/dL Albumin/Globulin Ratio (1.0-2.1) Procalcitonin (0.19-0.49) NG/ML Laboratory Results - last 24 hr 09/17/17 09/17/17 09/17/17 00:00 04:15 05:44 WBC RBC Hgb Hct MCV MCH MCHC RDW Plt Count MPV Neut % (Auto) Lymph % (Auto) [place]ne % (Auto) Eos % (Auto) Baso % (Auto) Neut # Lymph # [place] # Eos # Baso # Neutrophils % (Manual) Band Neutrophils % Lymphocytes % (Manual) Monocytes % (Manual) Toxic Granulation Platelet Estimate Large Platelets Hypochromasia (manual) Anisocytosis (manual) Puncture Site Rra pCO2 31 L pO2 178 H HCO3 25.0 ABG pH 7.48 H ABG Total CO2 24.1 ABG O2 Saturation 100.0 H ABG Base Excess 0.1 ABG Hemoglobin 10.8 L ABG Carboxyhemoglobin 2.2 H POC ABG HHb (Measured) 0.0 ABG Methemoglobin 0.7 Elio Test Na A-a O2 Difference 140.0 Respiratory Index 0.8 Hgb O2 Saturation 97.1 Vent Mode Prvc Mechanical Rate 14 FiO2 50.0 Tidal Volume 500 PEEP 5 Sodium Potassium Chloride Carbon Dioxide Anion Gap BUN Creatinine Est GFR ( Amer) Est GFR (Non-Af Amer) POC Glucose (mg/dL) 80 < 20 L* Random Glucose Calcium Phosphorus Magnesium Total Bilirubin AST ALT Alkaline Phosphatase Total Protein Albumin Globulin Albumin/Globulin Ratio Procalcitonin 09/17/17 09/17/17 09/17/17 06:14 06:14 06:27 WBC 9.6 RBC 3.54 L Hgb 9.5 L Hct 30.4 L MCV 85.8 MCH 26.9 L MCHC 31.4 L RDW 18.4 H Plt Count 233 MPV 10.8 Neut % (Auto) 88.6 H Lymph % (Auto) 5.0 L [place] % (Auto) 6.0 Eos % (Auto) 0.2 Baso % (Auto) 0.2 Neut # 8.5 H Lymph # 0.5 L [place] # 0.6 Eos # 0.0 Baso # 0.0 Neutrophils % (Manual) 81 H Band Neutrophils % 11 H* Lymphocytes % (Manual) 2 L Monocytes % (Manual) 6 Toxic Granulation Present Platelet Estimate Normal Large Platelets Present Hypochromasia (manual) Slight Anisocytosis (manual) Slight Puncture Site pCO2 pO2 HCO3 ABG pH ABG Total CO2 ABG O2 Saturation ABG Base Excess ABG Hemoglobin ABG Carboxyhemoglobin POC ABG HHb (Measured) ABG Methemoglobin Elio Test A-a O2 Difference Respiratory Index Hgb O2 Saturation Vent Mode Mechanical Rate FiO2 Tidal Volume PEEP Sodium 138 Potassium 3.5 L Chloride 108 H Carbon Dioxide 21 L Anion Gap 13 BUN 28 H Creatinine 0.7 L Est GFR ( Amer) > 60 Est GFR (Non-Af Amer) > 60 POC Glucose (mg/dL) 153 H Random Glucose 42 L Calcium 7.8 L Phosphorus 2.5 Magnesium 1.7 Total Bilirubin 0.7 AST 19 ALT 21 Alkaline Phosphatase 184 H Total Protein 6.9 Albumin 2.1 L Globulin 4.7 H Albumin/Globulin Ratio 0.4 L Procalcitonin 09/17/17 09/17/17 10:50 11:34 WBC RBC Hgb Hct MCV MCH MCHC RDW Plt Count MPV Neut % (Auto) Lymph % (Auto) [place] % (Auto) Eos % (Auto) Baso % (Auto) Neut # Lymph # [place] # Eos # Baso # Neutrophils % (Manual) Band Neutrophils % Lymphocytes % (Manual) Monocytes % (Manual) Toxic Granulation Platelet Estimate Large Platelets Hypochromasia (manual) Anisocytosis (manual) Puncture Site pCO2 pO2 HCO3 ABG pH ABG Total CO2 ABG O2 Saturation ABG Base Excess ABG Hemoglobin ABG Carboxyhemoglobin POC ABG HHb (Measured) ABG Methemoglobin Elio Test A-a O2 Difference Respiratory Index Hgb O2 Saturation Vent Mode Mechanical Rate FiO2 Tidal Volume PEEP Sodium Potassium Chloride Carbon Dioxide Anion Gap BUN Creatinine Est GFR ( Amer) Est GFR (Non-Af Amer) POC Glucose (mg/dL) 125 H Random Glucose Calcium Phosphorus Magnesium Total Bilirubin AST ALT Alkaline Phosphatase Total Protein Albumin Globulin Albumin/Globulin Ratio Procalcitonin 2.58 H Assessment/Plan (1) Acute respiratory failure Current Visit: Yes Status: Acute (2) Hypotension (arterial) Current Visit: Yes Status: Acute (3) CHF (congestive heart failure) Current Visit: Yes Status: Acute Attending/Attestation - Attestation I have personally seen and examined this patient.: Yes I have fully participated in the care of the patient.: Yes I have reviewed all pertinent clinical information: Yes Notes (Text): 09/17/17 16:18 Patient seen and examined in the intensive care unit. Case discussed with house staff in the morning rounds. Patient also Levophed and Dobutrex Much more awake and responsive Extubated after a weaning trial Continue present treatment Swallowing evaluation
[2017-09-17 08:30] LABS: NEUTROPHIL 81 % (50-75); TOTAL CELLS COUNTED 100
[2017-09-17] MEDS ORDERED: Magnesium Sulfate 1 gm in D5W 1 GM/100 ML BAG IVPB ONE (08:30)
[2017-09-17] MEDS ORDERED: Potassium Chloride 20 mEq/15 ml LIQ UD PO ONE (08:30)
[2017-09-17 08:32] LABS: LARGE PLATELETS PRESENT
--- NOTE | 2017-09-17 09:14 | PN ---
DATE: SUMMARY: This patient is in ICU, intubated. The patient will get supportive care. Kati Shaver MD
[2017-09-17] MEDS: Multivitamin With Minerals Tab PO SCH (09:37)
[2017-09-17] MEDS: Lidocaine 5% Patch TD SCH (09:37)
[2017-09-17] MEDS: Pantoprazole 40 mg EC Tab PO SCH (09:46)
--- NOTE | 2017-09-17 11:20 | RAD ---
HISTORY: BARB.PLEURAL EFFUSION COMPARISON: Portable chest 09/16/2017. FINDINGS: Endotracheal tube is unchanged in position as well as right chest port. Nasogastric tube is again seen with the tip off the image but entering into the abdomen. LUNGS: Underlying airspace disease is again questioned at the right base with left basilar airspace disease unchanged. PLEURA: Mild left and moderate right pleural effusions persist without change. CARDIOVASCULAR: Cardiac silhouette appears stable with somewhat diminished pulmonary venous congestion pattern evident. OSSEOUS STRUCTURES: Right-sided rib deformities again noted. VISUALIZED UPPER ABDOMEN: Normal. OTHER FINDINGS: None. IMPRESSION: Mild improvement in pulmonary venous congestion however a bilateral pleural effusions are unchanged remaining greater the right than left sides with underlying infiltrate not excluded the right base. Left basilar airspace disease unchanged.
[2017-09-17] MEDS: DOBUTamine 500mg/250ml D5W 500 MG/250 ML BAG IV SCH (13:36)
[2017-09-17] MEDS: Petrolatum Oint Foilpak (5 gm) TOP PRN (17:45)
[2017-09-18] MEDS: (Novolog) Insulin Aspart, Recombinant 100 u/ml 10 ml vial SC SCH ×4 (06:00→18:05)
[2017-09-18 06:40] LABS: BASO % 0.3 % (0.0-2.0); EOS % 0.2 % (0.0-4.0); HEMATOCRIT 27.9 % (35.0-51.0); LYMPH # 0.8 K/uL (1.0-4.3); LYMPH % 8.3 % (20.0-40.0); MEAN CELL VOLUME 86.3 fL (80.0-94.0); MEAN CORPUSCULAR HEMOGLOBIN 27.5 pg (27.0-31.0); MEAN CORPUSCULAR HGB CONC 31.9 g/dL (33.0-37.0); MEAN PLATELET VOLUME 11.1 fL (7.2-11.7); MONO # 0.4 K/uL (0.0-0.8); MONO % 3.9 % (0.0-10.0); PLATELET COUNT 228 K/uL (130-400); RED CELL DISTRIBUTION WIDTH 18.5 % (11.5-14.5); WHITE BLOOD COUNT 9.6 K/uL (4.8-10.8)
[2017-09-18 06:45] LABS: CHLORIDE 109 mmol/L (98-107)
[2017-09-18 06:46] LABS: POTASSIUM 4.1 mmol/L (3.6-5.2); SODIUM 137 mmol/L (132-148)
[2017-09-18] MEDS: Cefepime 1 GM in Sodium Chloride 0.9% 100 ML IVPB SCH (06:47)
[2017-09-18 06:48] LABS: ALB/GLOB RATIO 0.4 (1.0-2.1); AST/SGOT 21 U/L (17-59); BILIRUBIN,TOTAL 0.9 mg/dL (0.2-1.3); BLOOD UREA NITROGEN 27 mg/dL (9-20); CARBON DIOXIDE 22 mmol/L (22-30); GFR AFRICAN-AMERICAN > 60; TOTAL PROTEIN 7.2 g/dL (6.3-8.3)
[2017-09-18 06:49] LABS: ALKALINE PHOSPHATASE 199 U/L (38-126); ALT/SGPT 23 U/L (21-72); CALCIUM 8.1 mg/dl (8.6-10.4); GLUCOSE,RANDOM 67 mg/dL (75-110); MAGNESIUM 1.9 mg/dL (1.6-2.3); PHOSPHOROUS 2.8 mg/dL (2.5-4.5)
[2017-09-18 08:40] LABS: NEUTROPHIL 87 % (50-75); TOTAL CELLS COUNTED 100
[2017-09-18 08:41] LABS: LARGE PLATELETS PRESENT
--- NOTE | 2017-09-18 09:16 | CP.CCUPN ---
<Mai Melgar E - Last Filed: 09/18/17 09:16> CCU Subjective - Physician Review Subjective (Free Text): Patient was seen and examined at bedside. Patient is currently intubated but very alert and responsive. As per nursing, there were no acute issues overnight. Patient continues to open his eyes to name calling and can follow simple commands. Patient nodded " yes'' to slight discomfort in right upper leg and nodded "yes" to being quite comfortable. CCU Objective - Vital Signs / Intake & Output Vital Signs (Last 4 hours): Vital Signs Pulse Resp BP Pulse Ox 09/18/17 06:11 97 H 18 103/59 L 100 09/18/17 06:00 98 H 16 100 09/18/17 05:41 107 H 25 H 112/64 100 Intake and Output (Last 8hrs): Intake & Output 09/17/17 09/18/17 09/18/17 22:59 06:59 14:59 Intake Total 0 0 Output Total 350 145 Balance -350 -145 Weight 170 lb Intake: Oral 0 0 Output: Urine 350 145 Urethral ([place]) 350 145 Other: # Bowel Movements 1 - Physical Exam Head: Positive for: Atraumatic Extroacular Muscles: Positive for: EOMI Mouth: Positive for: Moist Mucous Membranes Neck: Positive for: Trachea Midline Respiratory/Chest: Positive for: Clear to Auscultation, Other (Patient is currently on pressure support in attempt to wean off PRVC ) Cardiovascular: Positive for: Regular Rate and Rhythm, Normal S1, S2 Abdomen: Positive for: Normal Bowel Sounds. Negative for: Tenderness, Distention, Peritoneal Signs Upper Extremity: Positive for: Normal Inspection. Negative for: Edema Lower Extremity: Positive for: Edema, Other (SCDs contraindicated ) Neurological: Positive for: GCS=15 Skin: Positive for: Normal Color Psychiatric: Positive for: Alert, Oriented x 3, Other (Easily arousable ) - Medications Active Medications: Active Medications Generic Name Dose Route Start Last Admin Trade Name Freq PRN Reason Stop Dose Admin Acetaminophen 325 mg 09/11/17 02:50 Tylenol 325mg Tab PO Q6 PRN Fever >100.4 F Apixaban 5 mg 09/16/17 18:00 09/17/17 17:35 Eliquis PO 5 mg BID VELVET Administration Emollient Ointment 5 gm 09/17/17 15:52 09/17/17 17:45 Vaseline Oint TOP 5 gm Q8H PRN Administration Dry skin Cefepime HCl 1 gm/ Sodium 100 mls @ 100 mls/hr 09/13/17 19:00 09/18/17 06:47 Chloride IVPB 100 mls/hr Q12H VELVET Administration Insulin Aspart 0 unit 09/14/17 00:00 09/18/17 06:00 Novolog SC Not Given Q6H VELVET Protocol Insulin Glargine 10 unit 09/12/17 22:00 09/16/17 22:00 Lantus SC 10 unit HS VELVET Administration Lidocaine 1 ea 09/11/17 10:00 09/17/17 09:37 Lidoderm TD 1 ea DAILY VELVET Administration Midazolam HCl 1 mg 09/13/17 20:28 09/16/17 23:15 Versed Inj IVP 1 mg Q1H PRN Administration Sedation Multivitamins/Minerals 1 tab 09/11/17 10:00 09/17/17 09:37 Therapeutic-M Tab PO 1 tab DAILY VELVET Administration Nystatin 1 applic 09/17/17 12:00 09/17/17 18:12 Nystop Topical Powder TOP 1 applic BID VELVET Administration Ondansetron HCl 4 mg 09/11/17 02:50 Zofran Tab PO Q8H PRN Nausea/Vomiting Pantoprazole Sodium 40 mg 09/17/17 10:00 09/17/17 09:50 Protonix Inj IVP 40 mg DAILY VELVET Administration Sennosides 8.6 mg 09/11/17 10:00 09/17/17 17:35 Senokot Tab PO Not Given BID VELVET Tamsulosin HCl 0.8 mg 09/12/17 10:00 09/17/17 09:37 Flomax PO 0.8 mg DAILY VELVET Administration - Patient Studies Lab Studies: Microbiology Studies 09/13/17 18:15 Blood Culture - Preliminary Blood NO GROWTH AFTER 4 DAYS 09/13/17 17:45 Blood Culture - Preliminary Blood NO GROWTH AFTER 4 DAYS Lab Studies 09/18/17 09/18/17 09/18/17 Range/Units 07:26 06:23 06:23 WBC 9.6 (4.8-10.8) K/uL RBC 3.23 L (4.40-5.90) Mil/uL Hgb 8.9 L (12.0-18.0) g/dL Hct 27.9 L (35.0-51.0) % MCV 86.3 (80.0-94.0) fL MCH 27.5 (27.0-31.0) pg MCHC 31.9 L (33.0-37.0) g/dL RDW 18.5 H (11.5-14.5) % Plt Count 228 (130-400) K/uL MPV 11.1 (7.2-11.7) fL Neut % (Auto) 87.3 H (50.0-75.0) % Lymph % (Auto) 8.3 L (20.0-40.0) % Island % (Auto) 3.9 (0.0-10.0) % Eos % (Auto) 0.2 (0.0-4.0) % Baso % (Auto) 0.3 (0.0-2.0) % Neut # 8.4 H (1.8-7.0) K/uL Lymph # 0.8 L (1.0-4.3) K/uL Island # 0.4 (0.0-0.8) K/uL Eos # 0.0 (0.0-0.7) K/uL Baso # 0.0 (0.0-0.2) K/uL Neutrophils % (Manual) 87 H (50-75) % Band Neutrophils % 4 H (0-2) % Lymphocytes % (Manual) 5 L (20-40) % Monocytes % (Manual) 4 (0-10) % Platelet Estimate Normal (NORMAL) Large Platelets Present Hypochromasia (manual) Slight Anisocytosis (manual) Slight Sodium 137 (132-148) mmol/L Potassium 4.1 (3.6-5.2) mmol/L Chloride 109 H (98-107) mmol/L Carbon Dioxide 22 (22-30) mmol/L Anion Gap 10 (10-20) BUN 27 H (9-20) mg/dL Creatinine 0.7 L (0.8-1.5) mg/dL Est GFR ( Amer) > 60 Est GFR (Non-Af Amer) > 60 POC Glucose (mg/dL) 85 (65-110) mg/dL Random Glucose 67 L (75-110) mg/dL Calcium 8.1 L (8.6-10.4) mg/dl Phosphorus 2.8 (2.5-4.5) mg/dL Magnesium 1.9 (1.6-2.3) mg/dL Total Bilirubin 0.9 (0.2-1.3) mg/dL AST 21 (17-59) U/L ALT 23 (21-72) U/L Alkaline Phosphatase 199 H (38-126) U/L Total Protein 7.2 (6.3-8.3) g/dL Albumin 2.2 L (3.5-5.0) g/dL Globulin 5.0 H (2.2-3.9) gm/dL Albumin/Globulin Ratio 0.4 L (1.0-2.1) Procalcitonin (0.19-0.49) NG/ML 09/18/17 09/17/17 09/17/17 Range/Units 05:45 23:37 17:38 WBC (4.8-10.8) K/uL RBC (4.40-5.90) Mil/uL Hgb (12.0-18.0) g/dL Hct (35.0-51.0) % MCV (80.0-94.0) fL MCH (27.0-31.0) pg MCHC (33.0-37.0) g/dL RDW (11.5-14.5) % Plt Count (130-400) K/uL MPV (7.2-11.7) fL Neut % (Auto) (50.0-75.0) % Lymph % (Auto) (20.0-40.0) % Island % (Auto) (0.0-10.0) % Eos % (Auto) (0.0-4.0) % Baso % (Auto) (0.0-2.0) % Neut # (1.8-7.0) K/uL Lymph # (1.0-4.3) K/uL Island # (0.0-0.8) K/uL Eos # (0.0-0.7) K/uL Baso # (0.0-0.2) K/uL Neutrophils % (Manual) (50-75) % Band Neutrophils % (0-2) % Lymphocytes % (Manual) (20-40) % Monocytes % (Manual) (0-10) % Platelet Estimate (NORMAL) Large Platelets Hypochromasia (manual) Anisocytosis (manual) Sodium (132-148) mmol/L Potassium (3.6-5.2) mmol/L Chloride (98-107) mmol/L Carbon Dioxide (22-30) mmol/L Anion Gap (10-20) BUN (9-20) mg/dL Creatinine (0.8-1.5) mg/dL Est GFR ( Amer) Est GFR (Non-Af Amer) POC Glucose (mg/dL) 76 93 99 (65-110) mg/dL Random Glucose (75-110) mg/dL Calcium (8.6-10.4) mg/dl Phosphorus (2.5-4.5) mg/dL Magnesium (1.6-2.3) mg/dL Total Bilirubin (0.2-1.3) mg/dL AST (17-59) U/L ALT (21-72) U/L Alkaline Phosphatase (38-126) U/L Total Protein (6.3-8.3) g/dL Albumin (3.5-5.0) g/dL Globulin (2.2-3.9) gm/dL Albumin/Globulin Ratio (1.0-2.1) Procalcitonin (0.19-0.49) NG/ML 09/17/17 09/17/17 Range/Units 11:34 10:50 WBC (4.8-10.8) K/uL RBC (4.40-5.90) Mil/uL Hgb (12.0-18.0) g/dL Hct (35.0-51.0) % MCV (80.0-94.0) fL MCH (27.0-31.0) pg MCHC (33.0-37.0) g/dL RDW (11.5-14.5) % Plt Count (130-400) K/uL MPV (7.2-11.7) fL Neut % (Auto) (50.0-75.0) % Lymph % (Auto) (20.0-40.0) % Island % (Auto) (0.0-10.0) % Eos % (Auto) (0.0-4.0) % Baso % (Auto) (0.0-2.0) % Neut # (1.8-7.0) K/uL Lymph # (1.0-4.3) K/uL Island # (0.0-0.8) K/uL Eos # (0.0-0.7) K/uL Baso # (0.0-0.2) K/uL Neutrophils % (Manual) (50-75) % Band Neutrophils % (0-2) % Lymphocytes % (Manual) (20-40) % Monocytes % (Manual) (0-10) % Platelet Estimate (NORMAL) Large Platelets Hypochromasia (manual) Anisocytosis (manual) Sodium (132-148) mmol/L Potassium (3.6-5.2) mmol/L Chloride (98-107) mmol/L Carbon Dioxide (22-30) mmol/L Anion Gap (10-20) BUN (9-20) mg/dL Creatinine (0.8-1.5) mg/dL Est GFR ( Amer) Est GFR (Non-Af Amer) POC Glucose (mg/dL) 125 H (65-110) mg/dL Random Glucose (75-110) mg/dL Calcium (8.6-10.4) mg/dl Phosphorus (2.5-4.5) mg/dL Magnesium (1.6-2.3) mg/dL Total Bilirubin (0.2-1.3) mg/dL AST (17-59) U/L ALT (21-72) U/L Alkaline Phosphatase (38-126) U/L Total Protein (6.3-8.3) g/dL Albumin (3.5-5.0) g/dL Globulin (2.2-3.9) gm/dL Albumin/Globulin Ratio (1.0-2.1) Procalcitonin 2.58 H (0.19-0.49) NG/ML Laboratory Results - last 24 hr 09/17/17 09/17/17 09/17/17 10:50 11:34 17:38 WBC RBC Hgb Hct MCV MCH MCHC RDW Plt Count MPV Neut % (Auto) Lymph % (Auto) Island % (Auto) Eos % (Auto) Baso % (Auto) Neut # Lymph # [place] # Eos # Baso # Neutrophils % (Manual) Band Neutrophils % Lymphocytes % (Manual) Monocytes % (Manual) Platelet Estimate Large Platelets Hypochromasia (manual) Anisocytosis (manual) Sodium Potassium Chloride Carbon Dioxide Anion Gap BUN Creatinine Est GFR ( Amer) Est GFR (Non-Af Amer) POC Glucose (mg/dL) 125 H 99 Random Glucose Calcium Phosphorus Magnesium Total Bilirubin AST ALT Alkaline Phosphatase Total Protein Albumin Globulin Albumin/Globulin Ratio Procalcitonin 2.58 H 09/17/17 09/18/17 09/18/17 23:37 05:45 06:23 WBC 9.6 RBC 3.23 L Hgb 8.9 L Hct 27.9 L MCV 86.3 MCH 27.5 MCHC 31.9 L RDW 18.5 H Plt Count 228 MPV 11.1 Neut % (Auto) 87.3 H Lymph % (Auto) 8.3 L Island % (Auto) 3.9 Eos % (Auto) 0.2 Baso % (Auto) 0.3 Neut # 8.4 H Lymph # 0.8 L Island # 0.4 Eos # 0.0 Baso # 0.0 Neutrophils % (Manual) 87 H Band Neutrophils % 4 H Lymphocytes % (Manual) 5 L Monocytes % (Manual) 4 Platelet Estimate Normal Large Platelets Present Hypochromasia (manual) Slight Anisocytosis (manual) Slight Sodium Potassium Chloride Carbon Dioxide Anion Gap BUN Creatinine Est GFR ( Amer) Est GFR (Non-Af Amer) POC Glucose (mg/dL) 93 76 Random Glucose Calcium Phosphorus Magnesium Total Bilirubin AST ALT Alkaline Phosphatase Total Protein Albumin Globulin Albumin/Globulin Ratio Procalcitonin 09/18/17 09/18/17 06:23 07:26 WBC RBC Hgb Hct MCV MCH MCHC RDW Plt Count MPV Neut % (Auto) Lymph % (Auto) Island % (Auto) Eos % (Auto) Baso % (Auto) Neut # Lymph # Island # Eos # Baso # Neutrophils % (Manual) Band Neutrophils % Lymphocytes % (Manual) Monocytes % (Manual) Platelet Estimate Large Platelets Hypochromasia (manual) Anisocytosis (manual) Sodium 137 Potassium 4.1 Chloride 109 H Carbon Dioxide 22 Anion Gap 10 BUN 27 H Creatinine 0.7 L Est GFR ( Amer) > 60 Est GFR (Non-Af Amer) > 60 POC Glucose (mg/dL) 85 Random Glucose 67 L Calcium 8.1 L Phosphorus 2.8 Magnesium 1.9 Total Bilirubin 0.9 AST 21 ALT 23 Alkaline Phosphatase 199 H Total Protein 7.2 Albumin 2.2 L Globulin 5.0 H Albumin/Globulin Ratio 0.4 L Procalcitonin Fingerstick Blood Sugar Results: 76 Critical Care Progress Note - Nutrition Nutrition: Nutrition Category Date Time Status NPO Diet [DIET] Diets 09/17/17 Dinner Active <Nicholas Chaidez - Last Filed: 09/18/17 17:45> CCU Objective - Vital Signs / Intake & Output Vital Signs (Last 4 hours): Vital Signs Pulse Resp BP Pulse Ox 09/18/17 16:41 94 H 15 115/67 100 09/18/17 16:11 96 H 15 112/66 100 09/18/17 15:11 99 H 22 116/61 100 09/18/17 14:41 99 H 16 113/63 100 09/18/17 14:11 98 H 19 109/68 100 09/18/17 14:00 112/71 Intake and Output (Last 8hrs): Intake & Output 09/18/17 09/18/17 09/18/17 06:59 14:59 22:59 Intake Total 0 50 0 Output Total 145 225 150 Balance -145 -175 -150 Weight 170 lb Intake: Intake, IV Amount 50 Left Hand 50 Oral 0 0 0 Output: Urine 145 225 150 Urethral ([place]) 145 225 150 Other: # Bowel Movements 1 - Medications Active Medications: Active Medications Generic Name Dose Route Start Last Admin Trade Name Freq PRN Reason Stop Dose Admin Acetaminophen 325 mg 09/11/17 02:50 Tylenol 325mg Tab PO Q6 PRN Fever >100.4 F Apixaban 5 mg 09/16/17 18:00 09/18/17 17:29 Eliquis PO 5 mg BID VELVET Administration Emollient Ointment 5 gm 09/17/17 15:52 09/18/17 17:40 Vaseline Oint TOP 5 gm Q8H PRN Administration Dry skin Furosemide 20 mg 09/18/17 13:15 09/18/17 14:00 Lasix IVP 20 mg Q12 VELVET Administration Cefepime HCl 1 gm in 50 mls @ 100 mls/hr 09/18/17 10:30 09/18/17 12:00 Maxipime Iv 1 Gm Premix IVPB Not Given Q12H VELVET Insulin Aspart 0 unit 10/15/17 00:00 09/18/17 12:00 Novolog SC Not Given Q6H [facility] Protocol Insulin Glargine 10 unit 09/12/17 22:00 09/16/17 22:00 Lantus SC 10 unit HS VELVET Administration Lidocaine 1 ea 09/11/17 10:00 09/18/17 09:46 Lidoderm TD 1 ea DAILY VELVET Administration Midazolam HCl 1 mg 09/13/17 20:28 09/16/17 23:15 Versed Inj IVP 1 mg Q1H PRN Administration Sedation Multivitamins/Minerals 1 tab 09/11/17 10:00 09/18/17 09:46 Therapeutic-M Tab PO 1 tab DAILY VELVET Administration Nystatin 1 applic 09/17/17 12:00 09/18/17 17:30 Nystop Topical Powder TOP 1 applic BID VELVET Administration Ondansetron HCl 4 mg 09/11/17 02:50 Zofran Tab PO Q8H PRN Nausea/Vomiting Pantoprazole Sodium 40 mg 09/17/17 10:00 09/18/17 09:45 Protonix Inj IVP 40 mg DAILY VELVET Administration Sennosides 8.6 mg 09/11/17 10:00 09/18/17 17:29 Senokot Tab PO 8.6 mg BID VELVET Administration Tamsulosin HCl 0.8 mg 09/12/17 10:00 09/18/17 09:46 Flomax PO 0.8 mg DAILY VELVET Administration - Patient Studies Lab Studies: Microbiology Studies 09/13/17 18:15 Blood Culture - Preliminary Blood NO GROWTH AFTER 4 DAYS 09/13/17 17:45 Blood Culture - Preliminary Blood NO GROWTH AFTER 4 DAYS Lab Studies 09/18/17 09/18/17 09/18/17 Range/Units 12:09 07:26 06:23 WBC (4.8-10.8) K/uL RBC (4.40-5.90) Mil/uL Hgb (12.0-18.0) g/dL Hct (35.0-51.0) % MCV (80.0-94.0) fL MCH (27.0-31.0) pg MCHC (33.0-37.0) g/dL RDW (11.5-14.5) % Plt Count (130-400) K/uL MPV (7.2-11.7) fL Neut % (Auto) (50.0-75.0) % Lymph % (Auto) (20.0-40.0) % Island % (Auto) (0.0-10.0) % Eos % (Auto) (0.0-4.0) % Baso % (Auto) (0.0-2.0) % Neut # (1.8-7.0) K/uL Lymph # (1.0-4.3) K/uL Island # (0.0-0.8) K/uL Eos # (0.0-0.7) K/uL Baso # (0.0-0.2) K/uL Neutrophils % (Manual) (50-75) % Band Neutrophils % (0-2) % Lymphocytes % (Manual) (20-40) % Monocytes % (Manual) (0-10) % Platelet Estimate (NORMAL) Large Platelets Hypochromasia (manual) Anisocytosis (manual) Sodium 137 (132-148) mmol/L Potassium 4.1 (3.6-5.2) mmol/L Chloride 109 H (98-107) mmol/L Carbon Dioxide 22 (22-30) mmol/L Anion Gap 10 (10-20) BUN 27 H (9-20) mg/dL Creatinine 0.7 L (0.8-1.5) mg/dL Est GFR ( Amer) > 60 Est GFR (Non-Af Amer) > 60 POC Glucose (mg/dL) 96 85 (65-110) mg/dL Random Glucose 67 L (75-110) mg/dL Calcium 8.1 L (8.6-10.4) mg/dl Phosphorus 2.8 (2.5-4.5) mg/dL Magnesium 1.9 (1.6-2.3) mg/dL Total Bilirubin 0.9 (0.2-1.3) mg/dL AST 21 (17-59) U/L ALT 23 (21-72) U/L Alkaline Phosphatase 199 H (38-126) U/L Total Protein 7.2 (6.3-8.3) g/dL Albumin 2.2 L (3.5-5.0) g/dL Globulin 5.0 H (2.2-3.9) gm/dL Albumin/Globulin Ratio 0.4 L (1.0-2.1) 09/18/17 09/18/17 09/17/17 Range/Units 06:23 05:45 23:37 WBC 9.6 (4.8-10.8) K/uL RBC 3.23 L (4.40-5.90) Mil/uL Hgb 8.9 L (12.0-18.0) g/dL Hct 27.9 L (35.0-51.0) % MCV 86.3 (80.0-94.0) fL MCH 27.5 (27.0-31.0) pg MCHC 31.9 L (33.0-37.0) g/dL RDW 18.5 H (11.5-14.5) % Plt Count 228 (130-400) K/uL MPV 11.1 (7.2-11.7) fL Neut % (Auto) 87.3 H (50.0-75.0) % Lymph % (Auto) 8.3 L (20.0-40.0) % Island % (Auto) 3.9 (0.0-10.0) % Eos % (Auto) 0.2 (0.0-4.0) % Baso % (Auto) 0.3 (0.0-2.0) % Neut # 8.4 H (1.8-7.0) K/uL Lymph # 0.8 L (1.0-4.3) K/uL Island # 0.4 (0.0-0.8) K/uL Eos # 0.0 (0.0-0.7) K/uL Baso # 0.0 (0.0-0.2) K/uL Neutrophils % (Manual) 87 H (50-75) % Band Neutrophils % 4 H (0-2) % Lymphocytes % (Manual) 5 L (20-40) % Monocytes % (Manual) 4 (0-10) % Platelet Estimate Normal (NORMAL) Large Platelets Present Hypochromasia (manual) Slight Anisocytosis (manual) Slight Sodium (132-148) mmol/L Potassium (3.6-5.2) mmol/L Chloride (98-107) mmol/L Carbon Dioxide (22-30) mmol/L Anion Gap (10-20) BUN (9-20) mg/dL Creatinine (0.8-1.5) mg/dL Est GFR ( Amer) Est GFR (Non-Af Amer) POC Glucose (mg/dL) 76 93 (65-110) mg/dL Random Glucose (75-110) mg/dL Calcium (8.6-10.4) mg/dl Phosphorus (2.5-4.5) mg/dL Magnesium (1.6-2.3) mg/dL Total Bilirubin (0.2-1.3) mg/dL AST (17-59) U/L ALT (21-72) U/L Alkaline Phosphatase (38-126) U/L Total Protein (6.3-8.3) g/dL Albumin (3.5-5.0) g/dL Globulin (2.2-3.9) gm/dL Albumin/Globulin Ratio (1.0-2.1) 09/17/ Range/Units 17:38 WBC (4.8-10.8) K/uL RBC (4.40-5.90) Mil/uL Hgb (12.0-18.0) g/dL Hct (35.0-51.0) % MCV (80.0-94.0) fL MCH (27.0-31.0) pg MCHC (33.0-37.0) g/dL RDW (11.5-14.5) % Plt Count (130-400) K/uL MPV (7.2-11.7) fL Neut % (Auto) (50.0-75.0) % Lymph % (Auto) (20.0-40.0) % Island % (Auto) (0.0-10.0) % Eos % (Auto) (0.0-4.0) % Baso % (Auto) (0.0-2.0) % Neut # (1.8-7.0) K/uL Lymph # (1.0-4.3) K/uL Island # (0.0-0.8) K/uL Eos # (0.0-0.7) K/uL Baso # (0.0-0.2) K/uL Neutrophils % (Manual) (50-75) % Band Neutrophils % (0-2) % Lymphocytes % (Manual) (20-40) % Monocytes % (Manual) (0-10) % Platelet Estimate (NORMAL) Large Platelets Hypochromasia (manual) Anisocytosis (manual) Sodium (132-148) mmol/L Potassium (3.6-5.2) mmol/L Chloride (98-107) mmol/L Carbon Dioxide (22-30) mmol/L Anion Gap (10-20) BUN (9-20) mg/dL Creatinine (0.8-1.5) mg/dL Est GFR ( Amer) Est GFR (Non-Af Amer) POC Glucose (mg/dL) 99 (65-110) mg/dL Random Glucose (75-110) mg/dL Calcium (8.6-10.4) mg/dl Phosphorus (2.5-4.5) mg/dL Magnesium (1.6-2.3) mg/dL Total Bilirubin (0.2-1.3) mg/dL AST (17-59) U/L ALT (21-72) U/L Alkaline Phosphatase (38-126) U/L Total Protein (6.3-8.3) g/dL Albumin (3.5-5.0) g/dL Globulin (2.2-3.9) gm/dL Albumin/Globulin Ratio (1.0-2.1) Laboratory Results - last 24 hr 09/17/17 09/17/17 09/18/17 17:38 23:37 05:45 WBC RBC Hgb Hct MCV MCH MCHC RDW Plt Count MPV Neut % (Auto) Lymph % (Auto) Island % (Auto) Eos % (Auto) Baso % (Auto) Neut # Lymph # [place] # Eos # Baso # Neutrophils % (Manual) Band Neutrophils % Lymphocytes % (Manual) Monocytes % (Manual) Platelet Estimate Large Platelets Hypochromasia (manual) Anisocytosis (manual) Sodium Potassium Chloride Carbon Dioxide Anion Gap BUN Creatinine Est GFR ( Amer) Est GFR (Non-Af Amer) POC Glucose (mg/dL) 99 93 76 Random Glucose Calcium Phosphorus Magnesium Total Bilirubin AST ALT Alkaline Phosphatase Total Protein Albumin Globulin Albumin/Globulin Ratio 09/18/17 09/18/17 09/18/17 06:23 06:23 07:26 WBC 9.6 RBC 3.23 L Hgb 8.9 L Hct 27.9 L MCV 86.3 MCH 27.5 MCHC 31.9 L RDW 18.5 H Plt Count 228 MPV 11.1 Neut % (Auto) 87.3 H Lymph % (Auto) 8.3 L Island % (Auto) 3.9 Eos % (Auto) 0.2 Baso % (Auto) 0.3 Neut # 8.4 H Lymph # 0.8 L [place] # 0.4 Eos # 0.0 Baso # 0.0 Neutrophils % (Manual) 87 H Band Neutrophils % 4 H Lymphocytes % (Manual) 5 L Monocytes % (Manual) 4 Platelet Estimate Normal Large Platelets Present Hypochromasia (manual) Slight Anisocytosis (manual) Slight Sodium 137 Potassium 4.1 Chloride 109 H Carbon Dioxide 22 Anion Gap 10 BUN 27 H Creatinine 0.7 L Est GFR ( Amer) > 60 Est GFR (Non-Af Amer) > 60 POC Glucose (mg/dL) 85 Random Glucose 67 L Calcium 8.1 L Phosphorus 2.8 Magnesium 1.9 Total Bilirubin 0.9 AST 21 ALT 23 Alkaline Phosphatase 199 H Total Protein 7.2 Albumin 2.2 L Globulin 5.0 H Albumin/Globulin Ratio 0.4 L 09/18/17 12:09 WBC RBC Hgb Hct MCV MCH MCHC RDW Plt Count MPV Neut % (Auto) Lymph % (Auto) Island % (Auto) Eos % (Auto) Baso % (Auto) Neut # Lymph # [place] # Eos # Baso # Neutrophils % (Manual) Band Neutrophils % Lymphocytes % (Manual) Monocytes % (Manual) Platelet Estimate Large Platelets Hypochromasia (manual) Anisocytosis (manual) Sodium Potassium Chloride Carbon Dioxide Anion Gap BUN Creatinine Est GFR ( Amer) Est GFR (Non-Af Amer) POC Glucose (mg/dL) 96 Random Glucose Calcium Phosphorus Magnesium Total Bilirubin AST ALT Alkaline Phosphatase Total Protein Albumin Globulin Albumin/Globulin Ratio Critical Care Progress Note - Nutrition Nutrition: Nutrition Category Date Time Status NPO Diet [DIET] Diets 09/17/17 Dinner Active Attending/Attestation - Attestation I have personally seen and examined this patient.: Yes I have fully participated in the care of the patient.: Yes I have reviewed all pertinent clinical information: Yes Notes (Text): 09/18/17 17:43 I have seen and examined the patient. Medical records, lab studies, and imaging were reviewed by me and a management plan was formulated on multidisciplinary rounds with resident Dr. Melgar. I agree with their above documented assessment and plan. Patient is clinically stable, will need continual diuresis for systolic heart failure with low EF. He is a chronically ill patient with continual risk for decompensation. will consult Palliative care to discuss advance directives. Downgrading to floor. Critical Care Time 35 minutes. Multi-disciplinary rounds were performed with house staff, nursing, speech therapy, respiratory therapy, pharmacy and nutrition with integrated input from the primary team/attending and other consulting services. The documented time is cumulative and includes review of patient data/exams/labs/chart review and examination of the patient on rounds and throughout the day; time is exclusive of any procedures or teaching time.
[2017-09-18] MEDS: Multivitamin With Minerals Tab PO SCH (09:46)
[2017-09-18] MEDS: Lidocaine 5% Patch TD SCH (09:46)
--- NOTE | 2017-09-18 10:35 | RAD ---
HISTORY: s/p extubation COMPARISON: Chest radiograph dated 09/17/2017 FINDINGS: Interval removal of endotracheal tube an NGT. . No change right IJ MediPort with tip in the SVC/RA junction. LUNGS: Diffuse bilateral airspace disease which could represent pulmonary edema/ CHF as well as bilateral lower lobe alveolar-type infiltrates and bilateral effusions again noted overall appear slightly improved. PLEURA: No significant pleural effusion identified, no pneumothorax apparent. CARDIOVASCULAR: Cardiac silhouette stable OSSEOUS STRUCTURES: No significant abnormalities. VISUALIZED UPPER ABDOMEN: Normal. OTHER FINDINGS: None. IMPRESSION: Interval removal of ETT and NGT. . Diffuse bilateral airspace disease which could represent pulmonary edema/ CHF as well as bilateral lower lobe alveolar-type infiltrates and bilateral effusions again noted overall appear slightly improved.
[2017-09-18] MEDS: Cefepime IV 1 gm in Dextrose 1 GM/50 ML BAG IVPB SCH ×2 (12:00→21:30)
--- NOTE | 2017-09-18 16:36 | CP.PCM.PN ---
Subjective - Date & Time of Evaluation Date of Evaluation: 09/18/17 Time of Evaluation: 16:26 - Subjective Subjective: Patient offers no complaints Objective - Vital Signs/Intake and Output Vital Signs (last 24 hours): Temp Pulse Resp BP Pulse Ox 98.1 F 98 H 19 109/68 100 09/18/17 08:00 09/18/17 14:11 09/18/17 14:11 09/18/17 14:11 09/18/17 14:11 Intake and Output: 09/18/17 09/18/17 06:59 18:59 Intake Total 0 50 Output Total 255 200 Balance -255 -150 - Medications Medications: Current Medications Acetaminophen (Tylenol 325mg Tab) 325 mg PO Q6 PRN PRN Reason: Fever >100.4 F Apixaban (Eliquis) 5 mg PO BID [facility] Last Admin: 09/18/17 09:45 Dose: 5 mg Emollient Ointment (Vaseline Oint) 5 gm TOP Q8H PRN PRN Reason: Dry skin Last Admin: 09/17/17 17:45 Dose: 5 gm Furosemide (Lasix) 20 mg IVP Q12 [facility] Last Admin: 09/18/17 14:00 Dose: 20 mg Cefepime HCl (Maxipime Iv 1 Gm Premix) 1 gm in 50 mls @ 100 mls/hr IVPB Q12H [facility] Last Admin: 09/18/17 12:00 Dose: Not Given Insulin Aspart (Novolog) 0 unit SC Q6H [facility] PRN Reason: Protocol Last Admin: 09/18/17 12:00 Dose: Not Given Insulin Glargine (Lantus) 10 unit SC HS [facility] Last Admin: 09/16/17 22:00 Dose: 10 unit Lidocaine (Lidoderm) 1 ea TD DAILY [facility] Last Admin: 09/18/17 09:46 Dose: 1 ea Midazolam HCl (Versed Inj) 1 mg IVP Q1H PRN PRN Reason: Sedation Last Admin: 09/16/17 23:15 Dose: 1 mg Multivitamins/Minerals (Therapeutic-M Tab) 1 tab PO DAILY [facility] Last Admin: 09/18/17 09:46 Dose: 1 tab Nystatin (Nystop Topical Powder) 1 applic TOP BID [facility] Last Admin: 09/18/17 09:45 Dose: 1 applic Ondansetron HCl (Zofran Tab) 4 mg PO Q8H PRN PRN Reason: Nausea/Vomiting Pantoprazole Sodium (Protonix Inj) 40 mg IVP DAILY [facility] Last Admin: 09/18/17 09:45 Dose: 40 mg Sennosides (Senokot Tab) 8.6 mg PO BID [facility] Last Admin: 09/18/17 09:46 Dose: 8.6 mg Tamsulosin HCl (Flomax) 0.8 mg PO DAILY [facility] Last Admin: 09/18/17 09:46 Dose: 0.8 mg - Labs Labs: 09/18/17 06:23 09/18/17 06:23 PT 21.1 SECONDS (9.7-12.2) H D 09/16/17 06:20 INR 1.8 D 09/16/17 06:20 APTT 33 SECONDS (21-34) 09/16/17 06:20 - Constitutional Appears: Chronically Ill - Head Exam Head Exam: ATRAUMATIC, NORMAL INSPECTION, NORMOCEPHALIC - Eye Exam Eye Exam: EOMI, Normal appearance, PERRL Pupil Exam: NORMAL ACCOMODATION, PERRL - ENT Exam ENT Exam: Mucous Membranes Moist, Normal Exam - Neck Exam Neck Exam: Full ROM, Normal Inspection - Respiratory Exam Respiratory Exam: Decreased Breath Sounds, NORMAL BREATHING PATTERN - Cardiovascular Exam Cardiovascular Exam: REGULAR RHYTHM - GI/Abdominal Exam GI & Abdominal Exam: Normal Bowel Sounds - Rectal Exam Rectal Exam: Deferred - Exam Exam: NORMAL INSPECTION - Extremities Exam Extremities Exam: Pedal Edema - Back Exam Back Exam: NORMAL INSPECTION - Neurological Exam Neurological Exam: Alert, Oriented x3 Neuro motor strength exam: Left Upper Extremity: 2/1, Right Upper Extremity: 2/1 , Left Lower Extremity: 2/1, Right Lower Extremity: 2/1 - Psychiatric Exam Psychiatric exam: Normal Affect, Normal Mood - Skin Skin Exam: Dry, Intact, Normal Color, Warm Assessment and Plan - Assessment and Plan (Free Text) Assessment: Patient is S/P extubation, alert and oriented X 3, seen and examined in the chair. Two daughters at bed side. Patient signed Advance Directive yesterday and appointed his daughter Shelia as a POA. Patient did not do well with swallow eval and is NPO at present. Code status discussed with Shelia today. She understand the chronic and progressive nature of her father condition. Shelia understands the meaning of DNR. DNR /DNI status was suggested by Doctor Shaver and the ICU Game Moderator Doctor Nicholas. I reviewed POLST form. Shelia wants to talk to her father again before deciding on Code status. Family hopes patient will be able to further improve and return to [facility]. Impression * Patient made some improvement and is off the MV support * Unable to swallow just yet, NPO maintained * Daughter Shelia assigned as POA * POLST reviewed, family is considering DNR/DNI as the quality of life is their concern Suggestion * Continue NPO and attempt new swallow eval in am * I will meet with daughter tomorrow to complete the POLST
[2017-09-18] MEDS: Petrolatum Oint Foilpak (5 gm) TOP PRN (17:40)
[2017-09-19] MEDS: (Novolog) Insulin Aspart, Recombinant 100 u/ml 10 ml vial SC SCH ×4 (00:07→17:26)
[2017-09-19] MEDS ORDERED: Glucagon Recombinant 1 mg Inj IM PRN (07:03)
[2017-09-19] MEDS ORDERED: Dextrose 50% SYRINGE Inj (50 ml) IV PRN (07:03)
--- NOTE | 2017-09-19 07:03 | CP.PCM.PN ---
Subjective - Date & Time of Evaluation Date of Evaluation: 09/19/17 Time of Evaluation: 11:45 - Subjective Subjective: patient seen and examined at bedside this AM w/ Dr. Shaver, patient has no complaints; states he is hungry and wants to eat; denies all other symptom.s Objective - Vital Signs/Intake and Output Vital Signs (last 24 hours): Temp Pulse Resp BP Pulse Ox 97.8 F 91 H 20 105/64 98 09/19/17 00:10 09/19/17 00:10 09/19/17 00:10 09/19/17 00:10 09/19/17 00:10 Intake and Output: 09/19/17 09/19/17 06:59 18:59 Output Total 325 Balance -325 - Medications Medications: Current Medications Acetaminophen (Tylenol 325mg Tab) 325 mg PO Q6 PRN PRN Reason: Fever >100.4 F Apixaban (Eliquis) 5 mg PO BID [facility] Last Admin: 09/18/17 17:29 Dose: 5 mg Emollient Ointment (Vaseline Oint) 5 gm TOP Q8H PRN PRN Reason: Dry skin Last Admin: 09/18/17 17:40 Dose: 5 gm Furosemide (Lasix) 20 mg IVP Q12 [facility] Last Admin: 09/18/17 21:31 Dose: 20 mg Cefepime HCl (Maxipime Iv 1 Gm Premix) 1 gm in 50 mls @ 100 mls/hr IVPB Q12H [facility] Last Admin: 09/18/17 21:30 Dose: 100 mls/hr Insulin Aspart (Novolog) 0 unit SC Q6H [facility] PRN Reason: Protocol Last Admin: 09/19/17 05:39 Dose: Not Given Insulin Glargine (Lantus) 10 unit SC HS [facility] Last Admin: 09/16/17 22:00 Dose: 10 unit Lidocaine (Lidoderm) 1 ea TD DAILY [facility] Last Admin: 09/18/17 09:46 Dose: 1 ea Midazolam HCl (Versed Inj) 1 mg IVP Q1H PRN PRN Reason: Sedation Last Admin: 09/16/17 23:15 Dose: 1 mg Multivitamins/Minerals (Therapeutic-M Tab) 1 tab PO DAILY [facility] Last Admin: 09/18/17 09:46 Dose: 1 tab Nystatin (Nystop Topical Powder) 1 applic TOP BID [facility] Last Admin: 09/18/17 17:30 Dose: 1 applic Ondansetron HCl (Zofran Tab) 4 mg PO Q8H PRN PRN Reason: Nausea/Vomiting Pantoprazole Sodium (Protonix Inj) 40 mg IVP DAILY [facility] Last Admin: 09/18/17 09:45 Dose: 40 mg Sennosides (Senokot Tab) 8.6 mg PO BID [facility] Last Admin: 09/18/17 17:29 Dose: 8.6 mg Tamsulosin HCl (Flomax) 0.8 mg PO DAILY [facility] Last Admin: 09/18/17 09:46 Dose: 0.8 mg - Labs Labs: 09/18/17 06:23 09/18/17 06:23 PT 21.1 SECONDS (9.7-12.2) H D 09/16/17 06:20 INR 1.8 D 09/16/17 06:20 APTT 33 SECONDS (21-34) 09/16/17 06:20 - Constitutional Appears: Non-toxic - Head Exam Head Exam: ATRAUMATIC - Eye Exam Eye Exam: EOMI - ENT Exam ENT Exam: Mucous Membranes Moist - Neck Exam Neck Exam: Full ROM. absent: Lymphadenopathy - Respiratory Exam Respiratory Exam: Clear to Ausculation Bilateral, NORMAL BREATHING PATTERN. absent: Rales, Rhonchi, Wheezes - Cardiovascular Exam Cardiovascular Exam: REGULAR RHYTHM - GI/Abdominal Exam GI & Abdominal Exam: Soft, Normal Bowel Sounds - Rectal Exam Rectal Exam: Deferred - Extremities Exam Extremities Exam: Full ROM. absent: Calf Tenderness - Back Exam Back Exam: NORMAL INSPECTION. 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 support, now weaned off, with respiratory distress and acute respiratory failure requiring intubation on 09/13; now on telemetry 09/19 Acute Respiratory Failure; resolved s/p extubation; tolerating Empirical antibiotics: Cefepime 1gm IVPB Q12H for aspiration PNA proph History of HTN blood pressure is currently stable not on any antihypertensives was on pressor support in the ICU; currently off will monitor BP CHF; chronic, acute on chronic failure with systolic dysfunction Echo ( 09/09/2017): LVRF (20%), mild to modeate AR, mild pulmonic valvular regurgitation, global hypokinesis of the LV, and systolic function is moderately to severely impaired A.fibrillation;chronic Eliquis 5mg PO BID Telemetry DM; chronic Accuchecks Q6H ISS (Medium dose protocol) Lantus 10units HS hypoglycemia protocol 09/02/17 HbA1C 7.9; improved from previous record Urinary retention/BPH Tamulosin 0.8 PO daily Prophylaxis: DVT: Eliquis 5mg PO BID GI: Protonix 40mg PO daily, Zofran 4mg PO Q8H prn Pureed diet crush PO meds Extubation today
[2017-09-19] MEDS: Multivitamin With Minerals Tab PO SCH (09:56)
[2017-09-19] MEDS: Lidocaine 5% Patch TD SCH (10:03)
[2017-09-19] MEDS: Cefepime IV 1 gm in Dextrose 1 GM/50 ML BAG IVPB SCH ×2 (10:18→22:30)
[2017-09-19 11:34] LABS: BASO % 0.2 % (0.0-2.0); EOS % 0.1 % (0.0-4.0); HEMATOCRIT 29.6 % (35.0-51.0); LYMPH # 0.9 K/uL (1.0-4.3); MEAN CELL VOLUME 86.4 fL (80.0-94.0); MEAN CORPUSCULAR HGB CONC 31.2 g/dL (33.0-37.0); MEAN PLATELET VOLUME 10.8 fL (7.2-11.7); MONO # 0.6 K/uL (0.0-0.8); MONO % 5.7 % (0.0-10.0); NRBC % 0.1 % (0.0-2.0); PLATELET COUNT 247 K/uL (130-400); RED CELL DISTRIBUTION WIDTH 18.3 % (11.5-14.5); WHITE BLOOD COUNT 11.1 K/uL (4.8-10.8)
[2017-09-19 11:45] LABS: CHLORIDE 110 mmol/L (98-107); POTASSIUM 4.5 mmol/L (3.6-5.2); SODIUM 140 mmol/L (132-148)
[2017-09-19 11:47] LABS: BILIRUBIN,TOTAL 0.9 mg/dL (0.2-1.3); GFR AFRICAN-AMERICAN > 60
[2017-09-19 11:48] LABS: ALB/GLOB RATIO 0.5 (1.0-2.1); ALKALINE PHOSPHATASE 188 U/L (38-126); ALT/SGPT 16 U/L (21-72); AST/SGOT 26 U/L (17-59); BLOOD UREA NITROGEN 27 mg/dL (9-20); CARBON DIOXIDE 19 mmol/L (22-30); GLUCOSE,RANDOM 109 mg/dL (75-110); TOTAL PROTEIN 7.7 g/dL (6.3-8.3)
[2017-09-19 11:49] LABS: CALCIUM 8.9 mg/dl (8.6-10.4)
[2017-09-19 12:02] LABS: NEUTROPHIL 92 % (50-75); TOTAL CELLS COUNTED 100
[2017-09-19] MEDS: Albuterol-Ipratrop 3 mg / 0.5 (3 ml) UD INH SCH ×2 (14:20→19:19)
[2017-09-19] MEDS: Petrolatum Oint Foilpak (5 gm) TOP PRN (16:21)
[2017-09-20] MEDS: Albuterol-Ipratrop 3 mg / 0.5 (3 ml) UD INH SCH ×3 (01:37→19:26)
[2017-09-20] MEDS: (Novolog) Insulin Aspart, Recombinant 100 u/ml 10 ml vial SC SCH ×4 (06:28→18:45)
[2017-09-20 07:13] LABS: BASO % 0.1 % (0.0-2.0); EOS % 0.2 % (0.0-4.0); HEMATOCRIT 26.1 % (35.0-51.0); LYMPH # 0.6 K/uL (1.0-4.3); LYMPH % 5.6 % (20.0-40.0); MEAN CELL VOLUME 86.7 fL (80.0-94.0); MEAN CORPUSCULAR HEMOGLOBIN 26.9 pg (27.0-31.0); MEAN PLATELET VOLUME 10.9 fL (7.2-11.7); MONO # 0.6 K/uL (0.0-0.8); MONO % 6.3 % (0.0-10.0); PLATELET COUNT 238 K/uL (130-400); WHITE BLOOD COUNT 10.1 K/uL (4.8-10.8)
[2017-09-20 07:52] LABS: CHLORIDE 109 mmol/L (98-107)
[2017-09-20 07:53] LABS: POTASSIUM 3.8 mmol/L (3.6-5.2); SODIUM 139 mmol/L (132-148)
[2017-09-20 07:55] LABS: ALB/GLOB RATIO 0.4 (1.0-2.1); ALKALINE PHOSPHATASE 154 U/L (38-126); ALT/SGPT 23 U/L (21-72); AST/SGOT 14 U/L (17-59); BILIRUBIN,TOTAL 0.6 mg/dL (0.2-1.3); BLOOD UREA NITROGEN 27 mg/dL (9-20); CARBON DIOXIDE 18 mmol/L (22-30); GFR AFRICAN-AMERICAN > 60; TOTAL PROTEIN 7.1 g/dL (6.3-8.3)
[2017-09-20 07:56] LABS: CALCIUM 8.2 mg/dl (8.6-10.4); GLUCOSE,RANDOM 163 mg/dL (75-110); MAGNESIUM 1.7 mg/dL (1.6-2.3); PHOSPHOROUS 3.7 mg/dL (2.5-4.5)
[2017-09-20 09:24] LABS: NEUTROPHIL 88 % (50-75); TOTAL CELLS COUNTED 100
[2017-09-20 09:25] LABS: LARGE PLATELETS PRESENT
[2017-09-20] MEDS: Lidocaine 5% Patch TD SCH (09:36)
[2017-09-20] MEDS: Multivitamin With Minerals Tab PO SCH (09:38)
[2017-09-20] MEDS: Cefepime IV 1 gm in Dextrose 1 GM/50 ML BAG IVPB SCH ×2 (09:49→21:37)
[2017-09-20] MEDS: Petrolatum Oint Foilpak (5 gm) TOP PRN (18:47)
[2017-09-21] MEDS: (Novolog) Insulin Aspart, Recombinant 100 u/ml 10 ml vial SC SCH ×4 (00:44→19:00)
[2017-09-21] MEDS: Albuterol-Ipratrop 3 mg / 0.5 (3 ml) UD INH SCH ×4 (02:04→20:31)
[2017-09-21 07:21] LABS: BASO % 0.1 % (0.0-2.0); EOS % 0.1 % (0.0-4.0); HEMATOCRIT 25.6 % (35.0-51.0); LYMPH # 0.6 K/uL (1.0-4.3); LYMPH % 7.1 % (20.0-40.0); MEAN CELL VOLUME 85.8 fL (80.0-94.0); MEAN CORPUSCULAR HEMOGLOBIN 27.3 pg (27.0-31.0); MEAN CORPUSCULAR HGB CONC 31.8 g/dL (33.0-37.0); MEAN PLATELET VOLUME 10.6 fL (7.2-11.7); MONO # 0.6 K/uL (0.0-0.8); MONO % 6.7 % (0.0-10.0); PLATELET COUNT 231 K/uL (130-400); WHITE BLOOD COUNT 8.8 K/uL (4.8-10.8)
[2017-09-21 07:32] LABS: CHLORIDE 111 mmol/L (98-107); POTASSIUM 3.4 mmol/L (3.6-5.2); SODIUM 140 mmol/L (132-148)
[2017-09-21 07:34] LABS: BILIRUBIN,TOTAL 0.7 mg/dL (0.2-1.3); GFR AFRICAN-AMERICAN > 60
[2017-09-21 07:35] LABS: ALB/GLOB RATIO 0.4 (1.0-2.1); ALKALINE PHOSPHATASE 148 U/L (38-126); ALT/SGPT 18 U/L (21-72); AST/SGOT 13 U/L (17-59); BLOOD UREA NITROGEN 25 mg/dL (9-20); CARBON DIOXIDE 20 mmol/L (22-30); GLUCOSE,RANDOM 150 mg/dL (75-110); PHOSPHOROUS 3.2 mg/dL (2.5-4.5); TOTAL PROTEIN 7.5 g/dL (6.3-8.3)
[2017-09-21 07:36] LABS: CALCIUM 7.9 mg/dl (8.6-10.4); MAGNESIUM 1.7 mg/dL (1.6-2.3)
[2017-09-21 09:27] LABS: NEUTROPHIL 88 % (50-75); TOTAL CELLS COUNTED 100
[2017-09-21 09:28] LABS: GIANT PLATELETS PRESENT; LARGE PLATELETS PRESENT
[2017-09-21] MEDS: Lidocaine 5% Patch TD SCH (09:51)
[2017-09-21] MEDS: Cefepime IV 1 gm in Dextrose 1 GM/50 ML BAG IVPB SCH ×2 (09:54→21:59)
[2017-09-21] MEDS: Multivitamin With Minerals Tab PO SCH (10:04)
[2017-09-21] MEDS: Petrolatum Oint Foilpak (5 gm) TOP PRN (10:05)
[2017-09-22] MEDS: (Novolog) Insulin Aspart, Recombinant 100 u/ml 10 ml vial SC SCH ×4 (00:14→18:53)
[2017-09-22] MEDS: Albuterol-Ipratrop 3 mg / 0.5 (3 ml) UD INH SCH ×4 (01:50→19:42)
[2017-09-22 07:26] LABS: EOS % 0.2 % (0.0-4.0); HEMATOCRIT 25.2 % (35.0-51.0); LYMPH # 0.8 K/uL (1.0-4.3); MEAN CELL VOLUME 86.7 fL (80.0-94.0); MEAN CORPUSCULAR HEMOGLOBIN 27.3 pg (27.0-31.0); MEAN CORPUSCULAR HGB CONC 31.6 g/dL (33.0-37.0); MONO # 0.5 K/uL (0.0-0.8); NRBC % 0.1 % (0.0-2.0); PLATELET COUNT 221 K/uL (130-400); RED CELL DISTRIBUTION WIDTH 18.1 % (11.5-14.5); WHITE BLOOD COUNT 8.9 K/uL (4.8-10.8)
[2017-09-22 07:48] LABS: CHLORIDE 111 mmol/L (98-107); POTASSIUM 3.7 mmol/L (3.6-5.2); SODIUM 141 mmol/L (132-148)
[2017-09-22 07:50] LABS: ALB/GLOB RATIO 0.5 (1.0-2.1); ALKALINE PHOSPHATASE 152 U/L (38-126); ALT/SGPT 16 U/L (21-72); AST/SGOT 12 U/L (17-59); BILIRUBIN,TOTAL 0.8 mg/dL (0.2-1.3); BLOOD UREA NITROGEN 27 mg/dL (9-20); CARBON DIOXIDE 21 mmol/L (22-30); GFR AFRICAN-AMERICAN > 60; TOTAL PROTEIN 6.2 g/dL (6.3-8.3)
[2017-09-22 07:51] LABS: CALCIUM 8.4 mg/dl (8.6-10.4); GLUCOSE,RANDOM 157 mg/dL (75-110); MAGNESIUM 1.6 mg/dL (1.6-2.3); PHOSPHOROUS 2.9 mg/dL (2.5-4.5)
[2017-09-22 08:37] LABS: NEUTROPHIL 80 % (50-75); TOTAL CELLS COUNTED 100
[2017-09-22] MEDS: Lidocaine 5% Patch TD SCH (09:54)
[2017-09-22] MEDS: Multivitamin With Minerals Tab PO SCH (09:55)
[2017-09-22] MEDS: Cefepime IV 1 gm in Dextrose 1 GM/50 ML BAG IVPB SCH ×2 (10:00→22:23)
--- NOTE | 2017-09-22 12:00 | CP.PCM.PN ---
Subjective - Date & Time of Evaluation Date of Evaluation: 09/22/17 Time of Evaluation: 12:00 - Subjective Subjective: Progress note. Service for Dr. Shaver Pt seen and examined at bedside. No acute distress, non verbal. Pt's family at bedside. Not really eating. May need PEG, GI consulted. Objective - Vital Signs/Intake and Output Vital Signs (last 24 hours): Temp Pulse Resp BP Pulse Ox 97.9 F 110 H 20 106/67 95 09/22/17 07:55 09/22/17 11:04 09/22/17 07:55 09/22/17 09:58 09/22/17 11:04 Intake and Output: 09/22/17 09/22/17 06:59 18:59 Intake Total 250 0 Output Total 300 Balance 250 -300 - Medications Medications: Current Medications Acetaminophen (Tylenol 325mg Tab) 325 mg PO Q6 PRN PRN Reason: Fever >100.4 F Albuterol/Ipratropium (Duoneb 3 Mg/0.5 Mg (3 Ml) Ud) 3 ml INH RQ6 [facility] Last Admin: 09/22/17 08:33 Dose: 3 ml Apixaban (Eliquis) 5 mg PO BID [facility] Last Admin: 09/22/17 09:53 Dose: Not Given Dextrose (Dextrose 50% Inj) 0 ml IV STAT PRN; Protocol PRN Reason: Hyglycemia Protocol Dextrose (Glutose 15) 0 gm PO ONCE PRN; Protocol PRN Reason: Hypoglycemia Protocol Emollient Ointment (Vaseline Oint) 5 gm TOP Q8H PRN PRN Reason: Dry skin Last Admin: 09/21/17 10:05 Dose: 5 gm Furosemide (Lasix) 20 mg IVP Q12 [facility] [place] Last Admin: 09/22/17 09:58 Dose: 20 mg Glucagon (Glucagen Diagnostic Kit) 0 mg IM STAT PRN; Protocol PRN Reason: Hypoglycemia Protocol Cefepime HCl (Maxipime Iv 1 Gm Premix) 1 gm in 50 mls @ 100 mls/hr IVPB Q12H [facility] [place] Last Admin: 09/22/17 10:00 Dose: 100 mls/hr Dextrose (Dextrose 5% In Water 1000 Ml) 1,000 mls @ 0 mls/hr IV .Q0M PRN; Protocol; Per Protocol PRN Reason: Hypoglycemia Protocol Insulin Aspart (Novolog) 0 unit SC Q6H [facility] PRN Reason: Protocol Last Admin: 09/22/17 07:07 Dose: 3 unit Insulin Glargine (Lantus) 10 unit SC HS [facility] [place] Last Admin: 09/16/17 22:00 Dose: 10 unit Lidocaine (Lidoderm) 1 ea TD DAILY [facility] [place] Last Admin: 09/22/17 09:54 Dose: 1 ea Multivitamins/Minerals (Therapeutic-M Tab) 1 tab PO DAILY [facility] Last Admin: 09/22/17 09:55 Dose: Not Given Mupirocin (Bactroban Ointment) 0 gm TOP BID [facility] [place] Nystatin (Nystop Topical Powder) 1 applic TOP BID [facility] [place] Last Admin: 09/22/17 09:55 Dose: 1 applic Ondansetron HCl (Zofran Tab) 4 mg PO Q8H PRN PRN Reason: Nausea/Vomiting Pantoprazole Sodium (Protonix Inj) 40 mg IVP DAILY [facility] [place] Last Admin: 09/22/17 10:59 Dose: 40 mg Sennosides (Senokot Tab) 8.6 mg PO BID [facility] [place] Last Admin: 09/22/17 09:55 Dose: Not Given Tamsulosin HCl (Flomax) 0.8 mg PO DAILY [facility] [place] Last Admin: 09/22/17 09:53 Dose: Not Given - Labs Labs: 09/22/17 07:16 09/22/17 07:16 PT 21.1 SECONDS (9.7-12.2) H D 09/16/17 06:20 INR 1.8 D 09/16/17 06:20 APTT 33 SECONDS (21-34) 09/16/17 06:20 - Constitutional Appears: Non-toxic, No Acute Distress, Chronically Ill - Head Exam Head Exam: ATRAUMATIC, NORMAL INSPECTION, NORMOCEPHALIC - Eye Exam Eye Exam: EOMI - ENT Exam ENT Exam: Mucous Membranes Moist - Neck Exam Neck Exam: Full ROM - Respiratory Exam Respiratory Exam: NORMAL BREATHING PATTERN. absent: Respiratory Distress - Cardiovascular Exam Cardiovascular Exam: +S1, +S2 - GI/Abdominal Exam GI & Abdominal Exam: Soft, Normal Bowel Sounds. 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, now weaned off, with respiratory distress and acute respiratory failure requiring intubation on 09/13; now on telemetry 09/19 Acute Respiratory Failure; resolved s/p extubation; tolerating Empirical antibiotics: Cefepime 1gm IVPB Q12H for aspiration PNA proph History of HTN blood pressure is currently stable not on any antihypertensives was on pressor support in the ICU; currently off will monitor BP CHF; chronic, acute on chronic failure with systolic dysfunction Echo ( 09/09/2017): LVRF (20%), mild to modeate AR, mild pulmonic valvular regurgitation, global hypokinesis of the LV, and systolic function is moderately to severely impaired A.fibrillation;chronic Eliquis 5mg PO BID Telemetry DM; chronic Accuchecks Q6H ISS (Medium dose protocol) Lantus 10units HS hypoglycemia protocol 09/02/17 HbA1C 7.9; improved from previous record Urinary retention/BPH Tamulosin 0.8 PO daily Prophylaxis: DVT: Eliquis 5mg PO BID GI: Protonix 40mg PO daily, Zofran 4mg PO Q8H prn Pureed diet crush PO meds willl consult GI for possible peg tube placement discussed with Dr. Shaver
[2017-09-22] MEDS: metroNIDAZOLE IV 500 mg/100 ml 500 MG/100 ML BAG IVPB SCH ×2 (14:31→21:58)
[2017-09-23] MEDS: (Novolog) Insulin Aspart, Recombinant 100 u/ml 10 ml vial SC SCH ×4 (00:39→18:57)
[2017-09-23] MEDS: Albuterol-Ipratrop 3 mg / 0.5 (3 ml) UD INH SCH ×4 (01:28→19:41)
[2017-09-23] MEDS: metroNIDAZOLE IV 500 mg/100 ml 500 MG/100 ML BAG IVPB SCH ×3 (05:47→22:04)
[2017-09-23 07:43] LABS: INR 2.5
[2017-09-23 07:46] LABS: BASO % 0.2 % (0.0-2.0); EOS % 0.2 % (0.0-4.0); HEMATOCRIT 25.5 % (35.0-51.0); LYMPH # 0.7 K/uL (1.0-4.3); MEAN CELL VOLUME 87.5 fL (80.0-94.0); MEAN CORPUSCULAR HEMOGLOBIN 27.3 pg (27.0-31.0); MEAN CORPUSCULAR HGB CONC 31.1 g/dL (33.0-37.0); MEAN PLATELET VOLUME 11.2 fL (7.2-11.7); MONO # 0.5 K/uL (0.0-0.8); MONO % 5.8 % (0.0-10.0); NRBC % 0.2 % (0.0-2.0); PLATELET COUNT 212 K/uL (130-400); RED CELL DISTRIBUTION WIDTH 18.4 % (11.5-14.5)
[2017-09-23 07:55] LABS: CHLORIDE 114 mmol/L (98-107); POTASSIUM 3.5 mmol/L (3.6-5.2); SODIUM 142 mmol/L (132-148)
[2017-09-23 07:57] LABS: BILIRUBIN,TOTAL 0.8 mg/dL (0.2-1.3); GFR AFRICAN-AMERICAN > 60
[2017-09-23 07:58] LABS: ALB/GLOB RATIO 0.4 (1.0-2.1); ALKALINE PHOSPHATASE 145 U/L (38-126); ALT/SGPT 19 U/L (21-72); AST/SGOT 19 U/L (17-59); BLOOD UREA NITROGEN 27 mg/dL (9-20); CARBON DIOXIDE 20 mmol/L (22-30); GLUCOSE,RANDOM 143 mg/dL (75-110); PHOSPHOROUS 3.5 mg/dL (2.5-4.5); TOTAL PROTEIN 7.4 g/dL (6.3-8.3)
[2017-09-23 07:59] LABS: CALCIUM 8.6 mg/dl (8.6-10.4); MAGNESIUM 1.6 mg/dL (1.6-2.3)
[2017-09-23 09:30] LABS: NEUTROPHIL 86 % (50-75); TOTAL CELLS COUNTED 100
[2017-09-23 09:31] LABS: LARGE PLATELETS PRESENT
[2017-09-23] MEDS: Cefepime IV 1 gm in Dextrose 1 GM/50 ML BAG IVPB SCH ×2 (10:07→23:47)
[2017-09-23] MEDS: Lidocaine 5% Patch TD SCH (10:07)
[2017-09-23] MEDS: Multivitamin With Minerals Tab PO SCH (10:08)
--- NOTE | 2017-09-23 15:10 | CP.PCM.PN ---
Subjective - Date & Time of Evaluation Date of Evaluation: 09/23/17 Time of Evaluation: 07:49 - Subjective Subjective: PGY 2 Medicine Progress Note- Dr. Shaver's service Pt seen and examined at bedside. Patient's daughters spoken to extensively as well. Patient's POA is daughter Shelia Joel. The second contact printer dry film is daughter Carmen Jarquin. They are in the process of having a notary sign off on important paperwork stating that they are the primary decision makers. Patient at this point is minimally verbal. He does acknowledge one's presence. His diet has been poor. Patient not responding to a review of symptoms at this time. Objective - Vital Signs/Intake and Output Vital Signs (last 24 hours): Temp Pulse Resp BP Pulse Ox 98 F 104 H 22 101/62 100 09/23/17 08:02 09/23/17 08:02 09/23/17 08:02 09/23/17 10:06 09/23/17 08:02 Intake and Output: 09/23/17 09/23/17 06:59 18:59 Intake Total 300 150 Output Total 200 300 Balance 100 -150 - Medications Medications: Current Medications Acetaminophen (Tylenol 325mg Tab) 325 mg PO Q6 PRN PRN Reason: Fever >100.4 F Acetaminophen (Tylenol 325mg Tab) 650 mg PO Q4 PRN PRN Reason: Pain, moderate (4-7) Last Admin: 09/22/17 22:00 Dose: 650 mg Albuterol/Ipratropium (Duoneb 3 Mg/0.5 Mg (3 Ml) Ud) 3 ml INH RQ6 [facility] Last Admin: 09/23/17 13:20 Dose: 3 ml Apixaban (Eliquis) 5 mg PO BID [facility] Last Admin: 09/23/17 10:58 Dose: Not Given Dextrose (Dextrose 50% Inj) 0 ml IV STAT PRN; Protocol PRN Reason: Hyglycemia Protocol Dextrose (Glutose 15) 0 gm PO ONCE PRN; Protocol PRN Reason: Hypoglycemia Protocol Emollient Ointment (Vaseline Oint) 5 gm TOP Q8H PRN PRN Reason: Dry skin Last Admin: 09/21/17 10:05 Dose: 5 gm Furosemide (Lasix) 20 mg IVP Q12 [facility] Last Admin: 09/23/17 10:06 Dose: 20 mg Glucagon (Glucagen Diagnostic Kit) 0 mg IM STAT PRN; Protocol PRN Reason: Hypoglycemia Protocol Cefepime HCl (Maxipime Iv 1 Gm Premix) 1 gm in 50 mls @ 100 mls/hr IVPB Q12H [facility] Last Admin: 09/23/17 10:07 Dose: 100 mls/hr Dextrose (Dextrose 5% In Water 1000 Ml) 1,000 mls @ 0 mls/hr IV .Q0M PRN; Protocol; Per Protocol PRN Reason: Hypoglycemia Protocol Metronidazole (Flagyl) 500 mg in 100 mls @ 100 mls/hr IVPB Q8 [facility] Last Admin: 09/23/17 13:52 Dose: 100 mls/hr Insulin Aspart (Novolog) 0 unit SC Q6H [facility] PRN Reason: Protocol Last Admin: 09/23/17 11:52 Dose: Not Given Insulin Glargine (Lantus) 10 unit SC HS [facility] Last Admin: 09/16/17 22:00 Dose: 10 unit Lidocaine (Lidoderm) 1 ea TD DAILY [facility] Last Admin: 09/23/17 10:07 Dose: Not Given Multivitamins/Minerals (Therapeutic-M Tab) 1 tab PO DAILY [facility] Last Admin: 09/23/17 10:08 Dose: Not Given Mupirocin (Bactroban Ointment) 0 gm TOP BID [facility] Last Admin: 09/23/17 10:06 Dose: 1 applic Nystatin (Nystop Topical Powder) 1 applic TOP BID [facility] Last Admin: 09/23/17 10:16 Dose: 1 applic Ondansetron HCl (Zofran Tab) 4 mg PO Q8H PRN PRN Reason: Nausea/Vomiting Pantoprazole Sodium (Protonix Inj) 40 mg IVP DAILY [facility] Last Admin: 09/23/17 10:06 Dose: 40 mg Sennosides (Senokot Tab) 8.6 mg PO BID [facility] Last Admin: 09/23/17 10:08 Dose: Not Given Tamsulosin HCl (Flomax) 0.8 mg PO DAILY [facility] Last Admin: 09/23/17 10:16 Dose: Not Given - Labs Labs: 09/23/17 07:54 09/23/17 07:01 PT 28.5 SECONDS (9.7-12.2) H 09/23/17 08:07 INR 2.5 09/23/17 08:07 APTT 33 SECONDS (21-34) 09/16/17 06:20 - Constitutional Appears: Non-toxic, No Acute Distress, Cachectic - Head Exam Head Exam: ATRAUMATIC, NORMAL INSPECTION, NORMOCEPHALIC - Eye Exam Eye Exam: EOMI, Normal appearance Pupil Exam: NORMAL ACCOMODATION - ENT Exam ENT Exam: Mucous Membranes Dry - Neck Exam Neck Exam: Full ROM - Respiratory Exam Respiratory Exam: NORMAL BREATHING PATTERN - Cardiovascular Exam Cardiovascular Exam: +S1, +S2, Murmur - GI/Abdominal Exam GI & Abdominal Exam: Soft, Normal Bowel Sounds - Extremities Exam Extremities Exam: Full ROM, Normal Capillary Refill, Pedal Edema (2+) - Neurological Exam Neurological Exam: Alert, Awake, Oriented x3 - Psychiatric Exam Psychiatric exam: Flat Affect - Skin Skin Exam: Dry, Warm Assessment and Plan - Assessment and Plan (Free Text) Assessment: Acute Respiratory Failure; resolved s/p extubation; tolerating Empirical antibiotics: Cefepime 1gm IVPB Q12H for aspiration PNA proph PEG tube placement In need of PEG tube Patient's INR elevated. Will receive Vitamin K today and then another dose of Vitamin K tomorrow along with FFP History of HTN Low normotensive Blood pressure is currently stable without antihypertensives Was on pressor support in the ICU; currently off Cont to monitor BP CHF; chronic, acute on chronic failure with systolic dysfunction Echo (09/09/2017): LVRF (20%), mild to modeate AR, mild pulmonic valvular regurgitation, global hypokinesis of the LV, and systolic function is moderately to severely impaired A.fibrillation;chronic Rate controlled Eliquis 5mg PO BID Telemetry DM; chronic Accuchecks Q6H ISS (Medium dose protocol) Lantus 10units HS hypoglycemia protocol 09/02/17 HbA1C 7.9; improved from previous record Urinary retention/BPH Tamulosin 0.8 PO daily Hypokalemia Repleted Prophylaxis: DVT: Eliquis 5mg PO BID GI: Protonix 40mg PO daily, Zofran 4mg PO Q8H prn Pureed diet Daughter is POA- Shelia Joel [phone] Second Daughter ( second contact)- Carmen Milka [phone] Discussed with attending. All management and planning per Dr. Shaver
[2017-09-23] MEDS ORDERED: Phytonadione 10 mg/ml Inj (Adult) SC STA (16:02)
[2017-09-23] MEDS: Sodium Chloride 0.9% 1,000 ML IV SCH (16:51)
[2017-09-24] MEDS ORDERED: Phytonadione 10 mg/ml Inj (Adult) SC ONE ×3 (00:01→11:45)
[2017-09-24] MEDS: Albuterol-Ipratrop 3 mg / 0.5 (3 ml) UD INH SCH ×4 (01:20→20:04)
[2017-09-24] MEDS: metroNIDAZOLE IV 500 mg/100 ml 500 MG/100 ML BAG IVPB SCH ×3 (05:00→16:27)
[2017-09-24] MEDS: (Novolog) Insulin Aspart, Recombinant 100 u/ml 10 ml vial SC SCH ×4 (06:00→22:32)
[2017-09-24 07:23] LABS: BASO % 0.1 % (0.0-2.0); EOS % 0.2 % (0.0-4.0); HEMATOCRIT 25.1 % (35.0-51.0); LYMPH # 0.7 K/uL (1.0-4.3); LYMPH % 6.6 % (20.0-40.0); MEAN CORPUSCULAR HEMOGLOBIN 27.5 pg (27.0-31.0); MEAN CORPUSCULAR HGB CONC 31.6 g/dL (33.0-37.0); MEAN PLATELET VOLUME 10.8 fL (7.2-11.7); MONO # 0.5 K/uL (0.0-0.8); MONO % 4.8 % (0.0-10.0); NRBC % 0.1 % (0.0-2.0); PLATELET COUNT 202 K/uL (130-400); RED CELL DISTRIBUTION WIDTH 18.1 % (11.5-14.5); WHITE BLOOD COUNT 10.2 K/uL (4.8-10.8)
[2017-09-24 07:33] LABS: INR 2.3
[2017-09-24 07:36] LABS: CHLORIDE 114 mmol/L (98-107); POTASSIUM 3.4 mmol/L (3.6-5.2); SODIUM 144 mmol/L (132-148)
[2017-09-24 07:37] LABS: GFR AFRICAN-AMERICAN > 60
[2017-09-24 07:38] LABS: ALB/GLOB RATIO 0.5 (1.0-2.1); ALKALINE PHOSPHATASE 134 U/L (38-126); ALT/SGPT 17 U/L (21-72); AST/SGOT 20 U/L (17-59); BILIRUBIN,TOTAL 0.9 mg/dL (0.2-1.3); BLOOD UREA NITROGEN 27 mg/dL (9-20); CALCIUM 8.5 mg/dl (8.6-10.4); CARBON DIOXIDE 22 mmol/L (22-30); GLUCOSE,RANDOM 116 mg/dL (75-110); PHOSPHOROUS 3.2 mg/dL (2.5-4.5); TOTAL PROTEIN 6.5 g/dL (6.3-8.3)
[2017-09-24 07:39] LABS: MAGNESIUM 1.5 mg/dL (1.6-2.3)
[2017-09-24 08:40] LABS: NEUTROPHIL 92 % (50-75); TOTAL CELLS COUNTED 100
[2017-09-24 08:41] LABS: LARGE PLATELETS PRESENT
[2017-09-24] MEDS: Multivitamin With Minerals Tab PO SCH (09:54)
[2017-09-24] MEDS: Cefepime IV 1 gm in Dextrose 1 GM/50 ML BAG IVPB SCH ×2 (10:02→23:59)
[2017-09-24] MEDS: Lidocaine 5% Patch TD SCH (10:02)
[2017-09-24] MEDS ORDERED: Magnesium Sulfate 1 gm in D5W 1 GM/100 ML BAG IVPB SCH (10:45)
--- NOTE | 2017-09-24 12:52 | PN ---
DATE: LOCATION: 358, bed B. SUBJECTIVE: This is a 77-year-old male for PEG insertion today, due to failure to thrive and very poor oral intake; however, due to increase PT and INR and the patient had been anticoagulation, case discussed with anesthesia, as well as Dr. Shaver and he is to be rescheduled for PEG insertion after correcting his coagulopathy . Elissa Roman MD
[2017-09-24] MEDS: Magnesium Sulfate 1 gm in D5W 1 GM/100 ML BAG IVPB SCH ×2 (13:10→13:59)
--- NOTE | 2017-09-24 15:50 | CP.PCM.PN ---
Subjective - Date & Time of Evaluation Date of Evaluation: 09/24/17 Time of Evaluation: 10:20 - Subjective Subjective: PGY 2 Medicine Progress Note- Dr. Shaver's service Pt seen and examined resting bedside. Patient for PEG tube placement today. Patient is minimally verbal. He denies any headaches, nausea or vomiting at this time. Patient mostly able to shake or nod his head. Objective - Vital Signs/Intake and Output Vital Signs (last 24 hours): Temp Pulse Resp BP Pulse Ox 96.9 F L 105 H 22 129/70 99 09/24/17 11:41 09/24/17 11:41 09/24/17 11:41 09/24/17 11:41 09/24/17 11:41 Intake and Output: 09/24/17 09/24/17 06:59 18:59 Intake Total 808 680 Output Total 650 450 Balance 158 230 - Medications Medications: Current Medications Acetaminophen (Tylenol 325mg Tab) 325 mg PO Q6 PRN PRN Reason: Fever >100.4 F Acetaminophen (Tylenol 325mg Tab) 650 mg PO Q4 PRN PRN Reason: Pain, moderate (4-7) Last Admin: 09/22/17 22:00 Dose: 650 mg Albuterol/Ipratropium (Duoneb 3 Mg/0.5 Mg (3 Ml) Ud) 3 ml INH RQ6 [facility] Last Admin: 09/24/17 13:36 Dose: 3 ml Apixaban (Eliquis) 5 mg PO BID [facility] Last Admin: 09/23/17 10:58 Dose: Not Given Emollient Ointment (Vaseline Oint) 5 gm TOP Q8H PRN PRN Reason: Dry skin Last Admin: 09/21/17 10:05 Dose: 5 gm Furosemide (Lasix) 20 mg IVP Q12 [facility] Last Admin: 09/24/17 10:03 Dose: 20 mg Cefepime HCl (Maxipime Iv 1 Gm Premix) 1 gm in 50 mls @ 100 mls/hr IVPB Q12H [facility] Last Admin: 09/24/17 10:02 Dose: 100 mls/hr Sodium Chloride (Sodium Chloride 0.9%) 1,000 mls @ 40 mls/hr IV .Q24H [facility] Last Admin: 09/23/17 16:51 Dose: 40 mls/hr Metronidazole (Flagyl) 500 mg in 100 mls @ 100 mls/hr IVPB Q8H [facility] Fluconazole 100 mg/ (Miscellaneous) 50 mls @ 100 mls/hr IVPB DAILY [facility] Insulin Aspart (Novolog) 0 unit SC Q6H [facility] PRN Reason: Protocol Last Admin: 09/24/17 12:18 Dose: Not Given Insulin Glargine (Lantus) 10 unit SC HS [facility] Last Admin: 09/16/17 22:00 Dose: 10 unit Lidocaine (Lidoderm) 1 ea TD DAILY [facility] Last Admin: 09/24/17 10:02 Dose: 1 ea Multivitamins/Minerals (Therapeutic-M Tab) 1 tab PO DAILY [facility] Last Admin: 09/24/17 09:54 Dose: Not Given Mupirocin (Bactroban Ointment) 0 gm TOP BID [facility] Last Admin: 09/24/17 10:04 Dose: Not Given Nystatin (Nystop Topical Powder) 1 applic TOP BID [facility] Last Admin: 09/24/17 10:04 Dose: 1 applic Ondansetron HCl (Zofran Tab) 4 mg PO Q8H PRN PRN Reason: Nausea/Vomiting Pantoprazole Sodium (Protonix Inj) 40 mg IVP DAILY [facility] Last Admin: 09/24/17 10:02 Dose: 40 mg Sennosides (Senokot Tab) 8.6 mg PO BID [facility] Last Admin: 09/24/17 09:54 Dose: Not Given Tamsulosin HCl (Flomax) 0.8 mg PO DAILY [facility] Last Admin: 09/24/17 09:53 Dose: Not Given - Labs Labs: 09/24/17 07:06 09/24/17 07:06 PT 26.8 SECONDS (9.7-12.2) H 09/24/17 07:06 INR 2.3 09/24/17 07:06 APTT 35 SECONDS (21-34) H 09/24/17 07:06 - Constitutional Appears: Non-toxic, No Acute Distress - Head Exam Head Exam: ATRAUMATIC, NORMAL INSPECTION, NORMOCEPHALIC - Eye Exam Eye Exam: EOMI, Normal appearance, PERRL - ENT Exam ENT Exam: Mucous Membranes Moist - Neck Exam Neck Exam: Full ROM - Respiratory Exam Respiratory Exam: NORMAL BREATHING PATTERN. absent: Wheezes - Cardiovascular Exam Cardiovascular Exam: +S1, +S2 - GI/Abdominal Exam GI & Abdominal Exam: Soft, Normal Bowel Sounds - Extremities Exam Extremities Exam: Full ROM, Pedal Edema - Neurological Exam Neurological Exam: Awake - Psychiatric Exam Psychiatric exam: Flat Affect - Skin Skin Exam: Normal Color, Warm Assessment and Plan - Assessment and Plan (Free Text) Assessment: PEG tube placement Pt for PEG tube today Patient received FFP and Vitamin K prior to in order to optimize for procedure Anemia To be transfused 1 unit PRBC Monitor Hgb/Hct History of HTN Controlled Blood pressure is currently stable without antihypertensives Was on pressor support in the ICU; currently off Cont to monitor BP CHF; chronic, acute on chronic failure with systolic dysfunction Echo (09/09/2017): LVRF (20%), mild to modeate AR, mild pulmonic valvular regurgitation, global hypokinesis of the LV, and systolic function is moderately to severely impaired A.fibrillation;chronic Rate controlled Eliquis 5mg PO BID Telemetry Acute Respiratory Failure; resolved s/p extubation; tolerating Empirical antibiotics: Cefepime 1gm IVPB Q12H for aspiration PNA proph DM; chronic Accuchecks Q6H ISS (Medium dose protocol) Lantus 10units HS hypoglycemia protocol 09/02/17 HbA1C 7.9; improved from previous record Urinary retention/BPH Tamulosin 0.8 PO daily Electrolyte abnormality Repleted Monitor Prophylaxis: DVT: Eliquis 5mg PO BID GI: Protonix 40mg PO daily, Zofran 4mg PO Q8H prn Pureed diet Daughter is POA- Shelia Joel [phone] Second Daughter ( second contact)- Carmen Jarquin [phone] Kindly keep daughters informed as they are the medical decision makers . They are headed back to [place] this evening. Case management on board. Discussed with attending. All management and planning per Dr. Shaver
[2017-09-24] MEDS: Fluconazole IV 100mg/50 ml NS 50 ML IVPB SCH (18:14)
[2017-09-24] MEDS: Sodium Chloride 0.9% 1,000 ML IV SCH (22:33)
[2017-09-25] MEDS: (Novolog) Insulin Aspart, Recombinant 100 u/ml 10 ml vial SC SCH ×4 (00:26→18:41)
[2017-09-25] MEDS: metroNIDAZOLE IV 500 mg/100 ml 500 MG/100 ML BAG IVPB SCH ×3 (00:30→16:12)
[2017-09-25] MEDS: Albuterol-Ipratrop 3 mg / 0.5 (3 ml) UD INH SCH ×4 (01:22→19:34)
[2017-09-25 07:23] LABS: BASO % 0.1 % (0.0-2.0); EOS % 0.2 % (0.0-4.0); HEMATOCRIT 28.5 % (35.0-51.0); LYMPH # 0.6 K/uL (1.0-4.3); LYMPH % 6.1 % (20.0-40.0); MEAN CELL VOLUME 85.9 fL (80.0-94.0); MEAN CORPUSCULAR HGB CONC 32.6 g/dL (33.0-37.0); MEAN PLATELET VOLUME 11.1 fL (7.2-11.7); MONO # 0.4 K/uL (0.0-0.8); MONO % 3.8 % (0.0-10.0); NRBC % 0.3 % (0.0-2.0); PLATELET COUNT 210 K/uL (130-400); WHITE BLOOD COUNT 10.6 K/uL (4.8-10.8)
[2017-09-25 07:37] LABS: CHLORIDE 115 mmol/L (98-107); SODIUM 148 mmol/L (132-148)
[2017-09-25 07:38] LABS: POTASSIUM 3.1 mmol/L (3.6-5.2)
[2017-09-25 07:40] LABS: ALB/GLOB RATIO 0.4 (1.0-2.1); ALKALINE PHOSPHATASE 134 U/L (38-126); AST/SGOT 14 U/L (17-59); BILIRUBIN,TOTAL 1.2 mg/dL (0.2-1.3); BLOOD UREA NITROGEN 23 mg/dL (9-20); CARBON DIOXIDE 20 mmol/L (22-30); GFR AFRICAN-AMERICAN > 60; GLUCOSE,RANDOM 111 mg/dL (75-110); PHOSPHOROUS 3.1 mg/dL (2.5-4.5); TOTAL PROTEIN 7.5 g/dL (6.3-8.3)
[2017-09-25 07:41] LABS: ALT/SGPT 18 U/L (21-72); CALCIUM 8.7 mg/dl (8.6-10.4); MAGNESIUM 1.8 mg/dL (1.6-2.3)
[2017-09-25 08:53] LABS: LARGE PLATELETS PRESENT; NEUTROPHIL 83 % (50-75); TOTAL CELLS COUNTED 100
[2017-09-25] MEDS ORDERED: Potassium Chloride 20 mEq/15 ml LIQ UD PEG ONE (10:00)
[2017-09-25] MEDS: Lidocaine 5% Patch TD SCH (10:06)
[2017-09-25] MEDS: Multivitamin With Minerals Tab PO SCH (10:06)
[2017-09-25] MEDS: Cefepime IV 1 gm in Dextrose 1 GM/50 ML BAG IVPB SCH ×2 (10:54→22:16)
--- NOTE | 2017-09-25 14:02 | CP.PCM.PN ---
Subjective - Date & Time of Evaluation Date of Evaluation: 09/25/17 Time of Evaluation: 14:00 - Subjective Subjective: Progress note. Attending: Dr. Shaver Pt seen and examined at bedside. NO acute distress. S/P PEG tube. Tube feedings started. Pt demented. ROS unobtainable. Objective - Vital Signs/Intake and Output Vital Signs (last 24 hours): Temp Pulse Resp BP Pulse Ox 97.7 F 110 H 23 117/79 100 09/25/17 07:40 09/25/17 07:40 09/25/17 07:40 09/25/17 10:14 09/25/17 07:40 Intake and Output: 09/25/17 09/25/17 06:59 18:59 Intake Total 1305 Output Total 1050 Balance 255 - Medications Medications: Current Medications Acetaminophen (Tylenol 325mg Tab) 325 mg PO Q6 PRN PRN Reason: Fever >100.4 F Acetaminophen (Tylenol 325mg Tab) 650 mg PO Q4 PRN PRN Reason: Pain, moderate (4-7) Last Admin: 09/22/17 22:00 Dose: 650 mg Albuterol/Ipratropium (Duoneb 3 Mg/0.5 Mg (3 Ml) Ud) 3 ml INH RQ6 [facility] Last Admin: 09/25/17 08:27 Dose: 3 ml Apixaban (Eliquis) 5 mg PO BID [facility] Last Admin: 09/23/17 10:58 Dose: Not Given Emollient Ointment (Vaseline Oint) 5 gm TOP Q8H PRN PRN Reason: Dry skin Last Admin: 09/21/17 10:05 Dose: 5 gm Furosemide (Lasix) 20 mg IVP Q12 [facility] Last Admin: 09/25/17 10:14 Dose: 20 mg Cefepime HCl (Maxipime Iv 1 Gm Premix) 1 gm in 50 mls @ 100 mls/hr IVPB Q12H [facility] Last Admin: 09/25/17 10:54 Dose: 100 mls/hr Metronidazole (Flagyl) 500 mg in 100 mls @ 100 mls/hr IVPB Q8H [facility] Last Admin: 09/25/17 07:39 Dose: 100 mls/hr Fluconazole (Diflucan Iv 100 Mg/50 Ml Ns) 50 mls @ 100 mls/hr IVPB Q24H [facility] Last Admin: 09/24/17 18:14 Dose: 100 mls/hr Insulin Aspart (Novolog) 0 unit SC Q6H [facility] PRN Reason: Protocol Last Admin: 09/25/17 12:33 Dose: 2 unit Insulin Glargine (Lantus) 10 unit SC HS [facility] Last Admin: 09/16/17 22:00 Dose: 10 unit Lidocaine (Lidoderm) 1 ea TD DAILY [facility] Last Admin: 09/25/17 10:06 Dose: 1 ea Multivitamins/Minerals (Therapeutic-M Tab) 1 tab PO DAILY [facility] Last Admin: 09/25/17 10:06 Dose: 1 tab Mupirocin (Bactroban Ointment) 0 gm TOP BID [facility] Last Admin: 09/25/17 10:06 Dose: 1 applic Nystatin (Nystop Topical Powder) 1 applic TOP BID [facility] Last Admin: 09/25/17 10:54 Dose: 1 applic Ondansetron HCl (Zofran Tab) 4 mg PO Q8H PRN PRN Reason: Nausea/Vomiting Pantoprazole Sodium (Protonix Inj) 40 mg IVP DAILY [facility] Last Admin: 09/25/17 10:13 Dose: 40 mg Sennosides (Senokot Tab) 8.6 mg PO BID [facility] Last Admin: 09/25/17 10:06 Dose: 8.6 mg Tamsulosin HCl (Flomax) 0.8 mg PO DAILY [facility] Last Admin: 09/25/17 10:06 Dose: 0.8 mg - Labs Labs: 09/25/17 07:12 09/25/17 07:12 PT 26.8 SECONDS (9.7-12.2) H 09/24/17 07:06 INR 2.3 09/24/17 07:06 APTT 35 SECONDS (21-34) H 09/24/17 07:06 - Constitutional Appears: Non-toxic, No Acute Distress, Chronically Ill - Head Exam Head Exam: ATRAUMATIC, NORMAL INSPECTION, NORMOCEPHALIC - Eye Exam Eye Exam: EOMI - ENT Exam ENT Exam: Mucous Membranes Moist - Neck Exam Neck Exam: Normal Inspection - Respiratory Exam Respiratory Exam: NORMAL BREATHING PATTERN. absent: Respiratory Distress - GI/Abdominal Exam GI & Abdominal Exam: Soft, Normal Bowel Sounds. absent: Tenderness - Exam Exam: Scrotal Swelling. absent: NORMAL INSPECTION - Extremities Exam Extremities Exam: Full ROM, Normal Inspection - Neurological Exam Neurological Exam: Altered. absent: Alert, Oriented x3 - Psychiatric Exam Additional comments: Unable to assess - Skin Skin Exam: Dry, Intact, Normal Color, Warm Assessment and Plan - Assessment and Plan (Free Text) Assessment: This is a 77 yo male with Decreased oral intake; PEG tube placement Pt s/p peg tube. Patient received FFP and Vitamin K prior to in order to optimize for procedure Anemia Monitor Hgb/Hct History of HTN Controlled Blood pressure is currently stable without antihypertensives Was on pressor support in the ICU; currently off Cont to monitor BP CHF; chronic, acute on chronic failure with systolic dysfunction Echo (09/09/2017): LVRF (20%), mild to modeate AR, mild pulmonic valvular regurgitation, global hypokinesis of the LV, and systolic function is moderately to severely impaired A.fibrillation;chronic Rate controlled Eliquis 5mg PO BID Telemetry Acute Respiratory Failure; resolved s/p extubation; tolerating Empirical antibiotics: Cefepime 1gm IVPB Q12H for aspiration PNA proph DM; chronic Accuchecks Q6H ISS (Medium dose protocol) Lantus 10units HS hypoglycemia protocol 09/02/17 HbA1C 7.9; improved from previous record Urinary retention/BPH continue flomax daily Electrolyte abnormality Repleted Monitor Prophylaxis: DVT: Eliquis 5mg PO BID GI: Protonix 40mg PO daily, Zofran 4mg PO Q8H prn Daughter is POA- Shelia Joel [phone] Second Daughter ( second contact)- Carmen Jarquin [phone] Case management on board. Discussed with attending. All management and planning per Dr. Shaver
[2017-09-25] MEDS: Fluconazole IV 100mg/50 ml NS 50 ML IVPB SCH (18:02)
[2017-09-26] MEDS: metroNIDAZOLE IV 500 mg/100 ml 500 MG/100 ML BAG IVPB SCH ×3 (00:11→18:36)
[2017-09-26] MEDS: (Novolog) Insulin Aspart, Recombinant 100 u/ml 10 ml vial SC SCH ×4 (00:16→18:00)
[2017-09-26] MEDS: Albuterol-Ipratrop 3 mg / 0.5 (3 ml) UD INH SCH ×4 (01:31→19:32)
[2017-09-26 07:40] LABS: BASO % 0.2 % (0.0-2.0); HEMATOCRIT 30.1 % (35.0-51.0); LYMPH # 0.8 K/uL (1.0-4.3); LYMPH % 5.3 % (20.0-40.0); MEAN CELL VOLUME 86.7 fL (80.0-94.0); MEAN CORPUSCULAR HEMOGLOBIN 26.8 pg (27.0-31.0); MEAN CORPUSCULAR HGB CONC 30.9 g/dL (33.0-37.0); MEAN PLATELET VOLUME 11.5 fL (7.2-11.7); MONO # 0.6 K/uL (0.0-0.8); MONO % 4.4 % (0.0-10.0); NRBC % 0.3 % (0.0-2.0); PLATELET COUNT 224 K/uL (130-400); RED CELL DISTRIBUTION WIDTH 18.4 % (11.5-14.5); WHITE BLOOD COUNT 14.3 K/uL (4.8-10.8)
[2017-09-26 08:02] LABS: CHLORIDE 116 mmol/L (98-107)
[2017-09-26 08:03] LABS: POTASSIUM 3.4 mmol/L (3.6-5.2); SODIUM 145 mmol/L (132-148)
[2017-09-26 08:05] LABS: ALB/GLOB RATIO 0.5 (1.0-2.1); ALKALINE PHOSPHATASE 163 U/L (38-126); ALT/SGPT 14 U/L (21-72); AST/SGOT 21 U/L (17-59); BILIRUBIN,TOTAL 1.5 mg/dL (0.2-1.3); BLOOD UREA NITROGEN 31 mg/dL (9-20); CARBON DIOXIDE 18 mmol/L (22-30); GFR AFRICAN-AMERICAN > 60; GLUCOSE,RANDOM 238 mg/dL (75-110)
[2017-09-26 08:06] LABS: CALCIUM 8.3 mg/dl (8.6-10.4); MAGNESIUM 1.7 mg/dL (1.6-2.3); PHOSPHOROUS 2.5 mg/dL (2.5-4.5)
--- NOTE | 2017-09-26 08:20 | PN ---
DATE: LOCATION: [address] [place] [address]. SUBJECTIVE: This is a 77-year-old male tolerating PEG feeding well without reported well bleeding or resistant. No reported complaint of significant abdominal pain. The entire chart is reviewed including, but not limited to the most recent lab and radiology study results, current and previous medication list, current and previous medical events. Case discussed with staff at length. Today's lab showed hemoglobin low at 9.3 with hematocrit of 28.5, but normal platelet count with low potassium of 3.1, low CO2 content 20 indicative of metabolic acidosis with mildly elevated BUN 23, blood glucose level 159 with low albumin of 2.2. PHYSICAL EXAMINATION: GENERAL: A 77-year-old male. VITAL SIGNS: Afebrile with heart rate of 102, respiratory rate 20-22, and blood pressure of 114/74. HEENT: Show pale, dry mucoid membrane, nonicteric sclerae. LUNGS: Few scattered crepitation. Decreased air entry at bases. HEART: Positive S1 and S2. ABDOMEN: Soft, bowel sounds are present, PEG tube is in place withe clean wound covered with clean dressing. No evidence anterior abdominal wall cellulitis. EXTREMITIES: Without significant edema, clubbing, or cyanosis. NEUROLOGIC: No new reported neurological deficits, sensory or motor. VASCULAR: Peripheral pulses are present bilaterally, but weak. As we mentioned that no reported nausea or vomiting and the patient is still n.p.o. for now. IMPRESSION: 1. Dysphagia. 2. Malnutrition. 3. Hypoalbuminemia. 4. Status post percutaneous endoscopic gastrostomy insertion. 5. Failure to thrive. 6. Anemia secondary to above. 7. Known history of hypertension, congestive heart failure with atrial fibrillation. 8. Respiratory insufficiency. 9. Poorly controlled diabetes mellitus. 10. Known history of benign prostatic hypertrophy. 11. Electrolyte imbalance per history. SUGGESTIONS: 1. Continue current management. 2. Increase rate of feeding as tolerated. 3. Blood transfusion as needed to keep hemoglobin around 10 g percent. Further recommendation to follow. Elissa Roman MD cc: Elissa Roman MD
[2017-09-26] MEDS: Lidocaine 5% Patch TD SCH (09:48)
[2017-09-26 09:49] LABS: NEUTROPHIL 85 % (50-75); TOTAL CELLS COUNTED 100
[2017-09-26] MEDS: Multivitamin With Minerals Tab PO SCH (09:49)
[2017-09-26 09:50] LABS: GIANT PLATELETS PRESENT; LARGE PLATELETS PRESENT
[2017-09-26] MEDS: Cefepime IV 1 gm in Dextrose 1 GM/50 ML BAG IVPB SCH ×2 (10:15→22:50)
--- NOTE | 2017-09-26 10:59 | CP.PCM.PN ---
Subjective - Date & Time of Evaluation Date of Evaluation: 09/26/17 Time of Evaluation: 11:00 - Subjective Subjective: PROGRESS NOTE. Service for DR. MURRIETA Pt seen and examined at bedside. Patient was in acute distress, tachypneic and tachycardic. Rapid response called. CXR, ABG, EKG, trop ordered stat. ICU evaluation called. Objective - Vital Signs/Intake and Output Vital Signs (last 24 hours): Temp Pulse Resp BP Pulse Ox 98.2 F 121 H 20 93/61 L 98 09/26/17 08:46 09/26/17 08:46 09/26/17 08:46 09/26/17 09:47 09/26/17 08:46 Intake and Output: 09/26/17 09/26/17 06:59 18:59 Intake Total 520 460 Output Total 100 150 Balance 420 310 - Medications Medications: Current Medications Acetaminophen (Tylenol 325mg Tab) 325 mg PO Q6 PRN PRN Reason: Fever >100.4 F Acetaminophen (Tylenol 325mg Tab) 650 mg PO Q4 PRN PRN Reason: Pain, moderate (4-7) Last Admin: 09/22/17 22:00 Dose: 650 mg Albuterol/Ipratropium (Duoneb 3 Mg/0.5 Mg (3 Ml) Ud) 3 ml INH RQ6 [facility] Last Admin: 09/26/17 07:37 Dose: 3 ml Apixaban (Eliquis) 5 mg PO BID [facility] Last Admin: 09/23/17 10:58 Dose: Not Given Carvedilol (Coreg) 3.125 mg PO BID [facility] Emollient Ointment (Vaseline Oint) 5 gm TOP Q8H PRN PRN Reason: Dry skin Last Admin: 09/21/17 10:05 Dose: 5 gm Furosemide (Lasix) 20 mg IVP Q12 [facility] Last Admin: 09/26/17 09:47 Dose: Not Given Cefepime HCl (Maxipime Iv 1 Gm Premix) 1 gm in 50 mls @ 100 mls/hr IVPB Q12H [facility] Last Admin: 09/26/17 10:15 Dose: 100 mls/hr Metronidazole (Flagyl) 500 mg in 100 mls @ 100 mls/hr IVPB Q8H [facility] Last Admin: 09/26/17 08:41 Dose: 100 mls/hr Fluconazole (Diflucan Iv 100 Mg/50 Ml Ns) 50 mls @ 100 mls/hr IVPB Q24H [facility] Last Admin: 09/25/17 18:02 Dose: 100 mls/hr Potassium Chloride (Potassium Chloride 10 Meq/100 Ml) 20 meq in 200 mls @ 50 mls/hr IVPB ONCE ONE Stop: 09/26/17 12:59 Last Admin: 09/26/17 09:50 Dose: 50 mls/hr Insulin Aspart (Novolog) 0 unit SC Q6H [facility] PRN Reason: Protocol Last Admin: 09/26/17 06:31 Dose: 4 unit Insulin Glargine (Lantus) 10 unit SC HS [facility] Last Admin: 09/16/17 22:00 Dose: 10 unit Lidocaine (Lidoderm) 1 ea TD DAILY [facility] Last Admin: 09/26/17 09:48 Dose: 1 ea Multivitamins/Minerals (Therapeutic-M Tab) 1 tab PO DAILY [facility] Last Admin: 09/26/17 09:49 Dose: 1 tab Mupirocin (Bactroban Ointment) 0 gm TOP BID [facility] Last Admin: 09/26/17 09:48 Dose: 1 applic Nystatin (Nystop Topical Powder) 1 applic TOP BID [facility] Last Admin: 09/26/17 09:49 Dose: 1 applic Ondansetron HCl (Zofran Tab) 4 mg PO Q8H PRN PRN Reason: Nausea/Vomiting Pantoprazole Sodium (Protonix Inj) 40 mg IVP DAILY [facility] Last Admin: 09/26/17 09:49 Dose: 40 mg Sennosides (Senokot Tab) 8.6 mg PO BID [facility] Last Admin: 09/26/17 09:49 Dose: 8.6 mg Tamsulosin HCl (Flomax) 0.8 mg PO DAILY [facility] Last Admin: 09/26/17 09:49 Dose: 0.8 mg - Labs Labs: 09/26/17 07:03 09/26/17 07:03 PT 26.8 SECONDS (9.7-12.2) H 09/24/17 07:06 INR 2.3 09/24/17 07:06 APTT 35 SECONDS (21-34) H 09/24/17 07:06 - Constitutional Appears: In Acute Distress, Cachectic, Chronically Ill - Head Exam Head Exam: ATRAUMATIC, NORMAL INSPECTION, NORMOCEPHALIC - Eye Exam Eye Exam: EOMI - ENT Exam ENT Exam: Mucous Membranes Moist - Neck Exam Neck Exam: Normal Inspection - Respiratory Exam Respiratory Exam: Rales, Respiratory Distress - Cardiovascular Exam Cardiovascular Exam: Tachycardia, +S1, +S2 - GI/Abdominal Exam GI & Abdominal Exam: Soft, Normal Bowel Sounds. absent: Tenderness - Exam Exam: Scrotal Swelling - Extremities Exam Extremities Exam: Pedal Edema - Neurological Exam Neurological Exam: Altered - Psychiatric Exam Additional comments: unable to assess - Skin Skin Exam: Dry, Intact, Normal Color, Warm Assessment and Plan - Assessment and Plan (Free Text) Assessment: This is a 77 yo male with Tachypnea/tachycardia -rapid response called -CXR shows B/L infiltrates; heart failure; worse than previous -EKG shows sinus tachycardia -ABG shows no hypoxia or acidosis -troponin ordered -will transfer to ICU for inotropic support -will order BIPAP: 09/04/50 -no intubation at this time Decreased oral intake; PEG tube placement Pt s/p peg tube. Patient received FFP and Vitamin K prior to in order to optimize for procedure Anemia Monitor Hgb/Hct History of HTN Controlled Blood pressure is currently stable without antihypertensives Was on pressor support in the ICU; currently off Cont to monitor BP hypotensive this morning; lasix held CHF; chronic, acute on chronic failure with systolic dysfunction Echo (09/09/2017): LVRF (20%), mild to modeate AR, mild pulmonic valvular regurgitation, global hypokinesis of the LV, and systolic function is moderately to severely impaired A.fibrillation;chronic Tachycardic today will transfer down to ICU but sinus rhythm today Eliquis 5mg PO BID Telemetry Hx of multiple myeloma -patient has port -not on active chemo Acute Respiratory Failure; resolved s/p extubation; tolerating Empirical antibiotics: Cefepime 1gm IVPB Q12H for aspiration PNA proph DM; chronic Accuchecks Q6H ISS (Medium dose protocol) Lantus 10units HS hypoglycemia protocol 09/02/17 HbA1C 7.9; improved from previous record Urinary retention/BPH continue flomax daily Electrolyte abnormality Repleted Monitor Prophylaxis: DVT: Eliquis 5mg PO BID GI: Protonix 40mg PO daily, Zofran 4mg PO Q8H prn Daughter is POA- Shelia Joel [phone] Second Daughter ( second contact)- Carmen Jarquin [phone] Case management on board. Discussed with attending. All management and planning per Dr. Murrieta
[2017-09-26 11:16] LABS: ABG ALLEN TEST PO; DRAW SITE 6RRA
--- NOTE | 2017-09-26 12:27 | PN ---
DATE: LOCATION: [facility], bed B. SUBJECTIVE: This 77-year-old male seen and examined in rounds, tolerating PEG feeding well without reported residual bleeding or resistant. No report of chest pain or palpitation recently. The entire chart is reviewed including, but not limited to the most recent lab and the radiology study results, current and the previous medication list, and current and previous medical events, is discussed at length with the staff on the floor. The patient is unable to give any further information. Today lab shows white blood cell elevated to 14.3 with low hemoglobin 9.3, hematocrit 30.1, but with normal platelet count with abnormal ABGs with low potassium 3.4, low CO2 content of 18 indicative of metabolic acidosis with increased BUN, but normal creatinine with blood glucose level 233, and the low calcium 8.3 with mildly elevated total bilirubin 1.5 with elevated alkaline phosphatase, but low albumin 2.3. PHYSICAL EXAMINATION: GENERAL: This is a 77-year-old male. VITAL SIGNS: Afebrile with a reported pulse of 112, blood pressure of 98/62, respiratory rate 20/22. HEENT: Showed pale dry mucous membrane. Mildly icteric sclerae. LUNGS: Few scattered crepitation. Decreased air entry at bases. HEART: S1 and S2 with increased rate. ABDOMEN: Soft. Bowel sounds are present. No mass or organomegaly. No rebound tenderness or guarding. EXTREMITIES: No significant edema, clubbing, or cyanosis. IMPRESSION: 1. Dysphagia. 2. Hypoalbuminemia, hypoproteinemia. 3. Malnutrition. 4. Status post percutaneous endoscopic gastrostomy insertion. 5. Failure to thrive. 6. Known history of hypertension, congestive heart failure with atrial fibrillation. 7. Dehydration with mild renal insufficiency. 8. Recent history of respiratory insufficiency, gradually improving. 9. Anemia secondary to above. 10. Known history of benign prostatic hypertrophy. 11. Poorly controlled diabetes mellitus. 12. Electrolyte imbalance, gradually improved. SUGGESTION: 1. I agree with your plan. 2. Subsequent increase of feeding process. 3. Correcting underlying electrolyte imbalance. 4. Follow up cancer markers including CEA and PSA. 5. Further recommendations to follow as Dr. Roman Elissa Roman MD cc: Elissa Roman MD [facility] # [id number]
--- NOTE | 2017-09-26 13:46 | RAD ---
HISTORY: tachy, chf COMPARISON: Chest x-ray performed 09/18/17 TECHNIQUE: Chest, one view. FINDINGS: Right-sided MediPort extends to the expected location of the proximal right atrium. LUNGS: Pulmonary venous congestion. Biapical pleural thickening. Please note that chest x-ray has limited sensitivity for the detection of pulmonary masses. PLEURA: Small to moderate layering right-sided pleural effusion. No definite pneumothorax . CARDIOVASCULAR: Cardiomegaly. OSSEOUS STRUCTURES: Degenerative changes of the spine. VISUALIZED UPPER ABDOMEN: Unremarkable. OTHER FINDINGS: None. IMPRESSION: Small to moderate layering right pleural effusion. Moderate pulmonary venous congestion. Biapical pleural thickening. Right-sided MediPort extends expected location of the proximal right atrium. Cardiomegaly.
--- NOTE | 2017-09-26 15:56 | CP.PCM.CON ---
<Ying Mcnamara - Last Filed: 09/26/17 17:13> History of Present Illness - History of Present Illness History of Present Illness: 77 M w/ PMHx of multiple myeloma, HTN, CHF, and diabetes admitted to med/ surg on 09/11 for inability to urinate was reported to be tachypneic and tachycardic and rapid response was called with request for ICU evaluation. Patient previously had a rapid called for respiratory arrest and hypotension 09/14/17. Unable to obtain full ROS due to clinical situation and language barrier. History obtained from previous medicine notes. PMHx: HTN, CHF, DM, multiple myeloma, BPH Psurghx: left hip surgery Socialhx: no tobacco, alcohol, drugs Home Meds: acetaminophen 325mg PO Q6 PRN fever duoneb 3mg/0.5 mg 3mL INH RQ6 coreg 3.125 mg PO BID cefepime 1gm @100mls/hr IVPB Q12h fluconazole 100mg/50 mLs @ 100 mls/hr IVPB Q12h lasix 20 mg IVP Q12h lidoderm 1 TD QD flagyl 500mg in 100mls @100mls/hr IVPB Q8h multivitamin 1 PO QD mupirocin Topical BID nystatin 1 application topical BID zofran 4mg PO Q8h PRN protonix 40mg IVP QD senokot 8.6 mg PO BID flomax 0.8 mg PO QD Review of Systems - Review of Systems Systems not reviewed;Unavailable: Respiratory Distress - Cardiovascular Cardiovascular: Dyspnea. absent: Chest Pain - Respiratory Respiratory: Dyspnea - Gastrointestinal Gastrointestinal: absent: Abdominal Pain Past Patient History - Past Medical History & Family History Past Medical History?: Yes - Past Social History Smoking Status: Never Smoked - CARDIAC Hx Congestive Heart Failure: Yes Hx Hypertension: Yes - ENDOCRINE/METABOLIC Hx Diabetes Mellitus Type 2: Yes - HEMATOLOGICAL/ONCOLOGICAL Hx Anemia: Yes - MUSCULOSKELETAL/RHEUMATOLOGICAL Hx Falls: Yes - PSYCHIATRIC Hx Substance Use: No - SURGICAL HISTORY Hx Surgeries: Yes Hx Vascular Surgery: Yes Hx Vascular Access Device: Yes (Rt subc port-a-cath) Other/Comment: Left femur fracture MAY 2017. Rt subc port-a-cath inserted on @ [facility] [place] - ANESTHESIA Hx Anesthesia: Yes Hx Anesthesia Reactions: No Meds Allergies/Adverse Reactions: Allergies Allergy/AdvReac Type Severity Reaction Status Date / Time No Known Allergies Allergy Verified 08/30/17 13:30 - Medications Medications: Current Medications Acetaminophen (Tylenol 325mg Tab) 325 mg PO Q6 PRN PRN Reason: Fever >100.4 F Acetaminophen (Tylenol 325mg Tab) 650 mg PO Q4 PRN PRN Reason: Pain, moderate (4-7) Last Admin: 09/22/17 22:00 Dose: 650 mg Albuterol/Ipratropium (Duoneb 3 Mg/0.5 Mg (3 Ml) Ud) 3 ml INH RQ6 [facility] Last Admin: 09/26/17 14:00 Dose: 3 ml Apixaban (Eliquis) 5 mg PO BID [facility] Last Admin: 09/23/17 10:58 Dose: Not Given Carvedilol (Coreg) 3.125 mg PO BID [facility] Emollient Ointment (Vaseline Oint) 5 gm TOP Q8H PRN PRN Reason: Dry skin Last Admin: 09/21/17 10:05 Dose: 5 gm Furosemide (Lasix) 20 mg IVP Q12 [facility] Last Admin: 09/26/17 09:47 Dose: Not Given Cefepime HCl (Maxipime Iv 1 Gm Premix) 1 gm in 50 mls @ 100 mls/hr IVPB Q12H [facility] Last Admin: 09/26/17 10:15 Dose: 100 mls/hr Metronidazole (Flagyl) 500 mg in 100 mls @ 100 mls/hr IVPB Q8H [facility] Last Admin: 09/26/17 08:41 Dose: 100 mls/hr Fluconazole (Diflucan Iv 100 Mg/50 Ml Ns) 50 mls @ 100 mls/hr IVPB Q24H [facility] Last Admin: 09/25/17 18:02 Dose: 100 mls/hr Insulin Aspart (Novolog) 0 unit SC Q6H [facility] PRN Reason: Protocol Last Admin: 09/26/17 12:00 Dose: Not Given Insulin Glargine (Lantus) 10 unit SC HS [facility] Last Admin: 09/16/17 22:00 Dose: 10 unit Lidocaine (Lidoderm) 1 ea TD DAILY [facility] Last Admin: 09/26/17 09:48 Dose: 1 ea Multivitamins/Minerals (Therapeutic-M Tab) 1 tab PO DAILY [facility] Last Admin: 09/26/17 09:49 Dose: 1 tab Mupirocin (Bactroban Ointment) 0 gm TOP BID [facility] Last Admin: 09/26/17 09:48 Dose: 1 applic Nystatin (Nystop Topical Powder) 1 applic TOP BID [facility] Last Admin: 09/26/17 09:49 Dose: 1 applic Ondansetron HCl (Zofran Tab) 4 mg PO Q8H PRN PRN Reason: Nausea/Vomiting Pantoprazole Sodium (Protonix Inj) 40 mg IVP DAILY [facility] Last Admin: 09/26/17 09:49 Dose: 40 mg Sennosides (Senokot Tab) 8.6 mg PO BID [facility] Last Admin: 09/26/17 09:49 Dose: 8.6 mg Tamsulosin HCl (Flomax) 0.8 mg PO DAILY [facility] Last Admin: 09/26/17 09:49 Dose: 0.8 mg Physical Exam - Constitutional Appears: In Acute Distress, Cachectic - Head Exam Head Exam: ATRAUMATIC, NORMAL INSPECTION, NORMOCEPHALIC - Eye Exam Eye Exam: EOMI, Normal appearance - ENT Exam ENT Exam: Mucous Membranes Moist - Respiratory Exam Respiratory Exam: Accessory Muscle Use, Decreased Breath Sounds, Respiratory Distress - Cardiovascular Exam Cardiovascular Exam: Tachycardia, +S1, +S2 - GI/Abdominal Exam GI & Abdominal Exam: Soft. absent: Tenderness - Extremities Exam Extremities exam: Positive for: pedal edema (3+ pitting edema b/l) - Neurological Exam Neurological exam: Alert - Skin Skin Exam: Intact, Normal Color, Warm Results - Vital Signs Recent Vital Signs: Last Vital Signs Temp 98.2 F 09/26/17 08:46 Pulse 114 H 09/26/17 13:50 Resp 20 09/26/17 08:46 BP 93/61 L 09/26/17 09:47 Pulse Ox 98 09/26/17 08:46 - Labs Result Diagrams: 09/26/17 07:03 09/26/17 07:03 Labs: Laboratory Results - last 24 hr 09/25/17 09/26/17 09/26/17 18:23 00:14 06:25 WBC RBC Hgb Hct MCV MCH MCHC RDW Plt Count MPV Neut % (Auto) Lymph % (Auto) Sawyer % (Auto) Eos % (Auto) Baso % (Auto) Neut # Lymph # Sawyer # Eos # Baso # Neutrophils % (Manual) Band Neutrophils % Lymphocytes % (Manual) Monocytes % (Manual) Platelet Estimate Large Platelets Giant Platelets Hypochromasia (manual) Anisocytosis (manual) Puncture Site pCO2 pO2 HCO3 ABG pH ABG Total CO2 ABG O2 Saturation ABG Base Excess Elio Test ABG Potassium A-a O2 Difference Respiratory Index Glucose Lactate Liter Flow FiO2 Sodium Potassium Chloride Carbon Dioxide Anion Gap BUN Creatinine Est GFR ( Amer) Est GFR (Non-Af Amer) POC Glucose (mg/dL) 169 H 190 H 290 H Random Glucose Calcium Phosphorus Magnesium Total Bilirubin AST ALT Alkaline Phosphatase Total Creatine Kinase CK-MB (Mass) Troponin I Troponin I, Quant Total Protein Albumin Globulin Albumin/Globulin Ratio Arterial Blood Potassium 09/26/17 09/26/17 09/26/17 07:03 07:03 09:44 WBC 14.3 H RBC 3.47 L Hgb 9.3 L Hct 30.1 L MCV 86.7 MCH 26.8 L MCHC 30.9 L RDW 18.4 H Plt Count 224 MPV 11.5 Neut % (Auto) 90.1 H Lymph % (Auto) 5.3 L Sawyer % (Auto) 4.4 Eos % (Auto) 0.0 Baso % (Auto) 0.2 Neut # 12.9 H Lymph # 0.8 L Sawyer # 0.6 Eos # 0.0 Baso # 0.0 Neutrophils % (Manual) 85 H Band Neutrophils % 8 H Lymphocytes % (Manual) 4 L Monocytes % (Manual) 3 Platelet Estimate Normal Large Platelets Present Giant Platelets Present Hypochromasia (manual) Slight Anisocytosis (manual) Slight Puncture Site pCO2 pO2 HCO3 ABG pH ABG Total CO2 ABG O2 Saturation ABG Base Excess Elio Test ABG Potassium A-a O2 Difference Respiratory Index Glucose Lactate Liter Flow FiO2 Sodium 145 Potassium 3.4 L Chloride 116 H Carbon Dioxide 18 L Anion Gap 14 BUN 31 H Creatinine 1.0 Est GFR ( Amer) > 60 Est GFR (Non-Af Amer) > 60 POC Glucose (mg/dL) Random Glucose 238 H Calcium 8.3 L Phosphorus 2.5 Magnesium 1.7 Total Bilirubin 1.5 H AST 21 ALT 14 L D Alkaline Phosphatase 163 H D Total Creatine Kinase CK-MB (Mass) Troponin I Cancelled 0.0460 Troponin I, Quant Total Protein 7.0 Albumin 2.3 L Globulin 4.7 H Albumin/Globulin Ratio 0.5 L Arterial Blood Potassium 09/26/17 09/26/17 09/26/17 10:49 11:12 11:46 WBC RBC Hgb Hct MCV MCH MCHC RDW Plt Count MPV Neut % (Auto) Lymph % (Auto) Sawyer % (Auto) Eos % (Auto) Baso % (Auto) Neut # Lymph # Sawyer # Eos # Baso # Neutrophils % (Manual) Band Neutrophils % Lymphocytes % (Manual) Monocytes % (Manual) Platelet Estimate Large Platelets Giant Platelets Hypochromasia (manual) Anisocytosis (manual) Puncture Site 6rra pCO2 26 L pO2 107 H HCO3 23.9 ABG pH 7.50 H ABG Total CO2 21.1 L ABG O2 Saturation 99.9 H ABG Base Excess -1.4 Elio Test Po ABG Potassium 3.2 L A-a O2 Difference 82.0 Respiratory Index 0.8 Glucose 232 H Lactate 1.3 Liter Flow 3.0 FiO2 31.0 Sodium 150.0 H Potassium Chloride 123.0 H Carbon Dioxide Anion Gap BUN Creatinine Est GFR ( Amer) Est GFR (Non-Af Amer) POC Glucose (mg/dL) 233 H Random Glucose Calcium Phosphorus Magnesium Total Bilirubin AST ALT Alkaline Phosphatase Total Creatine Kinase 22 L CK-MB (Mass) 0.23 Troponin I Troponin I, Quant 0.0440 Total Protein Albumin Globulin Albumin/Globulin Ratio Arterial Blood Potassium 3.2 L 09/26/17 15:10 WBC RBC Hgb Hct MCV MCH MCHC RDW Plt Count MPV Neut % (Auto) Lymph % (Auto) Sawyer % (Auto) Eos % (Auto) Baso % (Auto) Neut # Lymph # Sawyer # Eos # Baso # Neutrophils % (Manual) Band Neutrophils % Lymphocytes % (Manual) Monocytes % (Manual) Platelet Estimate Large Platelets Giant Platelets Hypochromasia (manual) Anisocytosis (manual) Puncture Site pCO2 pO2 HCO3 ABG pH ABG Total CO2 ABG O2 Saturation ABG Base Excess Elio Test ABG Potassium A-a O2 Difference Respiratory Index Glucose Lactate Liter Flow FiO2 Sodium Potassium Chloride Carbon Dioxide Anion Gap BUN Creatinine Est GFR ( Amer) Est GFR (Non-Af Amer) POC Glucose (mg/dL) 230 H Random Glucose Calcium Phosphorus Magnesium Total Bilirubin AST ALT Alkaline Phosphatase Total Creatine Kinase CK-MB (Mass) Troponin I Troponin I, Quant Total Protein Albumin Globulin Albumin/Globulin Ratio Arterial Blood Potassium Assessment & Plan - Assessment and Plan (Free Text) Assessment: 77 M w/ PMHx of multiple myeloma, HTN, Diabetes, BPH and CHF admitted for penile swelling and inability to urinate on 09/11/17. On 09/26 was reported to be tachypneic and rapid response was called, patient in respiratory distress, put on BiPAP and admitted to ICU. Neuro: Intact Cardio: hx of HTN, chronic atrial fibrillation, CHF, hemodynamically unstable -CK-MB 0.23, Troponin 0.0440 -Echo 09/09/17 showed evidence of moderate to severe systolic functional impairment (LVEF 20%) -Labetalol, hold if systolic <100 -hypotension -consider inotropic medications if patient remains hemodynamically unstable despite intervention Pulm: Respiratory distress secondary to likely aspiration pneumonia -WBC at 14.3 with 8 bands -CXR 09/26/17 showed bilateral lower lobe infiltrates consistent with pneumonia vs. atelectasis -BiPAP at 09/04/50 to decrease work of breathing, saturation is stable at this time -will defer endotracheal intubation at this time -continue antibiotics cefepime, fluconazole, flagyl GI: possible dysphagia -hold PEG feedings at this time to reduce aspiration risk Nephro: -BUN 31, Cr 1.0 -continue to monitor : hx of BPH -urine cx Endo: diabetes -hold lantus and novolog because feedings held Heme: moderate normocytic anemia, history of multiple myeloma -no active chemotherapy at this time ID: -f/u blood and urine cx -continue antibiotics cefepime, fluconazole, flagyl PPx: -DVT prophylaxis: INR 2.3, no chemical prophylaxis -continue SCDs <Cooper Torre - Last Filed: 09/26/17 17:39> Meds - Medications Medications: Current Medications Acetaminophen (Tylenol 325mg Tab) 325 mg PO Q6 PRN PRN Reason: Fever >100.4 F Acetaminophen (Tylenol 325mg Tab) 650 mg PO Q4 PRN PRN Reason: Pain, moderate (4-7) Last Admin: 09/22/17 22:00 Dose: 650 mg Albuterol/Ipratropium (Duoneb 3 Mg/0.5 Mg (3 Ml) Ud) 3 ml INH RQ6 [facility] Last Admin: 09/26/17 14:00 Dose: 3 ml Apixaban (Eliquis) 5 mg PO BID [facility] Last Admin: 09/23/17 10:58 Dose: Not Given Carvedilol (Coreg) 3.125 mg PO BID [facility] Emollient Ointment (Vaseline Oint) 5 gm TOP Q8H PRN PRN Reason: Dry skin Last Admin: 09/21/17 10:05 Dose: 5 gm Furosemide (Lasix) 20 mg IVP Q12 [facility] Last Admin: 09/26/17 09:47 Dose: Not Given Cefepime HCl (Maxipime Iv 1 Gm Premix) 1 gm in 50 mls @ 100 mls/hr IVPB Q12H [facility] Last Admin: 09/26/17 10:15 Dose: 100 mls/hr Metronidazole (Flagyl) 500 mg in 100 mls @ 100 mls/hr IVPB Q8H [facility] Last Admin: 09/26/17 08:41 Dose: 100 mls/hr Fluconazole (Diflucan Iv 100 Mg/50 Ml Ns) 50 mls @ 100 mls/hr IVPB Q24H [facility] Last Admin: 09/25/17 18:02 Dose: 100 mls/hr Insulin Aspart (Novolog) 0 unit SC Q6H [facility] PRN Reason: Protocol Last Admin: 09/26/17 12:00 Dose: Not Given Insulin Glargine (Lantus) 10 unit SC HS [facility] Last Admin: 09/16/17 22:00 Dose: 10 unit Lidocaine (Lidoderm) 1 ea TD DAILY [facility] Last Admin: 09/26/17 09:48 Dose: 1 ea Multivitamins/Minerals (Therapeutic-M Tab) 1 tab PO DAILY [facility] Last Admin: 09/26/17 09:49 Dose: 1 tab Mupirocin (Bactroban Ointment) 0 gm TOP BID [facility] Last Admin: 09/26/17 09:48 Dose: 1 applic Nystatin (Nystop Topical Powder) 1 applic TOP BID [facility] Last Admin: 09/26/17 09:49 Dose: 1 applic Ondansetron HCl (Zofran Tab) 4 mg PO Q8H PRN PRN Reason: Nausea/Vomiting Pantoprazole Sodium (Protonix Inj) 40 mg IVP DAILY [facility] Last Admin: 09/26/17 09:49 Dose: 40 mg Sennosides (Senokot Tab) 8.6 mg PO BID [facility] Last Admin: 09/26/17 09:49 Dose: 8.6 mg Tamsulosin HCl (Flomax) 0.8 mg PO DAILY [facility] Last Admin: 09/26/17 09:49 Dose: 0.8 mg Results - Vital Signs Recent Vital Signs: Last Vital Signs Temp 98.2 F 09/26/17 08:46 Pulse 115 H 09/26/17 16:45 Resp 20 09/26/17 08:46 BP 93/61 L 09/26/17 09:47 Pulse Ox 98 09/26/17 08:46 - Labs Result Diagrams: 09/26/17 07:03 09/26/17 07:03 Labs: Laboratory Results - last 24 hr 09/25/17 09/26/17 09/26/17 18:23 00:14 06:25 WBC RBC Hgb Hct MCV MCH MCHC RDW Plt Count MPV Neut % (Auto) Lymph % (Auto) Sawyer % (Auto) Eos % (Auto) Baso % (Auto) Neut # Lymph # Sawyer # Eos # Baso # Neutrophils % (Manual) Band Neutrophils % Lymphocytes % (Manual) Monocytes % (Manual) Platelet Estimate Large Platelets Giant Platelets Hypochromasia (manual) Anisocytosis (manual) Puncture Site pCO2 pO2 HCO3 ABG pH ABG Total CO2 ABG O2 Saturation ABG Base Excess Elio Test ABG Potassium A-a O2 Difference Respiratory Index Glucose Lactate Liter Flow FiO2 Inspiratory BiPAP Expiratory BiPAP Sodium Potassium Chloride Carbon Dioxide Anion Gap BUN Creatinine Est GFR ( Amer) Est GFR (Non-Af Amer) POC Glucose (mg/dL) 169 H 190 H 290 H Random Glucose Calcium Phosphorus Magnesium Total Bilirubin AST ALT Alkaline Phosphatase Total Creatine Kinase CK-MB (Mass) Troponin I Troponin I, Quant Total Protein Albumin Globulin Albumin/Globulin Ratio Arterial Blood Potassium 09/26/17 09/26/17 09/26/17 07:03 07:03 09:44 WBC 14.3 H RBC 3.47 L Hgb 9.3 L Hct 30.1 L MCV 86.7 MCH 26.8 L MCHC 30.9 L RDW 18.4 H Plt Count 224 MPV 11.5 Neut % (Auto) 90.1 H Lymph % (Auto) 5.3 L Sawyer % (Auto) 4.4 Eos % (Auto) 0.0 Baso % (Auto) 0.2 Neut # 12.9 H Lymph # 0.8 L Sawyer # 0.6 Eos # 0.0 Baso # 0.0 Neutrophils % (Manual) 85 H Band Neutrophils % 8 H Lymphocytes % (Manual) 4 L Monocytes % (Manual) 3 Platelet Estimate Normal Large Platelets Present Giant Platelets Present Hypochromasia (manual) Slight Anisocytosis (manual) Slight Puncture Site pCO2 pO2 HCO3 ABG pH ABG Total CO2 ABG O2 Saturation ABG Base Excess Elio Test ABG Potassium A-a O2 Difference Respiratory Index Glucose Lactate Liter Flow FiO2 Inspiratory BiPAP Expiratory BiPAP Sodium 145 Potassium 3.4 L Chloride 116 H Carbon Dioxide 18 L Anion Gap 14 BUN 31 H Creatinine 1.0 Est GFR ( Amer) > 60 Est GFR (Non-Af Amer) > 60 POC Glucose (mg/dL) Random Glucose 238 H Calcium 8.3 L Phosphorus 2.5 Magnesium 1.7 Total Bilirubin 1.5 H AST 21 ALT 14 L D Alkaline Phosphatase 163 H D Total Creatine Kinase CK-MB (Mass) Troponin I Cancelled 0.0460 Troponin I, Quant Total Protein 7.0 Albumin 2.3 L Globulin 4.7 H Albumin/Globulin Ratio 0.5 L Arterial Blood Potassium 09/26/17 09/26/17 09/26/17 10:49 11:12 11:46 WBC RBC Hgb Hct MCV MCH MCHC RDW Plt Count MPV Neut % (Auto) Lymph % (Auto) Sawyer % (Auto) Eos % (Auto) Baso % (Auto) Neut # Lymph # Sawyer # Eos # Baso # Neutrophils % (Manual) Band Neutrophils % Lymphocytes % (Manual) Monocytes % (Manual) Platelet Estimate Large Platelets Giant Platelets Hypochromasia (manual) Anisocytosis (manual) Puncture Site 6rra pCO2 26 L pO2 107 H HCO3 23.9 ABG pH 7.50 H ABG Total CO2 21.1 L ABG O2 Saturation 99.9 H ABG Base Excess -1.4 Elio Test Po ABG Potassium 3.2 L A-a O2 Difference 82.0 Respiratory Index 0.8 Glucose 232 H Lactate 1.3 Liter Flow 3.0 FiO2 31.0 Inspiratory BiPAP Expiratory BiPAP Sodium 150.0 H Potassium Chloride 123.0 H Carbon Dioxide Anion Gap BUN Creatinine Est GFR ( Amer) Est GFR (Non-Af Amer) POC Glucose (mg/dL) 233 H Random Glucose Calcium Phosphorus Magnesium Total Bilirubin AST ALT Alkaline Phosphatase Total Creatine Kinase 22 L CK-MB (Mass) 0.23 Troponin I Troponin I, Quant 0.0440 Total Protein Albumin Globulin Albumin/Globulin Ratio Arterial Blood Potassium 3.2 L 09/26/17 09/26/17 15:10 16:19 WBC RBC Hgb Hct MCV MCH MCHC RDW Plt Count MPV Neut % (Auto) Lymph % (Auto) Sawyer % (Auto) Eos % (Auto) Baso % (Auto) Neut # Lymph # Sawyer # Eos # Baso # Neutrophils % (Manual) Band Neutrophils % Lymphocytes % (Manual) Monocytes % (Manual) Platelet Estimate Large Platelets Giant Platelets Hypochromasia (manual) Anisocytosis (manual) Puncture Site Rba pCO2 27 L pO2 186 H HCO3 24.8 ABG pH 7.51 H ABG Total CO2 22.3 ABG O2 Saturation 100.0 H ABG Base Excess -0.3 Elio Test Na ABG Potassium 3.4 L A-a O2 Difference 137.0 Respiratory Index 0.7 Glucose 236 H Lactate 1.1 Liter Flow FiO2 50.0 Inspiratory BiPAP 10 Expiratory BiPAP 5 Sodium 149.0 H Potassium Chloride 125.0 H Carbon Dioxide Anion Gap BUN Creatinine Est GFR ( Amer) Est GFR (Non-Af Amer) POC Glucose (mg/dL) 230 H Random Glucose Calcium Phosphorus Magnesium Total Bilirubin AST ALT Alkaline Phosphatase Total Creatine Kinase CK-MB (Mass) Troponin I Troponin I, Quant Total Protein Albumin Globulin Albumin/Globulin Ratio Arterial Blood Potassium 3.4 L Assessment & Plan - Assessment and Plan (Free Text) Plan: CCM History as noted by housestaff. Pt with HTN /CHF /CMP/DM /Multiple Myeloma/BPH had rapid response called for tachypnea. Pt admits sob. some pain in genital area.. no nausea.Pt gives minimal hx. ROS- as noted All-NKDA Social-no tob/ etoh/ drugs Meds- reviewed FH- Unknown PE T-98.2 P-114 R-24 BP-93/61 Awake, responisve/ appears weak/ sl. tachypneic Neck-+ jvdlungs- bilat coarse bs, few basilar crackles Hewart-rr aBd- bs+,+ PEG, soft, no localized tenderness Ext- bilat edema Genitalia- +scrotal edema Neuro- moves ext Labs, EKG,h-onsd-pmoluavs A&P CHF Pl Eff. HTN DM Multiple Myeloma BPH ADmit to ICU cont meds BIPAP prn / f/u ABG diurese may require inotropes maintain optimal lytes DVT prophylaxis Hold feeds while on BIPAP d/w housestaff critical care time 40 min
[2017-09-26 16:24] LABS: DRAW SITE RBA
[2017-09-26] MEDS: Fluconazole IV 100mg/50 ml NS 50 ML IVPB SCH (19:04)
[2017-09-27] MEDS: metroNIDAZOLE IV 500 mg/100 ml 500 MG/100 ML BAG IVPB SCH ×3 (00:53→15:31)
[2017-09-27] MEDS: Albuterol-Ipratrop 3 mg / 0.5 (3 ml) UD INH SCH ×4 (01:20→21:02)
[2017-09-27 05:42] LABS: ARTERIAL BLOOD GAS MODE BiPAP; ARTERIAL BLOOD HGB O2 SAT 96.7 % (95.0-98.0); CARBOXYHEMOGLOBIN 2.2 % (0.5-1.5); DRAW SITE RB; HHB -0.1 % (0.0-5.0); METHEMOGLOBIN 1.2 % (0.0-3.0)
[2017-09-27 06:37] LABS: BASO % 0.3 % (0.0-2.0); EOS % 0.1 % (0.0-4.0); HEMATOCRIT 29.1 % (35.0-51.0); LYMPH # 0.5 K/uL (1.0-4.3); MEAN CELL VOLUME 87.4 fL (80.0-94.0); MEAN CORPUSCULAR HEMOGLOBIN 26.6 pg (27.0-31.0); MEAN CORPUSCULAR HGB CONC 30.4 g/dL (33.0-37.0); MEAN PLATELET VOLUME 11.5 fL (7.2-11.7); MONO # 0.5 K/uL (0.0-0.8); MONO % 3.9 % (0.0-10.0); NRBC % 0.3 % (0.0-2.0); PLATELET COUNT 193 K/uL (130-400); RED CELL DISTRIBUTION WIDTH 18.4 % (11.5-14.5); WHITE BLOOD COUNT 12.6 K/uL (4.8-10.8)
[2017-09-27 06:43] LABS: CHLORIDE 117 mmol/L (98-107); SODIUM 149 mmol/L (132-148)
[2017-09-27 06:45] LABS: AST/SGOT 20 U/L (17-59); CARBON DIOXIDE 19 mmol/L (22-30); GFR AFRICAN-AMERICAN > 60
[2017-09-27 06:46] LABS: ALB/GLOB RATIO 0.4 (1.0-2.1); ALKALINE PHOSPHATASE 142 U/L (38-126); ALT/SGPT 22 U/L (21-72); BLOOD UREA NITROGEN 34 mg/dL (9-20); GLUCOSE,RANDOM 189 mg/dL (75-110); TOTAL PROTEIN 7.2 g/dL (6.3-8.3)
[2017-09-27 06:47] LABS: CALCIUM 8.5 mg/dl (8.6-10.4); MAGNESIUM 1.7 mg/dL (1.6-2.3)
[2017-09-27 06:50] LABS: POTASSIUM 3.2 mmol/L (3.6-5.2)
[2017-09-27] MEDS: (Novolog) Insulin Aspart, Recombinant 100 u/ml 10 ml vial SC SCH ×4 (07:00→18:00)
[2017-09-27] MEDS ORDERED: Magnesium Sulfate 1 gm in D5W 1 GM/100 ML BAG IVPB ONE (08:21)
--- NOTE | 2017-09-27 08:48 | CP.PCM.CON ---
History of Present Illness - History of Present Illness History of Present Illness: I was asked to evaluate patient by Dr. dietrich. Patient is a 77 year old female with a history of cardiomyopathy, HTN, who presents with inability to urinate. He developed respiratory failure transfer to ICU. He remains on BiPAP. and required transfer to ICU. he is awake. Review of Systems - Review of Systems Systems not reviewed;Unavailable: Respiratory Distress Past Patient History - Past Medical History & Family History Past Medical History?: Yes - Past Social History Smoking Status: Never Smoked - CARDIAC Hx Congestive Heart Failure: Yes Hx Hypertension: Yes - ENDOCRINE/METABOLIC Hx Diabetes Mellitus Type 2: Yes - HEMATOLOGICAL/ONCOLOGICAL Hx Anemia: Yes - MUSCULOSKELETAL/RHEUMATOLOGICAL Hx Falls: Yes - PSYCHIATRIC Hx Substance Use: No - SURGICAL HISTORY Hx Surgeries: Yes Hx Vascular Surgery: Yes Hx Vascular Access Device: Yes (Rt subc port-a-cath) Other/Comment: Left femur fracture MAY 2017. Rt subc port-a-cath inserted on @ [facility] [place] ANESTHESIA Hx Anesthesia: Yes Hx Anesthesia Reactions: No Meds Allergies/Adverse Reactions: Allergies Allergy/AdvReac Type Severity Reaction Status Date / Time No Known Allergies Allergy Verified 08/30/17 13:30 - Medications Medications: Current Medications Acetaminophen (Tylenol 325mg Tab) 325 mg PO Q6 PRN PRN Reason: Fever >100.4 F Acetaminophen (Tylenol 325mg Tab) 650 mg PO Q4 PRN PRN Reason: Pain, moderate (4-7) Last Admin: 09/22/17 22:00 Dose: 650 mg Albuterol/Ipratropium (Duoneb 3 Mg/0.5 Mg (3 Ml) Ud) 3 ml INH RQ6 [facility] Last Admin: 09/27/17 07:54 Dose: 3 ml Apixaban (Eliquis) 5 mg PO BID [facility] Last Admin: 09/23/17 10:58 Dose: Not Given Carvedilol (Coreg) 3.125 mg PO BID [facility] Last Admin: 09/26/17 18:45 Dose: 3.125 mg Emollient Ointment (Vaseline Oint) 5 gm TOP Q8H PRN PRN Reason: Dry skin Last Admin: 09/21/17 10:05 Dose: 5 gm Furosemide (Lasix) 20 mg IVP Q12 [facility] Last Admin: 09/26/17 22:09 Dose: 20 mg Cefepime HCl (Maxipime Iv 1 Gm Premix) 1 gm in 50 mls @ 100 mls/hr IVPB Q12H [facility] Last Admin: 09/26/17 22:50 Dose: 100 mls/hr Metronidazole (Flagyl) 500 mg in 100 mls @ 100 mls/hr IVPB Q8H [facility] Last Admin: 09/27/17 08:14 Dose: 100 mls/hr Fluconazole (Diflucan Iv 100 Mg/50 Ml Ns) 50 mls @ 100 mls/hr IVPB Q24H [facility] Last Admin: 09/26/17 19:04 Dose: 100 mls/hr Magnesium Sulfate/Dextrose (Magnesium Sulfate 1 Gm/100 Ml D5w) 1 gm in 100 mls @ 200 mls/hr IVPB ONCE ONE Stop: 09/27/17 08:50 Potassium Chloride (Potassium Chloride 10 Meq/100 Ml) 10 meq in 100 mls @ 100 mls/hr IVPB Q1H [facility] Stop: 09/27/17 10:59 Insulin Aspart (Novolog) 0 unit SC Q6H [facility] PRN Reason: Protocol Last Admin: 09/27/17 00:00 Dose: Not Given Insulin Glargine (Lantus) 10 unit SC HS [facility] Last Admin: 09/16/17 22:00 Dose: 10 unit Lidocaine (Lidoderm) 1 ea TD DAILY [facility] Last Admin: 09/26/17 09:48 Dose: 1 ea Multivitamins/Minerals (Therapeutic-M Tab) 1 tab PO DAILY [facility] Last Admin: 09/26/17 09:49 Dose: 1 tab Mupirocin (Bactroban Ointment) 0 gm TOP BID [facility] Last Admin: 09/26/17 18:00 Dose: Not Given Nystatin (Nystop Topical Powder) 1 applic TOP BID [facility] Last Admin: 09/26/17 20:57 Dose: Not Given Ondansetron HCl (Zofran Tab) 4 mg PO Q8H PRN PRN Reason: Nausea/Vomiting Pantoprazole Sodium (Protonix Inj) 40 mg IVP DAILY [facility] Last Admin: 09/26/17 09:49 Dose: 40 mg Sennosides (Senokot Tab) 8.6 mg PO BID [facility] Last Admin: 09/26/17 18:35 Dose: Not Given Tamsulosin HCl (Flomax) 0.8 mg PO DAILY [facility] Last Admin: 09/26/17 09:49 Dose: 0.8 mg Physical Exam - Constitutional Appears: Chronically Ill - Head Exam Head Exam: NORMAL INSPECTION - Eye Exam Eye Exam: Normal appearance - ENT Exam ENT Exam: Mucous Membranes Moist - Neck Exam Neck exam: Positive for: Full Rom - Respiratory Exam Respiratory Exam: Decreased Breath Sounds - Cardiovascular Exam Cardiovascular Exam: REGULAR RHYTHM - GI/Abdominal Exam GI & Abdominal Exam: Normal Bowel Sounds - Rectal Exam Rectal Exam: Deferred - Extremities Exam Extremities exam: Negative for: pedal edema - Back Exam Back exam: NORMAL INSPECTION - Neurological Exam Neurological exam: Alert - Psychiatric Exam Psychiatric exam: Normal Affect - Skin Skin Exam: Normal Color Results - Vital Signs Recent Vital Signs: Last Vital Signs Temp 98.5 F 09/26/17 16:00 Pulse 102 H 09/27/17 07:55 Resp 24 09/27/17 07:00 BP 101/63 09/27/17 06:30 Pulse Ox 82 L 09/27/17 07:00 - Labs Result Diagrams: 09/27/17 06:27 09/27/17 06:27 Labs: Laboratory Results - last 24 hr 09/26/17 09/26/17 09/26/17 07:03 07:03 09:44 WBC RBC Hgb Hct MCV MCH MCHC RDW Plt Count MPV Neut % (Auto) Lymph % (Auto) [place] % (Auto) Eos % (Auto) Baso % (Auto) Neut # Lymph # [place] # Eos # Baso # Neutrophils % (Manual) 85 H Band Neutrophils % 8 H Lymphocytes % (Manual) 4 L Monocytes % (Manual) 3 Platelet Estimate Normal Large Platelets Present Giant Platelets Present Hypochromasia (manual) Slight Anisocytosis (manual) Slight Puncture Site pCO2 pO2 HCO3 ABG pH ABG Total CO2 ABG O2 Saturation ABG Base Excess ABG Hemoglobin ABG Carboxyhemoglobin POC ABG HHb (Measured) ABG Methemoglobin Elio Test ABG Potassium A-a O2 Difference Respiratory Index Hgb O2 Saturation Glucose Lactate Liter Flow Vent Mode FiO2 Inspiratory BiPAP Expiratory BiPAP Sodium 145 Potassium 3.4 L Chloride 116 H Carbon Dioxide 18 L Anion Gap 14 BUN 31 H Creatinine 1.0 Est GFR ( Amer) > 60 Est GFR (Non-Af Amer) > 60 POC Glucose (mg/dL) Random Glucose 238 H Calcium 8.3 L Phosphorus 2.5 Magnesium 1.7 Total Bilirubin 1.5 H AST 21 ALT 14 L D Alkaline Phosphatase 163 H D Total Creatine Kinase CK-MB (Mass) Troponin I Cancelled 0.0460 Troponin I, Quant Total Protein 7.0 Albumin 2.3 L Globulin 4.7 H Albumin/Globulin Ratio 0.5 L Arterial Blood Potassium 09/26/17 09/26/17 09/26/17 10:49 11:12 11:46 WBC RBC Hgb Hct MCV MCH MCHC RDW Plt Count MPV Neut % (Auto) Lymph % (Auto) [place] % (Auto) Eos % (Auto) Baso % (Auto) Neut # Lymph # [place] # Eos # Baso # Neutrophils % (Manual) Band Neutrophils % Lymphocytes % (Manual) Monocytes % (Manual) Platelet Estimate Large Platelets Giant Platelets Hypochromasia (manual) Anisocytosis (manual) Puncture Site 6rra pCO2 26 L pO2 107 H HCO3 23.9 ABG pH 7.50 H ABG Total CO2 21.1 L ABG O2 Saturation 99.9 H ABG Base Excess -1.4 ABG Hemoglobin ABG Carboxyhemoglobin POC ABG HHb (Measured) ABG Methemoglobin Elio Test Po ABG Potassium 3.2 L A-a O2 Difference 82.0 Respiratory Index 0.8 Hgb O2 Saturation Glucose 232 H Lactate 1.3 Liter Flow 3.0 Vent Mode FiO2 31.0 Inspiratory BiPAP Expiratory BiPAP Sodium 150.0 H Potassium Chloride 123.0 H Carbon Dioxide Anion Gap BUN Creatinine Est GFR ( Amer) Est GFR (Non-Af Amer) POC Glucose (mg/dL) 233 H Random Glucose Calcium Phosphorus Magnesium Total Bilirubin AST ALT Alkaline Phosphatase Total Creatine Kinase 22 L CK-MB (Mass) 0.23 Troponin I Troponin I, Quant 0.0440 Total Protein Albumin Globulin Albumin/Globulin Ratio Arterial Blood Potassium 3.2 L 09/26/17 09/26/17 09/26/17 15:10 16:19 19:35 WBC RBC Hgb Hct MCV MCH MCHC RDW Plt Count MPV Neut % (Auto) Lymph % (Auto) [place] % (Auto) Eos % (Auto) Baso % (Auto) Neut # Lymph # [place] # Eos # Baso # Neutrophils % (Manual) Band Neutrophils % Lymphocytes % (Manual) Monocytes % (Manual) Platelet Estimate Large Platelets Giant Platelets Hypochromasia (manual) Anisocytosis (manual) Puncture Site Rba pCO2 27 L pO2 186 H HCO3 24.8 ABG pH 7.51 H ABG Total CO2 22.3 ABG O2 Saturation 100.0 H ABG Base Excess -0.3 ABG Hemoglobin ABG Carboxyhemoglobin POC ABG HHb (Measured) ABG Methemoglobin Elio Test Na ABG Potassium 3.4 L A-a O2 Difference 137.0 Respiratory Index 0.7 Hgb O2 Saturation Glucose 236 H Lactate 1.1 Liter Flow Vent Mode FiO2 50.0 Inspiratory BiPAP 10 Expiratory BiPAP 5 Sodium 149.0 H Potassium Chloride 125.0 H Carbon Dioxide Anion Gap BUN Creatinine Est GFR ( Amer) Est GFR (Non-Af Amer) POC Glucose (mg/dL) 230 H 248 H Random Glucose Calcium Phosphorus Magnesium Total Bilirubin AST ALT Alkaline Phosphatase Total Creatine Kinase CK-MB (Mass) Troponin I Troponin I, Quant Total Protein Albumin Globulin Albumin/Globulin Ratio Arterial Blood Potassium 3.4 L 09/27/17 09/27/17 09/27/17 00:35 05:07 05:10 WBC RBC Hgb Hct MCV MCH MCHC RDW Plt Count MPV Neut % (Auto) Lymph % (Auto) [place] % (Auto) Eos % (Auto) Baso % (Auto) Neut # Lymph # [place] # Eos # Baso # Neutrophils % (Manual) Band Neutrophils % Lymphocytes % (Manual) Monocytes % (Manual) Platelet Estimate Large Platelets Giant Platelets Hypochromasia (manual) Anisocytosis (manual) Puncture Site Rb pCO2 27 L pO2 163 H HCO3 23.8 ABG pH 7.50 H ABG Total CO2 21.9 L ABG O2 Saturation 100.1 H ABG Base Excess -1.4 ABG Hemoglobin 9.4 L ABG Carboxyhemoglobin 2.2 H POC ABG HHb (Measured) -0.1 L ABG Methemoglobin 1.2 Elio Test Na ABG Potassium A-a O2 Difference 88.0 Respiratory Index 0.5 Hgb O2 Saturation 96.7 Glucose Lactate Liter Flow Vent Mode Bipap FiO2 40.0 Inspiratory BiPAP 10 Expiratory BiPAP 5 Sodium Potassium Chloride Carbon Dioxide Anion Gap BUN Creatinine Est GFR ( Amer) Est GFR (Non-Af Amer) POC Glucose (mg/dL) 232 H 223 H Random Glucose Calcium Phosphorus Magnesium Total Bilirubin AST ALT Alkaline Phosphatase Total Creatine Kinase CK-MB (Mass) Troponin I Troponin I, Quant Total Protein Albumin Globulin Albumin/Globulin Ratio Arterial Blood Potassium 09/27/17 09/27/17 06:27 06:27 WBC 12.6 H RBC 3.33 L Hgb 8.9 L Hct 29.1 L MCV 87.4 MCH 26.6 L MCHC 30.4 L RDW 18.4 H Plt Count 193 MPV 11.5 Neut % (Auto) 91.7 H Lymph % (Auto) 4.0 L [place] % (Auto) 3.9 Eos % (Auto) 0.1 Baso % (Auto) 0.3 Neut # 11.6 H Lymph # 0.5 L [place] # 0.5 Eos # 0.0 Baso # 0.0 Neutrophils % (Manual) Band Neutrophils % Lymphocytes % (Manual) Monocytes % (Manual) Platelet Estimate Large Platelets Giant Platelets Hypochromasia (manual) Anisocytosis (manual) Puncture Site pCO2 pO2 HCO3 ABG pH ABG Total CO2 ABG O2 Saturation ABG Base Excess ABG Hemoglobin ABG Carboxyhemoglobin POC ABG HHb (Measured) ABG Methemoglobin Elio Test ABG Potassium A-a O2 Difference Respiratory Index Hgb O2 Saturation Glucose Lactate Liter Flow Vent Mode FiO2 Inspiratory BiPAP Expiratory BiPAP Sodium 149 H Potassium 3.2 L Chloride 117 H Carbon Dioxide 19 L Anion Gap 16 BUN 34 H Creatinine 1.0 Est GFR ( Amer) > 60 Est GFR (Non-Af Amer) > 60 POC Glucose (mg/dL) Random Glucose 189 H Calcium 8.5 L Phosphorus 3.0 Magnesium 1.7 Total Bilirubin 1.0 AST 20 ALT 22 Alkaline Phosphatase 142 H Total Creatine Kinase CK-MB (Mass) Troponin I Troponin I, Quant Total Protein 7.2 Albumin 2.1 L Globulin 5.1 H Albumin/Globulin Ratio 0.4 L Arterial Blood Potassium - EKG Data EKG Interpreted by: Myself Assessment & Plan (1) CHF (congestive heart failure) Assessment and Plan: patient has known cardiomyopathy. will need aggressive medical therapy and monitor of urine output. not candidate at this time. Status: Acute
[2017-09-27 09:08] LABS: NEUTROPHIL 89 % (50-75); TOTAL CELLS COUNTED 100
[2017-09-27 09:09] LABS: LARGE PLATELETS PRESENT
[2017-09-27 09:10] LABS: GIANT PLATELETS PRESENT
--- NOTE | 2017-09-27 09:50 | RAD ---
HISTORY: pleural effusion COMPARISON: 09/26/2017 FINDINGS: LUNGS: Lines and tubes in stable position. Moderate venous congestion. Moderate right and small left pleural effusion. Right apical nodule and or granuloma. Biapical pleural thickening. PLEURA: As above. CARDIOVASCULAR: Cardiomegaly. OSSEOUS STRUCTURES: Degenerative changes in the spine and shoulders. VISUALIZED UPPER ABDOMEN: Normal. OTHER FINDINGS: None. IMPRESSION: Lines and tubes in stable position. Moderate venous congestion. Moderate right and small left pleural effusion. Right apical nodule and or granuloma. Biapical pleural thickening.
[2017-09-27] MEDS: Cefepime IV 1 gm in Dextrose 1 GM/50 ML BAG IVPB SCH ×2 (11:18→23:15)
[2017-09-27] MEDS: Petrolatum Oint Foilpak (5 gm) TOP PRN (11:19)
[2017-09-27] MEDS: Multivitamin With Minerals Tab PO SCH (11:38)
[2017-09-27] MEDS: Lidocaine 5% Patch TD SCH (11:38)
--- NOTE | 2017-09-27 12:31 | PN ---
LOCATION: ICU 9. SUBJECTIVE: This is a 77 years old male post PEG insertion was transferred to the Intensive Care Unit due to shortness of breath with tachypnea, but appeared to be awake. The entire chart is reviewed including but not limited to the most recent lab and radiology study results, current and the previous medication list, current and the previous medical events. Case discussed with the staff. No reported chest pain or palpitation. No reported bleeding residual or resistant from the PEG tube. PHYSICAL EXAMINATION: GENERAL: A 77 years old male. VITAL SIGNS: Afebrile with pulse of 94, respiratory rate 20 to 24 with blood pressure of 100/60. HEENT: Showed pale dry oral mucous membrane. Nonicteric sclerae. The patient on BiPAP. LUNGS: Few scattered crepitation with decreased air entry at bases. HEART: Positive S1 and S2. ABDOMEN: Soft. Bowel sounds are present. PEG tube is in place. EXTREMITIES: Lower extremities, mild edematous changes. No clubbing or cyanosis. NEUROLOGIC: No reported new neurological deficits, sensory or motor. IMPRESSION: 1. Dysphagia with malnutrition and hypoalbuminemia. 2. Status post percutaneous endoscopic gastrostomy insertion. 3. Failure to thrive. 4. Congestive heart failure, hypertension with known history of atrial fibrillation. 5. Anemia, most likely secondary to above. 6. Dehydration with mild renal insufficiency. 7. Known history of, but not limited to benign prostatic hypertrophy as well as poorly controlled diabetes mellitus. 8. Known history of multiple myeloma. 9. History of left hip surgery. It has to be mentioned that today's chest x-ray is still pending report and yesterday, chest x-ray showed evidence of right pleural effusion with moderate pulmonary venous congestion. SUGGESTIONS: 1. Agree with your plan. 2. Adjust PEG feeding. 3. Guaiac all the stool daily x3. 4. No further aggressive GI workup is required at this point. We will follow up closely with you. Elissa Roman MD cc: Elissa Roman MD
[2017-09-27 13:03] LABS: GRANULAR CAST 3 /lpf (0-1); RBC URINE 31 /hpf (0-3); URINE BACTERIA MOD (<OCC); URINE BILIRUBIN NEGATIVE (NEGATIVE); URINE BLOOD 2+ (NEGATIVE); URINE COLOR Amber (YELLOW); URINE GLUCOSE (UA) NORMAL (Normal); URINE KETONE TRACE mg/dL (NEGATIVE); URINE LEUKOCYTE ESTERASE TRACE Leu/uL (Negative); URINE PROTEIN 2+ mg/dL (NEGATIVE); URINE UROBILINOGEN NORMAL mg/dL (0.2-1.0)
[2017-09-27 13:04] LABS: WBC URINE 8 /hpf (0-5)
[2017-09-27] MEDS: Fluconazole IV 100mg/50 ml NS 50 ML IVPB SCH (17:13)
--- NOTE | 2017-09-27 18:24 | CP.CCUPN ---
CCU Subjective - Physician Review Events Since Last Encounter (Free Text): 09/27/17 18:22 77 M w/ PMHx of multiple myeloma, HTN, CHF, and diabetes admitted to med/ surg on 09/11 for inability to urinate was reported to be tachypneic and tachycardic and rapid response was called with request for ICU evaluation. Patient previously had a rapid called for respiratory arrest and hypotension 09/14/17. Unable to obtain full ROS due to clinical situation and language barrier. History obtained from previous medicine notes. PMHx: HTN, CHF, DM, multiple myeloma, BPH Psurghx: left hip surgery Socialhx: no tobacco, alcohol, drugs Home Meds: acetaminophen 325mg PO Q6 PRN fever duoneb 3mg/0.5 mg 3mL INH RQ6 coreg 3.125 mg PO BID cefepime 1gm @100mls/hr IVPB Q12h fluconazole 100mg/50 mLs @ 100 mls/hr IVPB Q12h lasix 20 mg IVP Q12h lidoderm 1 TD QD flagyl 500mg in 100mls @100mls/hr IVPB Q8h multivitamin 1 PO QD mupirocin Topical BID nystatin 1 application topical BID zofran 4mg PO Q8h PRN protonix 40mg IVP QD senokot 8.6 mg PO BID flomax 0.8 mg PO QD Patient is still on BiPAP. Responding badly. Hypotension is improving. Pelvis very poor Assessment and recommendation: 75-year-old male with multiple myeloma hypertension CHF diabetes admitted with sepsis. Respiratory insufficiency. Continue current treatment. CCU Objective - Vital Signs / Intake & Output Vital Signs (Last 4 hours): Vital Signs Temp Pulse Resp BP Pulse Ox 09/27/17 16:00 97.6 F 94 H 27 H 90/53 L 100 09/27/17 15:38 95 H 90/53 L 100 09/27/17 15:00 97 H 100 09/27/17 14:30 96 H 95/57 L 100 Intake and Output (Last 8hrs): Intake & Output 09/27/17 09/27/17 09/27/17 06:59 14:59 22:59 Intake Total 100 450 100 Output Total 70 20 Balance 30 430 100 Weight 170 lb 12.8 oz Intake: Intake, IV Amount 100 450 100 Rt PAC 100 450 100 Tube Feeding 0 0 Output: Urine 70 20 Urethral ([place]) 70 20 Other: # Bowel Movements 0 0 - Physical Exam Head: Positive for: Atraumatic Extroacular Muscles: Positive for: EOMI Mouth: Positive for: Moist Mucous Membranes Neck: Positive for: Trachea Midline Respiratory/Chest: Positive for: Clear to Auscultation, Other (Patient is currently on pressure support in attempt to wean off PRVC ) Cardiovascular: Positive for: Regular Rate and Rhythm, Normal S1, S2 Abdomen: Positive for: Normal Bowel Sounds. Negative for: Tenderness, Distention, Peritoneal Signs Upper Extremity: Positive for: Normal Inspection. Negative for: Edema Lower Extremity: Positive for: Edema, Other (SCDs contraindicated ) Neurological: Positive for: GCS=15 Skin: Positive for: Normal Color Psychiatric: Positive for: Alert, Oriented x 3, Other (Easily arousable ) - Medications Active Medications: Active Medications Generic Name Dose Route Start Last Admin Trade Name Freq PRN Reason Stop Dose Admin Acetaminophen 325 mg 09/11/17 02:50 Tylenol 325mg Tab PO Q6 PRN Fever >100.4 F Acetaminophen 650 mg 09/22/17 20:43 09/22/17 22:00 Tylenol 325mg Tab PO 650 mg Q4 PRN Administration Pain, moderate (4-7) Albuterol/Ipratropium 3 ml 09/19/17 14:00 09/27/17 13:21 Duoneb 3 Mg/0.5 Mg (3 Ml) Ud INH 3 ml RQ6 VELVET Administration Apixaban 5 mg 09/16/17 18:00 09/23/17 10:58 Eliquis PO Not Given BID [facility] Carvedilol 3.125 mg 09/26/17 18:00 09/27/17 10:30 Coreg PO Not Given BID [facility] Emollient Ointment 5 gm 09/17/17 15:52 09/27/17 11:19 Vaseline Oint TOP 5 gm Q8H PRN Administration Dry skin Furosemide 20 mg 09/18/17 13:15 09/27/17 10:30 Lasix IVP Not Given Q12 VELVET Cefepime HCl 1 gm in 50 mls @ 100 mls/hr 09/18/17 10:30 09/27/17 11:18 Maxipime Iv 1 Gm Premix IVPB 100 mls/hr Q12H [facility]EL[facility] Administration Metronidazole 500 mg in 100 mls @ 100 mls/hr 09/24/17 16:00 09/27/17 15:31 Flagyl IVPB 100 mls/hr Q8H [facility]EL[facility]ET Administration Fluconazole 50 mls @ 100 mls/hr 09/24/17 18:00 09/27/17 17:13 Diflucan Iv 100 Mg/50 Ml Ns IVPB 100 mls/hr Q24H [facility]EL[facility] Administration Insulin Aspart 0 unit 09/14/17 00:00 09/27/17 12:00 Novolog SC Not Given Q6H [facility] Protocol Insulin Glargine 10 unit 09/12/17 22:00 09/16/17 22:00 Lantus SC 10 unit HS [facility] Administration Lidocaine 1 ea 09/11/17 10:00 09/27/17 11:38 Lidoderm TD 1 ea DAILY [facility] Administration Multivitamins/Minerals 1 tab 09/11/17 10:00 09/27/17 11:38 Therapeutic-M Tab PO 1 tab DAILY [facility] Administration Mupirocin 0 gm 09/22/17 18:00 09/27/17 17:18 Bactroban Ointment TOP 1 applic BID [facility] Administration Nystatin 1 applic 09/17/17 12:00 09/27/17 17:14 Nystop Topical Powder TOP 1 applic BID [facility] Administration Ondansetron HCl 4 mg 09/11/17 02:50 Zofran Tab PO Q8H PRN Nausea/Vomiting Pantoprazole Sodium 40 mg 09/17/17 10:00 09/27/17 11:17 Protonix Inj IVP 40 mg DAILY [facility] Administration Sennosides 8.6 mg 09/11/17 10:00 09/27/17 11:20 Senokot Tab PO Not Given BID [facility] Tamsulosin HCl 0.8 mg 09/12/17 10:00 09/27/17 11:18 Flomax PO 0.8 mg DAILY [facility]EL[facility]ET Administration - Patient Studies Lab Studies: Microbiology Studies 09/26/17 16:45 Blood Culture - Preliminary Blood-Venous NO GROWTH AFTER 24 HOURS 09/26/17 16:15 Blood Culture - Preliminary Blood-Venous NO GROWTH AFTER 24 HOURS 09/26/17 11:30 Blood Culture - Preliminary Blood-Venous NO GROWTH AFTER 24 HOURS 09/26/17 18:55 Urine Culture - Final Urine No Growth (<1,000 CFU/ML) Lab Studies 09/27/17 09/27/17 09/27/17 Range/Units 18:15 12:31 11:27 WBC (4.8-10.8) K/uL RBC (4.40-5.90) Mil/uL Hgb (12.0-18.0) g/dL Hct (35.0-51.0) % MCV (80.0-94.0) fL MCH (27.0-31.0) pg MCHC (33.0-37.0) g/dL RDW (11.5-14.5) % Plt Count (130-400) K/uL MPV (7.2-11.7) fL Neut % (Auto) (50.0-75.0) % Lymph % (Auto) (20.0-40.0) % [place] % (Auto) (0.0-10.0) % Eos % (Auto) (0.0-4.0) % Baso % (Auto) (0.0-2.0) % Neut # (1.8-7.0) K/uL Lymph # (1.0-4.3) K/uL [place] # (0.0-0.8) K/uL Eos # (0.0-0.7) K/uL Baso # (0.0-0.2) K/uL Neutrophils % (Manual) (50-75) % Band Neutrophils % (0-2) % Lymphocytes % (Manual) (20-40) % Monocytes % (Manual) (0-10) % Myelocytes % Platelet Estimate (NORMAL) Large Platelets Giant Platelets Polychromasia Hypochromasia (manual) Anisocytosis (manual) Ovalocytes Puncture Site pCO2 (35-45) mm/Hg pO2 (80-100) mm/Hg HCO3 (21-28) mmol/L ABG pH (7.35-7.45) ABG Total CO2 (22-28) mmol/L ABG O2 Saturation (95-98) % ABG Base Excess (-2.0-3.0) mmol/L ABG Hemoglobin (11.7-17.4) g/dL ABG Carboxyhemoglobin (0.5-1.5) % POC ABG HHb (Measured) (0.0-5.0) % ABG Methemoglobin (0.0-3.0) % Elio Test A-a O2 Difference mm/Hg Respiratory Index Hgb O2 Saturation (95.0-98.0) % Vent Mode FiO2 % Inspiratory BiPAP Expiratory BiPAP Sodium (132-148) mmol/L Potassium (3.6-5.2) mmol/L Chloride (98-107) mmol/L Carbon Dioxide (22-30) mmol/L Anion Gap (10-20) BUN (9-20) mg/dL Creatinine (0.8-1.5) mg/dL Est GFR ( Amer) Est GFR (Non-Af Amer) POC Glucose (mg/dL) 205 H 221 H (65-110) mg/dL Random Glucose (75-110) mg/dL Calcium (8.6-10.4) mg/dl Phosphorus (2.5-4.5) mg/dL Magnesium (1.6-2.3) mg/dL Total Bilirubin (0.2-1.3) mg/dL AST (17-59) U/L ALT (21-72) U/L Alkaline Phosphatase (38-126) U/L Total Protein (6.3-8.3) g/dL Albumin (3.5-5.0) g/dL Globulin (2.2-3.9) gm/dL Albumin/Globulin Ratio (1.0-2.1) Urine Color [place] (YELLOW) Urine Clarity Hazy (Clear) Urine pH 5.0 (5.0-8.0) Ur Specific [place] 1.020 (1.003-1.030) Urine Protein 2+ H (NEGATIVE) mg/dL Urine Glucose (UA) Normal (Normal) mg/dL Urine Ketones Trace (NEGATIVE) mg/dL Urine Blood 2+ H (NEGATIVE) Urine Nitrate Negative (NEGATIVE) Urine Bilirubin Negative (NEGATIVE) Urine Urobilinogen Normal (0.2-1.0) mg/dL Ur Leukocyte Esterase Trace (Negative) [place]/uL Urine WBC (Auto) 8 H (0-5) /hpf Urine RBC (Auto) 31 H (0-3) /hpf Ur Squamous Epith Cells 1 (0-5) /hpf Amorphous Sediment Rare H (<OCC) /ul Urine Bacteria Mod H (<OCC) Hyaline Casts 3-5 H (0-2) /lpf Granular Casts (Auto) 3 (0-1) /lpf 10/28/17 10/28/17 10/28/17 Range/Units 06:27 06:27 05:10 WBC 12.6 H (4.8-10.8) K/uL RBC 3.33 L (4.40-5.90) Mil/uL Hgb 8.9 L (12.0-18.0) g/dL Hct 29.1 L (35.0-51.0) % MCV 87.4 (80.0-94.0) fL MCH 26.6 L (27.0-31.0) pg MCHC 30.4 L (33.0-37.0) g/dL RDW 18.4 H (11.5-14.5) % Plt Count 193 (130-400) K/uL MPV 11.5 (7.2-11.7) fL Neut % (Auto) 91.7 H (50.0-75.0) % Lymph % (Auto) 4.0 L (20.0-40.0) % [place] % (Auto) 3.9 (0.0-10.0) % Eos % (Auto) 0.1 (0.0-4.0) % Baso % (Auto) 0.3 (0.0-2.0) % Neut # 11.6 H (1.8-7.0) K/uL Lymph # 0.5 L (1.0-4.3) K/uL [place] # 0.5 (0.0-0.8) K/uL Eos # 0.0 (0.0-0.7) K/uL Baso # 0.0 (0.0-0.2) K/uL Neutrophils % (Manual) 89 H (50-75) % Band Neutrophils % 5 H (0-2) % Lymphocytes % (Manual) 3 L (20-40) % Monocytes % (Manual) 3 (0-10) % Myelocytes % TEST NOT PERFORMED Platelet Estimate Normal (NORMAL) Large Platelets Present Giant Platelets Present Polychromasia Slight Hypochromasia (manual) Slight Anisocytosis (manual) Slight Ovalocytes Slight Puncture Site Rb pCO2 27 L (35-45) mm/Hg pO2 163 H (80-100) mm/Hg HCO3 23.8 (21-28) mmol/L ABG pH 7.50 H (7.35-7.45) ABG Total CO2 21.9 L (22-28) mmol/L ABG O2 Saturation 100.1 H (95-98) % ABG Base Excess -1.4 (-2.0-3.0) mmol/L ABG Hemoglobin 9.4 L (11.7-17.4) g/dL ABG Carboxyhemoglobin 2.2 H (0.5-1.5) % POC ABG HHb (Measured) -0.1 L (0.0-5.0) % ABG Methemoglobin 1.2 (0.0-3.0) % Elio Test Na A-a O2 Difference 88.0 mm/Hg Respiratory Index 0.5 Hgb O2 Saturation 96.7 (95.0-98.0) % Vent Mode Bipap FiO2 40.0 % Inspiratory BiPAP 10 Expiratory BiPAP 5 Sodium 149 H (132-148) mmol/L Potassium 3.2 L (3.6-5.2) mmol/L Chloride 117 H (98-107) mmol/L Carbon Dioxide 19 L (22-30) mmol/L Anion Gap 16 (10-20) BUN 34 H (9-20) mg/dL Creatinine 1.0 (0.8-1.5) mg/dL Est GFR ( Amer) > 60 Est GFR (Non-Af Amer) > 60 POC Glucose (mg/dL) (65-110) mg/dL Random Glucose 189 H (75-110) mg/dL Calcium 8.5 L (8.6-10.4) mg/dl Phosphorus 3.0 (2.5-4.5) mg/dL Magnesium 1.7 (1.6-2.3) mg/dL Total Bilirubin 1.0 (0.2-1.3) mg/dL AST 20 (17-59) U/L ALT 22 (21-72) U/L Alkaline Phosphatase 142 H (38-126) U/L Total Protein 7.2 (6.3-8.3) g/dL Albumin 2.1 L (3.5-5.0) g/dL Globulin 5.1 H (2.2-3.9) gm/dL Albumin/Globulin Ratio 0.4 L (1.0-2.1) Urine Color (YELLOW) Urine Clarity (Clear) Urine pH (5.0-8.0) Ur Specific [place] (1.003-1.030) Urine Protein (NEGATIVE) mg/dL Urine Glucose (UA) (Normal) mg/dL Urine Ketones (NEGATIVE) mg/dL Urine Blood (NEGATIVE) Urine Nitrate (NEGATIVE) Urine Bilirubin (NEGATIVE) Urine Urobilinogen (0.2-1.0) mg/dL Ur Leukocyte Esterase (Negative) [place]/uL Urine WBC (Auto) (0-5) /hpf Urine RBC (Auto) (0-3) /hpf Ur Squamous Epith Cells (0-5) /hpf Amorphous Sediment (<OCC) /ul Urine Bacteria (<OCC) Hyaline Casts (0-2) /lpf Granular Casts (Auto) (0-1) /lpf 09/27/17 09/27/17 09/26/17 Range/Units 05:07 00:35 19:35 WBC (4.8-10.8) K/uL RBC (4.40-5.90) Mil/uL Hgb (12.0-18.0) g/dL Hct (35.0-51.0) % MCV (80.0-94.0) fL MCH (27.0-31.0) pg MCHC (33.0-37.0) g/dL RDW (11.5-14.5) % Plt Count (130-400) K/uL MPV (7.2-11.7) fL Neut % (Auto) (50.0-75.0) % Lymph % (Auto) (20.0-40.0) % [place] % (Auto) (0.0-10.0) % Eos % (Auto) (0.0-4.0) % Baso % (Auto) (0.0-2.0) % Neut # (1.8-7.0) K/uL Lymph # (1.0-4.3) K/uL [place] # (0.0-0.8) K/uL Eos # (0.0-0.7) K/uL Baso # (0.0-0.2) K/uL Neutrophils % (Manual) (50-75) % Band Neutrophils % (0-2) % Lymphocytes % (Manual) (20-40) % Monocytes % (Manual) (0-10) % Myelocytes % Platelet Estimate (NORMAL) Large Platelets Giant Platelets Polychromasia Hypochromasia (manual) Anisocytosis (manual) Ovalocytes Puncture Site pCO2 (35-45) mm/Hg pO2 (80-100) mm/Hg HCO3 (21-28) mmol/L ABG pH (7.35-7.45) ABG Total CO2 (22-28) mmol/L ABG O2 Saturation (95-98) % ABG Base Excess (-2.0-3.0) mmol/L ABG Hemoglobin (11.7-17.4) g/dL ABG Carboxyhemoglobin (0.5-1.5) % POC ABG HHb (Measured) (0.0-5.0) % ABG Methemoglobin (0.0-3.0) % Elio Test A-a O2 Difference mm/Hg Respiratory Index Hgb O2 Saturation (95.0-98.0) % Vent Mode FiO2 % Inspiratory BiPAP Expiratory BiPAP Sodium (132-148) mmol/L Potassium (3.6-5.2) mmol/L Chloride (98-107) mmol/L Carbon Dioxide (22-30) mmol/L Anion Gap (10-20) BUN (9-20) mg/dL Creatinine (0.8-1.5) mg/dL Est GFR ( Amer) Est GFR (Non-Af Amer) POC Glucose (mg/dL) 223 H 232 H 248 H (65-110) mg/dL Random Glucose (75-110) mg/dL Calcium (8.6-10.4) mg/dl Phosphorus (2.5-4.5) mg/dL Magnesium (1.6-2.3) mg/dL Total Bilirubin (0.2-1.3) mg/dL AST (17-59) U/L ALT (21-72) U/L Alkaline Phosphatase (38-126) U/L Total Protein (6.3-8.3) g/dL Albumin (3.5-5.0) g/dL Globulin (2.2-3.9) gm/dL Albumin/Globulin Ratio (1.0-2.1) Urine Color (YELLOW) Urine Clarity (Clear) Urine pH (5.0-8.0) Ur Specific [place] (1.003-1.030) Urine Protein (NEGATIVE) mg/dL Urine Glucose (UA) (Normal) mg/dL Urine Ketones (NEGATIVE) mg/dL Urine Blood (NEGATIVE) Urine Nitrate (NEGATIVE) Urine Bilirubin (NEGATIVE) Urine Urobilinogen (0.2-1.0) mg/dL Ur Leukocyte Esterase (Negative) Hillary/uL Urine WBC (Auto) (0-5) /hpf Urine RBC (Auto) (0-3) /hpf Ur Squamous Epith Cells (0-5) /hpf Amorphous Sediment (<OCC) /ul Urine Bacteria (<OCC) Hyaline Casts (0-2) /lpf Granular Casts (Auto) (0-1) /lpf Laboratory Results - last 24 hr 09/26/17 09/27/17 09/27/17 19:35 00:35 05:07 WBC RBC Hgb Hct MCV MCH MCHC RDW Plt Count MPV Neut % (Auto) Lymph % (Auto) [place] % (Auto) Eos % (Auto) Baso % (Auto) Neut # Lymph # [place] # Eos # Baso # Neutrophils % (Manual) Band Neutrophils % Lymphocytes % (Manual) Monocytes % (Manual) Myelocytes % Platelet Estimate Large Platelets Giant Platelets Polychromasia Hypochromasia (manual) Anisocytosis (manual) Ovalocytes Puncture Site pCO2 pO2 HCO3 ABG pH ABG Total CO2 ABG O2 Saturation ABG Base Excess ABG Hemoglobin ABG Carboxyhemoglobin POC ABG HHb (Measured) ABG Methemoglobin Elio Test A-a O2 Difference Respiratory Index Hgb O2 Saturation Vent Mode FiO2 Inspiratory BiPAP Expiratory BiPAP Sodium Potassium Chloride Carbon Dioxide Anion Gap BUN Creatinine Est GFR ( Amer) Est GFR (Non-Af Amer) POC Glucose (mg/dL) 248 H 232 H 223 H Random Glucose Calcium Phosphorus Magnesium Total Bilirubin AST ALT Alkaline Phosphatase Total Protein Albumin Globulin Albumin/Globulin Ratio Urine Color Urine Clarity Urine pH Ur Specific [place] Urine Protein Urine Glucose (UA) Urine Ketones Urine Blood Urine Nitrate Urine Bilirubin Urine Urobilinogen Ur Leukocyte Esterase Urine WBC (Auto) Urine RBC (Auto) Ur Squamous Epith Cells Amorphous Sediment Urine Bacteria Hyaline Casts Granular Casts (Auto) 09/27/17 09/27/17 09/27/17 05:10 06:27 06:27 WBC 12.6 H RBC 3.33 L Hgb 8.9 L Hct 29.1 L MCV 87.4 MCH 26.6 L MCHC 30.4 L RDW 18.4 H Plt Count 193 MPV 11.5 Neut % (Auto) 91.7 H Lymph % (Auto) 4.0 L [place] % (Auto) 3.9 Eos % (Auto) 0.1 Baso % (Auto) 0.3 Neut # 11.6 H Lymph # 0.5 L [place] # 0.5 Eos # 0.0 Baso # 0.0 Neutrophils % (Manual) 89 H Band Neutrophils % 5 H Lymphocytes % (Manual) 3 L Monocytes % (Manual) 3 Myelocytes % TEST NOT PERFORMED Platelet Estimate Normal Large Platelets Present Giant Platelets Present Polychromasia Slight Hypochromasia (manual) Slight Anisocytosis (manual) Slight Ovalocytes Slight Puncture Site Rb pCO2 27 L pO2 163 H HCO3 23.8 ABG pH 7.50 H ABG Total CO2 21.9 L ABG O2 Saturation 100.1 H ABG Base Excess -1.4 ABG Hemoglobin 9.4 L ABG Carboxyhemoglobin 2.2 H POC ABG HHb (Measured) -0.1 L ABG Methemoglobin 1.2 Elio Test Na A-a O2 Difference 88.0 Respiratory Index 0.5 Hgb O2 Saturation 96.7 Vent Mode Bipap FiO2 40.0 Inspiratory BiPAP 10 Expiratory BiPAP 5 Sodium 149 H Potassium 3.2 L Chloride 117 H Carbon Dioxide 19 L Anion Gap 16 BUN 34 H Creatinine 1.0 Est GFR ( Amer) > 60 Est GFR (Non-Af Amer) > 60 POC Glucose (mg/dL) Random Glucose 189 H Calcium 8.5 L Phosphorus 3.0 Magnesium 1.7 Total Bilirubin 1.0 AST 20 ALT 22 Alkaline Phosphatase 142 H Total Protein 7.2 Albumin 2.1 L Globulin 5.1 H Albumin/Globulin Ratio 0.4 L Urine Color Urine Clarity Urine pH Ur Specific [place] Urine Protein Urine Glucose (UA) Urine Ketones Urine Blood Urine Nitrate Urine Bilirubin Urine Urobilinogen Ur Leukocyte Esterase Urine WBC (Auto) Urine RBC (Auto) Ur Squamous Epith Cells Amorphous Sediment Urine Bacteria Hyaline Casts Granular Casts (Auto) 09/27/17 09/27/17 09/27/17 11:27 12:31 18:15 WBC RBC Hgb Hct MCV MCH MCHC RDW Plt Count MPV Neut % (Auto) Lymph % (Auto) [place] % (Auto) Eos % (Auto) Baso % (Auto) Neut # Lymph # [place] # Eos # Baso # Neutrophils % (Manual) Band Neutrophils % Lymphocytes % (Manual) Monocytes % (Manual) Myelocytes % Platelet Estimate Large Platelets Giant Platelets Polychromasia Hypochromasia (manual) Anisocytosis (manual) Ovalocytes Puncture Site pCO2 pO2 HCO3 ABG pH ABG Total CO2 ABG O2 Saturation ABG Base Excess ABG Hemoglobin ABG Carboxyhemoglobin POC ABG HHb (Measured) ABG Methemoglobin Elio Test A-a O2 Difference Respiratory Index Hgb O2 Saturation Vent Mode FiO2 Inspiratory BiPAP Expiratory BiPAP Sodium Potassium Chloride Carbon Dioxide Anion Gap BUN Creatinine Est GFR ( Amer) Est GFR (Non-Af Amer) POC Glucose (mg/dL) 221 H 205 H Random Glucose Calcium Phosphorus Magnesium Total Bilirubin AST ALT Alkaline Phosphatase Total Protein Albumin Globulin Albumin/Globulin Ratio Urine Color [place] Urine Clarity Hazy Urine pH 5.0 Ur Specific [place] 1.020 Urine Protein 2+ H Urine Glucose (UA) Normal Urine Ketones Trace Urine Blood 2+ H Urine Nitrate Negative Urine Bilirubin Negative Urine Urobilinogen Normal Ur Leukocyte Esterase Trace Urine WBC (Auto) 8 H Urine RBC (Auto) 31 H Ur Squamous Epith Cells 1 Amorphous Sediment Rare H Urine Bacteria Mod H Hyaline Casts 3-5 H Granular Casts (Auto) 3 Fingerstick Blood Sugar Results: 221 Critical Care Progress Note - Nutrition Nutrition: Nutrition Category Date Time Status NPO Diet [DIET] Diets 09/26/17 Lunch Active
[2017-09-28] MEDS: metroNIDAZOLE IV 500 mg/100 ml 500 MG/100 ML BAG IVPB SCH ×4 (00:05→23:07)
[2017-09-28] MEDS: Albuterol-Ipratrop 3 mg / 0.5 (3 ml) UD INH SCH ×3 (03:00→13:36)
[2017-09-28] MEDS: (Novolog) Insulin Aspart, Recombinant 100 u/ml 10 ml vial SC SCH ×4 (06:00→17:17)
[2017-09-28 06:15] LABS: ABG ALLEN TEST POS; ARTERIAL BLOOD GAS MODE BiPAP; ARTERIAL BLOOD HGB O2 SAT 92.6 % (95.0-98.0); CARBOXYHEMOGLOBIN 2.1 % (0.5-1.5); DRAW SITE R RAD; METHEMOGLOBIN 1.4 % (0.0-3.0)
[2017-09-28 06:44] LABS: BASO % 0.2 % (0.0-2.0); HEMATOCRIT 29.7 % (35.0-51.0); LYMPH # 0.7 K/uL (1.0-4.3); LYMPH % 5.7 % (20.0-40.0); MEAN CELL VOLUME 88.1 fL (80.0-94.0); MEAN CORPUSCULAR HEMOGLOBIN 26.7 pg (27.0-31.0); MEAN CORPUSCULAR HGB CONC 30.3 g/dL (33.0-37.0); MEAN PLATELET VOLUME 11.9 fL (7.2-11.7); MONO # 0.4 K/uL (0.0-0.8); MONO % 3.4 % (0.0-10.0); NRBC % 0.5 % (0.0-2.0); PLATELET COUNT 207 K/uL (130-400); RED CELL DISTRIBUTION WIDTH 18.1 % (11.5-14.5)
[2017-09-28 07:33] LABS: CHLORIDE 116 mmol/L (98-107)
[2017-09-28 07:34] LABS: POTASSIUM 3.6 mmol/L (3.6-5.2); SODIUM 143 mmol/L (132-148)
[2017-09-28 07:36] LABS: ALB/GLOB RATIO 0.5 (1.0-2.1); AST/SGOT 19 U/L (17-59); BILIRUBIN,TOTAL 1.3 mg/dL (0.2-1.3); CARBON DIOXIDE 17 mmol/L (22-30); GFR AFRICAN-AMERICAN > 60; TOTAL PROTEIN 6.5 g/dL (6.3-8.3)
[2017-09-28 07:37] LABS: ALKALINE PHOSPHATASE 157 U/L (38-126); ALT/SGPT 11 U/L (21-72); BLOOD UREA NITROGEN 38 mg/dL (9-20); CALCIUM 8.3 mg/dl (8.6-10.4); GLUCOSE,RANDOM 157 mg/dL (75-110); MAGNESIUM 1.9 mg/dL (1.6-2.3); PHOSPHOROUS 3.3 mg/dL (2.5-4.5)
[2017-09-28 09:09] LABS: GIANT PLATELETS PRESENT; LARGE PLATELETS PRESENT; NEUTROPHIL 88 % (50-75); NUCLEATED RED BLOOD CELL 1 % (0-0); TOTAL CELLS COUNTED 100
[2017-09-28 09:11] LABS: SPHEROCYTES SLIGHT
[2017-09-28] MEDS ORDERED: Potassium Chloride 20 mEq/15 ml LIQ UD PO ONE (10:50)
[2017-09-28] MEDS: Cefepime IV 1 gm in Dextrose 1 GM/50 ML BAG IVPB SCH ×2 (10:55→22:52)
[2017-09-28] MEDS: Lidocaine 5% Patch TD SCH (10:57)
[2017-09-28] MEDS ORDERED: Albumin Human 25% (12.5 gm/50 ml) IV ONE (11:00)
[2017-09-28] MEDS: Multivitamin With Minerals Tab PO SCH (11:10)
[2017-09-28] MEDS: DOBUTamine 500mg/250ml D5W 500 MG/250 ML BAG IV SCH ×3 (11:30→22:53)
--- NOTE | 2017-09-28 13:41 | CP.PCM.PN ---
Subjective - Date & Time of Evaluation Date of Evaluation: 09/28/17 Time of Evaluation: 13:15 - Subjective Subjective: patient remains on BiPAP. appears comfortable. Objective - Vital Signs/Intake and Output Vital Signs (last 24 hours): Temp Pulse Resp BP Pulse Ox 98.1 F 111 H 23 89/62 L 100 09/27/17 20:00 09/28/17 12:15 09/28/17 12:15 09/28/17 12:15 09/28/17 12:15 Intake and Output: 09/28/17 09/28/17 06:59 18:59 Intake Total 150 426 Output Total 355 70 Balance -205 356 - Medications Medications: Current Medications Acetaminophen (Tylenol 325mg Tab) 325 mg PO Q6 PRN PRN Reason: Fever >100.4 F Acetaminophen (Tylenol 325mg Tab) 650 mg PO Q4 PRN PRN Reason: Pain, moderate (4-7) Last Admin: 09/22/17 22:00 Dose: 650 mg Albuterol/Ipratropium (Duoneb 3 Mg/0.5 Mg (3 Ml) Ud) 3 ml INH RQ6 [facility]ELVET Last Admin: 09/28/17 13:36 Dose: 3 ml Apixaban (Eliquis) 5 mg PO BID VELVET Last Admin: 09/23/17 10:58 Dose: Not Given Carvedilol (Coreg) 3.125 mg PO BID VELVET Last Admin: 09/28/17 09:02 Dose: Not Given Emollient Ointment (Vaseline Oint) 5 gm TOP Q8H PRN PRN Reason: Dry skin Last Admin: 09/27/17 11:19 Dose: 5 gm Furosemide (Lasix) 20 mg IVP Q12 [facility]ELVET Last Admin: 09/28/17 10:57 Dose: 20 mg Cefepime HCl (Maxipime Iv 1 Gm Premix) 1 gm in 50 mls @ 100 mls/hr IVPB Q12H [facility] Last Admin: 09/28/17 10:55 Dose: 100 mls/hr Metronidazole (Flagyl) 500 mg in 100 mls @ 100 mls/hr IVPB Q8H [facility] Last Admin: 09/28/17 09:00 Dose: 100 mls/hr Fluconazole (Diflucan Iv 100 Mg/50 Ml Ns) 50 mls @ 100 mls/hr IVPB Q24H [facility] Last Admin: 09/27/17 17:13 Dose: 100 mls/hr Dobutamine HCl/Dextrose (Dobutamine/Dextrose 5% 500mg/250ml) 500 mg in 250 mls @ 22.727 mls/hr IV .Q11H VELVET; 10 MCG/KG/MIN PRN Reason: Protocol Last Titration: 09/28/17 12:18 Dose: 13 mcg/kg/min, 29.545 mls/hr Norepinephrine Bitartrate 8 mg (/ Dextrose) 258 mls @ 7.74 mls/hr IV .Q24H PRN ; Protocol; 4 MCG/MIN PRN Reason: TITRATE PER MD ORDER Insulin Aspart (Novolog) 0 unit SC Q6H VELVET PRN Reason: Protocol Last Admin: 09/28/17 12:19 Dose: Not Given Insulin Glargine (Lantus) 10 unit SC HS [facility] Last Admin: 09/16/17 22:00 Dose: 10 unit Lidocaine (Lidoderm) 1 ea TD DAILY [facility] Last Admin: 09/28/17 10:57 Dose: 1 ea Multivitamins/Minerals (Therapeutic-M Tab) 1 tab PO DAILY [facility]EL[facility]ET Last Admin: 09/28/17 11:10 Dose: 1 tab Mupirocin (Bactroban Ointment) 0 gm TOP BID [facility] Last Admin: 09/28/17 10:58 Dose: 1 applic Nystatin (Nystop Topical Powder) 1 applic TOP BID [facility] Last Admin: 09/28/17 10:58 Dose: 1 applic Ondansetron HCl (Zofran Tab) 4 mg PO Q8H PRN PRN Reason: Nausea/Vomiting Pantoprazole Sodium (Protonix Inj) 40 mg IVP DAILY [facility] Last Admin: 09/28/17 10:55 Dose: 40 mg Sennosides (Senokot Tab) 8.6 mg PO BID VELVET Last Admin: 09/28/17 10:56 Dose: 8.6 mg Tamsulosin HCl (Flomax) 0.8 mg PO DAILY VELVET Last Admin: 09/28/17 10:56 Dose: 0.8 mg - Labs Labs: 09/28/17 06:36 09/28/17 06:36 PT 26.8 SECONDS (9.7-12.2) H 09/24/17 07:06 INR 2.3 09/24/17 07:06 APTT 35 SECONDS (21-34) H 09/24/17 07:06 - Constitutional Appears: Chronically Ill - Head Exam Head Exam: NORMAL INSPECTION - Eye Exam Eye Exam: Normal appearance - ENT Exam ENT Exam: Mucous Membranes Dry - Neck Exam Neck Exam: absent: Lymphadenopathy - Respiratory Exam Respiratory Exam: Decreased Breath Sounds - Cardiovascular Exam Cardiovascular Exam: Irregular Rhythm - GI/Abdominal Exam GI & Abdominal Exam: Normal Bowel Sounds - Rectal Exam Rectal Exam: Deferred - Back Exam Back Exam: NORMAL INSPECTION - Neurological Exam Neurological Exam: Alert - Psychiatric Exam Psychiatric exam: Normal Affect - Skin Skin Exam: Normal Color Assessment and Plan (1) CHF (congestive heart failure) Assessment & Plan: stable on BiPAP. follow urine output. does not appear volume overloaded Status: Acute (2) HTN (hypertension) Assessment & Plan: was hypotensive due to sepsis. will monitor blood pressure Status: Acute
--- NOTE | 2017-09-28 16:38 | CP.PCM.PN ---
Subjective - Date & Time of Evaluation Date of Evaluation: 09/28/17 Time of Evaluation: 10:51 - Subjective Subjective: Conditions remains same, remains on bipap, tired, patient remains in positive balance. Objective - Vital Signs/Intake and Output Vital Signs (last 24 hours): Temp Pulse Resp BP Pulse Ox 98.1 F 100 H 18 94/59 L 100 09/27/17 20:00 09/28/17 10:00 09/28/17 10:00 09/28/17 09:30 09/28/17 10:00 Intake and Output: 09/28/17 09/28/17 06:59 18:59 Intake Total 150 100 Output Total 355 40 Balance -205 60 - Medications Medications: Current Medications Acetaminophen (Tylenol 325mg Tab) 325 mg PO Q6 PRN PRN Reason: Fever >100.4 F Acetaminophen (Tylenol 325mg Tab) 650 mg PO Q4 PRN PRN Reason: Pain, moderate (4-7) Last Admin: 09/22/17 22:00 Dose: 650 mg Albumin Human (Albumin Human 25% (12.5 Gm/50 Ml)) 25 gm IV ONCE ONE Stop: 09/28/17 10:51 Albuterol/Ipratropium (Duoneb 3 Mg/0.5 Mg (3 Ml) Ud) 3 ml INH RQ6 [facility] Last Admin: 09/28/17 08:32 Dose: 3 ml Apixaban (Eliquis) 5 mg PO BID [facility] Last Admin: 09/23/17 10:58 Dose: Not Given Carvedilol (Coreg) 3.125 mg PO BID [facility] Last Admin: 09/28/17 09:02 Dose: Not Given Emollient Ointment (Vaseline Oint) 5 gm TOP Q8H PRN PRN Reason: Dry skin Last Admin: 09/27/17 11:19 Dose: 5 gm Furosemide (Lasix) 20 mg IVP Q12 [facility] Last Admin: 09/27/17 22:00 Dose: 20 mg Cefepime HCl (Maxipime Iv 1 Gm Premix) 1 gm in 50 mls @ 100 mls/hr IVPB Q12H [facility] Last Admin: 09/27/17 23:15 Dose: 100 mls/hr Metronidazole (Flagyl) 500 mg in 100 mls @ 100 mls/hr IVPB Q8H [facility] Last Admin: 09/28/17 00:05 Dose: 100 mls/hr Fluconazole (Diflucan Iv 100 Mg/50 Ml Ns) 50 mls @ 100 mls/hr IVPB Q24H [facility] Last Admin: 09/27/17 17:13 Dose: 100 mls/hr Dobutamine HCl/Dextrose (Dobutamine/Dextrose 5% 500mg/250ml) 500 mg in 250 mls @ 22.727 mls/hr IV .Q11H [facility]; 10 MCG/KG/MIN PRN Reason: Protocol Norepinephrine Bitartrate 8 mg (/ Dextrose) 258 mls @ 7.74 mls/hr IV .Q24H PRN ; Protocol; 4 MCG/MIN PRN Reason: TITRATE PER MD ORDER Insulin Aspart (Novolog) 0 unit SC Q6H [facility] PRN Reason: Protocol Last Admin: 09/28/17 06:00 Dose: Not Given Insulin Glargine (Lantus) 10 unit SC HS [facility] Last Admin: 09/16/17 22:00 Dose: 10 unit Lidocaine (Lidoderm) 1 ea TD DAILY [facility] Last Admin: 09/27/17 11:38 Dose: 1 ea Multivitamins/Minerals (Therapeutic-M Tab) 1 tab PO DAILY [facility] Last Admin: 09/27/17 11:38 Dose: 1 tab Mupirocin (Bactroban Ointment) 0 gm TOP BID [facility] Last Admin: 09/27/17 17:18 Dose: 1 applic Nystatin (Nystop Topical Powder) 1 applic TOP BID [facility] Last Admin: 09/27/17 17:14 Dose: 1 applic Ondansetron HCl (Zofran Tab) 4 mg PO Q8H PRN PRN Reason: Nausea/Vomiting Pantoprazole Sodium (Protonix Inj) 40 mg IVP DAILY [facility] Last Admin: 09/27/17 11:17 Dose: 40 mg Potassium Chloride (Potassium Chloride Oral Soln) 40 meq PO ONCE ONE Stop: 09/28/17 10:51 Sennosides (Senokot Tab) 8.6 mg PO BID [facility] Last Admin: 09/27/17 17:15 Dose: Not Given Tamsulosin HCl (Flomax) 0.8 mg PO DAILY [facility] Last Admin: 09/27/17 11:18 Dose: 0.8 mg - Labs Labs: 09/28/17 06:36 09/28/17 06:36 PT 26.8 SECONDS (9.7-12.2) H 09/24/17 07:06 INR 2.3 09/24/17 07:06 APTT 35 SECONDS (21-34) H 09/24/17 07:06 - Additional Findings Additional findings: * HEENT NELSON * Neck JVD about 8 cm, pulsatine * CVS Regular, no rub, gallop * Chest A/E reduced both basis, no rales, had port on right side * PA soft, distended, peg in place * Ext 3+ edema b/l * 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 LINER 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, communicates slowly moves ext * Skin shrunken upper ext, edematous lower Assessment and Plan - Assessment and Plan (Free Text) Assessment: * Acute on chronic systolic heart failure with predominant right heart failure and edema, low bp and slow response with iv diuresis * Poor intake malnutrition now started on peg feeding * Low alb * Multiple myeloma * On empiric abx * Patient on therapeutic anticoagulation * DM Plan: * Albumin iv * Dobutamine iv and add levophed to counter act hypotension, which may allow aggressive diuresis * Proacalcitonin, may need guerrero ct if procalcitonin not suggestive * Pt on therapeutic anticoagulation * Supportive care insulin therapy * See orders for detail.
[2017-09-28] MEDS: Fluconazole IV 100mg/50 ml NS 50 ML IVPB SCH (17:16)
--- NOTE | 2017-09-28 17:59 | PN ---
DATE: LOCATION: ICU 9. SUBJECTIVE: This is a 77-year-old male seen and examined early today with the ICU undergraduate intern, was still on Venti mask, and tolerating PEG feeding well. The patient is not responding adequately to verbal stimuli. The entire chart is reviewed including, but not limited to the most recent lab and the radiology study results, current and the previous medication list, and current and the previous medical events. Today's lab showed leukocytosis 12.0 with hemoglobin of 9.0, and hematocrit 29.7 with low indices, but normal platelet count with abnormal ABGs with blood glucose level of . Most recent chest x-ray done yesterday reported same. PHYSICAL EXAMINATION: GENERAL: A 77-year-old male, on Venti mask. VITAL SIGNS: Pulse of 100, respiratory rate 22 to 24, and blood pressure of 102/58. HEENT: Showed pale, dry oral mucous membrane. Nonicteric sclerae. LUNGS: Few scattered crepitation. Decreased air entry at bases. HEART: Positive S1 and S2 with increased rate. ABDOMEN: Soft with slight distention. The previously and recently inserted PEG tube is in place. No mass or organomegaly. No rebound tenderness or guarding. Stoma is well formed without evidence of anterior abdominal wall cellulitis, covered with clean dressing. EXTREMITIES: With edematous changes in the lower extremities mildly. No clubbing or cyanosis. NEUROLOGIC: No new reported new neurological deficits, sensory, or motor. IMPRESSION: 1. Dysphagia. 2. Failure to thrive. 3. Malnutrition with hypoalbuminemia. 4. Status post percutaneous endoscopic gastrostomy insertion. 5. Peptic ulcer disease. 6. Multiple myeloma. 7. Known history of hypertension with congestive heart failure and atrial fibrillation by history. 8. Anemia secondary to above. 9. Mild renal insufficiency with dehydration. 10. Known history of benign prostatic hypertrophy, poorly controlled diabetes mellitus by history. 11. History of left hip surgery. SUGGESTIONS: 1. I agree with your plan. 2. Subsequent increase of the feeding process gradually. Elissa Roman MD
--- NOTE | 2017-09-28 23:23 | CON ---
DATE: 09/22/[address] Roman to Dr. Kati Shaver. REASON FOR CONSULTATION: I was called for GI consultation by the admitting MD. The patient is seen and fully examined on 09/22/2017 as requested by the admitting MD. The entire chart is reviewed including but not limited to most recent lab and radiology study results, current and previous medication list, current and the previous medical events, allergy to medication list as well as all the available current and previous medical records. Case discussed with staff at length. HISTORY OF PRESENT ILLNESS: This is a 77-year-old male who was admitted to the hospital through the emergency room with underlying diagnosis of urinary retention, with very poor oral intake and subsequently, the patient developed some respiratory distress for which he was intubated and extubated apparently. The patient complains of very poor oral intake with dysphagia and dyspepsia. PAST MEDICAL HISTORY: Including but not limited to; 1. Hypertension. 2. Diabetes mellitus. 3. Urinary tract infection. 4. Respiratory insufficiency. After being admitted to the hospital, the patient was found to have drop of hemoglobin and hematocrit with subsequent drop during the admission with mild increase of BUN but normal creatinine with low CO2 content indicative of metabolic acidosis. Due to the patient's dysphasia, failure to thrive and hypoalbuminemia and hypoproteinemia, I was called for GI consultation for potential PEG insertion upon receiving legal consent. PHYSICAL EXAMINATION: GENERAL: A 77-year-old male, very poorly cooperative, responding adequately to verbal stimuli. VITAL SIGNS: The patient is afebrile with pulse of 92 and respiratory rate 18 to 20 with blood pressure 106/86. HEENT: Showed pale and dry oral mucous membranes. Nonicteric sclerae. LUNGS: Scattered crepitation, decreased air entry at bases. HEART: Positive S1 and S2 with increased rate. ABDOMEN: Soft. Bowel sounds are present. No mass or organomegaly. No rebound tenderness or guarding. EXTREMITIES: Lower extremity with mild edematous changes. No clubbing or cyanosis. NEUROLOGIC: No reported new neurological deficits, sensory or motor. IMPRESSION: 1. Malnutrition. 2. Failure to thrive. 3. Hypoalbuminemia and hypoproteinemia. 4. Anemia. 5. Respiratory insufficiency. 6. The patient is a candidate for PEG insertion. SUGGESTION: 1. Agree with your plan. 2. Prefer hyperalimentation. 3. Blood transfusion to keep hemoglobin around 10 g%. 4. Correct any underlying coagulopathy. 5. The patient is to be scheduled for PEG insertion upon receiving an official and legal consent that to be discussed with admitting MD. Thank you for letting me participate in your patient's case management. Elissa Roman MD cc: Elissa Roman MD
[2017-09-29] MEDS: (Novolog) Insulin Aspart, Recombinant 100 u/ml 10 ml vial SC SCH ×4 (00:40→17:58)
[2017-09-29 06:19] LABS: BASO % 0.4 % (0.0-2.0); EOS % 0.1 % (0.0-4.0); HEMATOCRIT 27.8 % (35.0-51.0); LYMPH # 0.5 K/uL (1.0-4.3); LYMPH % 5.1 % (20.0-40.0); MEAN CELL VOLUME 87.4 fL (80.0-94.0); MEAN CORPUSCULAR HEMOGLOBIN 27.2 pg (27.0-31.0); MEAN CORPUSCULAR HGB CONC 31.1 g/dL (33.0-37.0); MEAN PLATELET VOLUME 11.8 fL (7.2-11.7); MONO # 0.4 K/uL (0.0-0.8); MONO % 4.3 % (0.0-10.0); NRBC % 0.2 % (0.0-2.0); PLATELET COUNT 206 K/uL (130-400); WHITE BLOOD COUNT 10.4 K/uL (4.8-10.8)
[2017-09-29] MEDS: DOBUTamine 500mg/250ml D5W 500 MG/250 ML BAG IV SCH ×2 (06:36→09:55)
[2017-09-29 06:37] LABS: CHLORIDE 117 mmol/L (98-107); SODIUM 148 mmol/L (132-148)
[2017-09-29 06:38] LABS: POTASSIUM 3.6 mmol/L (3.6-5.2)
[2017-09-29 06:39] LABS: GFR AFRICAN-AMERICAN > 60
[2017-09-29 06:40] LABS: ALB/GLOB RATIO 0.4 (1.0-2.1); ALKALINE PHOSPHATASE 139 U/L (38-126); ALT/SGPT 11 U/L (21-72); AST/SGOT 18 U/L (17-59); BILIRUBIN,TOTAL 1.1 mg/dL (0.2-1.3); BLOOD UREA NITROGEN 39 mg/dL (9-20); CALCIUM 8.4 mg/dl (8.6-10.4); CARBON DIOXIDE 19 mmol/L (22-30); GLUCOSE,RANDOM 201 mg/dL (75-110); PHOSPHOROUS 3.3 mg/dL (2.5-4.5); TOTAL PROTEIN 7.4 g/dL (6.3-8.3)
[2017-09-29 06:41] LABS: MAGNESIUM 1.9 mg/dL (1.6-2.3)
[2017-09-29] MEDS: metroNIDAZOLE IV 500 mg/100 ml 500 MG/100 ML BAG IVPB SCH ×2 (07:31→15:40)
[2017-09-29 08:31] LABS: NEUTROPHIL 85 % (50-75); TOTAL CELLS COUNTED 100
[2017-09-29 08:32] LABS: LARGE PLATELETS PRESENT
--- NOTE | 2017-09-29 09:48 | CP.CCUPN ---
CCU Subjective - Physician Review Events Since Last Encounter (Free Text): Patient seen and examined at bedside. ROS unobtained due to patient's current clinical status. CCU Objective - Vital Signs / Intake & Output Vital Signs (Last 4 hours): Vital Signs Pulse Resp BP Pulse Ox 09/29/17 08:15 119 H 15 87/55 L 100 09/29/17 08:00 122 H 24 100 09/29/17 07:45 119 H 19 105/60 100 09/29/17 07:42 116 H 09/29/17 07:15 126 H 36 H 109/69 100 09/29/17 07:00 113 H 15 100 09/29/17 06:45 112 H 17 102/54 L 100 09/29/17 06:36 107 H 17 103/57 L 100 09/29/17 06:15 103/57 L 09/29/17 06:11 103 H 09/29/17 06:00 117 H 17 09/29/17 05:45 116 H 20 102/60 Intake and Output (Last 8hrs): Intake & Output 09/28/17 09/29/17 09/29/17 22:59 06:59 14:59 Intake Total 606.0 636.0 159.0 Output Total 135 270 70 Balance 471.0 366.0 89.0 Weight 169 lb Intake: IV 220 250 Intake, IV Amount 386.0 386.0 159.0 Right Port-A-Cath 150 100 Riight Port-A Cath Yport 236.0 236.0 59.0 Rt PAC 150 Output: Urine 135 270 70 Urethral (Zamora) 135 270 70 Other: # Bowel Movements 0 0 0 - Physical Exam Head: Positive for: Atraumatic Extroacular Muscles: Positive for: EOMI Mouth: Positive for: Moist Mucous Membranes Neck: Positive for: Trachea Midline Respiratory/Chest: Positive for: Good Air Exchange, Other (Patient is currently on pressure support in attempt to wean off PRVC ) Cardiovascular: Positive for: Normal S1, S2, Tachycardic Abdomen: Positive for: Normal Bowel Sounds. Negative for: Tenderness, Distention, Peritoneal Signs Upper Extremity: Positive for: Normal Inspection. Negative for: Edema Lower Extremity: Positive for: Edema, Other (SCDs contraindicated ) Neurological: Positive for: GCS=15 Skin: Positive for: Normal Color Psychiatric: Positive for: Alert, Other (Easily arousable ) - Medications Active Medications: Active Medications Generic Name Dose Route Start Last Admin Trade Name Freq PRN Reason Stop Dose Admin Acetaminophen 325 mg 09/11/17 02:50 Tylenol 325mg Tab PO Q6 PRN Fever >100.4 F Acetaminophen 650 mg 09/22/17 20:43 09/22/17 22:00 Tylenol 325mg Tab PO 650 mg Q4 PRN Administration Pain, moderate (4-7) Apixaban 5 mg 09/16/17 18:00 09/23/17 10:58 Eliquis PO Not Given BID [facility] Carvedilol 3.125 mg 09/26/17 18:00 09/28/17 17:17 Coreg PO Not Given BID [facility] Emollient Ointment 5 gm 09/17/17 15:52 09/27/17 11:19 Vaseline Oint TOP 5 gm Q8H PRN Administration Dry skin Furosemide 20 mg 09/18/17 13:15 09/28/17 22:54 Lasix IVP 20 mg Q12 [facility] Administration Cefepime HCl 1 gm in 50 mls @ 100 mls/hr 09/18/17 10:30 09/28/17 22:52 Maxipime Iv 1 Gm Premix IVPB 100 mls/hr Q12H [facility] Administration Metronidazole 500 mg in 100 mls @ 100 mls/hr 09/24/17 16:00 09/29/17 07:31 Flagyl IVPB 100 mls/hr Q8H [facility] Administration Fluconazole 50 mls @ 100 mls/hr 09/24/17 18:00 09/28/17 17:16 Diflucan Iv 100 Mg/50 Ml Ns IVPB 100 mls/hr Q24H [facility] Administration Dobutamine HCl/Dextrose 500 mg in 250 mls @ 22.727 mls/hr 09/28/17 11:00 06:36 Dobutamine/Dextrose 5% 500mg/250ml IV 13 mcg/kg/min .Q11H [facility] 29.545 mls/hr Protocol Administration 10 MCG/KG/MIN Norepinephrine Bitartrate 8 mg 258 mls @ 7.74 mls/hr 09/28/17 11:15 / Dextrose IV .Q24H PRN TITRATE PER MD ORDER Protocol 4 MCG/MIN Insulin Aspart 0 unit 09/14/17 00:00 09/29/17 06:37 Novolog SC 3 unit Q6H [facility] Administration Protocol Insulin Glargine 10 unit 09/12/17 22:00 09/16/17 22:00 Lantus SC 10 unit HS [facility] Administration Lidocaine 1 ea 09/11/17 10:00 09/28/17 10:57 Lidoderm TD 1 ea DAILY [facility] Administration Multivitamins/Minerals 1 tab 09/11/17 10:00 09/28/17 11:10 Therapeutic-M Tab PO 1 tab DAILY [facility] Administration Mupirocin 0 gm 09/22/17 18:00 09/28/17 17:19 Bactroban Ointment TOP 1 applic BID [facility] Administration Nystatin 1 applic 09/17/17 12:00 09/28/17 17:19 Nystop Topical Powder TOP 1 applic BID [facility] Administration Ondansetron HCl 4 mg 09/11/17 02:50 Zofran Tab PO Q8H PRN Nausea/Vomiting Pantoprazole Sodium 40 mg 09/29/17 10:00 Protonix Ec Tab PO DAILY [facility] Sennosides 8.6 mg 09/11/17 10:00 09/28/17 17:19 Senokot Tab PO 8.6 mg BID [facility] Administration Tamsulosin HCl 0.8 mg 09/12/17 10:00 09/28/17 10:56 Flomax PO 0.8 mg DAILY [facility] Administration - Patient Studies Lab Studies: Microbiology Studies 09/26/17 16:45 Blood Culture - Preliminary Blood-Venous NO GROWTH AFTER 48 HOURS 09/26/17 16:15 Blood Culture - Preliminary Blood-Venous NO GROWTH AFTER 48 HOURS 09/26/17 11:30 Blood Culture - Preliminary Blood-Venous NO GROWTH AFTER 48 HOURS 09/26/17 18:55 MRSA Culture (Admit) - Final Naris MRSA NOT DETECTED Lab Studies 09/29/17 09/29/17 09/29/17 Range/Units 06:16 06:11 06:11 WBC 10.4 (4.8-10.8) K/uL RBC 3.18 L (4.40-5.90) Mil/uL Hgb 8.6 L (12.0-18.0) g/dL Hct 27.8 L (35.0-51.0) % MCV 87.4 (80.0-94.0) fL MCH 27.2 (27.0-31.0) pg MCHC 31.1 L (33.0-37.0) g/dL RDW 18.0 H (11.5-14.5) % Plt Count 206 (130-400) K/uL MPV 11.8 H (7.2-11.7) fL Neut % (Auto) 90.1 H (50.0-75.0) % Lymph % (Auto) 5.1 L (20.0-40.0) % Mills % (Auto) 4.3 (0.0-10.0) % Eos % (Auto) 0.1 (0.0-4.0) % Baso % (Auto) 0.4 (0.0-2.0) % Neut # 9.3 H (1.8-7.0) K/uL Lymph # 0.5 L (1.0-4.3) K/uL Mills # 0.4 (0.0-0.8) K/uL Eos # 0.0 (0.0-0.7) K/uL Baso # 0.0 (0.0-0.2) K/uL Neutrophils % (Manual) 85 H (50-75) % Band Neutrophils % 5 H (0-2) % Lymphocytes % (Manual) 5 L (20-40) % Monocytes % (Manual) 5 (0-10) % Platelet Estimate Normal (NORMAL) Large Platelets Present Hypochromasia (manual) Slight Anisocytosis (manual) Slight Target Cells Slight Sodium 148 (132-148) mmol/L Potassium 3.6 (3.6-5.2) mmol/L Chloride 117 H (98-107) mmol/L Carbon Dioxide 19 L (22-30) mmol/L Anion Gap 16 (10-20) BUN 39 H (9-20) mg/dL Creatinine 1.2 (0.8-1.5) mg/dL Est GFR ( Amer) > 60 Est GFR (Non-Af Amer) 59 POC Glucose (mg/dL) 246 H (65-110) mg/dL Random Glucose 201 H (75-110) mg/dL Calcium 8.4 L (8.6-10.4) mg/dl Phosphorus 3.3 (2.5-4.5) mg/dL Magnesium 1.9 (1.6-2.3) mg/dL Total Bilirubin 1.1 (0.2-1.3) mg/dL AST 18 (17-59) U/L ALT 11 L (21-72) U/L Alkaline Phosphatase 139 H (38-126) U/L Total Protein 7.4 (6.3-8.3) g/dL Albumin 2.1 L (3.5-5.0) g/dL Globulin 5.3 H (2.2-3.9) gm/dL Albumin/Globulin Ratio 0.4 L (1.0-2.1) Procalcitonin (0.19-0.49) NG/ML 09/29/17 09/28/17 09/28/17 Range/Units 00:11 17:41 12:09 WBC (4.8-10.8) K/uL RBC (4.40-5.90) Mil/uL Hgb (12.0-18.0) g/dL Hct (35.0-51.0) % MCV (80.0-94.0) fL MCH (27.0-31.0) pg MCHC (33.0-37.0) g/dL RDW (11.5-14.5) % Plt Count (130-400) K/uL MPV (7.2-11.7) fL Neut % (Auto) (50.0-75.0) % Lymph % (Auto) (20.0-40.0) % Mills % (Auto) (0.0-10.0) % Eos % (Auto) (0.0-4.0) % Baso % (Auto) (0.0-2.0) % Neut # (1.8-7.0) K/uL Lymph # (1.0-4.3) K/uL Mills # (0.0-0.8) K/uL Eos # (0.0-0.7) K/uL Baso # (0.0-0.2) K/uL Neutrophils % (Manual) (50-75) % Band Neutrophils % (0-2) % Lymphocytes % (Manual) (20-40) % Monocytes % (Manual) (0-10) % Platelet Estimate (NORMAL) Large Platelets Hypochromasia (manual) Anisocytosis (manual) Target Cells Sodium (132-148) mmol/L Potassium (3.6-5.2) mmol/L Chloride (98-107) mmol/L Carbon Dioxide (22-30) mmol/L Anion Gap (10-20) BUN (9-20) mg/dL Creatinine (0.8-1.5) mg/dL Est GFR ( Amer) Est GFR (Non-Af Amer) POC Glucose (mg/dL) 215 H 211 H 166 H (65-110) mg/dL Random Glucose (75-110) mg/dL Calcium (8.6-10.4) mg/dl Phosphorus (2.5-4.5) mg/dL Magnesium (1.6-2.3) mg/dL Total Bilirubin (0.2-1.3) mg/dL AST (17-59) U/L ALT (21-72) U/L Alkaline Phosphatase (38-126) U/L Total Protein (6.3-8.3) g/dL Albumin (3.5-5.0) g/dL Globulin (2.2-3.9) gm/dL Albumin/Globulin Ratio (1.0-2.1) Procalcitonin (0.19-0.49) NG/ML 09/28/17 Range/Units 12:03 WBC (4.8-10.8) K/uL RBC (4.40-5.90) Mil/uL Hgb (12.0-18.0) g/dL Hct (35.0-51.0) % MCV (80.0-94.0) fL MCH (27.0-31.0) pg MCHC (33.0-37.0) g/dL RDW (11.5-14.5) % Plt Count (130-400) K/uL MPV (7.2-11.7) fL Neut % (Auto) (50.0-75.0) % Lymph % (Auto) (20.0-40.0) % Mills % (Auto) (0.0-10.0) % Eos % (Auto) (0.0-4.0) % Baso % (Auto) (0.0-2.0) % Neut # (1.8-7.0) K/uL Lymph # (1.0-4.3) K/uL Mills # (0.0-0.8) K/uL Eos # (0.0-0.7) K/uL Baso # (0.0-0.2) K/uL Neutrophils % (Manual) (50-75) % Band Neutrophils % (0-2) % Lymphocytes % (Manual) (20-40) % Monocytes % (Manual) (0-10) % Platelet Estimate (NORMAL) Large Platelets Hypochromasia (manual) Anisocytosis (manual) Target Cells Sodium (132-148) mmol/L Potassium (3.6-5.2) mmol/L Chloride (98-107) mmol/L Carbon Dioxide (22-30) mmol/L Anion Gap (10-20) BUN (9-20) mg/dL Creatinine (0.8-1.5) mg/dL Est GFR ( Amer) Est GFR (Non-Af Amer) POC Glucose (mg/dL) (65-110) mg/dL Random Glucose (75-110) mg/dL Calcium (8.6-10.4) mg/dl Phosphorus (2.5-4.5) mg/dL Magnesium (1.6-2.3) mg/dL Total Bilirubin (0.2-1.3) mg/dL AST (17-59) U/L ALT (21-72) U/L Alkaline Phosphatase (38-126) U/L Total Protein (6.3-8.3) g/dL Albumin (3.5-5.0) g/dL Globulin (2.2-3.9) gm/dL Albumin/Globulin Ratio (1.0-2.1) Procalcitonin 1.20 H (0.19-0.49) NG/ML Laboratory Results - last 24 hr 09/28/17 09/28/17 09/28/17 12:03 12:09 17:41 WBC RBC Hgb Hct MCV MCH MCHC RDW Plt Count MPV Neut % (Auto) Lymph % (Auto) Mills % (Auto) Eos % (Auto) Baso % (Auto) Neut # Lymph # Mills # Eos # Baso # Neutrophils % (Manual) Band Neutrophils % Lymphocytes % (Manual) Monocytes % (Manual) Platelet Estimate Large Platelets Hypochromasia (manual) Anisocytosis (manual) Target Cells Sodium Potassium Chloride Carbon Dioxide Anion Gap BUN Creatinine Est GFR ( Amer) Est GFR (Non-Af Amer) POC Glucose (mg/dL) 166 H 211 H Random Glucose Calcium Phosphorus Magnesium Total Bilirubin AST ALT Alkaline Phosphatase Total Protein Albumin Globulin Albumin/Globulin Ratio Procalcitonin 1.20 H 09/29/17 09/29/17 09/29/17 00:11 06:11 06:11 WBC 10.4 RBC 3.18 L Hgb 8.6 L Hct 27.8 L MCV 87.4 MCH 27.2 MCHC 31.1 L RDW 18.0 H Plt Count 206 MPV 11.8 H Neut % (Auto) 90.1 H Lymph % (Auto) 5.1 L Mills % (Auto) 4.3 Eos % (Auto) 0.1 Baso % (Auto) 0.4 Neut # 9.3 H Lymph # 0.5 L Mills # 0.4 Eos # 0.0 Baso # 0.0 Neutrophils % (Manual) 85 H Band Neutrophils % 5 H Lymphocytes % (Manual) 5 L Monocytes % (Manual) 5 Platelet Estimate Normal Large Platelets Present Hypochromasia (manual) Slight Anisocytosis (manual) Slight Target Cells Slight Sodium 148 Potassium 3.6 Chloride 117 H Carbon Dioxide 19 L Anion Gap 16 BUN 39 H Creatinine 1.2 Est GFR ( Amer) > 60 Est GFR (Non-Af Amer) 59 POC Glucose (mg/dL) 215 H Random Glucose 201 H Calcium 8.4 L Phosphorus 3.3 Magnesium 1.9 Total Bilirubin 1.1 AST 18 ALT 11 L Alkaline Phosphatase 139 H Total Protein 7.4 Albumin 2.1 L Globulin 5.3 H Albumin/Globulin Ratio 0.4 L Procalcitonin 09/29/17 06:16 WBC RBC Hgb Hct MCV MCH MCHC RDW Plt Count MPV Neut % (Auto) Lymph % (Auto) Mills % (Auto) Eos % (Auto) Baso % (Auto) Neut # Lymph # Mills # Eos # Baso # Neutrophils % (Manual) Band Neutrophils % Lymphocytes % (Manual) Monocytes % (Manual) Platelet Estimate Large Platelets Hypochromasia (manual) Anisocytosis (manual) Target Cells Sodium Potassium Chloride Carbon Dioxide Anion Gap BUN Creatinine Est GFR ( Amer) Est GFR (Non-Af Amer) POC Glucose (mg/dL) 246 H Random Glucose Calcium Phosphorus Magnesium Total Bilirubin AST ALT Alkaline Phosphatase Total Protein Albumin Globulin Albumin/Globulin Ratio Procalcitonin Fingerstick Blood Sugar Results: 246 Review of Systems - Review of Systems Systems not reviewed;Unavailable: Acuity of Condition Critical Care Progress Note - Nutrition Nutrition: Nutrition Category Date Time Status NPO Diet [DIET] Diets 09/26/17 Lunch Active Assessment/Plan - Assessment and Plan (Free Text) Assessment: 77 M w/ PMHx of multiple myeloma, HTN, Diabetes, BPH and CHF admitted for penile swelling and inability to urinate on 09/11/17. On 09/26 was reported to be tachypneic and rapid response was called, patient in respiratory distress, put on BiPAP and admitted to ICU. Neuro: Intact Cardio: hx of HTN, chronic atrial fibrillation, CHF, hemodynamically unstable -CK-MB 0.23, Troponin 0.0440 -Echo 09/09/17 showed evidence of moderate to severe systolic functional impairment (LVEF 20%) -Carvedilol, hold if systolic <100 -Dobutamine -Levophed -Lasix 20mg q12h Pulm: Respiratory distress secondary to likely aspiration pneumonia -WBC at 14.3 with 8 bands -CXR 09/26/17 showed bilateral lower lobe infiltrates consistent with pneumonia vs. atelectasis -BiPAP at 09/04/50 to decrease work of breathing, saturation is stable at this time -defer endotracheal intubation at this time -continue antibiotics cefepime, fluconazole, flagyl GI: possible dysphagia -hold PEG feedings at this time to reduce aspiration risk Nephro: -BUN 31, Cr 1.0 -continue to monitor : hx of BPH -urine cx negative - Flomax .8mg po daily Endo: diabetes -lantus and novolog Heme: moderate normocytic anemia, history of multiple myeloma -no active chemotherapy at this time ID: -blood culture: negative -urine culture: negative -continue antibiotics cefepime, fluconazole, flagyl PPx: -DVT prophylaxis: INR 2.3, no chemical prophylaxis -continue SCDs
[2017-09-29] MEDS: Multivitamin With Minerals Tab PO SCH (09:54)
[2017-09-29] MEDS: Pantoprazole 40 mg Susp UD PO SCH (09:59)
[2017-09-29] MEDS: Lidocaine 5% Patch TD SCH (09:59)
[2017-09-29] MEDS ORDERED: Pantoprazole 40 mg EC Tab PO SCH (10:00)
[2017-09-29] MEDS: Cefepime IV 1 gm in Dextrose 1 GM/50 ML BAG IVPB SCH ×2 (10:20→21:30)
[2017-09-29] MEDS ORDERED: DOBUTamine 500mg/250ml D5W 500 MG/250 ML BAG IV SCH (11:20)
--- NOTE | 2017-09-29 15:30 | PN ---
DATE: LOCATION: ICU 9. SUBJECTIVE: This is a 54-[id number]-[id number]-old male seen and examined in rounds without significant clinical changes are reported, active bleeding, tolerating PEG feeding well. The patient is still on BiPAP. Most recent chest x-ray showed evidence of bilateral pneumonia. The entire chart is reviewed including, but not limited to the most recent lab and radiology study results, current and the previous medication list, current and the previous medical events, allergy to medication list. Discussed with the staff at length as well as all the available medical and nursing notes. Most recent lab results showed hemoglobin of 8.6 with hematocrit 27.8 with normal platelet count and normal white blood cells with CO2 content of 19 indicative of metabolic acidosis with increased BUN of 39 but normal creatinine. Blood glucose level of 180 with low calcium of 8.4 and low albumin of 2.1. PHYSICAL EXAMINATION: GENERAL: A 77-year-old male. VITAL SIGNS: Afebrile with heart rate 112, blood pressure of 104/54, on dopamine, with respiratory rate of 20 to 22. HEENT: Showed pale, dry oral mucoid membrane. Nonicteric sclerae. LUNGS: Few scattered crepitations, decreased air entry at bases. HEART: Positive S1 and S2 with increased rate. ABDOMEN: Soft with slight distention. Bowel sounds are present. PEG tube is in place with well-formed stoma. No evidence of anterior abdominal wall cellulitis. EXTREMITIES: Peripheral pulses are present, but weak bilaterally. IMPRESSION: 1. Malnutrition with hypoalbuminemia. 2. Dysphagia. 3. Failure to thrive. 4. Status post percutaneous endoscopic gastrostomy insertion. 5. Peptic ulcer disease. 6. Reported history of multiple myeloma. 7. Bilateral pneumonia. 8. Known history of hypertension and congestive heart failure with atrial fibrillation. 9. Anemia secondary to above. 10. Mild renal insufficiency with dehydration. 11. Reported history of benign prostatic hypertrophy with poorly controlled diabetes mellitus. 12. History of left hip surgery. SUGGESTIONS: 1. Continue current management. 2. No need to hold any PEG feeding, but may reduce rate in the meantime and add small dose of Reglan 5 mg IV q. 8 hours for the following 2 or 3 days. Head elevation is advised. Elissa Roman MD cc: Elissa Roman MD [facility] # [id number]
--- NOTE | 2017-09-29 16:28 | RAD ---
HISTORY: Shortness of breath COMPARISON: 09/27/2017 FINDINGS: LUNGS: Right central venous catheter tip extending into the right atrium. Moderate venous congestion with prominent bibasilar airspace opacities and small to moderate right and small left pleural effusion. Suggestion of loculated fluid at the level of the right sided fissure. Repeat study for further evaluation would be helpful if clinically indicated. PLEURA: As above. CARDIOVASCULAR: Mild cardiomegaly. OSSEOUS STRUCTURES: No significant abnormalities. VISUALIZED UPPER ABDOMEN: Normal. OTHER FINDINGS: None. IMPRESSION: Right central venous catheter tip extending into the right atrium. Moderate venous congestion with prominent bibasilar airspace opacities and small to moderate right and small left pleural effusion. Suggestion of loculated fluid at the level of the right sided fissure. Repeat study for further evaluation would be helpful if clinically indicated.
[2017-09-29] MEDS: Fluconazole IV 100mg/50 ml NS 50 ML IVPB SCH (18:03)
--- NOTE | 2017-09-29 21:21 | CARD ---
APPROVED REPORT EKG Measurement Heart [id number] <Conclusion> Sinus tachycardia / PACs. Nonspecific T wave abnormality Abnormal ECG
[2017-09-30] MEDS: (Novolog) Insulin Aspart, Recombinant 100 u/ml 10 ml vial SC SCH ×4 (00:32→18:32)
[2017-09-30] MEDS: DOBUTamine 500mg/250ml D5W 500 MG/250 ML BAG IV PRN (04:00)
[2017-09-30 06:33] LABS: BASO % 0.3 % (0.0-2.0); EOS % 0.1 % (0.0-4.0); HEMATOCRIT 28.5 % (35.0-51.0); LYMPH # 0.6 K/uL (1.0-4.3); LYMPH % 4.9 % (20.0-40.0); MEAN CELL VOLUME 87.9 fL (80.0-94.0); MEAN CORPUSCULAR HEMOGLOBIN 27.2 pg (27.0-31.0); MEAN CORPUSCULAR HGB CONC 30.9 g/dL (33.0-37.0); MEAN PLATELET VOLUME 11.9 fL (7.2-11.7); MONO # 0.5 K/uL (0.0-0.8); MONO % 4.1 % (0.0-10.0); NRBC % 0.3 % (0.0-2.0); PLATELET COUNT 220 K/uL (130-400); RED CELL DISTRIBUTION WIDTH 18.1 % (11.5-14.5); WHITE BLOOD COUNT 11.5 K/uL (4.8-10.8)
[2017-09-30 06:48] LABS: POTASSIUM 3.6 mmol/L (3.6-5.2)
[2017-09-30 06:50] LABS: ALB/GLOB RATIO 0.4 (1.0-2.1); BILIRUBIN,TOTAL 1.2 mg/dL (0.2-1.3); TOTAL PROTEIN 7.6 g/dL (6.3-8.3)
[2017-09-30 06:51] LABS: CALCIUM 8.4 mg/dl (8.6-10.4); MAGNESIUM 1.9 mg/dL (1.6-2.3); PHOSPHOROUS 3.8 mg/dL (2.5-4.5)
[2017-09-30 08:31] LABS: MYELOCYTE 1 % (0-0); NEUTROPHIL 79 % (50-75); TOTAL CELLS COUNTED 100
[2017-09-30 08:32] LABS: LARGE PLATELETS PRESENT
[2017-09-30] MEDS: Pantoprazole 40 mg Susp UD PO SCH (10:27)
[2017-09-30 10:28] LABS: ABG MECHANICAL RATE 10; ARTERIAL BLOOD HGB O2 SAT 96.2 % (95.0-98.0); CARBOXYHEMOGLOBIN 1.9 % (0.5-1.5); DRAW SITE LF; HHB 0.7 % (0.0-5.0); METHEMOGLOBIN 1.2 % (0.0-3.0)
[2017-09-30] MEDS: Multivitamin With Minerals Tab PO SCH (10:28)
[2017-09-30] MEDS: Lidocaine 5% Patch TD SCH (10:29)
[2017-09-30] MEDS ORDERED: Albumin Human 25% (12.5 gm/50 ml) IV ONE (10:30)
[2017-09-30] MEDS: Cefepime IV 1 gm in Dextrose 1 GM/50 ML BAG IVPB SCH ×2 (10:31→22:03)
--- NOTE | 2017-09-30 11:58 | CP.CCUPN ---
<AndersYing L. - Last Filed: 09/30/17 15:59> CCU Subjective - Physician Review Subjective (Free Text): Patient seen and examined at bedside on BiPAP. ROS unobtained due to patient's current clinical status. CCU Objective - Vital Signs / Intake & Output Vital Signs (Last 4 hours): Vital Signs Temp Pulse Resp BP Pulse Ox 09/30/17 11:00 110 H 21 100 09/30/17 10:56 114 H 26 H 116/73 100 09/30/17 10:29 99/64 L 09/30/17 10:24 111 H 19 99/64 L 100 09/30/17 10:00 107 H 14 100 09/30/17 09:54 108 H 18 98/62 L 100 09/30/17 09:24 114 H 17 106/66 100 09/30/17 09:00 109 H 20 100 09/30/17 08:54 108 H 17 102/64 100 09/30/17 08:24 108 H 17 102/63 100 09/30/17 08:22 108 H 09/30/17 08:00 97.9 F 109 H 19 100 Intake and Output (Last 8hrs): Intake & Output 09/29/17 09/30/17 09/30/17 22:59 06:59 14:59 Intake Total 415.6 165.6 343.5 Output Total 95 190 10 Balance 320.6 -24.4 333.5 Weight 168 lb 8 oz Intake: Intake, IV Amount 315.6 165.6 203.5 Right Port-A-Cath 159.4 75.2 47.0 Riight Port-A Cath Yport 90.4 90.4 56.5 Rt PAC 65.8 100 Tube Feeding 20 Other 100 120 Output: Urine 95 190 10 Urethral ([place]) 95 190 10 Other: # Bowel Movements 0 - Physical Exam Head: Positive for: Atraumatic Extroacular Muscles: Positive for: EOMI Mouth: Positive for: Moist Mucous Membranes Neck: Positive for: Trachea Midline Respiratory/Chest: Positive for: Accessory Muscle Use, Wheezes, Decreased Breath Sounds, Other (Patient is currently on pressure support in attempt to wean off PRVC ) Cardiovascular: Positive for: Normal S1, S2, Tachycardic Abdomen: Positive for: Normal Bowel Sounds. Negative for: Tenderness, Distention, Peritoneal Signs Upper Extremity: Positive for: Normal Inspection. Negative for: Edema Lower Extremity: Positive for: Edema, Other (SCDs contraindicated ) Neurological: Positive for: GCS=15 Skin: Positive for: Normal Color Psychiatric: Positive for: Alert, Other (Easily arousable ) - Medications Active Medications: Active Medications Generic Name Dose Route Start Last Admin Trade Name Freq PRN Reason Stop Dose Admin Acetaminophen 325 mg 09/11/17 02:50 Tylenol 325mg Tab PO Q6 PRN Fever >100.4 F Acetaminophen 650 mg 09/22/17 20:43 09/22/17 22:00 Tylenol 325mg Tab PO 650 mg Q4 PRN Administration Pain, moderate (4-7) Apixaban 5 mg 09/16/17 18:00 09/23/17 10:58 Eliquis PO Not Given BID VELVET Carvedilol 3.125 mg 09/26/17 18:00 09/30/17 10:27 Coreg PO Not Given BID VELVET Emollient Ointment 5 gm 09/17/17 15:52 09/27/17 11:19 Vaseline Oint TOP 5 gm Q8H PRN Administration Dry skin Furosemide 20 mg 09/18/17 13:15 09/30/17 10:29 Lasix IVP 20 mg Q12 VELVET Administration Cefepime HCl 1 gm in 50 mls @ 100 mls/hr 09/18/17 10:30 09/30/17 10:31 Maxipime Iv 1 Gm Premix IVPB 100 mls/hr Q12H VELVET Administration Fluconazole 50 mls @ 100 mls/hr 09/24/17 18:00 09/29/17 18:03 Diflucan Iv 100 Mg/50 Ml Ns IVPB 100 mls/hr Q24H VELVET Administration Norepinephrine Bitartrate 8 mg 258 mls @ 7.74 mls/hr 09/28/17 11:15 09/29/17 12:08 / Dextrose IV 5 mcg/min .Q24H PRN 9.67 mls/hr TITRATE PER MD ORDER Titration Protocol 4 MCG/MIN Dobutamine HCl/Dextrose 500 mg in 250 mls @ 11.499 mls/hr 09/29/17 11:39 04:00 Dobutamine/Dextrose 5% 500mg/250ml IV 5 mcg/kg/min .[id number] PRN 11.499 mls/hr Protocol Administration 5 MCG/KG/MIN Insulin Aspart 0 unit 09/14/17 00:00 09/30/17 06:37 Novolog SC Not Given Q6H VELVET Protocol Insulin Glargine 10 unit 09/12/17 22:00 09/16/17 22:00 Lantus SC 10 unit HS VELVET Administration Lidocaine 1 ea 09/11/17 10:00 09/30/17 10:29 Lidoderm TD 1 ea DAILY VELVET Administration Multivitamins/Minerals 1 tab 09/11/17 10:00 09/30/17 10:28 Therapeutic-M Tab PO 1 tab DAILY VELVET Administration Mupirocin 0 gm 09/22/17 18:00 09/30/17 10:26 Bactroban Ointment TOP 1 applic BID VELVET Administration Nystatin 1 applic 09/17/17 12:00 09/30/17 10:28 Nystop Topical Powder TOP 1 applic BID VELVET Administration Ondansetron HCl 4 mg 09/11/17 02:50 Zofran Tab PO Q8H PRN Nausea/Vomiting Pantoprazole Sodium 40 mg 09/29/17 10:00 09/30/17 10:27 Protonix Susp PO 40 mg DAILY VELVET Administration Sennosides 8.6 mg 09/11/17 10:00 09/30/17 10:28 Senokot Tab PO 8.6 mg BID VELVET Administration Tamsulosin HCl 0.8 mg 09/12/17 10:00 09/30/17 10:27 Flomax PO 0.8 mg DAILY VELVET Administration - Patient Studies Lab Studies: Microbiology Studies 09/26/17 16:45 Blood Culture - Preliminary Blood-Venous NO GROWTH AFTER 3 DAYS 09/26/17 16:15 Blood Culture - Preliminary Blood-Venous NO GROWTH AFTER 3 DAYS 09/28/17 12:07 Urine Culture - Final Urine,[place] No Growth (<1,000 CFU/ML) 09/26/17 11:30 Blood Culture - Preliminary Blood-Venous NO GROWTH AFTER 3 DAYS Lab Studies 09/30/17 09/30/17 09/30/17 Range/Units 10:15 06:20 06:18 WBC 11.5 H (4.8-10.8) K/uL RBC 3.24 L (4.40-5.90) Mil/uL Hgb 8.8 L (12.0-18.0) g/dL Hct 28.5 L (35.0-51.0) % MCV 87.9 (80.0-94.0) fL MCH 27.2 (27.0-31.0) pg MCHC 30.9 L (33.0-37.0) g/dL RDW 18.1 H (11.5-14.5) % Plt Count 220 (130-400) K/uL MPV 11.9 H (7.2-11.7) fL Neut % (Auto) 90.6 H (50.0-75.0) % Lymph % (Auto) 4.9 L (20.0-40.0) % Tift % (Auto) 4.1 (0.0-10.0) % Eos % (Auto) 0.1 (0.0-4.0) % Baso % (Auto) 0.3 (0.0-2.0) % Neut # 10.4 H (1.8-7.0) K/uL Lymph # 0.6 L (1.0-4.3) K/uL Tift # 0.5 (0.0-0.8) K/uL Eos # 0.0 (0.0-0.7) K/uL Baso # 0.0 (0.0-0.2) K/uL Neutrophils % (Manual) 79 H (50-75) % Band Neutrophils % 8 H (0-2) % Lymphocytes % (Manual) 4 L (20-40) % Monocytes % (Manual) 8 (0-10) % Myelocytes % 1 H (0-0) % Platelet Estimate Normal (NORMAL) Large Platelets Present Hypochromasia (manual) Slight Anisocytosis (manual) Slight Target Cells Slight Puncture Site Lf pCO2 24 L (35-45) mm/Hg pO2 134 H (80-100) mm/Hg HCO3 21.2 (21-28) mmol/L ABG pH 7.47 H (7.35-7.45) ABG Total CO2 18.2 L (22-28) mmol/L ABG O2 Saturation 99.3 H (95-98) % ABG Base Excess -4.7 L (-2.0-3.0) mmol/L ABG Hemoglobin 11.7 (11.7-17.4) g/dL ABG Carboxyhemoglobin 1.9 H (0.5-1.5) % POC ABG HHb (Measured) 0.7 (0.0-5.0) % ABG Methemoglobin 1.2 (0.0-3.0) % Elio Test Na A-a O2 Difference 121.0 mm/Hg Respiratory Index 0.9 Hgb O2 Saturation 96.2 (95.0-98.0) % Mechanical Rate 10 FiO2 40.0 % Inspiratory BiPAP 10 Expiratory BiPAP 5 Sodium 148 (132-148) mmol/L Potassium 3.6 (3.6-5.2) mmol/L Chloride 116 H (98-107) mmol/L Carbon Dioxide 16 L (22-30) mmol/L Anion Gap 20 (10-20) BUN 41 H (9-20) mg/dL Creatinine 1.5 (0.8-1.5) mg/dL Est GFR ( Amer) 55 Est GFR (Non-Af Amer) 46 POC Glucose (mg/dL) (65-110) mg/dL Random Glucose 178 H (75-110) mg/dL Calcium 8.4 L (8.6-10.4) mg/dl Phosphorus 3.8 (2.5-4.5) mg/dL Magnesium 1.9 (1.6-2.3) mg/dL Total Bilirubin 1.2 (0.2-1.3) mg/dL AST 17 (17-59) U/L ALT 21 D (21-72) U/L Alkaline Phosphatase 136 H (38-126) U/L Total Protein 7.6 (6.3-8.3) g/dL Albumin 2.2 L (3.5-5.0) g/dL Globulin 5.4 H (2.2-3.9) gm/dL Albumin/Globulin Ratio 0.4 L (1.0-2.1) 09/30/17 09/30/17 09/29/17 Range/Units 04:58 00:22 17:51 WBC (4.8-10.8) K/uL RBC (4.40-5.90) Mil/uL Hgb (12.0-18.0) g/dL Hct (35.0-51.0) % MCV (80.0-94.0) fL MCH (27.0-31.0) pg MCHC (33.0-37.0) g/dL RDW (11.5-14.5) % Plt Count (130-400) K/uL MPV (7.2-11.7) fL Neut % (Auto) (50.0-75.0) % Lymph % (Auto) (20.0-40.0) % Tift % (Auto) (0.0-10.0) % Eos % (Auto) (0.0-4.0) % Baso % (Auto) (0.0-2.0) % Neut # (1.8-7.0) K/uL Lymph # (1.0-4.3) K/uL Tift # (0.0-0.8) K/uL Eos # (0.0-0.7) K/uL Baso # (0.0-0.2) K/uL Neutrophils % (Manual) (50-75) % Band Neutrophils % (0-2) % Lymphocytes % (Manual) (20-40) % Monocytes % (Manual) (0-10) % Myelocytes % (0-0) % Platelet Estimate (NORMAL) Large Platelets Hypochromasia (manual) Anisocytosis (manual) Target Cells Puncture Site pCO2 (35-45) mm/Hg pO2 (80-100) mm/Hg HCO3 (21-28) mmol/L ABG pH (7.35-7.45) ABG Total CO2 (22-28) mmol/L ABG O2 Saturation (95-98) % ABG Base Excess (-2.0-3.0) mmol/L ABG Hemoglobin (11.7-17.4) g/dL ABG Carboxyhemoglobin (0.5-1.5) % POC ABG HHb (Measured) (0.0-5.0) % ABG Methemoglobin (0.0-3.0) % Elio Test A-a O2 Difference mm/Hg Respiratory Index Hgb O2 Saturation (95.0-98.0) % Mechanical Rate FiO2 % Inspiratory BiPAP Expiratory BiPAP Sodium (132-148) mmol/L Potassium (3.6-5.2) mmol/L Chloride (98-107) mmol/L Carbon Dioxide (22-30) mmol/L Anion Gap (10-20) BUN (9-20) mg/dL Creatinine (0.8-1.5) mg/dL Est GFR ( Amer) Est GFR (Non-Af Amer) POC Glucose (mg/dL) 223 H 189 H 181 H (65-110) mg/dL Random Glucose (75-110) mg/dL Calcium (8.6-10.4) mg/dl Phosphorus (2.5-4.5) mg/dL Magnesium (1.6-2.3) mg/dL Total Bilirubin (0.2-1.3) mg/dL AST (17-59) U/L ALT (21-72) U/L Alkaline Phosphatase (38-126) U/L Total Protein (6.3-8.3) g/dL Albumin (3.5-5.0) g/dL Globulin (2.2-3.9) gm/dL Albumin/Globulin Ratio (1.0-2.1) 09/29/ Range/Units 11:50 WBC (4.8-10.8) K/uL RBC (4.40-5.90) Mil/uL Hgb (12.0-18.0) g/dL Hct (35.0-51.0) % MCV (80.0-94.0) fL MCH (27.0-31.0) pg MCHC (33.0-37.0) g/dL RDW (11.5-14.5) % Plt Count (130-400) K/uL MPV (7.2-11.7) fL Neut % (Auto) (50.0-75.0) % Lymph % (Auto) (20.0-40.0) % Tift % (Auto) (0.0-10.0) % Eos % (Auto) (0.0-4.0) % Baso % (Auto) (0.0-2.0) % Neut # (1.8-7.0) K/uL Lymph # (1.0-4.3) K/uL Tift # (0.0-0.8) K/uL Eos # (0.0-0.7) K/uL Baso # (0.0-0.2) K/uL Neutrophils % (Manual) (50-75) % Band Neutrophils % (0-2) % Lymphocytes % (Manual) (20-40) % Monocytes % (Manual) (0-10) % Myelocytes % (0-0) % Platelet Estimate (NORMAL) Large Platelets Hypochromasia (manual) Anisocytosis (manual) Target Cells Puncture Site pCO2 (35-45) mm/Hg pO2 (80-100) mm/Hg HCO3 (21-28) mmol/L ABG pH (7.35-7.45) ABG Total CO2 (22-28) mmol/L ABG O2 Saturation (95-98) % ABG Base Excess (-2.0-3.0) mmol/L ABG Hemoglobin (11.7-17.4) g/dL ABG Carboxyhemoglobin (0.5-1.5) % POC ABG HHb (Measured) (0.0-5.0) % ABG Methemoglobin (0.0-3.0) % Elio Test A-a O2 Difference mm/Hg Respiratory Index Hgb O2 Saturation (95.0-98.0) % Mechanical Rate FiO2 % Inspiratory BiPAP Expiratory BiPAP Sodium (132-148) mmol/L Potassium (3.6-5.2) mmol/L Chloride (98-107) mmol/L Carbon Dioxide (22-30) mmol/L Anion Gap (10-20) BUN (9-20) mg/dL Creatinine (0.8-1.5) mg/dL Est GFR ( Amer) Est GFR (Non-Af Amer) POC Glucose (mg/dL) 180 H (65-110) mg/dL Random Glucose (75-110) mg/dL Calcium (8.6-10.4) mg/dl Phosphorus (2.5-4.5) mg/dL Magnesium (1.6-2.3) mg/dL Total Bilirubin (0.2-1.3) mg/dL AST (17-59) U/L ALT (21-72) U/L Alkaline Phosphatase (38-126) U/L Total Protein (6.3-8.3) g/dL Albumin (3.5-5.0) g/dL Globulin (2.2-3.9) gm/dL Albumin/Globulin Ratio (1.0-2.1) Laboratory Results - last 24 hr 09/29/17 09/29/17 09/30/17 11:50 17:51 00:22 WBC RBC Hgb Hct MCV MCH MCHC RDW Plt Count MPV Neut % (Auto) Lymph % (Auto) Tift % (Auto) Eos % (Auto) Baso % (Auto) Neut # Lymph # Tift # Eos # Baso # Neutrophils % (Manual) Band Neutrophils % Lymphocytes % (Manual) Monocytes % (Manual) Myelocytes % Platelet Estimate Large Platelets Hypochromasia (manual) Anisocytosis (manual) Target Cells Puncture Site pCO2 pO2 HCO3 ABG pH ABG Total CO2 ABG O2 Saturation ABG Base Excess ABG Hemoglobin ABG Carboxyhemoglobin POC ABG HHb (Measured) ABG Methemoglobin Elio Test A-a O2 Difference Respiratory Index Hgb O2 Saturation Mechanical Rate FiO2 Inspiratory BiPAP Expiratory BiPAP Sodium Potassium Chloride Carbon Dioxide Anion Gap BUN Creatinine Est GFR ( Amer) Est GFR (Non-Af Amer) POC Glucose (mg/dL) 180 H 181 H 189 H Random Glucose Calcium Phosphorus Magnesium Total Bilirubin AST ALT Alkaline Phosphatase Total Protein Albumin Globulin Albumin/Globulin Ratio 09/30/17 09/30/17 09/30/17 04:58 06:18 06:20 WBC 11.5 H RBC 3.24 L Hgb 8.8 L Hct 28.5 L MCV 87.9 MCH 27.2 MCHC 30.9 L RDW 18.1 H Plt Count 220 MPV 11.9 H Neut % (Auto) 90.6 H Lymph % (Auto) 4.9 L Tift % (Auto) 4.1 Eos % (Auto) 0.1 Baso % (Auto) 0.3 Neut # 10.4 H Lymph # 0.6 L Tift # 0.5 Eos # 0.0 Baso # 0.0 Neutrophils % (Manual) 79 H Band Neutrophils % 8 H Lymphocytes % (Manual) 4 L Monocytes % (Manual) 8 Myelocytes % 1 H Platelet Estimate Normal Large Platelets Present Hypochromasia (manual) Slight Anisocytosis (manual) Slight Target Cells Slight Puncture Site pCO2 pO2 HCO3 ABG pH ABG Total CO2 ABG O2 Saturation ABG Base Excess ABG Hemoglobin ABG Carboxyhemoglobin POC ABG HHb (Measured) ABG Methemoglobin Elio Test A-a O2 Difference Respiratory Index Hgb O2 Saturation Mechanical Rate FiO2 Inspiratory BiPAP Expiratory BiPAP Sodium 148 Potassium 3.6 Chloride 116 H Carbon Dioxide 16 L Anion Gap 20 BUN 41 H Creatinine 1.5 Est GFR ( Amer) 55 Est GFR (Non-Af Amer) 46 POC Glucose (mg/dL) 223 H Random Glucose 178 H Calcium 8.4 L Phosphorus 3.8 Magnesium 1.9 Total Bilirubin 1.2 AST 17 ALT 21 D Alkaline Phosphatase 136 H Total Protein 7.6 Albumin 2.2 L Globulin 5.4 H Albumin/Globulin Ratio 0.4 L 09/30/17 10:15 WBC RBC Hgb Hct MCV MCH MCHC RDW Plt Count MPV Neut % (Auto) Lymph % (Auto) Tift % (Auto) Eos % (Auto) Baso % (Auto) Neut # Lymph # Tift # Eos # Baso # Neutrophils % (Manual) Band Neutrophils % Lymphocytes % (Manual) Monocytes % (Manual) Myelocytes % Platelet Estimate Large Platelets Hypochromasia (manual) Anisocytosis (manual) Target Cells Puncture Site Lf pCO2 24 L pO2 134 H HCO3 21.2 ABG pH 7.47 H ABG Total CO2 18.2 L ABG O2 Saturation 99.3 H ABG Base Excess -4.7 L ABG Hemoglobin 11.7 ABG Carboxyhemoglobin 1.9 H POC ABG HHb (Measured) 0.7 ABG Methemoglobin 1.2 Elio Test Na A-a O2 Difference 121.0 Respiratory Index 0.9 Hgb O2 Saturation 96.2 Mechanical Rate 10 FiO2 40.0 Inspiratory BiPAP 10 Expiratory BiPAP 5 Sodium Potassium Chloride Carbon Dioxide Anion Gap BUN Creatinine Est GFR ( Amer) Est GFR (Non-Af Amer) POC Glucose (mg/dL) Random Glucose Calcium Phosphorus Magnesium Total Bilirubin AST ALT Alkaline Phosphatase Total Protein Albumin Globulin Albumin/Globulin Ratio Fingerstick Blood Sugar Results: 181 Review of Systems - Review of Systems Systems not reviewed;Unavailable: Acuity of Condition Assessment/Plan - Assessment and Plan (Free Text) Assessment: 77 M w/ PMHx of multiple myeloma, HTN, Diabetes, BPH and CHF admitted for penile swelling and inability to urinate on 09/11/17. On 09/26 was reported to be tachypneic and rapid response was called, patient in respiratory distress, put on BiPAP and admitted to ICU. Neuro: Intact Cardio: hx of HTN, chronic atrial fibrillation, CHF, hemodynamically unstable -CK-MB 0.23, Troponin 0.0440 -Echo 09/09/17 showed evidence of moderate to severe systolic functional impairment (LVEF 20%) -Carvedilol, hold if systolic <100 -Dobutamine -Levophed -Lasix 20mg q12h Pulm: Respiratory distress secondary to likely aspiration pneumonia -WBC at 11.5 -BiPAP at 09/04/50 to decrease work of breathing, saturation is stable at this time -defer endotracheal intubation at this time -Cxray (09/27): moderate right and small left pleural effusion -IR consulted for thoracentesis -continue antibiotics cefepime, fluconazole, flagyl GI: -start PEG feedings today Nephro: -BUN 41, Cr 1.5 -continue to monitor : hx of BPH -urine cx negative - Flomax .8mg po daily Endo: diabetes -lantus and novolog Heme: moderate normocytic anemia, history of multiple myeloma -no active chemotherapy at this time -albumin 25%, 12.5gm/50 ml given on 09/30 ID: -blood culture: negative -urine culture: negative -continue antibiotics cefepime, fluconazole, flagyl PPx: -DVT prophylaxis: INR 2.3, no chemical prophylaxis -continue SCDs -palliative care consult, help appreciated <Polo Perry - Last Filed: 09/30/17 17:54> CCU Objective - Vital Signs / Intake & Output Vital Signs (Last 4 hours): Vital Signs Temp Pulse Resp BP Pulse Ox 09/30/17 16:25 125 H 33 H 99/64 L 100 09/30/17 16:00 98 F 118 H 32 H 100 09/30/17 15:55 124 H 26 H 94/66 L 100 09/30/17 15:25 113 H 25 H 91/66 L 100 09/30/17 15:00 121 H 26 H 100 09/30/17 14:55 123 H 23 100/65 100 09/30/17 14:24 114 H 19 107/68 100 09/30/17 14:00 110 H 21 100 09/30/17 13:55 109 H 22 106/66 100 Intake and Output (Last 8hrs): Intake & Output 09/30/17 09/30/17 09/30/17 06:59 14:59 22:59 Intake Total 165.6 705.6 81.4 Output Total 190 80 15 Balance -24.4 625.6 66.4 Weight 168 lb 8 oz Intake: IV 240 Intake, IV Amount 165.6 265.6 41.4 Right Port-A-Cath 75.2 75.2 18.8 Riight Port-A Cath Yport 90.4 90.4 22.6 Rt PAC 100 Tube Feeding 80 40 Other 120 Output: Urine 190 80 15 Urethral ([place]) 190 80 15 Other: # Bowel Movements 0 - Medications Active Medications: Active Medications Generic Name Dose Route Start Last Admin Trade Name Freq PRN Reason Stop Dose Admin Acetaminophen 325 mg 09/11/17 02:50 Tylenol 325mg Tab PO Q6 PRN Fever >100.4 F Acetaminophen 650 mg 09/22/17 20:43 09/22/17 22:00 Tylenol 325mg Tab PO 650 mg Q4 PRN Administration Pain, moderate (4-7) Apixaban 5 mg 09/16/17 18:00 09/23/17 10:58 Eliquis PO Not Given BID VELVET Carvedilol 3.125 mg 09/26/17 18:00 09/30/17 10:27 Coreg PO Not Given BID VELVET Emollient Ointment 5 gm 09/17/17 15:52 09/27/17 11:19 Vaseline Oint TOP 5 gm Q8H PRN Administration Dry skin Furosemide 20 mg 09/18/17 13:15 09/30/17 10:29 Lasix IVP 20 mg Q12 VELVET Administration Cefepime HCl 1 gm in 50 mls @ 100 mls/hr 09/18/17 10:30 09/30/17 10:31 Maxipime Iv 1 Gm Premix IVPB 100 mls/hr Q12H VELVET Administration Fluconazole 50 mls @ 100 mls/hr 09/24/17 18:00 09/29/17 18:03 Diflucan Iv 100 Mg/50 Ml Ns IVPB 100 mls/hr Q24H VELVET Administration Norepinephrine Bitartrate 8 mg 258 mls @ 7.74 mls/hr 09/28/17 11:15 09/30/17 12:10 / Dextrose IV 5 mcg/min .Q24H PRN 9.67 mls/hr TITRATE PER MD ORDER Administration Protocol 4 MCG/MIN Dobutamine HCl/Dextrose 500 mg in 250 mls @ 11.499 mls/hr 09/29/17 11:39 04:00 Dobutamine/Dextrose 5% 500mg/250ml IV 5 mcg/kg/min .[id number] PRN 11.499 mls/hr Protocol Administration 5 MCG/KG/MIN Insulin Aspart 0 unit 09/14/17 00:00 09/30/17 13:53 Novolog SC 3 unit Q6H VELVET Administration Protocol Insulin Glargine 10 unit 09/12/17 22:00 09/16/17 22:00 Lantus SC 10 unit HS VELVET Administration Lidocaine 1 ea 09/11/17 10:00 09/30/17 10:29 Lidoderm TD 1 ea DAILY VELVET Administration Multivitamins/Minerals 1 tab 09/11/17 10:00 09/30/17 10:28 Therapeutic-M Tab PO 1 tab DAILY VELVET Administration Mupirocin 0 gm 09/22/17 18:00 09/30/17 10:26 Bactroban Ointment TOP 1 applic BID VELVET Administration Nystatin 1 applic 09/17/17 12:00 09/30/17 10:28 Nystop Topical Powder TOP 1 applic BID VELVET Administration Ondansetron HCl 4 mg 09/11/17 02:50 Zofran Tab PO Q8H PRN Nausea/Vomiting Pantoprazole Sodium 40 mg 09/29/17 10:00 09/30/17 10:27 Protonix Susp PO 40 mg DAILY VELVET Administration Sennosides 8.6 mg 09/11/17 10:00 09/30/17 10:28 Senokot Tab PO 8.6 mg BID VELVET Administration Tamsulosin HCl 0.8 mg 09/12/17 10:00 09/30/17 10:27 Flomax PO 0.8 mg DAILY VELVET Administration - Patient Studies Lab Studies: Microbiology Studies 09/26/17 11:30 Blood Culture - Preliminary Blood-Venous NO GROWTH AFTER 4 DAYS 09/26/17 16:45 Blood Culture - Preliminary Blood-Venous NO GROWTH AFTER 3 DAYS 09/26/17 16:15 Blood Culture - Preliminary Blood-Venous NO GROWTH AFTER 3 DAYS 09/28/17 12:07 Urine Culture - Final Urine,[place] No Growth (<1,000 CFU/ML) Lab Studies 09/30/17 09/30/17 09/30/17 Range/Units 13:47 12:42 10:15 WBC (4.8-10.8) K/uL RBC (4.40-5.90) Mil/uL Hgb (12.0-18.0) g/dL Hct (35.0-51.0) % MCV (80.0-94.0) fL MCH (27.0-31.0) pg MCHC (33.0-37.0) g/dL RDW (11.5-14.5) % Plt Count (130-400) K/uL MPV (7.2-11.7) fL Neut % (Auto) (50.0-75.0) % Lymph % (Auto) (20.0-40.0) % Tift % (Auto) (0.0-10.0) % Eos % (Auto) (0.0-4.0) % Baso % (Auto) (0.0-2.0) % Neut # (1.8-7.0) K/uL Lymph # (1.0-4.3) K/uL Tift # (0.0-0.8) K/uL Eos # (0.0-0.7) K/uL Baso # (0.0-0.2) K/uL Neutrophils % (Manual) (50-75) % Band Neutrophils % (0-2) % Lymphocytes % (Manual) (20-40) % Monocytes % (Manual) (0-10) % Myelocytes % (0-0) % Platelet Estimate (NORMAL) Large Platelets Hypochromasia (manual) Anisocytosis (manual) Target Cells Puncture Site Lf pCO2 24 L (35-45) mm/Hg pO2 134 H (80-100) mm/Hg HCO3 21.2 (21-28) mmol/L ABG pH 7.47 H (7.35-7.45) ABG Total CO2 18.2 L (22-28) mmol/L ABG O2 Saturation 99.3 H (95-98) % ABG Base Excess -4.7 L (-2.0-3.0) mmol/L ABG Hemoglobin 11.7 (11.7-17.4) g/dL ABG Carboxyhemoglobin 1.9 H (0.5-1.5) % POC ABG HHb (Measured) 0.7 (0.0-5.0) % ABG Methemoglobin 1.2 (0.0-3.0) % Elio Test Na A-a O2 Difference 121.0 mm/Hg Respiratory Index 0.9 Hgb O2 Saturation 96.2 (95.0-98.0) % Mechanical Rate 10 FiO2 40.0 % Inspiratory BiPAP 10 Expiratory BiPAP 5 Sodium (132-148) mmol/L Potassium (3.6-5.2) mmol/L Chloride (98-107) mmol/L Carbon Dioxide (22-30) mmol/L Anion Gap (10-20) BUN (9-20) mg/dL Creatinine (0.8-1.5) mg/dL Est GFR ( Amer) Est GFR (Non-Af Amer) POC Glucose (mg/dL) 211 H 249 H (65-110) mg/dL Random Glucose (75-110) mg/dL Calcium (8.6-10.4) mg/dl Phosphorus (2.5-4.5) mg/dL Magnesium (1.6-2.3) mg/dL Total Bilirubin (0.2-1.3) mg/dL AST (17-59) U/L ALT (21-72) U/L Alkaline Phosphatase (38-126) U/L Total Protein (6.3-8.3) g/dL Albumin (3.5-5.0) g/dL Globulin (2.2-3.9) gm/dL Albumin/Globulin Ratio (1.0-2.1) 09/30/17 09/30/17 09/30/17 Range/Units 06:20 06:18 04:58 WBC 11.5 H (4.8-10.8) K/uL RBC 3.24 L (4.40-5.90) Mil/uL Hgb 8.8 L (12.0-18.0) g/dL Hct 28.5 L (35.0-51.0) % MCV 87.9 (80.0-94.0) fL MCH 27.2 (27.0-31.0) pg MCHC 30.9 L (33.0-37.0) g/dL RDW 18.1 H (11.5-14.5) % Plt Count 220 (130-400) K/uL MPV 11.9 H (7.2-11.7) fL Neut % (Auto) 90.6 H (50.0-75.0) % Lymph % (Auto) 4.9 L (20.0-40.0) % Tift % (Auto) 4.1 (0.0-10.0) % Eos % (Auto) 0.1 (0.0-4.0) % Baso % (Auto) 0.3 (0.0-2.0) % Neut # 10.4 H (1.8-7.0) K/uL Lymph # 0.6 L (1.0-4.3) K/uL Tift # 0.5 (0.0-0.8) K/uL Eos # 0.0 (0.0-0.7) K/uL Baso # 0.0 (0.0-0.2) K/uL Neutrophils % (Manual) 79 H (50-75) % Band Neutrophils % 8 H (0-2) % Lymphocytes % (Manual) 4 L (20-40) % Monocytes % (Manual) 8 (0-10) % Myelocytes % 1 H (0-0) % Platelet Estimate Normal (NORMAL) Large Platelets Present Hypochromasia (manual) Slight Anisocytosis (manual) Slight Target Cells Slight Puncture Site pCO2 (35-45) mm/Hg pO2 (80-100) mm/Hg HCO3 (21-28) mmol/L ABG pH (7.35-7.45) ABG Total CO2 (22-28) mmol/L ABG O2 Saturation (95-98) % ABG Base Excess (-2.0-3.0) mmol/L ABG Hemoglobin (11.7-17.4) g/dL ABG Carboxyhemoglobin (0.5-1.5) % POC ABG HHb (Measured) (0.0-5.0) % ABG Methemoglobin (0.0-3.0) % Elio Test A-a O2 Difference mm/Hg Respiratory Index Hgb O2 Saturation (95.0-98.0) % Mechanical Rate FiO2 % Inspiratory BiPAP Expiratory BiPAP Sodium 148 (132-148) mmol/L Potassium 3.6 (3.6-5.2) mmol/L Chloride 116 H (98-107) mmol/L Carbon Dioxide 16 L (22-30) mmol/L Anion Gap 20 (10-20) BUN 41 H (9-20) mg/dL Creatinine 1.5 (0.8-1.5) mg/dL Est GFR ( Amer) 55 Est GFR (Non-Af Amer) 46 POC Glucose (mg/dL) 223 H (65-110) mg/dL Random Glucose 178 H (75-110) mg/dL Calcium 8.4 L (8.6-10.4) mg/dl Phosphorus 3.8 (2.5-4.5) mg/dL Magnesium 1.9 (1.6-2.3) mg/dL Total Bilirubin 1.2 (0.2-1.3) mg/dL AST 17 (17-59) U/L ALT 21 D (21-72) U/L Alkaline Phosphatase 136 H (38-126) U/L Total Protein 7.6 (6.3-8.3) g/dL Albumin 2.2 L (3.5-5.0) g/dL Globulin 5.4 H (2.2-3.9) gm/dL Albumin/Globulin Ratio 0.4 L (1.0-2.1) 09/30/17 09/29/17 Range/Units 00:22 17:51 WBC (4.8-10.8) K/uL RBC (4.40-5.90) Mil/uL Hgb (12.0-18.0) g/dL Hct (35.0-51.0) % MCV (80.0-94.0) fL MCH (27.0-31.0) pg MCHC (33.0-37.0) g/dL RDW (11.5-14.5) % Plt Count (130-400) K/uL MPV (7.2-11.7) fL Neut % (Auto) (50.0-75.0) % Lymph % (Auto) (20.0-40.0) % Tift % (Auto) (0.0-10.0) % Eos % (Auto) (0.0-4.0) % Baso % (Auto) (0.0-2.0) % Neut # (1.8-7.0) K/uL Lymph # (1.0-4.3) K/uL Tift # (0.0-0.8) K/uL Eos # (0.0-0.7) K/uL Baso # (0.0-0.2) K/uL Neutrophils % (Manual) (50-75) % Band Neutrophils % (0-2) % Lymphocytes % (Manual) (20-40) % Monocytes % (Manual) (0-10) % Myelocytes % (0-0) % Platelet Estimate (NORMAL) Large Platelets Hypochromasia (manual) Anisocytosis (manual) Target Cells Puncture Site pCO2 (35-45) mm/Hg pO2 (80-100) mm/Hg HCO3 (21-28) mmol/L ABG pH (7.35-7.45) ABG Total CO2 (22-28) mmol/L ABG O2 Saturation (95-98) % ABG Base Excess (-2.0-3.0) mmol/L ABG Hemoglobin (11.7-17.4) g/dL ABG Carboxyhemoglobin (0.5-1.5) % POC ABG HHb (Measured) (0.0-5.0) % ABG Methemoglobin (0.0-3.0) % Elio Test A-a O2 Difference mm/Hg Respiratory Index Hgb O2 Saturation (95.0-98.0) % Mechanical Rate FiO2 % Inspiratory BiPAP Expiratory BiPAP Sodium (132-148) mmol/L Potassium (3.6-5.2) mmol/L Chloride (98-107) mmol/L Carbon Dioxide (22-30) mmol/L Anion Gap (10-20) BUN (9-20) mg/dL Creatinine (0.8-1.5) mg/dL Est GFR ( Amer) Est GFR (Non-Af Amer) POC Glucose (mg/dL) 189 H 181 H (65-110) mg/dL Random Glucose (75-110) mg/dL Calcium (8.6-10.4) mg/dl Phosphorus (2.5-4.5) mg/dL Magnesium (1.6-2.3) mg/dL Total Bilirubin (0.2-1.3) mg/dL AST (17-59) U/L ALT (21-72) U/L Alkaline Phosphatase (38-126) U/L Total Protein (6.3-8.3) g/dL Albumin (3.5-5.0) g/dL Globulin (2.2-3.9) gm/dL Albumin/Globulin Ratio (1.0-2.1) Laboratory Results - last 24 hr 09/29/17 09/30/17 09/30/17 17:51 00:22 04:58 WBC RBC Hgb Hct MCV MCH MCHC RDW Plt Count MPV Neut % (Auto) Lymph % (Auto) [place] % (Auto) Eos % (Auto) Baso % (Auto) Neut # Lymph # [place] # Eos # Baso # Neutrophils % (Manual) Band Neutrophils % Lymphocytes % (Manual) Monocytes % (Manual) Myelocytes % Platelet Estimate Large Platelets Hypochromasia (manual) Anisocytosis (manual) Target Cells Puncture Site pCO2 pO2 HCO3 ABG pH ABG Total CO2 ABG O2 Saturation ABG Base Excess ABG Hemoglobin ABG Carboxyhemoglobin POC ABG HHb (Measured) ABG Methemoglobin Elio Test A-a O2 Difference Respiratory Index Hgb O2 Saturation Mechanical Rate FiO2 Inspiratory BiPAP Expiratory BiPAP Sodium Potassium Chloride Carbon Dioxide Anion Gap BUN Creatinine Est GFR ( Amer) Est GFR (Non-Af Amer) POC Glucose (mg/dL) 181 H 189 H 223 H Random Glucose Calcium Phosphorus Magnesium Total Bilirubin AST ALT Alkaline Phosphatase Total Protein Albumin Globulin Albumin/Globulin Ratio 09/30/17 09/30/17 09/30/17 06:18 06:20 10:15 WBC 11.5 H RBC 3.24 L Hgb 8.8 L Hct 28.5 L MCV 87.9 MCH 27.2 MCHC 30.9 L RDW 18.1 H Plt Count 220 MPV 11.9 H Neut % (Auto) 90.6 H Lymph % (Auto) 4.9 L [place] % (Auto) 4.1 Eos % (Auto) 0.1 Baso % (Auto) 0.3 Neut # 10.4 H Lymph # 0.6 L [place] # 0.5 Eos # 0.0 Baso # 0.0 Neutrophils % (Manual) 79 H Band Neutrophils % 8 H Lymphocytes % (Manual) 4 L Monocytes % (Manual) 8 Myelocytes % 1 H Platelet Estimate Normal Large Platelets Present Hypochromasia (manual) Slight Anisocytosis (manual) Slight Target Cells Slight Puncture Site Lf pCO2 24 L pO2 134 H HCO3 21.2 ABG pH 7.47 H ABG Total CO2 18.2 L ABG O2 Saturation 99.3 H ABG Base Excess -4.7 L ABG Hemoglobin 11.7 ABG Carboxyhemoglobin 1.9 H POC ABG HHb (Measured) 0.7 ABG Methemoglobin 1.2 Elio Test Na A-a O2 Difference 121.0 Respiratory Index 0.9 Hgb O2 Saturation 96.2 Mechanical Rate 10 FiO2 40.0 Inspiratory BiPAP 10 Expiratory BiPAP 5 Sodium 148 Potassium 3.6 Chloride 116 H Carbon Dioxide 16 L Anion Gap 20 BUN 41 H Creatinine 1.5 Est GFR ( Amer) 55 Est GFR (Non-Af Amer) 46 POC Glucose (mg/dL) Random Glucose 178 H Calcium 8.4 L Phosphorus 3.8 Magnesium 1.9 Total Bilirubin 1.2 AST 17 ALT 21 D Alkaline Phosphatase 136 H Total Protein 7.6 Albumin 2.2 L Globulin 5.4 H Albumin/Globulin Ratio 0.4 L 09/30/17 09/30/17 12:42 13:47 WBC RBC Hgb Hct MCV MCH MCHC RDW Plt Count MPV Neut % (Auto) Lymph % (Auto) [place] % (Auto) Eos % (Auto) Baso % (Auto) Neut # Lymph # [place] # Eos # Baso # Neutrophils % (Manual) Band Neutrophils % Lymphocytes % (Manual) Monocytes % (Manual) Myelocytes % Platelet Estimate Large Platelets Hypochromasia (manual) Anisocytosis (manual) Target Cells Puncture Site pCO2 pO2 HCO3 ABG pH ABG Total CO2 ABG O2 Saturation ABG Base Excess ABG Hemoglobin ABG Carboxyhemoglobin POC ABG HHb (Measured) ABG Methemoglobin Elio Test A-a O2 Difference Respiratory Index Hgb O2 Saturation Mechanical Rate FiO2 Inspiratory BiPAP Expiratory BiPAP Sodium Potassium Chloride Carbon Dioxide Anion Gap BUN Creatinine Est GFR ( Amer) Est GFR (Non-Af Amer) POC Glucose (mg/dL) 249 H 211 H Random Glucose Calcium Phosphorus Magnesium Total Bilirubin AST ALT Alkaline Phosphatase Total Protein Albumin Globulin Albumin/Globulin Ratio Assessment/Plan (1) Acute respiratory failure Current Visit: Yes Status: Acute (2) Hypotension (arterial) Current Visit: Yes Status: Acute (3) CHF (congestive heart failure) Current Visit: Yes Status: Acute Attending/Attestation - Attestation I have personally seen and examined this patient.: Yes I have fully participated in the care of the patient.: Yes I have reviewed all pertinent clinical information: Yes Notes (Text): 09/30/17 17:52 Patient seen and examined in the intensive care unit. Continue present treatment Continue BiPAP as needed Follow-up ABG Follow-up chest x-ray
[2017-09-30] MEDS: Fluconazole IV 100mg/50 ml NS 50 ML IVPB SCH (18:13)
--- NOTE | 2017-09-30 21:34 | US ---
EXAM: US Retroperitoneal Limited, Renal CLINICAL HISTORY: 77 years old, male; Condition or disease; Other: Jerzy TECHNIQUE: Real-time ultrasound of the retroperitoneum (limited) with image documentation. COMPARISON: No relevant prior studies available. FINDINGS: Right kidney: Mild perinephric stranding, nonspecific. Increased in echogenicity. Small cyst. No calculi. No hydronephrosis. Left kidney: Mild perinephric stranding, nonspecific. Increased in echogenicity. No mass. No calculi. No hydronephrosis. Bladder: Partially distended, 56 cc. Zamora catheter. Free fluid: Large abdominal and pelvic ascites. IMPRESSION: 1. Echogenic kidneys suggesting medical renal disease. 2. Ascites. 3. Incidental/non-acute findings are described above.
[2017-10-01] MEDS: (Novolog) Insulin Aspart, Recombinant 100 u/ml 10 ml vial SC SCH ×4 (00:13→18:59)
[2017-10-01 01:00] LABS: RBC URINE 48 /hpf (0-3); URINE BACTERIA RARE (<OCC); URINE BILIRUBIN 2+ (NEGATIVE); URINE BLOOD 3+ (NEGATIVE); URINE COLOR Amber (YELLOW); URINE GLUCOSE (UA) 1+ mg/dL (Normal); URINE HYALINE CAST 0-2 /lpf (0-2); URINE KETONE TRACE mg/dL (NEGATIVE); URINE LEUKOCYTE ESTERASE 1+ Leu/uL (Negative); URINE PROTEIN 3+ mg/dL (NEGATIVE); URINE UROBILINOGEN NORMAL mg/dL (0.2-1.0); WBC URINE 15 /hpf (0-5)
[2017-10-01 02:00] LABS: CREATININE, RANDOM URINE 128.8 mg/dL
[2017-10-01 06:01] LABS: ARTERIAL BLOOD GAS MODE BiPAP; CARBOXYHEMOGLOBIN 2.2 % (0.5-1.5); DRAW SITE L B; HHB 2.3 % (0.0-5.0); METHEMOGLOBIN 1.4 % (0.0-3.0)
--- NOTE | 2017-10-01 06:33 | PN ---
DATE: LOCATION: ICU 9. SUBJECTIVE: This 77-year-old male seen and examined in rounds, post PEG insertion. Appear to be improving clinically, tolerating PEG feeding somewhat well before. The entire chart is reviewed, including, but not limited to the most recent lab and radiology study results, current and the previous medication list, current and previous medical events. No reported bleeding, resistant or residual through the PEG feeding. Case was discussed with the staff at length. PHYSICAL EXAMINATION: GENERAL: A 77-year-old male. VITAL SIGNS: Afebrile with pulse of 104, reported respiratory rate of 20 to 22, and blood pressure of 110/72. HEENT: Showed pale and dry oral mucoid membrane. Nonicteric sclerae. LUNGS: Few scattered crepitations with decreased air entry at bases. HEART: Positive S1 and S2 with increased rate. ABDOMEN: Soft. Bowel sounds are present, but hypoactive. PEG is in place. NEUROLOGIC: No reported new neurological deficits, sensory or motor. LABORATORY DATA: Today's labs showed white blood cells of 11.5, hemoglobin of 8.8, and hematocrit of 28.5 with normal platelet count. With abnormal ABGs, with low CO2 content of 16 indicative of metabolic acidosis. Blood glucose level 223 with low calcium at 0.4 and low albumin at 2.2. IMPRESSION: 1. Aspiration pneumonia, improving clinically. 2. Malnutrition, failure to thrive on percutaneous endoscopic gastrostomy feeding. 3. Diabetes mellitus by history. 4. Anemia secondary to above. 5. Known history of congestive heart failure with hypertension and atrial fibrillation. 6. Dehydration. 7. Metabolic acidosis. 8. Known history of benign prosthetic hypertrophy. 9. History of left hip surgery. SUGGESTIONS: 1. Continue current management. 2. Subsequent increase of the rate of feeding. Elissa Roman MD
[2017-10-01 06:59] LABS: BASO % 0.2 % (0.0-2.0); EOS % 0.1 % (0.0-4.0); HEMATOCRIT 29.6 % (35.0-51.0); LYMPH # 0.4 K/uL (1.0-4.3); LYMPH % 5.6 % (20.0-40.0); MEAN CELL VOLUME 87.3 fL (80.0-94.0); MEAN CORPUSCULAR HEMOGLOBIN 26.6 pg (27.0-31.0); MEAN CORPUSCULAR HGB CONC 30.4 g/dL (33.0-37.0); MEAN PLATELET VOLUME 11.7 fL (7.2-11.7); MONO # 0.1 K/uL (0.0-0.8); MONO % 1.7 % (0.0-10.0); NRBC % 1.3 % (0.0-2.0); PLATELET COUNT 231 K/uL (130-400); RED CELL DISTRIBUTION WIDTH 18.4 % (11.5-14.5); WHITE BLOOD COUNT 7.5 K/uL (4.8-10.8)
[2017-10-01 07:08] LABS: ALB/GLOB RATIO 0.4 (1.0-2.1); BILIRUBIN,TOTAL 1.6 mg/dL (0.2-1.3); TOTAL PROTEIN 7.7 g/dL (6.3-8.3)
[2017-10-01 07:09] LABS: CALCIUM 8.4 mg/dl (8.6-10.4); MAGNESIUM 1.8 mg/dL (1.6-2.3); PHOSPHOROUS 3.6 mg/dL (2.5-4.5)
[2017-10-01] MEDS: DOBUTamine 500mg/250ml D5W 500 MG/250 ML BAG IV PRN (07:50)
[2017-10-01 08:30] LABS: NEUTROPHIL 53 % (50-75); TOTAL CELLS COUNTED 100
[2017-10-01 09:09] LABS: INR 4.4
--- NOTE | 2017-10-01 09:50 | RAD ---
HISTORY: sob COMPARISON: 09/29/2017 FINDINGS: LUNGS: Moderate right pleural effusion, unchanged. No pneumothorax. No left pleural effusion. Cannot exclude infiltrate at right base due to superimposed density of pleural effusion. Questionable right upper lobe opacity. Followup. No left-sided opacity. PLEURA: Right pleural effusion as above. CARDIOVASCULAR: Right central venous infusion port. Normal heart size. No congestive change. OSSEOUS STRUCTURES: No significant abnormalities. VISUALIZED UPPER ABDOMEN: Normal. OTHER FINDINGS: None. IMPRESSION: Stable right pleural effusion. Patchy opacity right upper lobe. Follow-up advised.
[2017-10-01] MEDS ORDERED: Phytonadione 10 mg/ml Inj (Adult) IV ONE (10:00)
[2017-10-01] MEDS: Pantoprazole 40 mg Susp UD PO SCH (10:02)
[2017-10-01] MEDS: Multivitamin With Minerals Tab PO SCH (10:03)
[2017-10-01] MEDS: Lidocaine 5% Patch TD SCH (10:04)
[2017-10-01] MEDS: Petrolatum Oint Foilpak (5 gm) TOP PRN (10:05)
--- NOTE | 2017-10-01 10:58 | CP.PCM.CON ---
History of Present Illness - History of Present Illness History of Present Illness: Initial Nephrology Consultation: Assessment: critical Anuric Acute Kidney Injury (N17.9) likely due to cardiogenic and septic shock acute respi failure, CHF exacerbation, severe systolic CHF hx of DM, HTN, multiple myeloma altered mental status s/p PEG tube, failure to thrive, malourished state Anasarca, ascites, pleural effusion Plan renal replacement therapy versus no dialysis and comfort measures d/w daughter ( Samantha) on phone. Due to progressive decline in his condition and poor prognosis , she opted for comfort measures and Not for dialysis and no aggressive measures. Maintain hemodynamics stable as possible Dose meds/antibiotics for reduced GFR <10. Avoid fleets enema/magnesium based laxatives. Avoid nephrotoxins/NSAIDs/ iodinated contrast (unless needed emergently) Glycemic control Further work up/management as per primary team consider palliative care, comfort measures, hospice d.w ICU and primary team as well Thanks for allowing me to participate in care of your patient. Please call if any Qs Dr Ciaran Gonzalez Office: [phone] Chief Complaint; Unable to obtain HPI: Pt is a 77 y/o M with hx of diabetes Mellitus hypertension, multiple myeloma, CHF EF 20% was initially admitted with penile swelling, CHF exacerbation, in ICU with septic and cardiogenic shock, currently on 2 pressors , noted to have urine output for last 1-2 days hence renal consulted. pt had PEG tube placed due to failure to thrive. he has been on Bipap. Palliative care has been involved pt unable to provide any hx. he is non communicative and in AMS state ROS: unable to obtain from pt Physical Examination: General Appearance: uncomfortable, ill appearing, cachexic, on bipap Vitals reviewed and noted as below Head; Atraumatic, normocephalic ENT: no ulcers no thrush. Tongue is midline. facial muscles wasted EYES: Pupils are equal, round and reactive to light accommodation. Sclera is anicteric. sunken eyes Neck; supple no lymphadenopathy, no thyromegaly or bruit. prominent neck veins Lungs: Increased respiratory rate/effort. Breath sounds bilateral with rales and crackles Heart: Increased rate. s1s2 normal. No rub or gallop. Extremities: 3+ edema with anasarca. No varicose veins Neurological: Patient is awake but lethargic and non-communicative, AMS Skin: Warm and dry. Normal turgor. No rash. Palpitation: Normal elasticity for age Abdomen: Abdomen is soft. Bowel sounds +. There is no abdominal tenderness, no guarding/rigidity no organomegaly. has ascites Psych: unable MSK: no joint tenderness or swelling. Digits and nails normal, no deformity : kidney or bladder not palpable. has penile and scrotal edema. has rodrigues Labs/imaging/EKG reviewed and noted as below. Past medical history, past surgical history, family history, social history, allergy reviewed and noted as below Family hx: no hx of CKD. Rest non-contributory Past Patient History - Past Medical History & Family History Past Medical History?: Yes - Past Social History Smoking Status: Never Smoked - CARDIAC Hx Congestive Heart Failure: Yes Hx Hypertension: Yes - ENDOCRINE/METABOLIC Hx Diabetes Mellitus Type 2: Yes - HEMATOLOGICAL/ONCOLOGICAL Hx Anemia: Yes - MUSCULOSKELETAL/RHEUMATOLOGICAL Hx Falls: Yes - PSYCHIATRIC Hx Substance Use: No - SURGICAL HISTORY Hx Surgeries: Yes Hx Vascular Surgery: Yes Hx Vascular Access Device: Yes (Rt subc port-a-cath) Other/Comment: Left femur fracture MAY 2017. Rt subc port-a-cath inserted on @ [facility] [place] - ANESTHESIA Hx Anesthesia: Yes Hx Anesthesia Reactions: No Meds Allergies/Adverse Reactions: Allergies Allergy/AdvReac Type Severity Reaction Status Date / Time No Known Allergies Allergy Verified 08/30/17 13:30 - Medications Medications: Current Medications Acetaminophen (Tylenol 325mg Tab) 325 mg PO Q6 PRN PRN Reason: Fever >100.4 F Acetaminophen (Tylenol 325mg Tab) 650 mg PO Q4 PRN PRN Reason: Pain, moderate (4-7) Last Admin: 09/22/17 22:00 Dose: 650 mg Apixaban (Eliquis) 5 mg PO BID [facility] Last Admin: 09/23/17 10:58 Dose: Not Given Carvedilol (Coreg) 3.125 mg PO BID [facility] Last Admin: 10/01/17 10:02 Dose: 3.125 mg Emollient Ointment (Vaseline Oint) 5 gm TOP Q8H PRN PRN Reason: Dry skin Last Admin: 10/01/17 10:05 Dose: 5 gm Furosemide (Lasix) 20 mg IVP Q12 [facility] Last Admin: 10/01/17 10:04 Dose: 20 mg Cefepime HCl (Maxipime Iv 1 Gm Premix) 1 gm in 50 mls @ 100 mls/hr IVPB Q12H [facility] Last Admin: 09/30/17 22:03 Dose: 100 mls/hr Norepinephrine Bitartrate 8 mg (/ Dextrose) 258 mls @ 7.74 mls/hr IV .Q24H PRN ; Protocol; 4 MCG/MIN PRN Reason: TITRATE PER MD ORDER Last Admin: 10/01/17 05:35 Dose: 9.71 mcg/min, 18.8 mls/hr Dobutamine HCl/Dextrose (Dobutamine/Dextrose 5% 500mg/250ml) 500 mg in 250 mls @ 11.499 mls/hr IV .[id number] PRN; 5 MCG/KG/MIN PRN Reason: Protocol Last Admin: 10/01/17 07:50 Dose: 5 mcg/kg/min, 11.499 mls/hr Insulin Aspart (Novolog) 0 unit SC Q6H [facility] PRN Reason: Protocol Last Admin: 10/01/17 05:34 Dose: Not Given Insulin Glargine (Lantus) 10 unit SC HS [facility] Last Admin: 09/16/17 22:00 Dose: 10 unit Lidocaine (Lidoderm) 1 ea TD DAILY [facility] Last Admin: 10/01/17 10:04 Dose: 1 ea Multivitamins/Minerals (Therapeutic-M Tab) 1 tab PO DAILY [facility] Last Admin: 10/01/17 10:03 Dose: 1 tab Mupirocin (Bactroban Ointment) 0 gm TOP BID [facility] Last Admin: 09/30/17 18:15 Dose: 1 applic Nystatin (Nystop Topical Powder) 1 applic TOP BID [facility] Last Admin: 10/01/17 10:14 Dose: 1 applic Ondansetron HCl (Zofran Tab) 4 mg PO Q8H PRN PRN Reason: Nausea/Vomiting Pantoprazole Sodium (Protonix Susp) 40 mg PO DAILY [facility] Last Admin: 10/01/17 10:02 Dose: 40 mg Sennosides (Senokot Tab) 8.6 mg PO BID [facility] Last Admin: 09/30/17 18:13 Dose: 8.6 mg Tamsulosin HCl (Flomax) 0.8 mg PO DAILY [facility] Last Admin: 10/01/17 10:03 Dose: 0.8 mg Results - Vital Signs Recent Vital Signs: Last Vital Signs Temp 98 F 10/01/17 08:00 Pulse 112 H 10/01/17 08:00 Resp 32 H 10/01/17 08:00 BP 106/70 10/01/17 10:04 Pulse Ox 98 10/01/17 08:00 - Labs Result Diagrams: 10/01/17 06:30 10/01/17 06:30 Labs: Laboratory Results - last 24 hr 09/30/17 09/30/17 09/30/17 12:42 13:47 18:18 WBC RBC Hgb Hct MCV MCH MCHC RDW Plt Count MPV Neut % (Auto) Lymph % (Auto) [place] % (Auto) Eos % (Auto) Baso % (Auto) Neut # Lymph # [place] # Eos # Baso # Neutrophils % (Manual) Band Neutrophils % Lymphocytes % (Manual) Monocytes % (Manual) Platelet Estimate Polychromasia Hypochromasia (manual) Anisocytosis (manual) Target Cells [place] Cells PT INR APTT Puncture Site pCO2 pO2 HCO3 ABG pH ABG Total CO2 ABG O2 Saturation ABG Base Excess ABG Hemoglobin ABG Carboxyhemoglobin POC ABG HHb (Measured) ABG Methemoglobin Elio Test A-a O2 Difference Respiratory Index Hgb O2 Saturation Vent Mode FiO2 Inspiratory BiPAP Expiratory BiPAP Sodium Potassium Chloride Carbon Dioxide Anion Gap BUN Creatinine Est GFR ( Amer) Est GFR (Non-Af Amer) POC Glucose (mg/dL) 249 H 211 H 184 H Random Glucose Calcium Phosphorus Magnesium Total Bilirubin AST ALT Alkaline Phosphatase Total Protein Albumin Globulin Albumin/Globulin Ratio Urine Color Urine Clarity Urine pH Ur Specific [place] Urine Protein Urine Glucose (UA) Urine Ketones Urine Blood Urine Nitrate Urine Bilirubin Urine Urobilinogen Ur Leukocyte Esterase Urine WBC (Auto) Urine RBC (Auto) Ur Squamous Epith Cells Urine Bacteria Hyaline Casts Urine Yeast (Budding) Ur Random Creatinine Ur Random Sodium 09/30/17 10/01/17 10/01/17 23:53 00:20 00:20 WBC RBC Hgb Hct MCV MCH MCHC RDW Plt Count MPV Neut % (Auto) Lymph % (Auto) [place] % (Auto) Eos % (Auto) Baso % (Auto) Neut # Lymph # [place] # Eos # Baso # Neutrophils % (Manual) Band Neutrophils % Lymphocytes % (Manual) Monocytes % (Manual) Platelet Estimate Polychromasia Hypochromasia (manual) Anisocytosis (manual) Target Cells Ag Cells PT INR APTT Puncture Site pCO2 pO2 HCO3 ABG pH ABG Total CO2 ABG O2 Saturation ABG Base Excess ABG Hemoglobin ABG Carboxyhemoglobin POC ABG HHb (Measured) ABG Methemoglobin Elio Test A-a O2 Difference Respiratory Index Hgb O2 Saturation Vent Mode FiO2 Inspiratory BiPAP Expiratory BiPAP Sodium Potassium Chloride Carbon Dioxide Anion Gap BUN Creatinine Est GFR ( Amer) Est GFR (Non-Af Amer) POC Glucose (mg/dL) 80 Random Glucose Calcium Phosphorus Magnesium Total Bilirubin AST ALT Alkaline Phosphatase Total Protein Albumin Globulin Albumin/Globulin Ratio Urine Color [place] Urine Clarity Hazy Urine pH 5.0 Ur Specific [place] 1.041 H Urine Protein 3+ H Urine Glucose (UA) 1+ H Urine Ketones Trace Urine Blood 3+ H Urine Nitrate Negative Urine Bilirubin 2+ H Urine Urobilinogen Normal Ur Leukocyte Esterase 1+ H Urine WBC (Auto) 15 H Urine RBC (Auto) 48 H Ur Squamous Epith Cells 1 Urine Bacteria Rare Hyaline Casts 0-2 Urine Yeast (Budding) Few H Ur Random Creatinine 128.8 Ur Random Sodium 9 10/01/17 10/01/17 10/01/17 04:56 05:24 06:30 WBC 7.5 RBC 3.39 L Hgb 9.0 L Hct 29.6 L MCV 87.3 MCH 26.6 L MCHC 30.4 L RDW 18.4 H Plt Count 231 MPV 11.7 Neut % (Auto) 92.4 H Lymph % (Auto) 5.6 L [place] % (Auto) 1.7 Eos % (Auto) 0.1 Baso % (Auto) 0.2 Neut # 7.0 Lymph # 0.4 L [place] # 0.1 Eos # 0.0 Baso # 0.0 Neutrophils % (Manual) 53 Band Neutrophils % 31 H* Lymphocytes % (Manual) 7 L Monocytes % (Manual) 9 Platelet Estimate Normal Polychromasia Slight Hypochromasia (manual) Slight Anisocytosis (manual) Slight Target Cells Slight [place] Cells Slight PT INR APTT Puncture Site L b pCO2 25 L pO2 73 L HCO3 20.9 L ABG pH 7.46 H ABG Total CO2 18.6 L ABG O2 Saturation 97.6 ABG Base Excess -5.1 L ABG Hemoglobin 8.8 L ABG Carboxyhemoglobin 2.2 H POC ABG HHb (Measured) 2.3 ABG Methemoglobin 1.4 Elio Test Na A-a O2 Difference 181.0 Respiratory Index 2.5 Hgb O2 Saturation 94.0 L Vent Mode Bipap FiO2 40.0 Inspiratory BiPAP 10 Expiratory BiPAP 5 Sodium Potassium Chloride Carbon Dioxide Anion Gap BUN Creatinine Est GFR ( Amer) Est GFR (Non-Af Amer) POC Glucose (mg/dL) 108 Random Glucose Calcium Phosphorus Magnesium Total Bilirubin AST ALT Alkaline Phosphatase Total Protein Albumin Globulin Albumin/Globulin Ratio Urine Color Urine Clarity Urine pH Ur Specific [place] Urine Protein Urine Glucose (UA) Urine Ketones Urine Blood Urine Nitrate Urine Bilirubin Urine Urobilinogen Ur Leukocyte Esterase Urine WBC (Auto) Urine RBC (Auto) Ur Squamous Epith Cells Urine Bacteria Hyaline Casts Urine Yeast (Budding) Ur Random Creatinine Ur Random Sodium 10/01/17 10/01/17 06:30 08:57 WBC RBC Hgb Hct MCV MCH MCHC RDW Plt Count MPV Neut % (Auto) Lymph % (Auto) [place] % (Auto) Eos % (Auto) Baso % (Auto) Neut # Lymph # [place] # Eos # Baso # Neutrophils % (Manual) Band Neutrophils % Lymphocytes % (Manual) Monocytes % (Manual) Platelet Estimate Polychromasia Hypochromasia (manual) Anisocytosis (manual) Target Cells Ag Cells PT 53.9 H* INR 4.4 APTT 43 H Puncture Site pCO2 pO2 HCO3 ABG pH ABG Total CO2 ABG O2 Saturation ABG Base Excess ABG Hemoglobin ABG Carboxyhemoglobin POC ABG HHb (Measured) ABG Methemoglobin Elio Test A-a O2 Difference Respiratory Index Hgb O2 Saturation Vent Mode FiO2 Inspiratory BiPAP Expiratory BiPAP Sodium 147 Potassium 4.0 Chloride 117 H Carbon Dioxide 18 L Anion Gap 16 BUN 47 H Creatinine 2.0 H Est GFR ( Amer) 40 Est GFR (Non-Af Amer) 33 POC Glucose (mg/dL) Random Glucose 92 Calcium 8.4 L Phosphorus 3.6 Magnesium 1.8 Total Bilirubin 1.6 H AST 24 ALT 25 Alkaline Phosphatase 132 H Total Protein 7.7 Albumin 2.3 L Globulin 5.4 H Albumin/Globulin Ratio 0.4 L Urine Color Urine Clarity Urine pH Ur Specific [place] Urine Protein Urine Glucose (UA) Urine Ketones Urine Blood Urine Nitrate Urine Bilirubin Urine Urobilinogen Ur Leukocyte Esterase Urine WBC (Auto) Urine RBC (Auto) Ur Squamous Epith Cells Urine Bacteria Hyaline Casts Urine Yeast (Budding) Ur Random Creatinine Ur Random Sodium
[2017-10-01] MEDS: Cefepime IV 1 gm in Dextrose 1 GM/50 ML BAG IVPB SCH ×2 (11:37→22:15)
--- NOTE | 2017-10-01 11:38 | CP.PCM.PN ---
Subjective - Date & Time of Evaluation Date of Evaluation: 10/01/17 Time of Evaluation: 10:00 - Subjective Subjective: patient seen and examined in bed. Alert, makes eye contacts, looking tired, on BiPap. Patient makes no attempts to answer questions. From my previous interactions with the patient, I know he speaks some Amharic. Patient's condition discussed on rounds this morning. of concern is his newly developed pneumonia, hypotension , increased INR and EF of 20%. I shared all of these with his daughter Shelia, , and suggested that if condition worsens we may have to intubate her father for respiratory support. Shelia was made a Surrogate decision maker by the patient at the beginning of his hospitalization. At that time he wanted to be a Full Code, but appointed Shelia to take over further decision making based on his condition. Patient was intubated once and was very clear that he would not want to be intubated again. Shelia is well aware of it. Shelia stated understending of her father's present condition and asked to be called if patient's condition worsens. She stated she would NOT want him to be intubated if it should be a need. This was shared with Doctor Orlando and primary RN. Impression * patient is in mild respiratory distress, with new onset of pneumonia * Patient is alert, but not fully able to make decision due to his complex medical condition * Daughter Shelia, surrogate decision maker is leaning toward comfort care only and wants to be regularly updated on patient's condition Suggestion * Symptoms treatment * Patient should be made DNR/DNI to avoid further aggressive interventions if condition worsens and prognosis is seen as poor Objective - Vital Signs/Intake and Output Vital Signs (last 24 hours): Temp Pulse Resp BP Pulse Ox 98 F 110 H 32 H 106/70 98 10/01/17 08:00 10/01/17 11:17 10/01/17 08:00 10/01/17 10:04 10/01/17 08:00 Intake and Output: 10/01/17 10/01/17 06:59 18:59 Intake Total 732.4 280.2 Output Total 140 Balance 592.4 280.2 - Medications Medications: Current Medications Acetaminophen (Tylenol 325mg Tab) 325 mg PO Q6 PRN PRN Reason: Fever >100.4 F Acetaminophen (Tylenol 325mg Tab) 650 mg PO Q4 PRN PRN Reason: Pain, moderate (4-7) Last Admin: 09/22/17 22:00 Dose: 650 mg Apixaban (Eliquis) 5 mg PO BID [facility] Last Admin: 09/23/17 10:58 Dose: Not Given Carvedilol (Coreg) 3.125 mg PO BID [facility] Last Admin: 10/01/17 10:02 Dose: 3.125 mg Emollient Ointment (Vaseline Oint) 5 gm TOP Q8H PRN PRN Reason: Dry skin Last Admin: 10/01/17 10:05 Dose: 5 gm Furosemide (Lasix) 20 mg IVP Q12 [facility] Last Admin: 10/01/17 10:04 Dose: 20 mg Cefepime HCl (Maxipime Iv 1 Gm Premix) 1 gm in 50 mls @ 100 mls/hr IVPB Q12H [facility] Last Admin: 09/30/17 22:03 Dose: 100 mls/hr Norepinephrine Bitartrate 8 mg (/ Dextrose) 258 mls @ 7.74 mls/hr IV .Q24H PRN ; Protocol; 4 MCG/MIN PRN Reason: TITRATE PER MD ORDER Last Admin: 10/01/17 05:35 Dose: 9.71 mcg/min, 18.8 mls/hr Dobutamine HCl/Dextrose (Dobutamine/Dextrose 5% 500mg/250ml) 500 mg in 250 mls @ 11.499 mls/hr IV .[id number] PRN; 5 MCG/KG/MIN PRN Reason: Protocol Last Admin: 10/01/17 07:50 Dose: 5 mcg/kg/min, 11.499 mls/hr Insulin Aspart (Novolog) 0 unit SC Q6H [facility] PRN Reason: Protocol Last Admin: 10/01/17 05:34 Dose: Not Given Insulin Glargine (Lantus) 10 unit SC [facility] Last Admin: 09/16/17 22:00 Dose: 10 unit Lidocaine (Lidoderm) 1 ea TD DAILY [facility] Last Admin: 10/01/17 10:04 Dose: 1 ea Multivitamins/Minerals (Therapeutic-M Tab) 1 tab PO DAILY [facility] Last Admin: 10/01/17 10:03 Dose: 1 tab Mupirocin (Bactroban Ointment) 0 gm TOP BID [facility] Last Admin: 09/30/17 18:15 Dose: 1 applic Nystatin (Nystop Topical Powder) 1 applic TOP BID [facility] Last Admin: 10/01/17 10:14 Dose: 1 applic Ondansetron HCl (Zofran Tab) 4 mg PO Q8H PRN PRN Reason: Nausea/Vomiting Pantoprazole Sodium (Protonix Susp) 40 mg PO DAILY [facility] Last Admin: 10/01/17 10:02 Dose: 40 mg Sennosides (Senokot Tab) 8.6 mg PO BID [facility] Last Admin: 09/30/17 18:13 Dose: 8.6 mg Tamsulosin HCl (Flomax) 0.8 mg PO DAILY [facility] Last Admin: 10/01/17 10:03 Dose: 0.8 mg - Labs Labs: 10/01/17 06:30 10/01/17 06:30 PT 53.9 SECONDS (9.7-12.2) H* 10/01/17 08:57 INR 4.4 10/01/17 08:57 APTT 43 SECONDS (21-34) H 10/01/17 08:57
--- NOTE | 2017-10-01 14:02 | CP.CCUPN ---
<Ying Mcnamara - Last Filed: 10/01/17 13:52> CCU Subjective - Physician Review Subjective (Free Text): Patient seen and examined at bedside on BiPAP. ROS unobtained due to patient's current clinical status. Daughter (Samantha) opted for comfort measures and does not want aggressive measures. Daughter has made patient DNR, DNI. CCU Objective - Vital Signs / Intake & Output Vital Signs (Last 4 hours): Vital Signs Pulse Resp BP Pulse Ox 10/01/17 13:43 107 H 10/01/17 12:00 111 H 40 H 99 10/01/17 11:55 110 H 35 H 101/66 99 10/01/17 11:25 109 H 37 H 96/66 L 98 10/01/17 11:17 110 H 10/01/17 11:00 112 H 31 H 100 10/01/17 10:54 111 H 37 H 110/74 100 10/01/17 10:25 113 H 40 H 103/72 98 10/01/17 10:04 106/70 10/01/17 10:00 113 H 32 H 99 10/01/17 09:55 112 H 35 H 106/70 99 Intake and Output (Last 8hrs): Intake & Output 09/30/17 10/01/17 10/01/17 22:59 06:59 14:59 Intake Total 572.5 451.6 731.2 Output Total 15 140 25 Balance 557.5 311.6 706.2 Weight 148 lb Intake: IV 68 190 250 Intake, IV Amount 214.5 241.6 231.2 Right Port-A-Cath 82.9 91.2 68.4 Riight Port-A Cath [place] 131.6 150.4 112.8 Rt PAC 50 Tube Feeding 140 20 100 Other 150 150 Output: Urine 15 40 25 Urethral ([place]) 15 40 25 Emesis 100 Other: # Bowel Movements 1 - Physical Exam Head: Positive for: Atraumatic Extroacular Muscles: Positive for: EOMI Mouth: Positive for: Moist Mucous Membranes Neck: Positive for: Trachea Midline Respiratory/Chest: Positive for: Accessory Muscle Use, Wheezes, Decreased Breath Sounds, Other (Patient is currently on pressure support in attempt to wean off PRVC ) Cardiovascular: Positive for: Normal S1, S2, Tachycardic Abdomen: Positive for: Normal Bowel Sounds. Negative for: Tenderness, Distention, Peritoneal Signs Upper Extremity: Positive for: Normal Inspection. Negative for: Edema Lower Extremity: Positive for: Edema, Other (SCDs contraindicated ) Neurological: Positive for: GCS=15 Skin: Positive for: Normal Color Psychiatric: Positive for: Alert, Other (Easily arousable ) - Medications Active Medications: Active Medications Generic Name Dose Route Start Last Admin Trade Name Freq PRN Reason Stop Dose Admin Acetaminophen 325 mg 09/11/17 02:50 Tylenol 325mg Tab PO Q6 PRN Fever >100.4 F Acetaminophen 650 mg 09/22/17 20:43 09/22/17 22:00 Tylenol 325mg Tab PO 650 mg Q4 PRN Administration Pain, moderate (4-7) Apixaban 5 mg 09/16/17 18:00 09/23/17 10:58 Eliquis PO Not Given BID VELVET Carvedilol 3.125 mg 09/26/17 18:00 10/01/17 10:02 Coreg PO 3.125 mg BID VELVET Administration Emollient Ointment 5 gm 09/17/17 15:52 10/01/17 10:05 Vaseline Oint TOP 5 gm Q8H PRN Administration Dry skin Furosemide 20 mg 09/18/17 13:15 10/01/17 10:04 Lasix IVP 20 mg Q12 VELVET Administration Cefepime HCl 1 gm in 50 mls @ 100 mls/hr 09/18/17 10:30 10/01/17 11:37 Maxipime Iv 1 Gm Premix IVPB 100 mls/hr Q12H VELVET Administration Norepinephrine Bitartrate 8 mg 258 mls @ 7.74 mls/hr 09/28/17 11:15 10/01/17 05:35 / Dextrose IV 9.71 mcg/min .Q24H PRN 18.8 mls/hr TITRATE PER MD ORDER Administration Protocol 4 MCG/MIN Dobutamine HCl/Dextrose 500 mg in 250 mls @ 11.499 mls/hr 09/29/17 11:39 12/17 07:50 Dobutamine/Dextrose 5% 500mg/250ml IV 5 mcg/kg/min .[id number] PRN 11.499 mls/hr Protocol Administration 5 MCG/KG/MIN Insulin Aspart 0 unit 09/14/17 00:00 10/01/17 13:03 Novolog SC Not Given Q6H VELVET Protocol Insulin Glargine 10 unit 09/12/17 22:00 09/16/17 22:00 Lantus SC 10 unit HS VELVET Administration Lidocaine 1 ea 09/11/17 10:00 10/01/17 10:04 Lidoderm TD 1 ea DAILY VELVET Administration Multivitamins/Minerals 1 tab 09/11/17 10:00 10/01/17 10:03 Therapeutic-M Tab PO 1 tab DAILY VELVET Administration Mupirocin 0 gm 09/22/17 18:00 10/01/17 11:39 Bactroban Ointment TOP 1 applic BID VELVET Administration Nystatin 1 applic 09/17/17 12:00 10/01/17 10:14 Nystop Topical Powder TOP 1 applic BID VELVET Administration Ondansetron HCl 4 mg 09/11/17 02:50 Zofran Tab PO Q8H PRN Nausea/Vomiting Pantoprazole Sodium 40 mg 09/29/17 10:00 10/01/17 10:02 Protonix Susp PO 40 mg DAILY VELVET Administration Sennosides 8.6 mg 09/11/17 10:00 09/30/17 18:13 Senokot Tab PO 8.6 mg BID VELVET Administration Tamsulosin HCl 0.8 mg 09/12/17 10:00 10/01/17 10:03 Flomax PO 0.8 mg DAILY VELVET Administration - Patient Studies Lab Studies: Microbiology Studies 09/26/17 16:45 Blood Culture - Preliminary Blood-Venous NO GROWTH AFTER 4 DAYS 09/26/17 16:15 Blood Culture - Preliminary Blood-Venous NO GROWTH AFTER 4 DAYS 09/26/17 11:30 Blood Culture - Preliminary Blood-Venous NO GROWTH AFTER 4 DAYS Lab Studies 10/01/17 10/01/17 10/01/17 Range/Units 12:21 10:34 08:57 WBC (4.8-10.8) K/uL RBC (4.40-5.90) Mil/uL Hgb (12.0-18.0) g/dL Hct (35.0-51.0) % MCV (80.0-94.0) fL MCH (27.0-31.0) pg MCHC (33.0-37.0) g/dL RDW (11.5-14.5) % Plt Count (130-400) K/uL MPV (7.2-11.7) fL Neut % (Auto) (50.0-75.0) % Lymph % (Auto) (20.0-40.0) % [place] % (Auto) (0.0-10.0) % Eos % (Auto) (0.0-4.0) % Baso % (Auto) (0.0-2.0) % Neut # (1.8-7.0) K/uL Lymph # (1.0-4.3) K/uL [place] # (0.0-0.8) K/uL Eos # (0.0-0.7) K/uL Baso # (0.0-0.2) K/uL Neutrophils % (Manual) (50-75) % Band Neutrophils % (0-2) % Lymphocytes % (Manual) (20-40) % Monocytes % (Manual) (0-10) % Platelet Estimate (NORMAL) Polychromasia Hypochromasia (manual) Anisocytosis (manual) Target Cells [place] Cells PT 53.9 H* (9.7-12.2) SECONDS INR 4.4 APTT 43 H (21-34) SECONDS Puncture Site pCO2 (35-45) mm/Hg pO2 (80-100) mm/Hg HCO3 (21-28) mmol/L ABG pH (7.35-7.45) ABG Total CO2 (22-28) mmol/L ABG O2 Saturation (95-98) % ABG Base Excess (-2.0-3.0) mmol/L ABG Hemoglobin (11.7-17.4) g/dL ABG Carboxyhemoglobin (0.5-1.5) % POC ABG HHb (Measured) (0.0-5.0) % ABG Methemoglobin (0.0-3.0) % Elio Test A-a O2 Difference mm/Hg Respiratory Index Hgb O2 Saturation (95.0-98.0) % Vent Mode FiO2 % Inspiratory BiPAP Expiratory BiPAP Sodium (132-148) mmol/L Potassium (3.6-5.2) mmol/L Chloride (98-107) mmol/L Carbon Dioxide (22-30) mmol/L Anion Gap (10-20) BUN (9-20) mg/dL Creatinine (0.8-1.5) mg/dL Est GFR ( Amer) Est GFR (Non-Af Amer) POC Glucose (mg/dL) 116 H (65-110) mg/dL Random Glucose (75-110) mg/dL Lactic Acid 1.5 (0.7-2.1) mmol/L Calcium (8.6-10.4) mg/dl Phosphorus (2.5-4.5) mg/dL Magnesium (1.6-2.3) mg/dL Total Bilirubin (0.2-1.3) mg/dL AST (17-59) U/L ALT (21-72) U/L Alkaline Phosphatase (38-126) U/L Total Protein (6.3-8.3) g/dL Albumin (3.5-5.0) g/dL Globulin (2.2-3.9) gm/dL Albumin/Globulin Ratio (1.0-2.1) Urine Color (YELLOW) Urine Clarity (Clear) Urine pH (5.0-8.0) Ur Specific [place] (1.003-1.030) Urine Protein (NEGATIVE) mg/dL Urine Glucose (UA) (Normal) mg/dL Urine Ketones (NEGATIVE) mg/dL Urine Blood (NEGATIVE) Urine Nitrate (NEGATIVE) Urine Bilirubin (NEGATIVE) Urine Urobilinogen (0.2-1.0) mg/dL Ur Leukocyte Esterase (Negative) [place]/uL Urine WBC (Auto) (0-5) /hpf Urine RBC (Auto) (0-3) /hpf Ur Squamous Epith Cells (0-5) /hpf Urine Bacteria (<OCC) Hyaline Casts (0-2) /lpf Urine Yeast (Budding) (NEGATIVE) /hpf Ur Random Creatinine mg/dL Ur Random Sodium mmol/L 10/01/17 10/01/17 10/01/17 Range/Units 06:30 06:30 05:24 WBC 7.5 (4.8-10.8) K/uL RBC 3.39 L (4.40-5.90) Mil/uL Hgb 9.0 L (12.0-18.0) g/dL Hct 29.6 L (35.0-51.0) % MCV 87.3 (80.0-94.0) fL MCH 26.6 L (27.0-31.0) pg MCHC 30.4 L (33.0-37.0) g/dL RDW 18.4 H (11.5-14.5) % Plt Count 231 (130-400) K/uL MPV 11.7 (7.2-11.7) fL Neut % (Auto) 92.4 H (50.0-75.0) % Lymph % (Auto) 5.6 L (20.0-40.0) % [place] % (Auto) 1.7 (0.0-10.0) % Eos % (Auto) 0.1 (0.0-4.0) % Baso % (Auto) 0.2 (0.0-2.0) % Neut # 7.0 (1.8-7.0) K/uL Lymph # 0.4 L (1.0-4.3) K/uL [place] # 0.1 (0.0-0.8) K/uL Eos # 0.0 (0.0-0.7) K/uL Baso # 0.0 (0.0-0.2) K/uL Neutrophils % (Manual) 53 (50-75) % Band Neutrophils % 31 H* (0-2) % Lymphocytes % (Manual) 7 L (20-40) % Monocytes % (Manual) 9 (0-10) % Platelet Estimate Normal (NORMAL) Polychromasia Slight Hypochromasia (manual) Slight Anisocytosis (manual) Slight Target Cells Slight Ag Cells Slight PT (9.7-12.2) SECONDS INR APTT (21-34) SECONDS Puncture Site pCO2 (35-45) mm/Hg pO2 (80-100) mm/Hg HCO3 (21-28) mmol/L ABG pH (7.35-7.45) ABG Total CO2 (22-28) mmol/L ABG O2 Saturation (95-98) % ABG Base Excess (-2.0-3.0) mmol/L ABG Hemoglobin (11.7-17.4) g/dL ABG Carboxyhemoglobin (0.5-1.5) % POC ABG HHb (Measured) (0.0-5.0) % ABG Methemoglobin (0.0-3.0) % Elio Test A-a O2 Difference mm/Hg Respiratory Index Hgb O2 Saturation (95.0-98.0) % Vent Mode FiO2 % Inspiratory BiPAP Expiratory BiPAP Sodium 147 (132-148) mmol/L Potassium 4.0 (3.6-5.2) mmol/L Chloride 117 H (98-107) mmol/L Carbon Dioxide 18 L (22-30) mmol/L Anion Gap 16 (10-20) BUN 47 H (9-20) mg/dL Creatinine 2.0 H (0.8-1.5) mg/dL Est GFR ( Amer) 40 Est GFR (Non-Af Amer) 33 POC Glucose (mg/dL) 108 (65-110) mg/dL Random Glucose 92 (75-110) mg/dL Lactic Acid (0.7-2.1) mmol/L Calcium 8.4 L (8.6-10.4) mg/dl Phosphorus 3.6 (2.5-4.5) mg/dL Magnesium 1.8 (1.6-2.3) mg/dL Total Bilirubin 1.6 H (0.2-1.3) mg/dL AST 24 (17-59) U/L ALT 25 (21-72) U/L Alkaline Phosphatase 132 H (38-126) U/L Total Protein 7.7 (6.3-8.3) g/dL Albumin 2.3 L (3.5-5.0) g/dL Globulin 5.4 H (2.2-3.9) gm/dL Albumin/Globulin Ratio 0.4 L (1.0-2.1) Urine Color (YELLOW) Urine Clarity (Clear) Urine pH (5.0-8.0) Ur Specific [place] (1.003-1.030) Urine Protein (NEGATIVE) mg/dL Urine Glucose (UA) (Normal) mg/dL Urine Ketones (NEGATIVE) mg/dL Urine Blood (NEGATIVE) Urine Nitrate (NEGATIVE) Urine Bilirubin (NEGATIVE) Urine Urobilinogen (0.2-1.0) mg/dL Ur Leukocyte Esterase (Negative) [place]/uL Urine WBC (Auto) (0-5) /hpf Urine RBC (Auto) (0-3) /hpf Ur Squamous Epith Cells (0-5) /hpf Urine Bacteria (<OCC) Hyaline Casts (0-2) /lpf Urine Yeast (Budding) (NEGATIVE) /hpf Ur Random Creatinine mg/dL Ur Random Sodium mmol/L 10/01/17 10/01/17 10/01/17 Range/Units 04:56 00:20 00:20 WBC (4.8-10.8) K/uL RBC (4.40-5.90) Mil/uL Hgb (12.0-18.0) g/dL Hct (35.0-51.0) % MCV (80.0-94.0) fL MCH (27.0-31.0) pg MCHC (33.0-37.0) g/dL RDW (11.5-14.5) % Plt Count (130-400) K/uL MPV (7.2-11.7) fL Neut % (Auto) (50.0-75.0) % Lymph % (Auto) (20.0-40.0) % [place] % (Auto) (0.0-10.0) % Eos % (Auto) (0.0-4.0) % Baso % (Auto) (0.0-2.0) % Neut # (1.8-7.0) K/uL Lymph # (1.0-4.3) K/uL [place] # (0.0-0.8) K/uL Eos # (0.0-0.7) K/uL Baso # (0.0-0.2) K/uL Neutrophils % (Manual) (50-75) % Band Neutrophils % (0-2) % Lymphocytes % (Manual) (20-40) % Monocytes % (Manual) (0-10) % Platelet Estimate (NORMAL) Polychromasia Hypochromasia (manual) Anisocytosis (manual) Target Cells Ag Cells PT (9.7-12.2) SECONDS INR APTT (21-34) SECONDS Puncture Site L b pCO2 25 L (35-45) mm/Hg pO2 73 L (80-100) mm/Hg HCO3 20.9 L (21-28) mmol/L ABG pH 7.46 H (7.35-7.45) ABG Total CO2 18.6 L (22-28) mmol/L ABG O2 Saturation 97.6 (95-98) % ABG Base Excess -5.1 L (-2.0-3.0) mmol/L ABG Hemoglobin 8.8 L (11.7-17.4) g/dL ABG Carboxyhemoglobin 2.2 H (0.5-1.5) % POC ABG HHb (Measured) 2.3 (0.0-5.0) % ABG Methemoglobin 1.4 (0.0-3.0) % Elio Test Na A-a O2 Difference 181.0 mm/Hg Respiratory Index 2.5 Hgb O2 Saturation 94.0 L (95.0-98.0) % Vent Mode Bipap FiO2 40.0 % Inspiratory BiPAP 10 Expiratory BiPAP 5 Sodium (132-148) mmol/L Potassium (3.6-5.2) mmol/L Chloride (98-107) mmol/L Carbon Dioxide (22-30) mmol/L Anion Gap (10-20) BUN (9-20) mg/dL Creatinine (0.8-1.5) mg/dL Est GFR ( Amer) Est GFR (Non-Af Amer) POC Glucose (mg/dL) (65-110) mg/dL Random Glucose (75-110) mg/dL Lactic Acid (0.7-2.1) mmol/L Calcium (8.6-10.4) mg/dl Phosphorus (2.5-4.5) mg/dL Magnesium (1.6-2.3) mg/dL Total Bilirubin (0.2-1.3) mg/dL AST (17-59) U/L ALT (21-72) U/L Alkaline Phosphatase (38-126) U/L Total Protein (6.3-8.3) g/dL Albumin (3.5-5.0) g/dL Globulin (2.2-3.9) gm/dL Albumin/Globulin Ratio (1.0-2.1) Urine Color [place] (YELLOW) Urine Clarity Hazy (Clear) Urine pH 5.0 (5.0-8.0) Ur Specific [place] 1.041 H (1.003-1.030) Urine Protein 3+ H (NEGATIVE) mg/dL Urine Glucose (UA) 1+ H (Normal) mg/dL Urine Ketones Trace (NEGATIVE) mg/dL Urine Blood 3+ H (NEGATIVE) Urine Nitrate Negative (NEGATIVE) Urine Bilirubin 2+ H (NEGATIVE) Urine Urobilinogen Normal (0.2-1.0) mg/dL Ur Leukocyte Esterase 1+ H (Negative) [place]/uL Urine WBC (Auto) 15 H (0-5) /hpf Urine RBC (Auto) 48 H (0-3) /hpf Ur Squamous Epith Cells 1 (0-5) /hpf Urine Bacteria Rare (<OCC) Hyaline Casts 0-2 (0-2) /lpf Urine Yeast (Budding) Few H (NEGATIVE) /hpf Ur Random Creatinine 128.8 mg/dL Ur Random Sodium 9 mmol/L 09/30/17 09/30/17 Range/Units 23:53 18:18 WBC (4.8-10.8) K/uL RBC (4.40-5.90) Mil/uL Hgb (12.0-18.0) g/dL Hct (35.0-51.0) % MCV (80.0-94.0) fL MCH (27.0-31.0) pg MCHC (33.0-37.0) g/dL RDW (11.5-14.5) % Plt Count (130-400) K/uL MPV (7.2-11.7) fL Neut % (Auto) (50.0-75.0) % Lymph % (Auto) (20.0-40.0) % [place] % (Auto) (0.0-10.0) % Eos % (Auto) (0.0-4.0) % Baso % (Auto) (0.0-2.0) % Neut # (1.8-7.0) K/uL Lymph # (1.0-4.3) K/uL [place] # (0.0-0.8) K/uL Eos # (0.0-0.7) K/uL Baso # (0.0-0.2) K/uL Neutrophils % (Manual) (50-75) % Band Neutrophils % (0-2) % Lymphocytes % (Manual) (20-40) % Monocytes % (Manual) (0-10) % Platelet Estimate (NORMAL) Polychromasia Hypochromasia (manual) Anisocytosis (manual) Target Cells [place] Cells PT (9.7-12.2) SECONDS INR APTT (21-34) SECONDS Puncture Site pCO2 (35-45) mm/Hg pO2 (80-100) mm/Hg HCO3 (21-28) mmol/L ABG pH (7.35-7.45) ABG Total CO2 (22-28) mmol/L ABG O2 Saturation (95-98) % ABG Base Excess (-2.0-3.0) mmol/L ABG Hemoglobin (11.7-17.4) g/dL ABG Carboxyhemoglobin (0.5-1.5) % POC ABG HHb (Measured) (0.0-5.0) % ABG Methemoglobin (0.0-3.0) % Elio Test A-a O2 Difference mm/Hg Respiratory Index Hgb O2 Saturation (95.0-98.0) % Vent Mode FiO2 % Inspiratory BiPAP Expiratory BiPAP Sodium (132-148) mmol/L Potassium (3.6-5.2) mmol/L Chloride (98-107) mmol/L Carbon Dioxide (22-30) mmol/L Anion Gap (10-20) BUN (9-20) mg/dL Creatinine (0.8-1.5) mg/dL Est GFR ( Amer) Est GFR (Non-Af Amer) POC Glucose (mg/dL) 80 184 H (65-110) mg/dL Random Glucose (75-110) mg/dL Lactic Acid (0.7-2.1) mmol/L Calcium (8.6-10.4) mg/dl Phosphorus (2.5-4.5) mg/dL Magnesium (1.6-2.3) mg/dL Total Bilirubin (0.2-1.3) mg/dL AST (17-59) U/L ALT (21-72) U/L Alkaline Phosphatase (38-126) U/L Total Protein (6.3-8.3) g/dL Albumin (3.5-5.0) g/dL Globulin (2.2-3.9) gm/dL Albumin/Globulin Ratio (1.0-2.1) Urine Color (YELLOW) Urine Clarity (Clear) Urine pH (5.0-8.0) Ur Specific [place] (1.003-1.030) Urine Protein (NEGATIVE) mg/dL Urine Glucose (UA) (Normal) mg/dL Urine Ketones (NEGATIVE) mg/dL Urine Blood (NEGATIVE) Urine Nitrate (NEGATIVE) Urine Bilirubin (NEGATIVE) Urine Urobilinogen (0.2-1.0) mg/dL Ur Leukocyte Esterase (Negative) [place]/uL Urine WBC (Auto) (0-5) /hpf Urine RBC (Auto) (0-3) /hpf Ur Squamous Epith Cells (0-5) /hpf Urine Bacteria (<OCC) Hyaline Casts (0-2) /lpf Urine Yeast (Budding) (NEGATIVE) /hpf Ur Random Creatinine mg/dL Ur Random Sodium mmol/L Laboratory Results - last 24 hr 09/30/17 09/30/17 10/01/17 18:18 23:53 00:20 WBC RBC Hgb Hct MCV MCH MCHC RDW Plt Count MPV Neut % (Auto) Lymph % (Auto) [place] % (Auto) Eos % (Auto) Baso % (Auto) Neut # Lymph # [place] # Eos # Baso # Neutrophils % (Manual) Band Neutrophils % Lymphocytes % (Manual) Monocytes % (Manual) Platelet Estimate Polychromasia Hypochromasia (manual) Anisocytosis (manual) Target Cells Ag Cells PT INR APTT Puncture Site pCO2 pO2 HCO3 ABG pH ABG Total CO2 ABG O2 Saturation ABG Base Excess ABG Hemoglobin ABG Carboxyhemoglobin POC ABG HHb (Measured) ABG Methemoglobin Elio Test A-a O2 Difference Respiratory Index Hgb O2 Saturation Vent Mode FiO2 Inspiratory BiPAP Expiratory BiPAP Sodium Potassium Chloride Carbon Dioxide Anion Gap BUN Creatinine Est GFR ( Amer) Est GFR (Non-Af Amer) POC Glucose (mg/dL) 184 H 80 Random Glucose Lactic Acid Calcium Phosphorus Magnesium Total Bilirubin AST ALT Alkaline Phosphatase Total Protein Albumin Globulin Albumin/Globulin Ratio Urine Color Urine Clarity Urine pH Ur Specific [place] Urine Protein Urine Glucose (UA) Urine Ketones Urine Blood Urine Nitrate Urine Bilirubin Urine Urobilinogen Ur Leukocyte Esterase Urine WBC (Auto) Urine RBC (Auto) Ur Squamous Epith Cells Urine Bacteria Hyaline Casts Urine Yeast (Budding) Ur Random Creatinine 128.8 Ur Random Sodium 9 10/01/17 10/01/17 10/01/17 00:20 04:56 05:24 WBC RBC Hgb Hct MCV MCH MCHC RDW Plt Count MPV Neut % (Auto) Lymph % (Auto) [place] % (Auto) Eos % (Auto) Baso % (Auto) Neut # Lymph # [place] # Eos # Baso # Neutrophils % (Manual) Band Neutrophils % Lymphocytes % (Manual) Monocytes % (Manual) Platelet Estimate Polychromasia Hypochromasia (manual) Anisocytosis (manual) Target Cells Ag Cells PT INR APTT Puncture Site L b pCO2 25 L pO2 73 L HCO3 20.9 L ABG pH 7.46 H ABG Total CO2 18.6 L ABG O2 Saturation 97.6 ABG Base Excess -5.1 L ABG Hemoglobin 8.8 L ABG Carboxyhemoglobin 2.2 H POC ABG HHb (Measured) 2.3 ABG Methemoglobin 1.4 Elio Test Na A-a O2 Difference 181.0 Respiratory Index 2.5 Hgb O2 Saturation 94.0 L Vent Mode Bipap FiO2 40.0 Inspiratory BiPAP 10 Expiratory BiPAP 5 Sodium Potassium Chloride Carbon Dioxide Anion Gap BUN Creatinine Est GFR ( Amer) Est GFR (Non-Af Amer) POC Glucose (mg/dL) 108 Random Glucose Lactic Acid Calcium Phosphorus Magnesium Total Bilirubin AST ALT Alkaline Phosphatase Total Protein Albumin Globulin Albumin/Globulin Ratio Urine Color [place] Urine Clarity Hazy Urine pH 5.0 Ur Specific [place] 1.041 H Urine Protein 3+ H Urine Glucose (UA) 1+ H Urine Ketones Trace Urine Blood 3+ H Urine Nitrate Negative Urine Bilirubin 2+ H Urine Urobilinogen Normal Ur Leukocyte Esterase 1+ H Urine WBC (Auto) 15 H Urine RBC (Auto) 48 H Ur Squamous Epith Cells 1 Urine Bacteria Rare Hyaline Casts 0-2 Urine Yeast (Budding) Few H Ur Random Creatinine Ur Random Sodium 10/01/17 10/01/17 10/01/17 06:30 06:30 08:57 WBC 7.5 RBC 3.39 L Hgb 9.0 L Hct 29.6 L MCV 87.3 MCH 26.6 L MCHC 30.4 L RDW 18.4 H Plt Count 231 MPV 11.7 Neut % (Auto) 92.4 H Lymph % (Auto) 5.6 L [place] % (Auto) 1.7 Eos % (Auto) 0.1 Baso % (Auto) 0.2 Neut # 7.0 Lymph # 0.4 L [place] # 0.1 Eos # 0.0 Baso # 0.0 Neutrophils % (Manual) 53 Band Neutrophils % 31 H* Lymphocytes % (Manual) 7 L Monocytes % (Manual) 9 Platelet Estimate Normal Polychromasia Slight Hypochromasia (manual) Slight Anisocytosis (manual) Slight Target Cells Slight Ag Cells Slight PT 53.9 H* INR 4.4 APTT 43 H Puncture Site pCO2 pO2 HCO3 ABG pH ABG Total CO2 ABG O2 Saturation ABG Base Excess ABG Hemoglobin ABG Carboxyhemoglobin POC ABG HHb (Measured) ABG Methemoglobin Elio Test A-a O2 Difference Respiratory Index Hgb O2 Saturation Vent Mode FiO2 Inspiratory BiPAP Expiratory BiPAP Sodium 147 Potassium 4.0 Chloride 117 H Carbon Dioxide 18 L Anion Gap 16 BUN 47 H Creatinine 2.0 H Est GFR ( Amer) 40 Est GFR (Non-Af Amer) 33 POC Glucose (mg/dL) Random Glucose 92 Lactic Acid Calcium 8.4 L Phosphorus 3.6 Magnesium 1.8 Total Bilirubin 1.6 H AST 24 ALT 25 Alkaline Phosphatase 132 H Total Protein 7.7 Albumin 2.3 L Globulin 5.4 H Albumin/Globulin Ratio 0.4 L Urine Color Urine Clarity Urine pH Ur Specific [place] Urine Protein Urine Glucose (UA) Urine Ketones Urine Blood Urine Nitrate Urine Bilirubin Urine Urobilinogen Ur Leukocyte Esterase Urine WBC (Auto) Urine RBC (Auto) Ur Squamous Epith Cells Urine Bacteria Hyaline Casts Urine Yeast (Budding) Ur Random Creatinine Ur Random Sodium 10/01/17 10/01/17 10:34 12:21 WBC RBC Hgb Hct MCV MCH MCHC RDW Plt Count MPV Neut % (Auto) Lymph % (Auto) [place] % (Auto) Eos % (Auto) Baso % (Auto) Neut # Lymph # [place] # Eos # Baso # Neutrophils % (Manual) Band Neutrophils % Lymphocytes % (Manual) Monocytes % (Manual) Platelet Estimate Polychromasia Hypochromasia (manual) Anisocytosis (manual) Target Cells [place] Cells PT INR APTT Puncture Site pCO2 pO2 HCO3 ABG pH ABG Total CO2 ABG O2 Saturation ABG Base Excess ABG Hemoglobin ABG Carboxyhemoglobin POC ABG HHb (Measured) ABG Methemoglobin Elio Test A-a O2 Difference Respiratory Index Hgb O2 Saturation Vent Mode FiO2 Inspiratory BiPAP Expiratory BiPAP Sodium Potassium Chloride Carbon Dioxide Anion Gap BUN Creatinine Est GFR ( Amer) Est GFR (Non-Af Amer) POC Glucose (mg/dL) 116 H Random Glucose Lactic Acid 1.5 Calcium Phosphorus Magnesium Total Bilirubin AST ALT Alkaline Phosphatase Total Protein Albumin Globulin Albumin/Globulin Ratio Urine Color Urine Clarity Urine pH Ur Specific [place] Urine Protein Urine Glucose (UA) Urine Ketones Urine Blood Urine Nitrate Urine Bilirubin Urine Urobilinogen Ur Leukocyte Esterase Urine WBC (Auto) Urine RBC (Auto) Ur Squamous Epith Cells Urine Bacteria Hyaline Casts Urine Yeast (Budding) Ur Random Creatinine Ur Random Sodium Fingerstick Blood Sugar Results: 116 Review of Systems - Review of Systems Systems not reviewed;Unavailable: Acuity of Condition Assessment/Plan - Assessment and Plan (Free Text) Assessment: 77 M w/ PMHx of multiple myeloma, HTN, Diabetes, BPH and CHF admitted for penile swelling and inability to urinate on 09/11/17. On 09/26 was reported to be tachypneic and rapid response was called, patient in respiratory distress, put on BiPAP and admitted to ICU. Today's Plan: Patient made DNR/ DNI as per daughter (Samantha) Neuro: Intact Cardio: hx of HTN, chronic atrial fibrillation, CHF, hemodynamically unstable -CK-MB 0.23, Troponin 0.0440 -Echo 09/09/17 showed evidence of moderate to severe systolic functional impairment (LVEF 20%) -Carvedilol, hold if systolic <100 -Dobutamine -Levophed -Lasix 20mg q12h Pulm: Respiratory distress secondary to likely aspiration pneumonia -WBC at 11.5 -BiPAP at 09/04/50 to decrease work of breathing, saturation is stable at this time -defer endotracheal intubation at this time -Cxray (09/27): moderate right and small left pleural effusion -IR consulted for thoracentesis -continue antibiotics cefepime, fluconazole, flagyl GI: -continue PEG feedings Nephro: -BUN 47, Cr 2.0 -Seen by Dr. Ciaran Gonzalez, daughter of patient (Samantha) declined hemodialysis due to patient's poor prognosis and opted for comfort measures -continue to monitor -avoid nephrotoxins : hx of BPH -urine cx negative -Flomax .8mg po daily Endo: diabetes -lantus and novolog Heme: moderate normocytic anemia, history of multiple myeloma -no active chemotherapy at this time -albumin 25%, 12.5gm/50 ml given on 09/30 INR 4.4, Vitamin K 10mg iv given ID: -Bands 31 on 10/01, -blood culture: negative -urine culture: negative -continue antibiotic cefepime -last dose of fluconazole and flagyl 09/30 PPx: -DVT prophylaxis: INR 4.4, no chemical prophylaxis -continue SCDs -palliative care consult, help appreciated -NS @50cc /hr Code status: DNR/ DNI <Nicki Perryudhrjared Sofia - Last Filed: 10/01/17 15:48> CCU Objective - Vital Signs / Intake & Output Vital Signs (Last 4 hours): Vital Signs Pulse Resp BP Pulse Ox 10/01/17 13:43 107 H 10/01/17 12:00 111 H 40 H 99 10/01/17 11:55 110 H 35 H 101/66 99 Intake and Output (Last 8hrs): Intake & Output 10/01/17 10/01/17 10/01/17 06:59 14:59 22:59 Intake Total 451.6 731.2 Output Total 140 25 Balance 311.6 706.2 Weight 148 lb 159 lb 2 oz Intake: IV 190 250 Intake, IV Amount 241.6 231.2 Right Port-A-Cath 91.2 68.4 Riight Port-A Cath [place] 150.4 112.8 Rt PAC 50 Tube Feeding 20 100 Other 150 Output: Urine 40 25 Urethral ([place]) 40 25 Emesis 100 - Medications Active Medications: Active Medications Generic Name Dose Route Start Last Admin Trade Name Freq PRN Reason Stop Dose Admin Acetaminophen 325 mg 09/11/17 02:50 Tylenol 325mg Tab PO Q6 PRN Fever >100.4 F Acetaminophen 650 mg 09/22/17 20:43 09/22/17 22:00 Tylenol 325mg Tab PO 650 mg Q4 PRN Administration Pain, moderate (4-7) Apixaban 5 mg 09/16/17 18:00 09/23/17 10:58 Eliquis PO Not Given BID VELVET Carvedilol 3.125 mg 09/26/17 18:00 10/01/17 10:02 Coreg PO 3.125 mg BID VELVET Administration Emollient Ointment 5 gm 09/17/17 15:52 10/01/17 10:05 Vaseline Oint TOP 5 gm Q8H PRN Administration Dry skin Furosemide 20 mg 09/18/17 13:15 10/01/17 10:04 Lasix IVP 20 mg Q12 VELVET Administration Cefepime HCl 1 gm in 50 mls @ 100 mls/hr 09/18/17 10:30 10/01/17 11:37 Maxipime Iv 1 Gm Premix IVPB 100 mls/hr Q12H VELVET Administration Norepinephrine Bitartrate 8 mg 258 mls @ 7.74 mls/hr 09/28/17 11:15 10/01/17 05:35 / Dextrose IV 9.71 mcg/min .Q24H PRN 18.8 mls/hr TITRATE PER MD ORDER Administration Protocol 4 MCG/MIN Dobutamine HCl/Dextrose 500 mg in 250 mls @ 11.499 mls/hr 09/29/17 11:39 12/17 07:50 Dobutamine/Dextrose 5% 500mg/250ml IV 5 mcg/kg/min .[id number] PRN 11.499 mls/hr Protocol Administration 5 MCG/KG/MIN Micafungin Sodium 100 mg/ 100 mls @ 100 mls/hr 10/01/17 17:00 Dextrose IV Q24H [facility] Insulin Aspart 0 unit 09/14/17 00:00 10/01/17 13:03 Novolog SC Not Given Q6H [facility] Protocol Insulin Glargine 10 unit 09/12/17 22:00 09/16/17 22:00 Lantus SC 10 unit HS [facility] Administration Lidocaine 1 ea 09/11/17 10:00 10/01/17 10:04 Lidoderm TD 1 ea DAILY [facility] Administration Multivitamins/Minerals 1 tab 09/11/17 10:00 10/01/17 10:03 Therapeutic-M Tab PO 1 tab DAILY [facility] Administration Mupirocin 0 gm 09/22/17 18:00 10/01/17 11:39 Bactroban Ointment TOP 1 applic BID [facility] Administration Nystatin 1 applic 09/17/17 12:00 10/01/17 10:14 Nystop Topical Powder TOP 1 applic BID [facility] Administration Ondansetron HCl 4 mg 09/11/17 02:50 Zofran Tab PO Q8H PRN Nausea/Vomiting Pantoprazole Sodium 40 mg 09/29/17 10:00 10/01/17 10:02 Protonix Susp PO 40 mg DAILY [facility] Administration Sennosides 8.6 mg 09/11/17 10:00 09/30/17 18:13 Senokot Tab PO 8.6 mg BID [facility] Administration Tamsulosin HCl 0.8 mg 09/12/17 10:00 10/01/17 10:03 Flomax PO 0.8 mg DAILY [facility] Administration - Patient Studies Lab Studies: Microbiology Studies 09/26/17 11:30 Blood Culture - Final Blood-Venous NO GROWTH AFTER 5 DAYS Gram Stain - Final TEST NOT PERFORMED 09/26/17 16:45 Blood Culture - Preliminary Blood-Venous NO GROWTH AFTER 4 DAYS 09/26/17 16:15 Blood Culture - Preliminary Blood-Venous NO GROWTH AFTER 4 DAYS Lab Studies 10/01/17 10/01/17 10/01/17 Range/Units 12:21 10:34 08:57 WBC (4.8-10.8) K/uL RBC (4.40-5.90) Mil/uL Hgb (12.0-18.0) g/dL Hct (35.0-51.0) % MCV (80.0-94.0) fL MCH (27.0-31.0) pg MCHC (33.0-37.0) g/dL RDW (11.5-14.5) % Plt Count (130-400) K/uL MPV (7.2-11.7) fL Neut % (Auto) (50.0-75.0) % Lymph % (Auto) (20.0-40.0) % [place] % (Auto) (0.0-10.0) % Eos % (Auto) (0.0-4.0) % Baso % (Auto) (0.0-2.0) % Neut # (1.8-7.0) K/uL Lymph # (1.0-4.3) K/uL [place] # (0.0-0.8) K/uL Eos # (0.0-0.7) K/uL Baso # (0.0-0.2) K/uL Neutrophils % (Manual) (50-75) % Band Neutrophils % (0-2) % Lymphocytes % (Manual) (20-40) % Monocytes % (Manual) (0-10) % Platelet Estimate (NORMAL) Polychromasia Hypochromasia (manual) Anisocytosis (manual) Target Cells [place] Cells PT 53.9 H* (9.7-12.2) SECONDS INR 4.4 APTT 43 H (21-34) SECONDS Puncture Site pCO2 (35-45) mm/Hg pO2 (80-100) mm/Hg HCO3 (21-28) mmol/L ABG pH (7.35-7.45) ABG Total CO2 (22-28) mmol/L ABG O2 Saturation (95-98) % ABG Base Excess (-2.0-3.0) mmol/L ABG Hemoglobin (11.7-17.4) g/dL ABG Carboxyhemoglobin (0.5-1.5) % POC ABG HHb (Measured) (0.0-5.0) % ABG Methemoglobin (0.0-3.0) % Elio Test A-a O2 Difference mm/Hg Respiratory Index Hgb O2 Saturation (95.0-98.0) % Vent Mode FiO2 % Inspiratory BiPAP Expiratory BiPAP Sodium (132-148) mmol/L Potassium (3.6-5.2) mmol/L Chloride (98-107) mmol/L Carbon Dioxide (22-30) mmol/L Anion Gap (10-20) BUN (9-20) mg/dL Creatinine (0.8-1.5) mg/dL Est GFR ( Amer) Est GFR (Non-Af Amer) POC Glucose (mg/dL) 116 H (65-110) mg/dL Random Glucose (75-110) mg/dL Lactic Acid 1.5 (0.7-2.1) mmol/L Calcium (8.6-10.4) mg/dl Phosphorus (2.5-4.5) mg/dL Magnesium (1.6-2.3) mg/dL Total Bilirubin (0.2-1.3) mg/dL AST (17-59) U/L ALT (21-72) U/L Alkaline Phosphatase (38-126) U/L Total Protein (6.3-8.3) g/dL Albumin (3.5-5.0) g/dL Globulin (2.2-3.9) gm/dL Albumin/Globulin Ratio (1.0-2.1) Urine Color (YELLOW) Urine Clarity (Clear) Urine pH (5.0-8.0) Ur Specific [place] (1.003-1.030) Urine Protein (NEGATIVE) mg/dL Urine Glucose (UA) (Normal) mg/dL Urine Ketones (NEGATIVE) mg/dL Urine Blood (NEGATIVE) Urine Nitrate (NEGATIVE) Urine Bilirubin (NEGATIVE) Urine Urobilinogen (0.2-1.0) mg/dL Ur Leukocyte Esterase (Negative) [place]/uL Urine WBC (Auto) (0-5) /hpf Urine RBC (Auto) (0-3) /hpf Ur Squamous Epith Cells (0-5) /hpf Urine Bacteria (<OCC) Hyaline Casts (0-2) /lpf Urine Yeast (Budding) (NEGATIVE) /hpf Ur Random Creatinine mg/dL Ur Random Sodium mmol/L 10/01/17 10/01/17 10/01/17 Range/Units 06:30 06:30 05:24 WBC 7.5 (4.8-10.8) K/uL RBC 3.39 L (4.40-5.90) Mil/uL Hgb 9.0 L (12.0-18.0) g/dL Hct 29.6 L (35.0-51.0) % MCV 87.3 (80.0-94.0) fL MCH 26.6 L (27.0-31.0) pg MCHC 30.4 L (33.0-37.0) g/dL RDW 18.4 H (11.5-14.5) % Plt Count 231 (130-400) K/uL MPV 11.7 (7.2-11.7) fL Neut % (Auto) 92.4 H (50.0-75.0) % Lymph % (Auto) 5.6 L (20.0-40.0) % [place] % (Auto) 1.7 (0.0-10.0) % Eos % (Auto) 0.1 (0.0-4.0) % Baso % (Auto) 0.2 (0.0-2.0) % Neut # 7.0 (1.8-7.0) K/uL Lymph # 0.4 L (1.0-4.3) K/uL [place] # 0.1 (0.0-0.8) K/uL Eos # 0.0 (0.0-0.7) K/uL Baso # 0.0 (0.0-0.2) K/uL Neutrophils % (Manual) 53 (50-75) % Band Neutrophils % 31 H* (0-2) % Lymphocytes % (Manual) 7 L (20-40) % Monocytes % (Manual) 9 (0-10) % Platelet Estimate Normal (NORMAL) Polychromasia Slight Hypochromasia (manual) Slight Anisocytosis (manual) Slight Target Cells Slight [place] Cells Slight PT (9.7-12.2) SECONDS INR APTT (21-34) SECONDS Puncture Site pCO2 (35-45) mm/Hg pO2 (80-100) mm/Hg HCO3 (21-28) mmol/L ABG pH (7.35-7.45) ABG Total CO2 (22-28) mmol/L ABG O2 Saturation (95-98) % ABG Base Excess (-2.0-3.0) mmol/L ABG Hemoglobin (11.7-17.4) g/dL ABG Carboxyhemoglobin (0.5-1.5) % POC ABG HHb (Measured) (0.0-5.0) % ABG Methemoglobin (0.0-3.0) % Elio Test A-a O2 Difference mm/Hg Respiratory Index Hgb O2 Saturation (95.0-98.0) % Vent Mode FiO2 % Inspiratory BiPAP Expiratory BiPAP Sodium 147 (132-148) mmol/L Potassium 4.0 (3.6-5.2) mmol/L Chloride 117 H (98-107) mmol/L Carbon Dioxide 18 L (22-30) mmol/L Anion Gap 16 (10-20) BUN 47 H (9-20) mg/dL Creatinine 2.0 H (0.8-1.5) mg/dL Est GFR ( Amer) 40 Est GFR (Non-Af Amer) 33 POC Glucose (mg/dL) 108 (65-110) mg/dL Random Glucose 92 (75-110) mg/dL Lactic Acid (0.7-2.1) mmol/L Calcium 8.4 L (8.6-10.4) mg/dl Phosphorus 3.6 (2.5-4.5) mg/dL Magnesium 1.8 (1.6-2.3) mg/dL Total Bilirubin 1.6 H (0.2-1.3) mg/dL AST 24 (17-59) U/L ALT 25 (21-72) U/L Alkaline Phosphatase 132 H (38-126) U/L Total Protein 7.7 (6.3-8.3) g/dL Albumin 2.3 L (3.5-5.0) g/dL Globulin 5.4 H (2.2-3.9) gm/dL Albumin/Globulin Ratio 0.4 L (1.0-2.1) Urine Color (YELLOW) Urine Clarity (Clear) Urine pH (5.0-8.0) Ur Specific [place] (1.003-1.030) Urine Protein (NEGATIVE) mg/dL Urine Glucose (UA) (Normal) mg/dL Urine Ketones (NEGATIVE) mg/dL Urine Blood (NEGATIVE) Urine Nitrate (NEGATIVE) Urine Bilirubin (NEGATIVE) Urine Urobilinogen (0.2-1.0) mg/dL Ur Leukocyte Esterase (Negative) [place]/uL Urine WBC (Auto) (0-5) /hpf Urine RBC (Auto) (0-3) /hpf Ur Squamous Epith Cells (0-5) /hpf Urine Bacteria (<OCC) Hyaline Casts (0-2) /lpf Urine Yeast (Budding) (NEGATIVE) /hpf Ur Random Creatinine mg/dL Ur Random Sodium mmol/L 10/01/17 10/01/17 10/01/17 Range/Units 04:56 00:20 00:20 WBC (4.8-10.8) K/uL RBC (4.40-5.90) Mil/uL Hgb (12.0-18.0) g/dL Hct (35.0-51.0) % MCV (80.0-94.0) fL MCH (27.0-31.0) pg MCHC (33.0-37.0) g/dL RDW (11.5-14.5) % Plt Count (130-400) K/uL MPV (7.2-11.7) fL Neut % (Auto) (50.0-75.0) % Lymph % (Auto) (20.0-40.0) % [place] % (Auto) (0.0-10.0) % Eos % (Auto) (0.0-4.0) % Baso % (Auto) (0.0-2.0) % Neut # (1.8-7.0) K/uL Lymph # (1.0-4.3) K/uL [place] # (0.0-0.8) K/uL Eos # (0.0-0.7) K/uL Baso # (0.0-0.2) K/uL Neutrophils % (Manual) (50-75) % Band Neutrophils % (0-2) % Lymphocytes % (Manual) (20-40) % Monocytes % (Manual) (0-10) % Platelet Estimate (NORMAL) Polychromasia Hypochromasia (manual) Anisocytosis (manual) Target Cells Ag Cells PT (9.7-12.2) SECONDS INR APTT (21-34) SECONDS Puncture Site L b pCO2 25 L (35-45) mm/Hg pO2 73 L (80-100) mm/Hg HCO3 20.9 L (21-28) mmol/L ABG pH 7.46 H (7.35-7.45) ABG Total CO2 18.6 L (22-28) mmol/L ABG O2 Saturation 97.6 (95-98) % ABG Base Excess -5.1 L (-2.0-3.0) mmol/L ABG Hemoglobin 8.8 L (11.7-17.4) g/dL ABG Carboxyhemoglobin 2.2 H (0.5-1.5) % POC ABG HHb (Measured) 2.3 (0.0-5.0) % ABG Methemoglobin 1.4 (0.0-3.0) % Elio Test Na A-a O2 Difference 181.0 mm/Hg Respiratory Index 2.5 Hgb O2 Saturation 94.0 L (95.0-98.0) % Vent Mode Bipap FiO2 40.0 % Inspiratory BiPAP 10 Expiratory BiPAP 5 Sodium (132-148) mmol/L Potassium (3.6-5.2) mmol/L Chloride (98-107) mmol/L Carbon Dioxide (22-30) mmol/L Anion Gap (10-20) BUN (9-20) mg/dL Creatinine (0.8-1.5) mg/dL Est GFR ( Amer) Est GFR (Non-Af Amer) POC Glucose (mg/dL) (65-110) mg/dL Random Glucose (75-110) mg/dL Lactic Acid (0.7-2.1) mmol/L Calcium (8.6-10.4) mg/dl Phosphorus (2.5-4.5) mg/dL Magnesium (1.6-2.3) mg/dL Total Bilirubin (0.2-1.3) mg/dL AST (17-59) U/L ALT (21-72) U/L Alkaline Phosphatase (38-126) U/L Total Protein (6.3-8.3) g/dL Albumin (3.5-5.0) g/dL Globulin (2.2-3.9) gm/dL Albumin/Globulin Ratio (1.0-2.1) Urine Color [place] (YELLOW) Urine Clarity Hazy (Clear) Urine pH 5.0 (5.0-8.0) Ur Specific [place] 1.041 H (1.003-1.030) Urine Protein 3+ H (NEGATIVE) mg/dL Urine Glucose (UA) 1+ H (Normal) mg/dL Urine Ketones Trace (NEGATIVE) mg/dL Urine Blood 3+ H (NEGATIVE) Urine Nitrate Negative (NEGATIVE) Urine Bilirubin 2+ H (NEGATIVE) Urine Urobilinogen Normal (0.2-1.0) mg/dL Ur Leukocyte Esterase 1+ H (Negative) [place]/uL Urine WBC (Auto) 15 H (0-5) /hpf Urine RBC (Auto) 48 H (0-3) /hpf Ur Squamous Epith Cells 1 (0-5) /hpf Urine Bacteria Rare (<OCC) Hyaline Casts 0-2 (0-2) /lpf Urine Yeast (Budding) Few H (NEGATIVE) /hpf Ur Random Creatinine 128.8 mg/dL Ur Random Sodium 9 mmol/L 09/30/17 09/30/17 Range/Units 23:53 18:18 WBC (4.8-10.8) K/uL RBC (4.40-5.90) Mil/uL Hgb (12.0-18.0) g/dL Hct (35.0-51.0) % MCV (80.0-94.0) fL MCH (27.0-31.0) pg MCHC (33.0-37.0) g/dL RDW (11.5-14.5) % Plt Count (130-400) K/uL MPV (7.2-11.7) fL Neut % (Auto) (50.0-75.0) % Lymph % (Auto) (20.0-40.0) % [place] % (Auto) (0.0-10.0) % Eos % (Auto) (0.0-4.0) % Baso % (Auto) (0.0-2.0) % Neut # (1.8-7.0) K/uL Lymph # (1.0-4.3) K/uL [place] # (0.0-0.8) K/uL Eos # (0.0-0.7) K/uL Baso # (0.0-0.2) K/uL Neutrophils % (Manual) (50-75) % Band Neutrophils % (0-2) % Lymphocytes % (Manual) (20-40) % Monocytes % (Manual) (0-10) % Platelet Estimate (NORMAL) Polychromasia Hypochromasia (manual) Anisocytosis (manual) Target Cells [place] Cells PT (9.7-12.2) SECONDS INR APTT (21-34) SECONDS Puncture Site pCO2 (35-45) mm/Hg pO2 (80-100) mm/Hg HCO3 (21-28) mmol/L ABG pH (7.35-7.45) ABG Total CO2 (22-28) mmol/L ABG O2 Saturation (95-98) % ABG Base Excess (-2.0-3.0) mmol/L ABG Hemoglobin (11.7-17.4) g/dL ABG Carboxyhemoglobin (0.5-1.5) % POC ABG HHb (Measured) (0.0-5.0) % ABG Methemoglobin (0.0-3.0) % Elio Test A-a O2 Difference mm/Hg Respiratory Index Hgb O2 Saturation (95.0-98.0) % Vent Mode FiO2 % Inspiratory BiPAP Expiratory BiPAP Sodium (132-148) mmol/L Potassium (3.6-5.2) mmol/L Chloride (98-107) mmol/L Carbon Dioxide (22-30) mmol/L Anion Gap (10-20) BUN (9-20) mg/dL Creatinine (0.8-1.5) mg/dL Est GFR ( Amer) Est GFR (Non-Af Amer) POC Glucose (mg/dL) 80 184 H (65-110) mg/dL Random Glucose (75-110) mg/dL Lactic Acid (0.7-2.1) mmol/L Calcium (8.6-10.4) mg/dl Phosphorus (2.5-4.5) mg/dL Magnesium (1.6-2.3) mg/dL Total Bilirubin (0.2-1.3) mg/dL AST (17-59) U/L ALT (21-72) U/L Alkaline Phosphatase (38-126) U/L Total Protein (6.3-8.3) g/dL Albumin (3.5-5.0) g/dL Globulin (2.2-3.9) gm/dL Albumin/Globulin Ratio (1.0-2.1) Urine Color (YELLOW) Urine Clarity (Clear) Urine pH (5.0-8.0) Ur Specific [place] (1.003-1.030) Urine Protein (NEGATIVE) mg/dL Urine Glucose (UA) (Normal) mg/dL Urine Ketones (NEGATIVE) mg/dL Urine Blood (NEGATIVE) Urine Nitrate (NEGATIVE) Urine Bilirubin (NEGATIVE) Urine Urobilinogen (0.2-1.0) mg/dL Ur Leukocyte Esterase (Negative) [place]/uL Urine WBC (Auto) (0-5) /hpf Urine RBC (Auto) (0-3) /hpf Ur Squamous Epith Cells (0-5) /hpf Urine Bacteria (<OCC) Hyaline Casts (0-2) /lpf Urine Yeast (Budding) (NEGATIVE) /hpf Ur Random Creatinine mg/dL Ur Random Sodium mmol/L Laboratory Results - last 24 hr 09/30/17 09/30/17 10/01/17 18:18 23:53 00:20 WBC RBC Hgb Hct MCV MCH MCHC RDW Plt Count MPV Neut % (Auto) Lymph % (Auto) [place] % (Auto) Eos % (Auto) Baso % (Auto) Neut # Lymph # [place] # Eos # Baso # Neutrophils % (Manual) Band Neutrophils % Lymphocytes % (Manual) Monocytes % (Manual) Platelet Estimate Polychromasia Hypochromasia (manual) Anisocytosis (manual) Target Cells [place] Cells PT INR APTT Puncture Site pCO2 pO2 HCO3 ABG pH ABG Total CO2 ABG O2 Saturation ABG Base Excess ABG Hemoglobin ABG Carboxyhemoglobin POC ABG HHb (Measured) ABG Methemoglobin Elio Test A-a O2 Difference Respiratory Index Hgb O2 Saturation Vent Mode FiO2 Inspiratory BiPAP Expiratory BiPAP Sodium Potassium Chloride Carbon Dioxide Anion Gap BUN Creatinine Est GFR ( Amer) Est GFR (Non-Af Amer) POC Glucose (mg/dL) 184 H 80 Random Glucose Lactic Acid Calcium Phosphorus Magnesium Total Bilirubin AST ALT Alkaline Phosphatase Total Protein Albumin Globulin Albumin/Globulin Ratio Urine Color Urine Clarity Urine pH Ur Specific [place] Urine Protein Urine Glucose (UA) Urine Ketones Urine Blood Urine Nitrate Urine Bilirubin Urine Urobilinogen Ur Leukocyte Esterase Urine WBC (Auto) Urine RBC (Auto) Ur Squamous Epith Cells Urine Bacteria Hyaline Casts Urine Yeast (Budding) Ur Random Creatinine 128.8 Ur Random Sodium 9 10/01/17 10/01/17 10/01/17 00:20 04:56 05:24 WBC RBC Hgb Hct MCV MCH MCHC RDW Plt Count MPV Neut % (Auto) Lymph % (Auto) [place] % (Auto) Eos % (Auto) Baso % (Auto) Neut # Lymph # [place] # Eos # Baso # Neutrophils % (Manual) Band Neutrophils % Lymphocytes % (Manual) Monocytes % (Manual) Platelet Estimate Polychromasia Hypochromasia (manual) Anisocytosis (manual) Target Cells [place] Cells PT INR APTT Puncture Site L b pCO2 25 L pO2 73 L HCO3 20.9 L ABG pH 7.46 H ABG Total CO2 18.6 L ABG O2 Saturation 97.6 ABG Base Excess -5.1 L ABG Hemoglobin 8.8 L ABG Carboxyhemoglobin 2.2 H POC ABG HHb (Measured) 2.3 ABG Methemoglobin 1.4 Elio Test Na A-a O2 Difference 181.0 Respiratory Index 2.5 Hgb O2 Saturation 94.0 L Vent Mode Bipap FiO2 40.0 Inspiratory BiPAP 10 Expiratory BiPAP 5 Sodium Potassium Chloride Carbon Dioxide Anion Gap BUN Creatinine Est GFR ( Amer) Est GFR (Non-Af Amer) POC Glucose (mg/dL) 108 Random Glucose Lactic Acid Calcium Phosphorus Magnesium Total Bilirubin AST ALT Alkaline Phosphatase Total Protein Albumin Globulin Albumin/Globulin Ratio Urine Color [place] Urine Clarity Hazy Urine pH 5.0 Ur Specific [place] 1.041 H Urine Protein 3+ H Urine Glucose (UA) 1+ H Urine Ketones Trace Urine Blood 3+ H Urine Nitrate Negative Urine Bilirubin 2+ H Urine Urobilinogen Normal Ur Leukocyte Esterase 1+ H Urine WBC (Auto) 15 H Urine RBC (Auto) 48 H Ur Squamous Epith Cells 1 Urine Bacteria Rare Hyaline Casts 0-2 Urine Yeast (Budding) Few H Ur Random Creatinine Ur Random Sodium 10/01/17 10/01/17 10/01/17 06:30 06:30 08:57 WBC 7.5 RBC 3.39 L Hgb 9.0 L Hct 29.6 L MCV 87.3 MCH 26.6 L MCHC 30.4 L RDW 18.4 H Plt Count 231 MPV 11.7 Neut % (Auto) 92.4 H Lymph % (Auto) 5.6 L [place] % (Auto) 1.7 Eos % (Auto) 0.1 Baso % (Auto) 0.2 Neut # 7.0 Lymph # 0.4 L [place] # 0.1 Eos # 0.0 Baso # 0.0 Neutrophils % (Manual) 53 Band Neutrophils % 31 H* Lymphocytes % (Manual) 7 L Monocytes % (Manual) 9 Platelet Estimate Normal Polychromasia Slight Hypochromasia (manual) Slight Anisocytosis (manual) Slight Target Cells Slight [place] Cells Slight PT 53.9 H* INR 4.4 APTT 43 H Puncture Site pCO2 pO2 HCO3 ABG pH ABG Total CO2 ABG O2 Saturation ABG Base Excess ABG Hemoglobin ABG Carboxyhemoglobin POC ABG HHb (Measured) ABG Methemoglobin Elio Test A-a O2 Difference Respiratory Index Hgb O2 Saturation Vent Mode FiO2 Inspiratory BiPAP Expiratory BiPAP Sodium 147 Potassium 4.0 Chloride 117 H Carbon Dioxide 18 L Anion Gap 16 BUN 47 H Creatinine 2.0 H Est GFR ( Amer) 40 Est GFR (Non-Af Amer) 33 POC Glucose (mg/dL) Random Glucose 92 Lactic Acid Calcium 8.4 L Phosphorus 3.6 Magnesium 1.8 Total Bilirubin 1.6 H AST 24 ALT 25 Alkaline Phosphatase 132 H Total Protein 7.7 Albumin 2.3 L Globulin 5.4 H Albumin/Globulin Ratio 0.4 L Urine Color Urine Clarity Urine pH Ur Specific [place] Urine Protein Urine Glucose (UA) Urine Ketones Urine Blood Urine Nitrate Urine Bilirubin Urine Urobilinogen Ur Leukocyte Esterase Urine WBC (Auto) Urine RBC (Auto) Ur Squamous Epith Cells Urine Bacteria Hyaline Casts Urine Yeast (Budding) Ur Random Creatinine Ur Random Sodium 10/01/17 10/01/17 10:34 12:21 WBC RBC Hgb Hct MCV MCH MCHC RDW Plt Count MPV Neut % (Auto) Lymph % (Auto) [place] % (Auto) Eos % (Auto) Baso % (Auto) Neut # Lymph # [place] # Eos # Baso # Neutrophils % (Manual) Band Neutrophils % Lymphocytes % (Manual) Monocytes % (Manual) Platelet Estimate Polychromasia Hypochromasia (manual) Anisocytosis (manual) Target Cells Ag Cells PT INR APTT Puncture Site pCO2 pO2 HCO3 ABG pH ABG Total CO2 ABG O2 Saturation ABG Base Excess ABG Hemoglobin ABG Carboxyhemoglobin POC ABG HHb (Measured) ABG Methemoglobin Elio Test A-a O2 Difference Respiratory Index Hgb O2 Saturation Vent Mode FiO2 Inspiratory BiPAP Expiratory BiPAP Sodium Potassium Chloride Carbon Dioxide Anion Gap BUN Creatinine Est GFR ( Amer) Est GFR (Non-Af Amer) POC Glucose (mg/dL) 116 H Random Glucose Lactic Acid 1.5 Calcium Phosphorus Magnesium Total Bilirubin AST ALT Alkaline Phosphatase Total Protein Albumin Globulin Albumin/Globulin Ratio Urine Color Urine Clarity Urine pH Ur Specific [place] Urine Protein Urine Glucose (UA) Urine Ketones Urine Blood Urine Nitrate Urine Bilirubin Urine Urobilinogen Ur Leukocyte Esterase Urine WBC (Auto) Urine RBC (Auto) Ur Squamous Epith Cells Urine Bacteria Hyaline Casts Urine Yeast (Budding) Ur Random Creatinine Ur Random Sodium Assessment/Plan (1) Acute respiratory failure Current Visit: Yes Status: Acute (2) Hypotension (arterial) Current Visit: Yes Status: Acute (3) CHF (congestive heart failure) Current Visit: Yes Status: Acute Attending/Attestation - Attestation I have personally seen and examined this patient.: Yes I have fully participated in the care of the patient.: Yes I have reviewed all pertinent clinical information: Yes Notes (Text): 10/01/17 15:48 Patient seen and examined. Case discussed with house staff in the morning rounds. Family requested for DNR/DNI and does not want hemodialysis Supportive care Transfer to floor
--- NOTE | 2017-10-01 15:12 | CP.PCM.CON ---
History of Present Illness - History of Present Illness History of Present Illness: 77 M w/ PMHx of multiple myeloma, HTN, CHF, and diabetes admitted to med/ surg on 09/11 for inability to urinate was reported to be tachypneic and tachycardic and rapid response was called with request for ICU evaluation. Patient previously had a rapid called for respiratory arrest and hypotension 09/14/17. Unable to obtain full ROS due to clinical situation and language barrier. History obtained from previous medicine notes. In ICU on antibiotics pt examined chart reviewed IV rx in progress PMHx: HTN, CHF, DM, multiple myeloma, BPH Psurghx: left hip surgery Socialhx: no tobacco, alcohol, drugs Review of Systems - Review of Systems Systems not reviewed;Unavailable: Altered Mental Status - Constitutional Constitutional: As Per HPI - EENT Eyes: absent: As Per HPI, Blind Spots, Blurred Vision, Change in Vision, Decreased Night Vision, Diplopia, Discharge, Dry Eye, Exophthalmos, Floaters, Irritation, Itchy Eyes, Loss of Peripheral Vision, Pain, Photophobia, Requires Corrective Lenses, Sees Flashes, Spots in Vision, Tunnel Vision, Other Visual Disturbances, Loss of Vision, Other Ears: absent: As Per HPI, Decreased Hearing, Ear Discharge, Ear Pain, Tinnitus, Abnormal Hearing, Disequilibrium, Dizziness, Other Nose/Mouth/Throat: absent: As Per HPI, Epistaxis, Nasal Congestion, Nasal Discharge, Nasal Obstruction, Nasal Trauma, Nose Pain, Post Nasal Drip, Sinus Pain, Sinus Pressure, Bleeding Gums, Change in Voice, Dental Pain, Dry Mouth, Dysphagia, Halitosis, Hoarsness, Lip Swelling, Mouth Lesions, Mouth Pain, Odynophagia, Sore Throat, Throat Swelling, Tongue Swelling, Facial Pain, Neck Pain, Neck Mass, Other - Cardiovascular Cardiovascular: As Per HPI - Respiratory Respiratory: As Per HPI - Gastrointestinal Gastrointestinal: absent: As Per HPI, Abdominal Pain, Belching, Bloating, Change in Bowel Habits, Change in Stool Character, Coffee Ground Emesis, Constipation, Cramping, Diarrhea, Dyspepsia, Dysphagia, Early Satiety, Excessive Flatus, Fecal Incontinence, Heartburn, Hematemesis, Hematochezia, Loose Stools, Melena, Nausea, Odynophagia, Temesmus, Vomiting, Other - Genitourinary Genitourinary: As Per HPI - Musculoskeletal Musculoskeletal: absent: As Per HPI, Abnormal Gait, Arthralgias, Atrophy, Back Pain, Deformity, Joint Swelling, Limited Range of Motion, Loss of Height, Muscle Cramps, Muscle Weakness, Myalgias, Neck Pain, Numbness, Radiating Pain into Limb, Stiffness, Tingling, Other - Integumentary Integumentary: absent: As Per HPI, Acne, Alopecia, Bleeding Lesions, Change in Hair, Change in Nails, Change in Pigmentation, Changing Lesions, Dry Skin, Erythema, Furuncle, Hirsutism, Lesions, New Lesions, Non-Healing Lesions, Photosensitivity, Pruritus, Rash, Skin Pain, Skin Ulcer, Sores, Striae, Swelling , Unusual Bruising, Wounds, Jaundice, Other - Neurological Neurological: absent: As Per HPI, Abnormal Gait, Abnormal Hearing, Abnormal Movements, Abnormal Speech, Behavioral Changes, Burning Sensations, Confusion, Convulsions, Disequilibrium, Dizziness, Numbness, Focal Weakness, Frequent Falls , Headaches, Lack of Coordination, Loss of Vision, Memory Loss, Paresthesias, Radicular Pain, Restless Legs, Sensory Deficit, Syncope, Tingling, Tremor, Vertigo, Weakness, Other Visual Disturbances, Other - Psychiatric Psychiatric: absent: As Per HPI, Abnormal Sleep Pattern, Anhedonia, Anxiety, Auditory Hallucinations, Behavioral Changes, Change in Appetite, Change in Libido, Confusion, Depression, Difficulty Concentrating, Hallucinations, Homicidal Ideation, Hopelessness, Irritability, Memory Loss, Mood Swings, Panic Attacks, Paranoia, Suicidal Ideation, Visual Hallucinations, Tactile Hallucinations, Other - Endocrine Endocrine: absent: As Per HPI, Change in Body Appearance, Change in Libido, Cold Intolorance, Deepening of Voice, Excessive Sweating, Fatigue, Flushing, Heat Intolorance, Increase in Ring/Shoe/Hat Size, Palpitations, Polydipsia, Polyphagia, Polyuria, Other - Hematologic/Lymphatic Hematologic: absent: As Per HPI, Easy Bleeding, Easy Bruising, Lymphadenopathy, Other Past Patient History - Past Medical History & Family History Past Medical History?: Yes - Past Social History Smoking Status: Never Smoked - CARDIAC Hx Congestive Heart Failure: Yes Hx Hypertension: Yes - ENDOCRINE/METABOLIC Hx Diabetes Mellitus Type 2: Yes - HEMATOLOGICAL/ONCOLOGICAL Hx Anemia: Yes - MUSCULOSKELETAL/RHEUMATOLOGICAL Hx Falls: Yes - PSYCHIATRIC Hx Substance Use: No - SURGICAL HISTORY Hx Surgeries: Yes Hx Vascular Surgery: Yes Hx Vascular Access Device: Yes (Rt subc port-a-cath) Other/Comment: Left femur fracture MAY 2017. Rt [place]c [place] [facility] [place] Anesthesia: Yes Hx Anesthesia Reactions: No Meds Allergies/Adverse Reactions: Allergies Allergy/AdvReac Type Severity Reaction Status Date / Time No Known Allergies Allergy Verified 08/30/17 13:30 - Medications Medications: Current Medications Acetaminophen (Tylenol 325mg Tab) 325 mg PO Q6 PRN PRN Reason: Fever >100.4 F Acetaminophen (Tylenol 325mg Tab) 650 mg PO Q4 PRN PRN Reason: Pain, moderate (4-7) Last Admin: 09/22/17 22:00 Dose: 650 mg Apixaban (Eliquis) 5 mg PO BID [facility] Last Admin: 09/23/17 10:58 Dose: Not Given Carvedilol (Coreg) 3.125 mg PO BID [facility] Last Admin: 10/01/17 10:02 Dose: 3.125 mg Emollient Ointment (Vaseline Oint) 5 gm TOP Q8H PRN PRN Reason: Dry skin Last Admin: 10/01/17 10:05 Dose: 5 gm Furosemide (Lasix) 20 mg IVP Q12 [facility] Last Admin: 10/01/17 10:04 Dose: 20 mg Cefepime HCl (Maxipime Iv 1 Gm Premix) 1 gm in 50 mls @ 100 mls/hr IVPB Q12H [facility] Last Admin: 10/01/17 11:37 Dose: 100 mls/hr Norepinephrine Bitartrate 8 mg (/ Dextrose) 258 mls @ 7.74 mls/hr IV .Q24H PRN ; Protocol; 4 MCG/MIN PRN Reason: TITRATE PER MD ORDER Last Admin: 10/01/17 05:35 Dose: 9.71 mcg/min, 18.8 mls/hr Dobutamine HCl/Dextrose (Dobutamine/Dextrose 5% 500mg/250ml) 500 mg in 250 mls @ 11.499 mls/hr IV .[id number] PRN; 5 MCG/KG/MIN PRN Reason: Protocol Last Admin: 10/01/17 07:50 Dose: 5 mcg/kg/min, 11.499 mls/hr Insulin Aspart (Novolog) 0 unit SC Q6H [facility] PRN Reason: Protocol Last Admin: 10/01/17 13:03 Dose: Not Given Insulin Glargine (Lantus) 10 unit SC HS [facility] Last Admin: 09/16/17 22:00 Dose: 10 unit Lidocaine (Lidoderm) 1 ea TD DAILY [facility] Last Admin: 10/01/17 10:04 Dose: 1 ea Multivitamins/Minerals (Therapeutic-M Tab) 1 tab PO DAILY [facility] Last Admin: 10/01/17 10:03 Dose: 1 tab Mupirocin (Bactroban Ointment) 0 gm TOP BID [facility] Last Admin: 10/01/17 11:39 Dose: 1 applic Nystatin (Nystop Topical Powder) 1 applic TOP BID [facility] Last Admin: 10/01/17 10:14 Dose: 1 applic Ondansetron HCl (Zofran Tab) 4 mg PO Q8H PRN PRN Reason: Nausea/Vomiting Pantoprazole Sodium (Protonix Susp) 40 mg PO DAILY [facility] Last Admin: 10/01/17 10:02 Dose: 40 mg Sennosides (Senokot Tab) 8.6 mg PO BID [facility] Last Admin: 09/30/17 18:13 Dose: 8.6 mg Tamsulosin HCl (Flomax) 0.8 mg PO DAILY [facility] Last Admin: 10/01/17 10:03 Dose: 0.8 mg Physical Exam - Constitutional Appears: Confused, Cachectic, Chronically Ill - Head Exam Head Exam: ATRAUMATIC, NORMAL INSPECTION, NORMOCEPHALIC - Eye Exam Eye Exam: PERRL. absent: Scleral icterus - ENT Exam ENT Exam: Mucous Membranes Dry, Normal External Ear Exam - Neck Exam Neck exam: Negative for: Lymphadenopathy - Respiratory Exam Respiratory Exam: Decreased Breath Sounds, Rhonchi - Cardiovascular Exam Cardiovascular Exam: Tachycardia, REGULAR RHYTHM, +S1, +S2 - GI/Abdominal Exam GI & Abdominal Exam: Diminished Bowel Sounds, Distended, Soft. absent: Tenderness - Rectal Exam Rectal Exam: Deferred - Exam Exam: NORMAL INSPECTION - Extremities Exam Extremities exam: Positive for: pedal pulses present. Negative for: calf tenderness, pedal edema, tenderness - Back Exam Back exam: absent: CVA tenderness (L), CVA tenderness (R), paraspinal tenderness - Neurological Exam Neurological exam: Alert, Altered, CN II-XII Intact - Psychiatric Exam Psychiatric exam: Depressed - Skin Skin Exam: Dry, Intact Results - Vital Signs Recent Vital Signs: Last Vital Signs Temp 98 F 10/01/17 08:00 Pulse 107 H 10/01/17 13:43 Resp 40 H 10/01/17 12:00 BP 101/66 10/01/17 11:55 Pulse Ox 99 10/01/17 12:00 - Labs Result Diagrams: 10/01/17 06:30 10/01/17 06:30 Labs: Laboratory Results - last 24 hr 09/30/17 09/30/17 10/01/17 18:18 23:53 00:20 WBC RBC Hgb Hct MCV MCH MCHC RDW Plt Count MPV Neut % (Auto) Lymph % (Auto) [place] % (Auto) Eos % (Auto) Baso % (Auto) Neut # Lymph # [place] # Eos # Baso # Neutrophils % (Manual) Band Neutrophils % Lymphocytes % (Manual) Monocytes % (Manual) Platelet Estimate Polychromasia Hypochromasia (manual) Anisocytosis (manual) Target Cells Ag Cells PT INR APTT Puncture Site pCO2 pO2 HCO3 ABG pH ABG Total CO2 ABG O2 Saturation ABG Base Excess ABG Hemoglobin ABG Carboxyhemoglobin POC ABG HHb (Measured) ABG Methemoglobin Elio Test A-a O2 Difference Respiratory Index Hgb O2 Saturation Vent Mode FiO2 Inspiratory BiPAP Expiratory BiPAP Sodium Potassium Chloride Carbon Dioxide Anion Gap BUN Creatinine Est GFR ( Amer) Est GFR (Non-Af Amer) POC Glucose (mg/dL) 184 H 80 Random Glucose Lactic Acid Calcium Phosphorus Magnesium Total Bilirubin AST ALT Alkaline Phosphatase Total Protein Albumin Globulin Albumin/Globulin Ratio Urine Color Urine Clarity Urine pH Ur Specific [place] Urine Protein Urine Glucose (UA) Urine Ketones Urine Blood Urine Nitrate Urine Bilirubin Urine Urobilinogen Ur Leukocyte Esterase Urine WBC (Auto) Urine RBC (Auto) Ur Squamous Epith Cells Urine Bacteria Hyaline Casts Urine Yeast (Budding) Ur Random Creatinine 128.8 Ur Random Sodium 9 10/01/17 10/01/17 10/01/17 00:20 04:56 05:24 WBC RBC Hgb Hct MCV MCH MCHC RDW Plt Count MPV Neut % (Auto) Lymph % (Auto) [place] % (Auto) Eos % (Auto) Baso % (Auto) Neut # Lymph # [place] # Eos # Baso # Neutrophils % (Manual) Band Neutrophils % Lymphocytes % (Manual) Monocytes % (Manual) Platelet Estimate Polychromasia Hypochromasia (manual) Anisocytosis (manual) Target Cells Ag Cells PT INR APTT Puncture Site L b pCO2 25 L pO2 73 L HCO3 20.9 L ABG pH 7.46 H ABG Total CO2 18.6 L ABG O2 Saturation 97.6 ABG Base Excess -5.1 L ABG Hemoglobin 8.8 L ABG Carboxyhemoglobin 2.2 H POC ABG HHb (Measured) 2.3 ABG Methemoglobin 1.4 Elio Test Na A-a O2 Difference 181.0 Respiratory Index 2.5 Hgb O2 Saturation 94.0 L Vent Mode Bipap FiO2 40.0 Inspiratory BiPAP 10 Expiratory BiPAP 5 Sodium Potassium Chloride Carbon Dioxide Anion Gap BUN Creatinine Est GFR ( Amer) Est GFR (Non-Af Amer) POC Glucose (mg/dL) 108 Random Glucose Lactic Acid Calcium Phosphorus Magnesium Total Bilirubin AST ALT Alkaline Phosphatase Total Protein Albumin Globulin Albumin/Globulin Ratio Urine Color [place] Urine Clarity Hazy Urine pH 5.0 Ur Specific [place] 1.041 H Urine Protein 3+ H Urine Glucose (UA) 1+ H Urine Ketones Trace Urine Blood 3+ H Urine Nitrate Negative Urine Bilirubin 2+ H Urine Urobilinogen Normal Ur Leukocyte Esterase 1+ H Urine WBC (Auto) 15 H Urine RBC (Auto) 48 H Ur Squamous Epith Cells 1 Urine Bacteria Rare Hyaline Casts 0-2 Urine Yeast (Budding) Few H Ur Random Creatinine Ur Random Sodium 10/01/17 10/01/17 10/01/17 06:30 06:30 08:57 WBC 7.5 RBC 3.39 L Hgb 9.0 L Hct 29.6 L MCV 87.3 MCH 26.6 L MCHC 30.4 L RDW 18.4 H Plt Count 231 MPV 11.7 Neut % (Auto) 92.4 H Lymph % (Auto) 5.6 L [place] % (Auto) 1.7 Eos % (Auto) 0.1 Baso % (Auto) 0.2 Neut # 7.0 Lymph # 0.4 L [place] # 0.1 Eos # 0.0 Baso # 0.0 Neutrophils % (Manual) 53 Band Neutrophils % 31 H* Lymphocytes % (Manual) 7 L Monocytes % (Manual) 9 Platelet Estimate Normal Polychromasia Slight Hypochromasia (manual) Slight Anisocytosis (manual) Slight Target Cells Slight [place] Cells Slight PT 53.9 H* INR 4.4 APTT 43 H Puncture Site pCO2 pO2 HCO3 ABG pH ABG Total CO2 ABG O2 Saturation ABG Base Excess ABG Hemoglobin ABG Carboxyhemoglobin POC ABG HHb (Measured) ABG Methemoglobin Elio Test A-a O2 Difference Respiratory Index Hgb O2 Saturation Vent Mode FiO2 Inspiratory BiPAP Expiratory BiPAP Sodium 147 Potassium 4.0 Chloride 117 H Carbon Dioxide 18 L Anion Gap 16 BUN 47 H Creatinine 2.0 H Est GFR ( Amer) 40 Est GFR (Non-Af Amer) 33 POC Glucose (mg/dL) Random Glucose 92 Lactic Acid Calcium 8.4 L Phosphorus 3.6 Magnesium 1.8 Total Bilirubin 1.6 H AST 24 ALT 25 Alkaline Phosphatase 132 H Total Protein 7.7 Albumin 2.3 L Globulin 5.4 H Albumin/Globulin Ratio 0.4 L Urine Color Urine Clarity Urine pH Ur Specific [place] Urine Protein Urine Glucose (UA) Urine Ketones Urine Blood Urine Nitrate Urine Bilirubin Urine Urobilinogen Ur Leukocyte Esterase Urine WBC (Auto) Urine RBC (Auto) Ur Squamous Epith Cells Urine Bacteria Hyaline Casts Urine Yeast (Budding) Ur Random Creatinine Ur Random Sodium 10/01/17 10/01/17 10:34 12:21 WBC RBC Hgb Hct MCV MCH MCHC RDW Plt Count MPV Neut % (Auto) Lymph % (Auto) [place] % (Auto) Eos % (Auto) Baso % (Auto) Neut # Lymph # [place] # Eos # Baso # Neutrophils % (Manual) Band Neutrophils % Lymphocytes % (Manual) Monocytes % (Manual) Platelet Estimate Polychromasia Hypochromasia (manual) Anisocytosis (manual) Target Cells Ag Cells PT INR APTT Puncture Site pCO2 pO2 HCO3 ABG pH ABG Total CO2 ABG O2 Saturation ABG Base Excess ABG Hemoglobin ABG Carboxyhemoglobin POC ABG HHb (Measured) ABG Methemoglobin Elio Test A-a O2 Difference Respiratory Index Hgb O2 Saturation Vent Mode FiO2 Inspiratory BiPAP Expiratory BiPAP Sodium Potassium Chloride Carbon Dioxide Anion Gap BUN Creatinine Est GFR ( Amer) Est GFR (Non-Af Amer) POC Glucose (mg/dL) 116 H Random Glucose Lactic Acid 1.5 Calcium Phosphorus Magnesium Total Bilirubin AST ALT Alkaline Phosphatase Total Protein Albumin Globulin Albumin/Globulin Ratio Urine Color Urine Clarity Urine pH Ur Specific [place] Urine Protein Urine Glucose (UA) Urine Ketones Urine Blood Urine Nitrate Urine Bilirubin Urine Urobilinogen Ur Leukocyte Esterase Urine WBC (Auto) Urine RBC (Auto) Ur Squamous Epith Cells Urine Bacteria Hyaline Casts Urine Yeast (Budding) Ur Random Creatinine Ur Random Sodium Assessment & Plan (1) Acute respiratory failure Status: Acute (2) CHF (congestive heart failure) Status: Acute (3) Edema Status: Acute (4) Hypotension (arterial) Status: Acute (5) Urinary retention Status: Acute (6) Altered mental status Status: Acute (7) CHF (congestive heart failure), NYHA class III Status: Acute (8) Multiple myeloma in relapse Status: Acute (9) Pneumonia Status: Acute (10) UTI (urinary tract infection) Status: Acute - Assessment and Plan (Free Text) Assessment: await cultures IV antibiotics adjusted
--- NOTE | 2017-10-01 15:21 | PN ---
LOCATION: ICU #9. SUBJECTIVE: This 77-year-old male is seen and examined today in rounds with , the resource efficiency manager, as well as the nursing staff in the floor, in the Intensive Care Unit, without significant clinical changes, appears to be mildly lethargic, still on BiPAP with FiO2 40%. PEG tube in place with continuous feeding, that is to be changed to be feeding for 6 hours on, 2 hours off. No reported active bleeding, no resistance, and no residuals; however, the patient had intermittent period of vomiting for which the feeding has to be interrupted on and off. Entire chart is reviewed including but not limited to the most recent lab and radiology study results, current and previous medication list, current and previous medical events, and today's labs showed hemoglobin of 9.0, hematocrit 29.6 with normal platelet counts with increased PT again to 53.9, PTT 43, INR 4.4. ABG is still abnormal. The patient still has low CO2 content of 18 indicative of metabolic acidosis with increased BUN 47, creatinine 2.0, and calcium 8.4 with increased albumin of 2.3. Most recent chest x-ray done today, report is seen with evidence of stable right pleural effusion with right upper lobe pneumonia. PHYSICAL EXAMINATION: GENERAL: A 77-year-old male, appears to be awake. VITAL SIGNS: Afebrile with pulse of 108 and blood pressure 110/64. Respiratory rate reported to be 26 to 28. HEENT: Showed pale dry oral mucous membranes. Anicteric sclera. The patient is still on Ventimask. HEART: Positive S1 and S2 with increased rate. ABDOMEN: Soft with slight distention. PEG tube is placed with well-formed stoma. No rebound tenderness or guarding. EXTREMITIES: Without significant clubbing, cyanosis, or edema. NEUROLOGIC: No reported new neurological deficit, sensory or motor. IMPRESSION: 1. Failure to thrive. 2. Hypoalbuminemia. 3. Malnutrition. 4. Status post percutaneous endoscopic gastrostomy insertion. 5. Peptic ulcer disease. 6. Aspiration pneumonia, slightly improving. 7. Known history of diabetes mellitus. 8. Known history of hypertension, congestive heart failure as well as atrial fibrillation. 9. Coagulopathy, drug induced. 10. Renal insufficiency with dehydration. 11. Metabolic acidosis secondary to most likely infectious process and above. 12. Anemia secondary to above. 13. Reported history of status post left hip surgery, history of benign prostatic hypertrophy. SUGGESTIONS: 1. Agree with your plan. 2. Subsequent and slow increase of rate of feeding. This feeding has to be 6 hours on and 2 hours off to avoid any potential further aspiration. The patient might have diabetic gastroparesis. 3. Reglan IV 5 mg q. 8 hours. We will follow up closely with you. Elissa Roman MD
[2017-10-01] MEDS ORDERED: DOBUTamine 500mg/250ml D5W 500 MG/250 ML BAG IV SCH (16:00)
[2017-10-01] MEDS ORDERED: Micafungin 100 MG in Dextrose 5% In Water 100 ML IV SCH (17:00)
[2017-10-02] MEDS: (Novolog) Insulin Aspart, Recombinant 100 u/ml 10 ml vial SC SCH (00:05)
[2017-10-02 00:47] VITALS: TEMP 97.4
[2017-10-02 06:02] VITALS: BP 85/52; PULSE 76; RESP 0; O2SAT 99
--- NOTE | 2017-10-02 06:22 | CP.PCM.PN ---
Subjective - Date & Time of Evaluation Date of Evaluation: 10/02/17 Time of Evaluation: 06:21 - Subjective Subjective: pt was on bipap become distress developed asystole and pronounced at 5.15am pmd informed PT is DNR Objective - Vital Signs/Intake and Output Vital Signs (last 24 hours): Temp Pulse Resp BP Pulse Ox 97.4 F L 76 0 L 85/52 L 99 10/02/17 00:00 10/02/17 04:05 10/02/17 05:00 10/02/17 04:05 10/02/17 04:00 Intake and Output: 10/01/17 10/02/17 18:59 06:59 Intake Total 1100.9 642.6 Output Total 35 5 Balance 1065.9 637.6 - Medications Medications: Current Medications Acetaminophen (Tylenol 325mg Tab) 325 mg PO Q6 PRN PRN Reason: Fever >100.4 F Acetaminophen (Tylenol 325mg Tab) 650 mg PO Q4 PRN PRN Reason: Pain, moderate (4-7) Last Admin: 09/22/17 22:00 Dose: 650 mg Apixaban (Eliquis) 5 mg PO BID [facility] Last Admin: 09/23/17 10:58 Dose: Not Given Carvedilol (Coreg) 3.125 mg PO BID [facility] Last Admin: 10/01/17 17:16 Dose: 3.125 mg Emollient Ointment (Vaseline Oint) 5 gm TOP Q8H PRN PRN Reason: Dry skin Last Admin: 10/01/17 10:05 Dose: 5 gm Furosemide (Lasix) 20 mg IVP Q12 [facility] Last Admin: 10/01/17 22:14 Dose: Not Given Cefepime HCl (Maxipime Iv 1 Gm Premix) 1 gm in 50 mls @ 100 mls/hr IVPB Q12H [facility] Last Admin: 10/01/17 22:15 Dose: 100 mls/hr Norepinephrine Bitartrate 8 mg (/ Dextrose) 258 mls @ 7.74 mls/hr IV .Q24H PRN ; Protocol; 4 MCG/MIN PRN Reason: TITRATE PER MD ORDER Last Admin: 10/02/17 01:49 Dose: 17 mcg/min, 32.89 mls/hr Micafungin Sodium 100 mg/ (Dextrose) 100 mls @ 100 mls/hr IV Q24H [facility] Last Admin: 10/01/17 16:21 Dose: 100 mls/hr Dobutamine HCl/Dextrose (Dobutamine/Dextrose 5% 500mg/250ml) 500 mg in 250 mls @ 10.827 mls/hr IV .Q23H6M [facility]; 5 MCG/KG/MIN PRN Reason: Protocol Last Admin: 10/01/17 16:15 Dose: 5 mcg/kg/min, 10.827 mls/hr Insulin Aspart (Novolog) 0 unit SC Q6H [facility] PRN Reason: Protocol Last Admin: 10/02/17 00:05 Dose: Not Given Insulin Glargine (Lantus) 10 unit SC HS [facility] Last Admin: 09/16/17 22:00 Dose: 10 unit Lidocaine (Lidoderm) 1 ea TD DAILY [facility] Last Admin: 10/01/17 10:04 Dose: 1 ea Multivitamins/Minerals (Therapeutic-M Tab) 1 tab PO DAILY [facility] Last Admin: 10/01/17 10:03 Dose: 1 tab Mupirocin (Bactroban Ointment) 0 gm TOP BID [facility] Last Admin: 10/01/17 17:18 Dose: 1 applic Nystatin (Nystop Topical Powder) 1 applic TOP BID [facility] Last Admin: 10/01/17 17:18 Dose: 1 applic Ondansetron HCl (Zofran Tab) 4 mg PO Q8H PRN PRN Reason: Nausea/Vomiting Pantoprazole Sodium (Protonix Susp) 40 mg PO DAILY [facility] Last Admin: 10/01/17 10:02 Dose: 40 mg Sennosides (Senokot Tab) 8.6 mg PO BID [facility] Last Admin: 10/01/17 10:00 Dose: 8.6 mg Tamsulosin HCl (Flomax) 0.8 mg PO DAILY [facility] Last Admin: 10/01/17 10:03 Dose: 0.8 mg - Labs Labs: 10/01/17 06:30 10/01/17 06:30 PT 53.9 SECONDS (9.7-12.2) H* 10/01/17 08:57 INR 4.4 10/01/17 08:57 APTT 43 SECONDS (21-34) H 10/01/17 08:57
--- NOTE | 2017-10-02 07:01 | PN ---
DATE OF SERVICE: 10/01/2017 Patient is in ICU, prognosis is poor, urine output decreased, following a consult. Kati Shaver MD
--- NOTE | 2017-10-03 09:41 | DS ---
HISTORY OF PRESENT ILLNESS: Mr. Jarquin was admitted to the hospital with a chief complaint of shortness of breath, weakness,and fatigue. Patient was found to have pneumonia and CHF. Patient started supportive care with diuresis. Patient had postoperative course requiring intubation aggressive measures, patient . DIAGNOSES: Multiple myeloma, heart failure, pneumonia, renal failure. Kati Shaver MD
== END 2017-10-02 05:15 | DRG 291 ==
LOC: C.ER 00:05 → EEVIPCON 02:33 → C.6T 02:33 → C.9I 09-13 17:37 → C.3T 09-18 22:35 → C.9I 09-26 12:51
PROVIDERS: ADMIT Internal Medicine Pulmonary Disease; ATTEND Internal Medicine Pulmonary Disease
PROC: 5A1945Z Respiratory Ventilation, 24-96 Consecutive Hours (ICD-10-PCS; principal; 2017-09-13)
PROC: 0BH17EZ Insertion of Endotracheal Airway into Trachea, Via Natural or Artificial Opening (ICD-10-PCS; 2017-09-13)
PROC: 3E0G76Z Introduction of Nutritional Substance into Upper GI, Via Natural or Artificial Opening (ICD-10-PCS; 2017-09-14)
PROC: 0DH68UZ Insertion of Feeding Device into Stomach, Via Natural or Artificial Opening Endoscopic (ICD-10-PCS; 2017-09-24)
PROC: 30233K1 Transfusion of Nonautologous Frozen Plasma into Peripheral Vein, Percutaneous Approach (ICD-10-PCS; 2017-09-24)
DX: I11.0 Hypertensive heart disease with heart failure (principal); I50.23 Acute on chronic systolic (congestive) heart failure; J69.0 Pneumonitis due to inhalation of food and vomit; J96.00 Acute respiratory failure, unspecified whether with hypoxia or hypercapnia; A41.9 Sepsis, unspecified organism; R65.21 Severe sepsis with septic shock; R57.0 Cardiogenic shock; E87.2 Acidosis; N17.9 Acute kidney failure, unspecified; E86.0 Dehydration; E46 Unspecified protein-calorie malnutrition; B37.81 Candidal esophagitis; D68.9 Coagulation defect, unspecified; C90.00 Multiple myeloma not having achieved remission; E11.65 Type 2 diabetes mellitus with hyperglycemia; F03.90 Unspecified dementia, unspecified severity, without behavioral disturbance, psychotic disturbance, mood disturbance, and anxiety; E77.8 Other disorders of glycoprotein metabolism; I48.2 Chronic atrial fibrillation; I42.9 Cardiomyopathy, unspecified; K27.9 Peptic ulcer, site unspecified, unspecified as acute or chronic, without hemorrhage or perforation; R13.10 Dysphagia, unspecified; E87.5 Hyperkalemia; R62.7 Adult failure to thrive; R47.02 Dysphasia; R33.8 Other retention of urine; N48.89 Other specified disorders of penis; N40.1 Benign prostatic hyperplasia with lower urinary tract symptoms; I46.9 Cardiac arrest, cause unspecified; I37.1 Nonrheumatic pulmonary valve insufficiency; E87.6 Hypokalemia; D64.9 Anemia, unspecified; N50.89 Other specified disorders of the male genital organs; Z66 Do not resuscitate; Z51.5 Encounter for palliative care; Z85.830 Personal history of malignant neoplasm of bone